=== PATIENT | male | born 1950 | race Caucasian/White ===

== ENCOUNTER 2018-07-13 05:27 | Outpatient (CLI) | payer MEDICARE, SELFPAY | END 2018-07-13 05:47 | LOC: PUL 10:19 → PRC 10:40 → RT 13:24 | PROVIDERS: PCP Family Medicine; Visit Provider Family Medicine | DX: J44.9 Chronic obstructive pulmonary disease, unspecified (principal); Z51.89 Encounter for other specified aftercare | CPT/HCPCS: G0424 ==

== ENCOUNTER 2018-07-13 13:17 | Outpatient (RCR) | payer MEDICARE, SELFPAY | END 2018-08-11 23:59 | disposition home or self-care (01) | LOC: PUL 13:17 | PROVIDERS: PCP Family Medicine; Visit Provider Family Medicine | DX: J44.9 Chronic obstructive pulmonary disease, unspecified (principal); Z51.89 Encounter for other specified aftercare | CPT/HCPCS: G0424 ==

== ENCOUNTER 2018-09-09 10:06 | Outpatient (RCR) | payer MEDICARE, SELFPAY | END 2018-10-09 23:59 | disposition home or self-care (01) | LOC: PUL 10:06 | PROVIDERS: PCP Family Medicine; Visit Provider Family Medicine | DX: J44.9 Chronic obstructive pulmonary disease, unspecified (principal); Z51.89 Encounter for other specified aftercare | CPT/HCPCS: G0424 ==

== ENCOUNTER 2018-09-10 15:19 | Outpatient (RCR) | payer MEDICARE, SELFPAY | END 2018-10-09 23:59 | disposition home or self-care (01) | LOC: COCO 15:19 | PROVIDERS: PCP Family Medicine; Visit Provider Family Medicine | DX: J44.9 Chronic obstructive pulmonary disease, unspecified (principal); Z51.89 Encounter for other specified aftercare | CPT/HCPCS: G0424 ==

== ENCOUNTER 2018-10-10 05:47 | Outpatient (RCR) | payer MEDICARE, SELFPAY | END 2018-11-08 23:59 | disposition home or self-care (01) | LOC: PUL 05:47 | PROVIDERS: PCP Family Medicine; Visit Provider Family Medicine | DX: J44.9 Chronic obstructive pulmonary disease, unspecified (principal) | CPT/HCPCS: G0424 ==

== ENCOUNTER 2018-11-09 04:37 | Outpatient (RCR) | payer MEDICARE, SELFPAY | END 2018-12-09 23:59 | disposition home or self-care (01) | LOC: PUL 04:37 | PROVIDERS: PCP Family Medicine; Visit Provider Family Medicine | DX: J44.9 Chronic obstructive pulmonary disease, unspecified (principal); Z51.89 Encounter for other specified aftercare | CPT/HCPCS: G0424 ==

== ENCOUNTER 2019-04-11 01:40 | Outpatient (CLI) | payer MEDICARE, SELFPAY ==
[2019-04-11 10:52] LABS: Anion Gap 9.7 mmol/L (3-11); BUN 26 mg/dL (7-18); CO2 26.3 mmol/L (21.0-32.0); CREATININE 1.76 mg/dL (0.70-1.30); Calcium 9.1 mg/dL (8.5-10.1); Calculated LDL 100 mg/dL; Chloride 105 mmol/L (98-107); Cholesterol 157 mg/dL (50-200); Estimated GFR 38.36 (mL/min/1.73m2); Glucose 103 mg/dL (70-100); HDL Cholesterol 43 mg/dL (40-60); Sodium 141 mmol/L (136-145); Triglyceride 74 mg/dL (30-150)
== END 2019-04-11 02:00 ==
PROVIDERS: PCP Family Medicine; Visit Provider Family Medicine
DX: E78.5 Hyperlipidemia, unspecified (principal); I10 Essential (primary) hypertension
CPT/HCPCS: 36415; 80048; 80061

== ENCOUNTER 2019-05-08 14:17 | Emergency (ER) | payer MEDICARE, SELFPAY ==
[2019-05-08 14:20] VITALS: BP 152/91; PULSE 90; RESP 20; TEMP 36.8; O2SAT 95
--- NOTE | 2019-05-08 14:40 | ED.GENADUL_ITS ---
Discharge Plan Disposition Patient Disposition: HOME Condition: Stable Discharge Details Chief Complaint: Orthopedic Clinical Impression: Shoulder pain Primary Care Provider: Manjit Guillory ED Provider: Torie Mays Home Meds and New Rx's Prescriptions: Continued aspirin [Ecotrin Low Strength] 81 MG tablet,delayed release (DR/EC) 81 mg PO DAILY RF: 0 ascorbic acid (vitamin C) [Vitamin C] 500 MG tablet 500 mg PO DAILY RF: 0 docusate sodium [Colace] 100 MG capsule 100 mg PO DAILY RF: 0 multivitamin with iron [One Daily Plus Iron] 1 EACH tablet 1 ea PO DAILY RF: 0 cholecalciferol (vitamin D3) 1,000 UNIT tablet 1,000 unit PO DAILY RF: 0 Fish Oil 1 EACH capsule 1 ea PO BID RF: 0 MISTERNEB NEBULIZER 1 EACH kit 1 ea Miscellaneous PRN PRNQty: 1 RF: 1 guaifenesin [Mucinex] 600 MG tablet extended release 12hr 1,200 mg PO q12 hr RF: 0 neti pot 1 NS BID PRN RF: 0 Symbicort 10.2 GM HFA aerosol inhaler 2 puff Inhalation BID Qty: 3 RF: 4 ipratropium-albuterol [DuoNeb] 3 ML solution for nebulization 1 amp Inhalation QID PRN Qty: 200 RF: 6 atorvastatin 20 MG tablet 20 mg PO DAILY Qty: 90 RF: 4 omeprazole 40 MG capsule,delayed release(DR/EC) 40 mg PO DAILY Qty: 90 RF: 4 albuterol sulfate [Proventil HFA] 6.7 GM HFA aerosol inhaler 2 puff Inhalation Q4H PRN Qty: 3 RF: 4 bupropion HCl [Wellbutrin XL] 300 MG tablet extended release 24 hr 300 mg PO DAILY Qty: 90 RF: 4 hydrochlorothiazide 25 MG tablet 25 mg PO DAILY Qty: 90 RF: 3 amlodipine 5 MG tablet 5 mg PO DAILY Qty: 90 RF: 3 Spiriva Respimat 4 GM mist 2 puff Inhalation DAILY RF: 0 montelukast 10 MG tablet 10 mg PO DAILY RF: 0 Discharge Instructions Instructions: Shoulder Pain (ED) Additional Instructions: Please continue to make small circular motions with your shoulder as we discussed to prevent stiffening of the shoulder joint, even while using the sling. Please return immediately to the emergency department if you develop any new or worsening symptoms or if you become otherwise concerned. It is extremely important that you call as soon as possible to make an appointment to be seen in follow-up for this visit by her primary care doctor and also by an orthopedic surgeon. Referrals: Juancarlos Barron MD [ [facility] STAFF PHYSICIAN] - Manjit Guillory [Primary Care Provider] - Discharge Data Discharge Date/Time-TO BE ENTERED AT DEPARTURE: 05/08/19 16:23 Medical Decision Making Jasen Poole is a 69 y/o man with history of renal cancer status post nephrectomy 5 years ago now in remission, hyperlipidemia, hypertension, COPD who presented to the emergency department with left-sided shoulder pain, sudden onset last night while at rest without inciting factors, worse with ranging the joint, otherwise asymptomatic. On exam patient is very well and nontoxic appearing. There is mild tenderness to palpation over the anterior aspect of the shoulder joint, no tenderness of the clavicle or scapula, no tenderness over the midshaft humerus. No edema of the left upper extremity, motor exam of the deltoid/biceps/triceps/consumer lender 5 out of 5 bilaterally. Radial pulses intact and symmetric. No overlying skin changes. Normal range of motion of the shoulder, though abduction greater than 60 degrees or so does elicit pain. Concern for likely soft tissue etiology of pain. Plan for screening x-rays. Exam/history is not consistent with septic joint, nonmusculoskeletal etiology such as ACS, DVT, HOSTESS pathology, or other acute emergent life/limb threatening process. X-ray shows no acute process. Plan for sling. I had a lengthy discussion with the patient regarding continuing to range the shoulder to prevent stiffening of the joint and other home care, return to emergency department precautions, and importance of outpatient follow-up. Patient verbalized understanding plan was amenable. All questions were answered. Patient was discharged home with clear plan for outpatient follow-up, and was placed on list for orthopedic follow-up. Medical Records Medical records reviewed: Yes I reviewed the patient's medical records. Imaging Data Radiologic Study: Attestation: I personally reviewed and interpreted this imaging study as follows: Radiologist's impression: EXAM: XR SHOULDER LT COMPLETE 2+V INDICATION: shoulder pain. COMPARISON: CHEST 2 VIEWS PA,LAT from 03/26/2015 TECHNIQUE: 2D digital imaging was performed. FINDINGS: No acute fracture or dislocation is present. Mild degenerative changes are present at the acromioclavicular joint. There has been no change in the coarse calcification centrally in the proximal metaphysis of the left humerus since 03/26/2015. This likely reflects a benign lesion such as an enchondroma. The soft tissues are unremarkable. IMPRESSION: No acute abnormality. HPI General Mode of arrival: ambulatory . Date/Time Provider Initiated Documentation: 05/08/19 14:22 . Limitations to Documentation: no limitations . Information obtained by: patient, RN notes reviewed and old records reviewed . HPI Narrative: Jasen Poole is a 69 y/o man with history of renal cancer status post nephrectomy 5 years ago now in remission, hyperlipidemia, hypertension, COPD presenting to the emergency department with shoulder pain. Patient reports that last night when he was watching TV he noticed that his left shoulder was hurting. He reports that when he woke up this morning pain seemed to have worsened. Patient reports that pain is mild until he tries to move the shoulder, when it becomes more severe. He is, however, able to range the shoulder. He denies any other new pain or symptoms: Denies fever, shortness of breath, cough, rash, numbness, weakness, vomiting, diarrhea. Feels otherwise well in his usual state of health. No known trauma, no known inciting event. Has not had similar symptoms in the past. Related Data Home Medications Medication Instructions Recorded Confirmed aspirin [Ecotrin Low Strength] 81 mg PO DAILY tab-cap 11/22/12 05/08/19 Fish Oil 1 ea PO BID 03/16/13 05/08/19 ascorbic acid (vitamin C) [Vitamin 500 mg PO DAILY 03/16/13 05/08/19 C] cholecalciferol (vitamin D3) 1,000 unit PO DAILY 03/16/13 05/08/19 docusate sodium [Colace] 100 mg PO DAILY tab-cap 03/16/13 05/08/19 multivitamin with iron [One Daily 1 ea PO DAILY 03/16/13 05/08/19 Plus Iron] Neti Pot 1 NS BID PRN 08/29/13 04/19/19 guaifenesin [Mucinex] 1,200 mg PO q12 hr tab-cap 08/29/13 05/08/19 Symbicort 2 puff INHALATION BID #3 inhaler 10/10/13 05/08/19 ipratropium-albuterol [DuoNeb] 1 amp INHALATION QID PRN #200 amp 04/19/14 05/08/19 albuterol sulfate [Proventil HFA] 2 puff INHALATION Q4H PRN #3 07/25/15 05/08/19 inhaler atorvastatin 20 mg PO DAILY #90 tab-cap 07/25/15 05/08/19 bupropion HCl [Wellbutrin XL] 300 mg PO DAILY #90 tab-cap 07/25/15 05/08/19 omeprazole 40 mg PO DAILY #90 tab-cap 07/25/15 05/08/19 hydrochlorothiazide 25 mg PO DAILY #90 tab 01/31/16 05/08/19 amlodipine 5 mg PO DAILY #90 tab-cap 03/24/16 05/08/19 Spiriva Respimat 2 puff INHALATION DAILY 10/21/16 05/08/19 montelukast 10 mg PO DAILY tab-cap 11/17/17 05/08/19 Allergies Allergy/AdvReac Type Severity Reaction Status Date / Time lisinopril AdvReac Intermediate COUGH Unverified 05/08/19 14:37 General Stated Complaint: Orthopedic PETERSON: 3 Review of Systems Narrative: Constitutional: denies fevers Eyes: denies eye pain ENT: denies facial pain, dental pain, sore throat Cardiovascular: denies chest pain, edema Respiratory: denies SOB, cough GI: denies abdominal pain, vomiting, diarrhea : denies flank pain MSK: denies back pain, neck pain, myalgias, reports left shoulder pain and denies any other joint pain Skin: denies rash Neuro: denies headaches, numbness, weakness PFSH Medical History COPD (chronic obstructive pulmonary disease) GERD (gastroesophageal reflux disease) HTN (hypertension) Tubular adenoma Surgical History (Updated 04/12/19 @ 12:54 by Hayder Mejia) Cholecystectomy Circumcision Colonoscopy - MAC (06/29/17) 04/2014 EGD - MAC (04/23/14) EGD - MAC (06/29/17) Hemorrhoidal Banding Linda Fundoplication (03/07/12) Family History Mother Essential hypertension Cancer of kidney Father No problems noted. Sister Lung cancer Sister Lung cancer Brother Lung cancer Brother Lung cancer Brother Lung cancer Grandfather No problems noted. Grandfather No problems noted. Grandmother No problems noted. Grandmother No problems noted. Sister No problems noted. Brother Heart disease Brother No problems noted. Son No problems noted. Daughter No problems noted. Daughter No problems noted. Social History Smoking/Tobacco Use Status: Former Tobacco Use Alcohol Intake: never Drug use: Never Do you feel safe at home: Yes Do you feel safe in your relationship?: Yes Exam Narrative Exam Narrative: Constitutional: well and [id number], pleasant, conversing normally HENT: head atraumatic/normocephalic/normal inspection, mucous membranes moist Eyes: conjunctiva normal, sclera normal, pupils 3mm b/l Neck: no stridor, normal ROM, trachea midline Chest: normal inspection Resp: normal work of breathing, LCTAB Cardio: normal rate, normal rhythm, no murmur appreciated Back: normal inspection, no rash Skin: warm, dry, normal color, no rash Neuro: alert, not altered, grossly non-focal, normal tone Ext: no edema of the upper or lower extremities, mild tenderness to palpation over the anterior aspect of the left shoulder joint, no tenderness of the clavicle or scapula, no tenderness over the midshaft humerus. motor exam of the deltoid/biceps/triceps/consumer lender 5 out of 5 bilaterally. Radial pulses intact and symmetric. No overlying skin changes. Normal range of motion of the left shoulder, though abduction greater than 60 degrees or so does elicit pain. Normal inspection of the right shoulder, full painless range of motion of the right shoulder. Psych: normal mood, normal affect, normal behavior Course Vital Signs Vital signs: Vital Signs Temperature 36.8 C 05/08/19 14:20 Pulse 90 05/08/19 14:20 Respiratory Rate 20 05/08/19 14:20 Blood Pressure 152/91 H 05/08/19 14:20 Pulse Oximetry 95 05/08/19 14:20 Temperature 36.8 C 05/08/19 14:20 Temperature Source Skin 05/08/19 14:20 Pulse 90 05/08/19 14:20 Respiratory Rate 20 05/08/19 14:20 Respiratory Effort 05/08/19 14:35 Blood Pressure 152/91 H 05/08/19 14:20 Pulse Oximetry 95 05/08/19 14:20 Oxygen Delivery Method Room Air 05/08/19 14:20 Oxygen Flow Rate 0 05/08/19 14:20 Pain Level 6 05/08/19 14:20 Comment denies chest pain or dyspnea 05/08/19 14:20
--- NOTE | 2019-05-08 14:47 | DI.RAD_ITS ---
EXAM: XR SHOULDER LT COMPLETE 2+V INDICATION: shoulder pain. COMPARISON: CHEST 2 VIEWS PA,LAT from 03/26/2015 TECHNIQUE: 2D digital imaging was performed. FINDINGS: No acute fracture or dislocation is present. Mild degenerative changes are present at the acromiocla vicular joint. There has been no change in the coarse calcification centrally in the proximal metaph ysis of the left humerus since 03/26/2015. This likely reflects a benign lesion such as an enchondro ma. The soft tissues are unremarkable. IMPRESSION: No acute abnormality.
[2019-05-08 15:58] VITALS: PULSE 87; RESP 17
[2019-05-08 16:00] VITALS: PULSE 87; RESP 22; O2SAT 96
[2019-05-08 16:10] VITALS: PULSE 82; RESP 15; O2SAT 96
== END 2019-05-08 16:23 | disposition home or self-care (01) ==
PROVIDERS: Emergency Provider Student in an Organized Health Care Education/Training Program; PCP Family Medicine
DX: M25.512 Pain in left shoulder (principal); J44.9 Chronic obstructive pulmonary disease, unspecified; I10 Essential (primary) hypertension; Z87.891 Personal history of nicotine dependence
CPT/HCPCS: 99283; 73030; 99282; L3650

== ENCOUNTER 2020-10-16 06:05 | Inpatient (IN) | payer MEDICARE, SELFPAY ==
[2020-10-16] VITALS (106 sets, daily range): BP systolic 96–208; BP diastolic 51–172; PULSE 72–187; RESP 4–37; TEMP 36.5–36.6; O2SAT 73–100
--- NOTE | 2020-10-16 06:00 | DI.RAD_ITS ---
EXAM: XR PORTABLE CHEST AP CLINICAL HISTORY: shortness of breath TECHNIQUE: 2D digital imaging was performed. COMPARISON: CR CHEST 2 VIEWS PA,LAT from 03/26/2015 CR CHEST 2 VIEWS PA,LAT from 03/26/2015 FINDINGS: LUNGS: Severe underlying emphysematous changes. A pneumothorax is visible in the right upper lobe. Increased densities are seen at the right lung base. There is a stable nodule in the right lower lob e. Heart size is normal. No infiltrate or effusion is seen. No rib fracture is visible. IMPRESSION: Right pneumothorax. Increased densities in the right lung base could represent atelectasis versus ne w mass. DATA REPOSITORY: RADIATION DOSE DELIVERED:
--- NOTE | 2020-10-16 06:00 | RT.EKG_ITS ---
APPROVED REPORT Exam: Resting ECG Patient Location: E HR:121 bpm ECG Measurements Heart Rate 121 AXIS [place] 186 P 84 QRSd 96 QRS 87 QT 334 T 58 QTc 474 Conclusion Sinus tachycardia...rate> 99 Multiform ventricular premature complexes...short R-R, variable morphology Right ventricular hypertrophy...prominent R or R' w/ RAD or MARTHA artifact in v4-v5
[2020-10-16] MEDS: methylPREDNISolone SUCC 125 MG VIAL (06:10)
--- NOTE | 2020-10-16 06:13 | W.ED.GENAD ---
Discharge Plan Disposition Patient Disposition: [facility] INPATIENT Condition: Serious Discharge Details Clinical Impression: Pneumothorax, Acute exacerbation of chronic obstructive pulmonary disease Admit Date/Time: 10/16/20 10:01 Admit Provider: Winter Frias Attending Provider: Winter Frias Primary Care Provider: Manjit Guillory. 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 When ems was arrived he was tacypneic and only able to briefly intermittently say 1 word at a time but was alert and he was noted to have a room air saturation of 51% per ems. They started him on bipap gave albuterol and on arrival he is now speaking in 2-3 word sentences. He is still tachypneic with tripod position. States this started suddenly and has slowly worsened this morning, felt fine all day yesterday and denies fevers, chills, chest pain. He has diminished breath sounds at the bases bilaterally with apical wheezing bilaterally. No pericardial effusion on bedside u/s with what appears to be normal ef on bedside u/s and collapsing rv. No abdominal tenderness or leg swelling. Suspect likely copd exacerbation given his history and exam findings, will try to stablitize with nebulizers, bipap, and magnesium as well as steroids and also start antibiotics given severity of presentation. He has no chest pain but will obtain ecg and troponin. No evidence of dvt but PE could also be a cause for his symptoms, once he is more stable respiratory alvarado will consider cta if renal function allows. He tells me that he is full code as well. pt has ph under 7.2, on reassessment is tolerating bipap well and appears less in distress and is now able to speak in 4-5 word sentences, do not feel he requires intubation at present time, will continue to monitor closely pt's labs show mild leukocytosis, gfr 39 which seems at his baseline. He continues to tolerate bipap with normal mental status, still speaking in4-5 word sentences at this time. Given his symptoms seem to have started acutely this morning and xray showing potential for possible new pulmonary mass in right lower lung feel he requires CTA for PE. Once he is more stable and gets more nebulizers for his copd and can tolerate laying flat will obtain cta pt will be signed out to oncoming provider pending cta, reassessment after medical treatment for copd and dispo Differential Diagnosis Differential Diagnosis: copd, pneumonia, chf, covid, acs, PE Medical Records Medical records reviewed: Yes I reviewed the patient's medical records. Imaging Data Radiologic Study: Attestation: I personally reviewed and interpreted this imaging study as follows: Imaging: X-Ray Radiologist's impression: IMPRESSION: 1. Prominent pulmonary emphysema and fibrosis. 2. There is a new 6 cm triangular opacity in the right base just above the right hemidiaphragm. A CT scan of the chest is advised to evaluate the possibility of a new pulmonary mass. 3. A pulmonary nodule that was seen in the right base on 03/26/2015 is faintly visible over the right 9th rib. ECG Data Attestation: I personally reviewed and interpreted this ECG (s) as follows: Prior ECG tracings: not available for review Interpretation: sinus tachycardia rate of 121, pr 186, st depressions which could be rate related in anterior leads, artifact from motion per nursing in v4-v5 <Sravani Soto DO - Last Filed: 10/16/20 13:18> 0800 --please see Dr. Mack's note for initial presentation, exam and plan. Case endorsed with potential need for intubation for suspected COPD exacerbation. Oxygen saturation 50s per EMS, increased to 95 on BiPAP. Upon my initial assessment, O2 sat 96% on BiPAP. Patient has received 1 DuoNeb and 7.5 mg albuterol, IV Solu-Medrol, IV Zosyn and 500 mL saline bolus. Patient has significant work of breathing with diminished breath sounds and wheezing throughout. ABG notes a pH of 7.1, PCO2 91, PO2 108. Per nurse, patient is more sleepy after the Ativan. He has been awake and alert and speaking in broken sentences which has improved since arrival. He is able to follow commands for me. Review of chest x-ray notes right lower lobe mass so a CT chest ordered. I am seeing a possible pneumothorax on cxr but read as negative per vrad. GFR [address] chest. Rapid Covid negative. We will give another 7.5 mg albuterol with continued low threshold for intubation. Will continue BiPAP for now. 0820 --after return from CT, oxygen saturation 99% on BiPAP. We will continue to titrate down O2. Patient's work of breathing appears to have improved. He is still following commands. CT chest notes a right-sided pneumothorax. No PE and right lower lung mass not significantly changed from prior imaging. Pt taken off bipap and placed on nonrebreather. Discussed with Dr. Funez regarding choice of site of chest tube placement as Dr. Cerna prefers 2nd IC space and I generally use 4th IC space mid axillary line. A pigtail chest tube was placed in the right anterior axillary line second intercostal space. Patient's work of breathing significantly improved. Portable chest x-ray ordered notes reexpansion of lung. 0900 --patient continuing to do well. Discussed with hospitalist who accepts patient for admission for COPD exacerbation/pneumothorax for nebs and steroids. Surgery will follow patient for chest tube management. Patient weaned down to nasal cannula just prior to transfer to the ICU and doing well. Medical Records Medical records reviewed: Yes I reviewed the patient's medical records. Imaging Data Radiologic Study: Radiologist's impression: XR PORTABLE CHEST AP CLINICAL HISTORY: s/p pigtail chest tube, assess placement TECHNIQUE: 2D digital imaging was performed. COMPARISON: CT CT CHEST PE CTA from 10/16/2020 FINDINGS: A right-sided chest tube has been inserted with the pigtail at the right apex. There has been re-expansion of the previously noted pneumothorax. Right lower lobe nodule is again noted. There has been improvement in the previously noted right basilar densities, consistent with lung re-expansion. Underlying emphysematous and fibrotic changes are again noted. IMPRESSION: No residual pneumothorax is visible status post placement of right chest tube. CT CHEST PE CTA CLINICAL HISTORY: shortness of breath. TECHNIQUE: Imaging Protocol: Axial CT angiography was performed with multi-slice acquisition and multi-planar and/or 3D reconstructions. CONTRAST MATERIAL: Intravenous: Omnipaque 350 Contrast volume:100 cc COMPARISON: CT CHEST WITH CONTRAST from 07/24/2011 CT RENAL COLIC WO CONTRAST from 11/25/2012 CT RENAL COLIC WO CONTRAST from 11/25/2012 CR,XR XR PORTABLE CHEST AP from 10/16/2020 CR,XR XR PORTABLE CHEST AP from 10/16/2020 FINDINGS: Exam is limited by patient motion. Pulmonary Arteries: No evidence of filling defect to suggest pulmonary emboli. Tracheobronchial tree: Patent where visualized. Mediastinum and Louise: No dominant adenopathy or fluid collection. Pulmonary parenchyma: Severe underlying emphysematous changes. Stable low-density right lower lobe mass. Pleura: Moderate to large right pneumothorax. Heart: The heart is not dilated. No coronary artery calcifications are seen. Thoracic aorta: Thoracic aorta non-dilated. Mild calcification. Upper abdomen: Status post right nephrectomy. Left renal cyst. 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 Stable heterogeneous liver perfusion. The upper abdomen is not well evaluated due to significant motion. Atherosclerotic changes are seen in the abdominal aorta. Bones: Stable mild mid thoracic compression fractures and upper thoracic scoliosis. No gross rib fractures. IMPRESSION: Moderate to large right pneumothorax. Underlying severe emphysematous changes. No evidence of pulmonary embolism. Lab Data Lab results reviewed: Yes I reviewed the patient's lab results. Labs: 10/16/20 06:18 Blood Blood Culture - Pending 10/16/20 06:10 Blood Blood Culture - Pending Laboratory Tests Range/Units 10/16/20 10/16/20 10/16/20 06:10 06:10 06:10 WBC (4.4-10.8) 10^3/uL RBC (4.36-5.78) 10^6/uL Hgb (13.5-17.5) g/dL Hct (40.0-50.0) % MCV (80-95) fL MCH (27.0-33.0) pg MCHC (32.0-36.0) % RDW (11.8-14.1) % Plt Count (130-400) 10^3/uL MPV (8.0-11.0) fL Immature Gran % Neutrophils % Lymphocytes % Monocytes % Eosinophils % Basophils % Nucleated RBC % % Absolute Neutrophils (1.2-6.7) 10^3/uL Absolute Lymphocytes (1.2-3.4) 10^3/uL Absolute Monocytes (0.1-0.8) 10^3/uL Absolute Eosinophils (0.0-0.7) 10^3/uL Absolute Basophils (0.0-0.2) 10^3/uL PT (9.3-11.0) sec INR (0.9-1.1) APTT (21.0-27.5) sec ABG Sample Site ABG pH (7.35-7.45) ABG pCO2 (35-45) mmHg ABG pO2 (80-105) mmHg ABG HCO3 (22-26) mmol/L ABG Total CO2 (23-27) mmol/L ABG O2 Saturation (95-98) % ABG Base Excess (-2-3) mmol/L VBG pH (7.31-7.41) 7.17 L* VBG pCO2 (41-51) mmHg 79 H* VBG pO2 mmHg 48 VBG HCO3 (23-28) mmol/L 29 H VBG Total CO2 (24-29) mmol/L 27 VBG O2 Saturation % 73 VBG Base Excess (-2-3) mmol/L 1 VBG Lactate (0.6-1.4) mmol/L 1.9 H Oxygen Liter Flow L FiO2 % Sodium (136-145) mmol/L 140 Potassium (3.5-5.1) mmol/L 4.6 Chloride (98-107) mmol/L 104 Carbon Dioxide (21.0-32.0) mmol/L 29.2 Anion Gap (3-11) mmol/L 6.8 BUN (7-18) mg/dL 30 H Creatinine (0.70-1.30) mg/dL 1.7 H Estimated GFR/1.73 m2 (mL/min/1.73m2) 39.82 Glucose (74-106) mg/dL 207 H Calcium (8.5-10.1) mg/dL 8.9 Magnesium (1.8-2.4) mg/dL 2.0 Total Bilirubin (0.2-1.0) mg/dL 0.5 AST (15-37) U/L 27 ALT (16-63) U/L 33 Alkaline Phosphatase (46-116) U/L 120 H Troponin I (<0.06) ng/mL < 0.05 NT-Pro-B Natriuret Pep (<300) pg/mL 33 Total Protein (6.4-8.2) g/dL 7.4 Albumin (3.4-5.0) g/dL 3.4 TSH (0.36-3.74) uIU/mL Free T4 (0.76-1.46) ng/dL COVID-19 Source SARS-CoV-2 (PCR) (Negative) Range/Units 10/16/20 10/16/20 10/16/20 06:10 06:10 06:10 WBC (4.4-10.8) 10^3/uL 14.53 H RBC (4.36-5.78) 10^6/uL 5.36 Hgb (13.5-17.5) g/dL 14.4 Hct (40.0-50.0) % 46.5 MCV (80-95) fL 86.8 MCH (27.0-33.0) pg 26.9 L MCHC (32.0-36.0) % 31.0 L RDW (11.8-14.1) % 13.9 Plt Count (130-400) 10^3/uL 328 MPV (8.0-11.0) fL 9.5 Immature Gran % 0.5 Neutrophils % 62.0 Lymphocytes % 26.4 Monocytes % 7.5 Eosinophils % 3.0 Basophils % 0.6 Nucleated RBC % % 0 Absolute Neutrophils (1.2-6.7) 10^3/uL 9.01 H Absolute Lymphocytes (1.2-3.4) 10^3/uL 3.84 H Absolute Monocytes (0.1-0.8) 10^3/uL 1.09 H Absolute Eosinophils (0.0-0.7) 10^3/uL 0.44 Absolute Basophils (0.0-0.2) 10^3/uL 0.09 PT (9.3-11.0) sec 10.8 INR (0.9-1.1) 1.1 APTT (21.0-27.5) sec 23.5 ABG Sample Site ABG pH (7.35-7.45) ABG pCO2 (35-45) mmHg ABG pO2 (80-105) mmHg ABG HCO3 (22-26) mmol/L ABG Total CO2 (23-27) mmol/L ABG O2 Saturation (95-98) % ABG Base Excess (-2-3) mmol/L VBG pH (7.31-7.41) VBG pCO2 (41-51) mmHg VBG pO2 mmHg VBG HCO3 (23-28) mmol/L VBG Total CO2 (24-29) mmol/L VBG O2 Saturation % VBG Base Excess (-2-3) mmol/L VBG Lactate (0.6-1.4) mmol/L Oxygen Liter Flow L FiO2 % Sodium (136-145) mmol/L Potassium (3.5-5.1) mmol/L Chloride (98-107) mmol/L Carbon Dioxide (21.0-32.0) mmol/L Anion Gap (3-11) mmol/L BUN (7-18) mg/dL Creatinine (0.70-1.30) mg/dL Estimated GFR/1.73 m2 (mL/min/1.73m2) Glucose (74-106) mg/dL Calcium (8.5-10.1) mg/dL Magnesium (1.8-2.4) mg/dL Total Bilirubin (0.2-1.0) mg/dL AST (15-37) U/L ALT (16-63) U/L Alkaline Phosphatase (46-116) U/L Troponin I (<0.06) ng/mL NT-Pro-B Natriuret Pep (<300) pg/mL Total Protein (6.4-8.2) g/dL Albumin (3.4-5.0) g/dL TSH (0.36-3.74) uIU/mL 6.17 H Free T4 (0.76-1.46) ng/dL 1.00 COVID-19 Source SARS-CoV-2 (PCR) (Negative) Range/Units 10/16/20 10/16/20 10/16/20 06:43 07:43 09:27 WBC (4.4-10.8) 10^3/uL RBC (4.36-5.78) 10^6/uL Hgb (13.5-17.5) g/dL Hct (40.0-50.0) % MCV (80-95) fL MCH (27.0-33.0) pg MCHC (32.0-36.0) % RDW (11.8-14.1) % Plt Count (130-400) 10^3/uL MPV (8.0-11.0) fL Immature Gran % Neutrophils % Lymphocytes % Monocytes % Eosinophils % Basophils % Nucleated RBC % % Absolute Neutrophils (1.2-6.7) 10^3/uL Absolute Lymphocytes (1.2-3.4) 10^3/uL Absolute Monocytes (0.1-0.8) 10^3/uL Absolute Eosinophils (0.0-0.7) 10^3/uL Absolute Basophils (0.0-0.2) 10^3/uL PT (9.3-11.0) sec INR (0.9-1.1) APTT (21.0-27.5) sec ABG Sample Site Left radial Left radial ABG pH (7.35-7.45) 7.10 L* 7.24 L ABG pCO2 (35-45) mmHg 91 H* 62 H* ABG pO2 (80-105) mmHg 108 H 104 ABG HCO3 (22-26) mmol/L 28 H 27 H ABG Total CO2 (23-27) mmol/L 27 25 ABG O2 Saturation (95-98) % 96 97 ABG Base Excess (-2-3) mmol/L -1 -1 VBG pH (7.31-7.41) VBG pCO2 (41-51) mmHg VBG pO2 mmHg VBG HCO3 (23-28) mmol/L VBG Total CO2 (24-29) mmol/L VBG O2 Saturation % VBG Base Excess (-2-3) mmol/L VBG Lactate (0.6-1.4) mmol/L Oxygen Liter Flow L Bipap 15/7 2 FiO2 % 50 Sodium (136-145) mmol/L Potassium (3.5-5.1) mmol/L Chloride (98-107) mmol/L Carbon Dioxide (21.0-32.0) mmol/L Anion Gap (3-11) mmol/L BUN (7-18) mg/dL Creatinine (0.70-1.30) mg/dL Estimated GFR/1.73 m2 (mL/min/1.73m2) Glucose (74-106) mg/dL Calcium (8.5-10.1) mg/dL Magnesium (1.8-2.4) mg/dL Total Bilirubin (0.2-1.0) mg/dL AST (15-37) U/L ALT (16-63) U/L Alkaline Phosphatase (46-116) U/L Troponin I (<0.06) ng/mL NT-Pro-B Natriuret Pep (<300) pg/mL Total Protein (6.4-8.2) g/dL Albumin (3.4-5.0) g/dL TSH (0.36-3.74) uIU/mL Free T4 (0.76-1.46) ng/dL COVID-19 Source Nasal/nares SARS-CoV-2 (PCR) (Negative) Negative Range/Units 10/16/20 09:45 WBC (4.4-10.8) 10^3/uL RBC (4.36-5.78) 10^6/uL Hgb (13.5-17.5) g/dL Hct (40.0-50.0) % MCV (80-95) fL MCH (27.0-33.0) pg MCHC (32.0-36.0) % RDW (11.8-14.1) % Plt Count (130-400) 10^3/uL MPV (8.0-11.0) fL Immature Gran % Neutrophils % Lymphocytes % Monocytes % Eosinophils % Basophils % Nucleated RBC % % Absolute Neutrophils (1.2-6.7) 10^3/uL Absolute Lymphocytes (1.2-3.4) 10^3/uL Absolute Monocytes (0.1-0.8) 10^3/uL Absolute Eosinophils (0.0-0.7) 10^3/uL Absolute Basophils (0.0-0.2) 10^3/uL PT (9.3-11.0) sec INR (0.9-1.1) APTT (21.0-27.5) sec ABG Sample Site ABG pH (7.35-7.45) ABG pCO2 (35-45) mmHg ABG pO2 (80-105) mmHg ABG HCO3 (22-26) mmol/L ABG Total CO2 (23-27) mmol/L ABG O2 Saturation (95-98) % ABG Base Excess (-2-3) mmol/L VBG pH (7.31-7.41) VBG pCO2 (41-51) mmHg VBG pO2 mmHg VBG HCO3 (23-28) mmol/L VBG Total CO2 (24-29) mmol/L VBG O2 Saturation % VBG Base Excess (-2-3) mmol/L VBG Lactate (0.6-1.4) mmol/L Oxygen Liter Flow L FiO2 % Sodium (136-145) mmol/L Potassium (3.5-5.1) mmol/L Chloride (98-107) mmol/L Carbon Dioxide (21.0-32.0) mmol/L Anion Gap (3-11) mmol/L BUN (7-18) mg/dL Creatinine (0.70-1.30) mg/dL Estimated GFR/1.73 m2 (mL/min/1.73m2) Glucose (74-106) mg/dL Calcium (8.5-10.1) mg/dL Magnesium (1.8-2.4) mg/dL Total Bilirubin (0.2-1.0) mg/dL AST (15-37) U/L ALT (16-63) U/L Alkaline Phosphatase (46-116) U/L Troponin I (<0.06) ng/mL < 0.05 NT-Pro-B Natriuret Pep (<300) pg/mL Total Protein (6.4-8.2) g/dL Albumin (3.4-5.0) g/dL TSH (0.36-3.74) uIU/mL Free T4 (0.76-1.46) ng/dL COVID-19 Source SARS-CoV-2 (PCR) (Negative) ECG Data Attestation: I personally reviewed and interpreted this ECG (s) as follows: Interpretation: Rate of 121, sinus, PVCs, RVH, no STEMI. MT 186. QRS 96. QTc 474. HPI <Francisco Mack MD - Last Filed: 10/16/20 07:13> General Mode of arrival: EMS. Date/Time Provider Initiated Documentation: 10/16/20 06:10. Limitations to Documentation: physical limitation (dyspnea). Information obtained by: patient and EMS. History of Present Illness 70 year old M presents to the emergency department with the chief complaint of shortness of breath, described as moderate and severe, Patient started experiencing this hour(s) (1) and it has been constant. No relieving factors improve symptom(s), No exacerbating factors reported . Patient did receive the following treatments prior to arrival, other (albuterol with ems) Related Data Home Medications Medication Instructions Recorded Confirmed aspirin [Ecotrin Low Strength] 81 mg PO DAILY tab-cap 11/22/12 10/16/20 Fish Oil 1 ea PO BID 03/16/13 10/16/20 ascorbic acid (vitamin C) [Vitamin 500 mg PO DAILY 03/16/13 10/16/20 C] cholecalciferol (vitamin D3) 1,000 unit PO DAILY 03/16/13 10/16/20 docusate sodium [Colace] 100 mg PO DAILY tab-cap 03/16/13 10/16/20 multivitamin with iron [One Daily 1 ea PO DAILY 03/16/13 10/16/20 Plus Iron] Neti Pot 1 NS BID PRN 08/29/13 02/09/20 guaifenesin [Mucinex] 1,200 mg PO q12 hr tab-cap 08/29/13 10/16/20 budesonide-formoterol [Symbicort] 2 puff INHALATION BID #3 inhaler 10/10/13 10/16/20 ipratropium-albuterol [DuoNeb] 1 amp INHALATION QID PRN #200 amp 04/19/14 10/16/20 albuterol sulfate [Proventil HFA] 2 puff INHALATION Q4H PRN #3 07/25/15 10/16/20 inhaler atorvastatin 20 mg PO DAILY #90 tab-cap 07/25/15 10/16/20 bupropion HCl [Wellbutrin XL] 300 mg PO DAILY #90 tab-cap 07/25/15 10/16/20 omeprazole 40 mg PO DAILY #90 tab-cap 07/25/15 10/16/20 hydrochlorothiazide 25 mg PO DAILY #90 tab 01/31/16 10/16/20 amlodipine 5 mg PO DAILY #90 tab-cap 03/24/16 10/16/20 Spiriva Respimat 2 puff INHALATION DAILY 10/21/16 10/16/20 montelukast 10 mg PO DAILY tab-cap 11/17/17 10/16/20 Allergies Allergy/AdvReac Type Severity Reaction Status Date / Time lisinopril AdvReac Intermediate COUGH Unverified 10/16/20 08:28 General PETERSON: 3 Review of Systems <Francisco Mack MD - Last Filed: 10/16/20 07:13> All systems reviewed & are unremarkable except as noted in HPI and below Constitutional Constitutional: Denies chills and Denies fever(s) Cardiovascular Cardiovascular: Denies chest pain Gastrointestinal Gastrointestinal: Denies abdominal pain, Denies nausea and Denies vomiting Psychiatric Psychiatric: Denies depression PFSH <Francisco Mack MD - Last Filed: 10/16/20 07:13> Medical History (Updated 10/16/20 @ 10:10 by Sravani Soto DO) COPD (chronic obstructive pulmonary disease) GERD (gastroesophageal reflux disease) HTN (hypertension) Tubular adenoma Surgical History (Updated 04/12/19 @ 12:54 by Hayder Mejia) Cholecystectomy Circumcision Colonoscopy - MAC (06/29/17) 04/2014 EGD - MAC (04/23/14) EGD - MAC (06/29/17) Hemorrhoidal Banding Linda Fundoplication (03/07/12) Family History Mother Essential hypertension Cancer of kidney Father No problems noted. Sister Lung cancer Sister Lung cancer Brother Lung cancer Brother Lung cancer Brother Lung cancer Grandfather No problems noted. Grandfather No problems noted. Grandmother No problems noted. Grandmother No problems noted. Sister No problems noted. Brother Heart disease Brother No problems noted. Son No problems noted. Daughter No problems noted. Daughter No problems noted. Social History Smoking/Tobacco Use Status: Former Tobacco Use Smoking risk assessment performed?: Yes Alcohol Intake: never Drug use: Never Do you feel safe at home: Yes Do you feel safe in your relationship?: Yes Exam <Francisco Mack MD - Last Filed: 10/16/20 07:13> Const General: ill appearing Orientation: alert [facility] Head: normal to inspection Ears: external ears normal General nose exam: external nose normal Mouth: moist mucous membranes Eyes General: appearance normal, both eyes and all related structures Neck Neck: normal visual inspection Resp Effort & Inspection: normal respiratory effort and able to speak in complete sentences Cardio Rate: tachycardic Skin General skin exam: no rashes or lesions noted Neuro General: patient alert and patient oriented x3 Extrem General: normal to inspection Psych Mental Status: mental status grossly normal <Sravani Soto DO - Last Filed: 10/16/20 13:18> Chest Tube Chest Tube 1: Chest Tube Location: anterior axillary line Chest Tube Prep: betadine prep and sterile dressing applied Local Anesthetic: Lidocaine 2% Amount of anesthesia used (mL): 8 Incision Made With: #11 blade Post Procedure: sutured to skin and sterile dressing applied Post Procedure CXR?: Yes Critical Care Time <Francisco Mack MD - Last Filed: 10/16/20 07:13> Critical Care Time Critical Care Time: Yes Total Critical Care Time: 60 (minutes) Attestation: time spent monitoring hemoydnamics, initiating bipap and frequent reassessments in patient with copd exacerbation with hypoxia and potential to deteriorate at any time. Sign Out <Francisco Mack MD - Last Filed: 10/16/20 07:13> Sign Out Data: Sign Out Comment: history of copd and sudden onset of shortness of breath this morning, improving with nebs, solumedrol and bipap and is alert and talking. Will need cta given acute onset of symptoms to evaluate for PE and also has evidence of right heart strain on ecg Last updated by Francisco Mack MD at 10/16/20 07:00
[2020-10-16] MEDS: Albuterol 2.5 MG/3 ML INH SOLN VIAL UPD ×3 (06:15→07:00)
[2020-10-16 06:21] LABS: Abs Immature Grans 0.07 10^3/uL (0.0-0.06); Absolute Monocyte Count 1.09 10^3/uL (0.1-0.8); Basophils % 0.6; HCT 46.5 % (40.0-50.0); HGB 14.4 g/dL (13.5-17.5); Immature Grans % 0.5; Lymphocytes % 26.4; MCH 26.9 pg (27.0-33.0); MCV 86.8 fL (80-95); MPV 9.5 fL (8.0-11.0); Monocytes % 7.5; Nucleated RBC 0 %; Platelet Count 328 10^3/uL (130-400); RBC 5.36 10^6/uL (4.36-5.78); RDW 13.9 % (11.8-14.1); RDW-SD 44.4 fL; WBC 14.53 10^3/uL (4.4-10.8)
[2020-10-16 06:22] LABS: Absolute Basophil Count 0.09 10^3/uL (0.0-0.2); Absolute Eosinophil Count 0.44 10^3/uL (0.0-0.7); Absolute Lymphocyte Count 3.84 10^3/uL (1.2-3.4); Absolute Neutrophil Count 9.01 10^3/uL (1.2-6.7)
[2020-10-16] MEDS: Albuterol/Ipratropium 3 ML UPD VIAL UPD ×3 (06:23→06:46)
[2020-10-16 06:24] LABS: BE (Venous) 1 mmol/L (-2-3); HCO3 (Venous) 29 mmol/L (23-28); O2 Sat (Venous) 73 %; TCO2 (Venous) 27 mmol/L (24-29); pO2 (Venous) 48 mmHg
[2020-10-16] MEDS: Albuterol 2.5 MG/3 ML INH SOLN VIAL (06:24)
[2020-10-16] MEDS: MAGNESIUM SULFATE 2 GM/50 ML BAG IVPB (06:25)
[2020-10-16] MEDS: PIPERACILLIN/TAZO 4.5 GM in Normal Saline 100 ML IVPB (06:26)
[2020-10-16 06:27] LABS: pCO2 (Venous) 79 mmHg (41-51); pH (Venous) 7.17 (7.31-7.41)
[2020-10-16 06:28] LABS: Lactate 1.9 mmol/L (0.6-1.4)
[2020-10-16] MEDS: Normal Saline 250 ML 500 ML IV (06:29)
[2020-10-16 06:38] LABS: INR 1.1 (0.9-1.1); PTT Activated 23.5 sec (21.0-27.5)
[2020-10-16 06:39] LABS: Prothrombin Time 10.8 sec (9.3-11.0)
[2020-10-16 06:44] LABS: ALT 33 U/L (16-63); AST 27 U/L (15-37); Albumin 3.4 g/dL (3.4-5.0); Alkaline Phosphatase 120 U/L (46-116); Anion Gap 6.8 mmol/L (3-11); BUN 30 mg/dL (7-18); Bilirubin, Total 0.5 mg/dL (0.2-1.0); CO2 29.2 mmol/L (21.0-32.0); CREATININE 1.7 mg/dL (0.70-1.30); Calcium 8.9 mg/dL (8.5-10.1); Chloride 104 mmol/L (98-107); Estimated GFR 39.82 (mL/min/1.73m2); Glucose 207 mg/dL (74-106); NT-proBNP 33 pg/mL (<300); Potassium 4.6 mmol/L (3.5-5.1); Sodium 140 mmol/L (136-145); Total Protein 7.4 g/dL (6.4-8.2)
[2020-10-16 06:45] LABS: TSH (W/Ref FT4) 6.17 uIU/mL (0.36-3.74); Troponin I < 0.05 ng/mL (<0.06)
--- NOTE | 2020-10-16 06:48 | NUR.NOTE ---
Nursing Note: Pt arrives to ED via EMS via ambulance reporting SOB started within hour of arrival and worse rapidly within 30 min of arrival. Hx COPD. EMS reports 57% room air, 85% on CPAP. Pt arrives attempts tripod holding onto railings sitting upright, barrel chest, intercostal muscles used, RRmid 30's. Pt reports no CP. Only able to speak in few word sentences. Tight lung sounds heard through out. Pt reporting he wants all life saving treatments performed to include CPR. GCS 15.
[2020-10-16 06:50] LABS: Source Nasal/Nares
--- NOTE | 2020-10-16 06:56 | NUR.NOTE ---
Nursing Note: HANDOFF REPORT TO ROD RAMIREZ BEDSIDE.
--- NOTE | 2020-10-16 07:00 | DI.CT_ITS ---
EXAM: CT CHEST PE CTA CLINICAL HISTORY: shortness of breath. TECHNIQUE: Imaging Protocol: Axial CT angiography was performed with multi-slice acquisition and mu lti-planar and/or 3D reconstructions. CONTRAST MATERIAL: Intravenous: Omnipaque 350 Contrast volume:100 cc COMPARISON: CT CHEST WITH CONTRAST from 07/24/2011 CT RENAL COLIC WO CONTRAST from 11/25/2012 CT RENAL COLIC WO CONTRAST from 11/25/2012 CR,XR XR PORTABLE CHEST AP from 10/16/2020 CR,XR XR PORTABLE CHEST AP from 10/16/2020 FINDINGS: Exam is limited by patient motion. Pulmonary Arteries: No evidence of filling defect to suggest pulmonary emboli. Tracheobronchial tree: Patent where visualized. Mediastinum and Louise: No dominant adenopathy or fluid collection. Pulmonary parenchyma: Severe underlying emphysematous changes. Stable low-density right lower lobe m ass. Pleura: Moderate to large right pneumothorax. Heart: The heart is not dilated. No coronary artery calcifications are seen. Thoracic aorta: Thoracic aorta non-dilated. Mild calcification. Upper abdomen: Status post right nephrectomy. Left renal cyst. 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 Stable heterogeneous liver perfusion. The upper abdomen is not well evaluated due t o significant motion. Atherosclerotic changes are seen in the abdominal aorta. Bones: Stable mild mid thoracic compression fractures and upper thoracic scoliosis. No gross rib fra ctures. IMPRESSION: Moderate to large right pneumothorax. Underlying severe emphysematous changes. No evidence of pulmo nary embolism. RADIATION DOSE DELIVERED: 477.84mGy.cm Total DLP DATA REPOSITORY: All CT scans at this facility are submitted to the National Radiology Data Registry (NRDR) Dose Index Registry (DIR) with the [employer] ([employer]). RADIATION OPTIMIZATION: All CT scans at this facility use at least one of these dose optimization te chniques: automated exposure control; mA and/or kV adjustment per patient size (includes targeted exa ms where dose is matched to clinical indication); or iterative reconstruction.
--- NOTE | 2020-10-16 07:07 | DI.VRAD_ITS ---
PROCEDURE INFORMATION: Exam: XR Chest Exam date and time: 10/16/2020 6:13 AM Age: 70 years old Clinical indication: Shortness of breath; Patient HX: SOB TECHNIQUE: Imaging protocol: XR of the chest. Views: 1 view. COMPARISON: 1. CT Thorax^CHEST W ROUTINE (Adult) 04/02/2015 2:26 PM 2. CR CHEST 2 VIEWS PA,LAT 03/26/2015 3:20:02 PM FINDINGS: Lungs: The lungs are overinflated indicating emphysema. There is bilateral interstitial pulmonary fibrosis. Pulmonary nodule overlies the lateral aspect of the right 9th rib. This was present on previous chest x-ray. There is a new 6 cm opacity in the right base just above the right hemidiaphragm. This could be a new pulmonary mass that has developed since previous examination. Further evaluation with a CT scan of the chest is advised. Pleural spaces: Unremarkable. No pleural effusion. No pneumothorax. Heart/Mediastinum: Unremarkable. No cardiomegaly. Bones/joints: Unremarkable. IMPRESSION: 1. Prominent pulmonary emphysema and fibrosis. 2. There is a new 6 cm triangular opacity in the right base just above the right hemidiaphragm. A CT scan of the chest is advised to evaluate the possibility of a new pulmonary mass. 3. A pulmonary nodule that was seen in the right base on 03/26/2015 is faintly visible over the right 9th rib. Dictated and Authenticated by: Mason Davis MD. Ordering:CHARLES Singh MD
[2020-10-16] MEDS: LORazepam 2 MG/ML VIAL 0.5 MG IVP (07:15)
--- NOTE | 2020-10-16 07:28 | RESPIRATORY ---
Rt called to patient coming in by Mattishawna Chairez on CPAP rescue who was sat 57% on RA. Patient placed on Bipap setting 12/6 FiO2 100% and Albuterol treatments given. Patient given three albuterol and one duoneb treatment. Setting increased for patient comfort as stated wasn't getting enough flow and could breathe. FiO2 decreased per SpO2 from 100% to 65% Continous Albuterol order for patient and started once Todd arrived to take over patient care. Settings at hand off were: 15/7 FiO2 65% Large Mask. Todd in room with patient and stated Daniela all set to leave.
[2020-10-16 07:35] LABS: COVID-19 PCR Negative (Negative)
[2020-10-16] MEDS: Normal Saline 1,000 ML 125 ML IV (07:40)
[2020-10-16 07:49] LABS: BE -1 mmol/L (-2-3); HCO3 28 mmol/L (22-26); pO2 108 mmHg (80-105); sO2 96 % (95-98); tCO2 27 mmol/L (23-27)
[2020-10-16] MEDS: Albuterol 2.5 MG/3 ML INH SOLN VIAL 7.5 MG UPD (07:50)
[2020-10-16 07:55] LABS: FIO2 50 %; Site Left Radial; pCO2 91 mmHg (35-45)
[2020-10-16] MEDS: Omnipaque 350 MG/ML 100 ML BTL IJ (08:19)
[2020-10-16] MEDS: Normal Saline - Diluent 50 ML VIAL IV (08:19)
--- NOTE | 2020-10-16 09:06 | DI.VRAD_ITS ---
Addendum created by Mason Davis MD on 10/16/2020 9:09:15 AM EDT: THIS REPORT CONTAINS FINDINGS THAT MAY BE CRITICAL TO PATIENT CARE. The findings were verbally communicated via telephone conference with Shruthi Hart at 9:08 AM EDT on 10/16/2020. The findings were acknowledged and understood. Initial report created on 10/16/2020 9:06:25 AM EDT: PROCEDURE INFORMATION: Exam: CTA Chest With Contrast Exam date and time: 10/16/2020 8:18 AM Age: 70 years old Clinical indication: Shortness of breath; Patient HX: PT unable to hold breath TECHNIQUE: Imaging protocol: Computed tomographic angiography of the chest with contrast. 3D rendering (Not supervised by radiologist): MIP and/or 3D reconstructed images were created by the technologist. COMPARISON: CT Thorax^CHEST W ROUTINE (Adult) 04/02/2015 2:26 PM FINDINGS: Pulmonary arteries: Normal. No pulmonary emboli. Aorta: There is mild calcification of the aorta. There is no evidence of aneurysm or aortic dissection. Lungs: There is extensive pulmonary emphysema. Scattered interstitial fibrosis is present. There is a stable benign 1.8 cm nodule in the right lower lobe. The right lung is collapsed. No pneumonia is seen on the left side. Pleural spaces: There is a large right pneumothorax. No significant pleural effusion is seen. Heart: Unremarkable. No cardiomegaly. No pericardial effusion. Lymph nodes: Unremarkable. No enlarged lymph nodes. Liver: There are multiple enhancing lesions in the liver that were also seen on old scan from 04/02/2015 and consistent with benign cavernous hemangiomas. Kidneys and ureters: There is a 6.5 cm benign appearing cyst in the superior pole of the left kidney. Right nephrectomy. Bones/joints: Unremarkable. No acute fracture. Soft tissues: Unremarkable. IMPRESSION: 1. Large right pneumothorax with right lung atelectasis. 2. No evidence of pulmonary embolus or aortic aneurysm/dissection. 3. Extensive pulmonary emphysema. 4. Stable 1.8 cm benign right lower lobe pulmonary nodule. Dictated and Authenticated by: Mason Davis MD. Ordering:CHARLES Singh MD
--- NOTE | 2020-10-16 09:15 | DI.RAD_ITS ---
EXAM: XR PORTABLE CHEST AP CLINICAL HISTORY: s/p pigtail chest tube, assess placement TECHNIQUE: 2D digital imaging was performed. COMPARISON: CT CT CHEST PE CTA from 10/16/2020 FINDINGS: A right-sided chest tube has been inserted with the pigtail at the right apex. There has been re-exp ansion of the previously noted pneumothorax. Right lower lobe nodule is again noted. There has been improvement in the previously noted right basilar densities, consistent with lung re-expansion. Und erlying emphysematous and fibrotic changes are again noted. IMPRESSION: No residual pneumothorax is visible status post placement of right chest tube.
[2020-10-16 09:35] LABS: BE -1 mmol/L (-2-3); HCO3 27 mmol/L (22-26); pH 7.24 (7.35-7.45); pO2 104 mmHg (80-105); sO2 97 % (95-98); tCO2 25 mmol/L (23-27)
[2020-10-16] MEDS: Normal Saline 500 ML IV (09:35)
[2020-10-16 09:38] LABS: Site Left Radial; pCO2 62 mmHg (35-45)
[2020-10-16 09:39] LABS: FIO2L 2 L
[2020-10-16 10:11] LABS: Troponin I < 0.05 ng/mL (<0.06)
--- NOTE | 2020-10-16 10:18 | SCONE_ITS ---
Date of service: 10/16/20 Time of Service: 10:18 Assessment and Plan Assessment and plan (1) Pneumothorax: Status: Acute Assessment and plan: Right Pneumothorax Right sided chest tube in place, with follow up x-ray showed re-expansion of the lung. Dyspnea has improved per patient. Sats 99% Will repeat x-ray in the morning. History of Present Illness History of Present Illness Chief Complaint: Right Pneumothorax Narrative: 70 y/o male with a history of COPD, HTN, and GERD presented to the ER with sudden onset of SOB. X-ray showed right upper lobe pneumothorax. Chest tube was placed in the ER, follow up X-ray showed re-expanision of the previously noted right pneumothorax. Patient reports that his SOb is feeling much better now. Review of Systems Constitutional Constitutional: Reports as per [facility] Medical History (Updated 10/16/20 @ 10:10 by Sravani Soto DO) COPD (chronic obstructive pulmonary disease) GERD (gastroesophageal reflux disease) HTN (hypertension) Tubular adenoma Surgical History (Updated 04/12/19 @ 12:54 by Hayder Mejia) Cholecystectomy Circumcision Colonoscopy - MAC (06/29/17) 04/2014 EGD - MAC (04/23/14) EGD - MAC (06/29/17) Hemorrhoidal Banding Linda Fundoplication (03/07/12) Family History Mother Essential hypertension Cancer of kidney Father No problems noted. Sister Lung cancer Sister Lung cancer Brother Lung cancer Brother Lung cancer Brother Lung cancer Grandfather No problems noted. Grandfather No problems noted. Grandmother No problems noted. Grandmother No problems noted. Sister No problems noted. Brother Heart disease Brother No problems noted. Son No problems noted. Daughter No problems noted. Daughter No problems noted. Social History Smoking/Tobacco Use Status: Former Tobacco Use Smoking risk assessment performed?: Yes Alcohol Intake: never Drug use: Never Do you feel safe at home: Yes Do you feel safe in your relationship?: Yes Exam Const General: cooperative and healthy appearing Nutritional Appearance: average body habitus Orientation: alert, awake and oriented x3 Resp Effort & Inspection: normal respiratory effort, able to speak in complete sentences and no cough Results Last Vital Signs Temp 36.6 C 10/16/20 06:05 Pulse 120 H 10/16/20 09:41 Resp 17 10/16/20 09:41 BP 104/64 10/16/20 09:41 Pulse Ox 98 10/16/20 09:41 Labs Result diagrams: 10/16/20 06:10 10/16/20 06:10 Labs: Laboratory Results - last 24 hr 10/16/20 10/16/20 10/16/20 06:10 06:10 06:10 WBC RBC Hgb Hct MCV MCH MCHC RDW Plt Count MPV Immature Gran % Neutrophils % Lymphocytes % Monocytes % Eosinophils % Basophils % Nucleated RBC % Absolute Neutrophils Absolute Lymphocytes Absolute Monocytes Absolute Eosinophils Absolute Basophils PT INR APTT ABG Sample Site ABG pH ABG pCO2 ABG pO2 ABG HCO3 ABG Total CO2 ABG O2 Saturation ABG Base Excess VBG pH 7.17 L* VBG pCO2 79 H* VBG pO2 48 VBG HCO3 29 H VBG Total CO2 27 VBG O2 Saturation 73 VBG Base Excess 1 VBG Lactate 1.9 H Oxygen Liter Flow FiO2 Sodium 140 Potassium 4.6 Chloride 104 Carbon Dioxide 29.2 Anion Gap 6.8 BUN 30 H Creatinine 1.7 H Estimated GFR/1.73 m2 39.82 Glucose 207 H Calcium 8.9 Magnesium 2.0 Total Bilirubin 0.5 AST 27 ALT 33 Alkaline Phosphatase 120 H Troponin I < 0.05 NT-Pro-B Natriuret Pep 33 Total Protein 7.4 Albumin 3.4 TSH Free T4 COVID-19 Source SARS-CoV-2 (PCR) 10/16/20 10/16/20 10/16/20 06:10 06:10 06:10 WBC 14.53 H RBC 5.36 Hgb 14.4 Hct 46.5 MCV 86.8 MCH 26.9 L MCHC 31.0 L RDW 13.9 Plt Count 328 MPV 9.5 Immature Gran % 0.5 Neutrophils % 62.0 Lymphocytes % 26.4 Monocytes % 7.5 Eosinophils % 3.0 Basophils % 0.6 Nucleated RBC % 0 Absolute Neutrophils 9.01 H Absolute Lymphocytes 3.84 H Absolute Monocytes 1.09 H Absolute Eosinophils 0.44 Absolute Basophils 0.09 PT 10.8 INR 1.1 APTT 23.5 ABG Sample Site ABG pH ABG pCO2 ABG pO2 ABG HCO3 ABG Total CO2 ABG O2 Saturation ABG Base Excess VBG pH VBG pCO2 VBG pO2 VBG HCO3 VBG Total CO2 VBG O2 Saturation VBG Base Excess VBG Lactate Oxygen Liter Flow FiO2 Sodium Potassium Chloride Carbon Dioxide Anion Gap BUN Creatinine Estimated GFR/1.73 m2 Glucose Calcium Magnesium Total Bilirubin AST ALT Alkaline Phosphatase Troponin I NT-Pro-B Natriuret Pep Total Protein Albumin TSH 6.17 H Free T4 1.00 COVID-19 Source SARS-CoV-2 (PCR) 10/16/20 10/16/20 10/16/20 06:43 07:43 09:27 WBC RBC Hgb Hct MCV MCH MCHC RDW Plt Count MPV Immature Gran % Neutrophils % Lymphocytes % Monocytes % Eosinophils % Basophils % Nucleated RBC % Absolute Neutrophils Absolute Lymphocytes Absolute Monocytes Absolute Eosinophils Absolute Basophils PT INR APTT ABG Sample Site Left radial Left radial ABG pH 7.10 L* 7.24 L ABG pCO2 91 H* 62 H* ABG pO2 108 H 104 ABG HCO3 28 H 27 H ABG Total CO2 27 25 ABG O2 Saturation 96 97 ABG Base Excess -1 -1 VBG pH VBG pCO2 VBG pO2 VBG HCO3 VBG Total CO2 VBG O2 Saturation VBG Base Excess VBG Lactate Oxygen Liter Flow Bipap 15/7 2 FiO2 50 Sodium Potassium Chloride Carbon Dioxide Anion Gap BUN Creatinine Estimated GFR/1.73 m2 Glucose Calcium Magnesium Total Bilirubin AST ALT Alkaline Phosphatase Troponin I NT-Pro-B Natriuret Pep Total Protein Albumin TSH Free T4 COVID-19 Source Nasal/nares SARS-CoV-2 (PCR) Negative 10/16/20 09:45 WBC RBC Hgb Hct MCV MCH MCHC RDW Plt Count MPV Immature Gran % Neutrophils % Lymphocytes % Monocytes % Eosinophils % Basophils % Nucleated RBC % Absolute Neutrophils Absolute Lymphocytes Absolute Monocytes Absolute Eosinophils Absolute Basophils PT INR APTT ABG Sample Site ABG pH ABG pCO2 ABG pO2 ABG HCO3 ABG Total CO2 ABG O2 Saturation ABG Base Excess VBG pH VBG pCO2 VBG pO2 VBG HCO3 VBG Total CO2 VBG O2 Saturation VBG Base Excess VBG Lactate Oxygen Liter Flow FiO2 Sodium Potassium Chloride Carbon Dioxide Anion Gap BUN Creatinine Estimated GFR/1.73 m2 Glucose Calcium Magnesium Total Bilirubin AST ALT Alkaline Phosphatase Troponin I < 0.05 NT-Pro-B Natriuret Pep Total Protein Albumin TSH Free T4 COVID-19 Source SARS-CoV-2 (PCR)
--- NOTE | 2020-10-16 11:03 | NUR.NOTE ---
Nursing Note: -Kb [phone]
--- NOTE | 2020-10-16 11:41 | NUR.NOTE ---
Nursing Note: Spoke with NH Magan Leahy; patient is 60% service connected, has Medicare A&B. Spoke with Sole with 72hr notification [facility] and she stated need to speak with hotbed transfer operator to let us know about admission here. Spoke with Jessica Champion, Telecasting Technician of ED and she stated that if the patient has Medicare A&B and Financial Assistance 100 he is able to be admitted to [facility]. Christine Mock
[2020-10-16] MEDS: Lidocaine 2% Jelly 11 ML SYR (14:00)
--- NOTE | 2020-10-16 14:33 | W.PM.HP.N ---
Date of service: 10/16/20 Time of Service: 10:01 Assessment and Plan Assessment and plan (1) Pneumothorax, right: Status: Acute Assessment and plan: S/p chest tube. I suspect that this happened due to a bleb bursting. Defer chest tube management to general surgery - general surgery is taking over care. (2) Acute respiratory failure with hypoxia and hypercapnia: Status: Acute Assessment and plan: Due to acute right pneumothorax. Resolved with insertion of chest tube. The patient does not have an exacerbation of COPD. Will continue outpatient COPD meds. (3) Chronic obstructive lung disease: Status: Chronic Assessment and plan: Not in acute exacerbation. Emphysema likely did contribute to pneumothorax. As above. (4) CKD (chronic kidney disease), stage III: Status: Chronic Assessment and plan: Monitor Cr post IV contrast. Hold HCTZ. (5) Essential hypertension: Status: Chronic Assessment and plan: Continue albuterol. Hold HCTZ. (6) DVT prophylaxis: Status: Acute Assessment and plan: SC heparin (7) Discharge planning issues: Status: Acute Assessment and plan: Full code per conversation with patient. While the patient was initially admitted to the ICU, given his current O2 requirement of room air, he can be downgraded to medical surgical floor. Patient's care is being transferred to Dr Funez of general surgery. Hospitalists will follow peripherally. Total Critical Care Time 45 minutes. History of Present Illness History of Present Illness Chief Complaint: shortness of breath Narrative: Mr Poole is a 70 year old male with PMHx of non-oxygen dependent COPD, as well as h/o HTN, CKD III, GERD, who is a [facility], who presented to [facility] ED today c/o shortness of breath that he noticed suddenly when he went to the bathroom this morning. The patient noticed that he could not recover from that walk. Shortness of breath did not wake him up. He did not have any chest pain, feel a pop in his chest, and did not have a cough, wheezing, or a fever prior to the episode in the bathroom this morning. He is fully vaccinated against COVID. While he has a pulse oxymeter at home, he did not check it. Per EMS, it was 51%. In the ED, the patient was in acute hypoxic hypercapnic respiratory failure, requiring BiPAP and 40L of O2. The patient was empirically initiated on IV steroids and nebulizer treatments for a COPD exacerbation while imaging was getting done. The patient's workup revealed a large R-sided pneumothorax. There was no evidence of pneumonia. A right sided chest tube was inserted in the ED. With these measures, the oxygen requirements improved to room air by the time the patient arrived to the ICU. Review of Systems All systems reviewed & are unremarkable except as noted in HPI and below PFSH Medical History (Updated 10/16/20 @ 14:57 by Winter Frias MD) CKD (chronic kidney disease), stage III COPD (chronic obstructive pulmonary disease) GERD (gastroesophageal reflux disease) H/O renal cell carcinoma HTN (hypertension) Lesion of lung Tubular adenoma Surgical History (Updated 10/16/20 @ 14:47 by Winter Frias MD) Cholecystectomy Circumcision Colonoscopy - MAC (06/29/17) 04/2014 EGD - MAC (04/23/14) EGD - MAC (06/29/17) H/O right nephrectomy Hemorrhoidal Banding History of lung biopsy Linda Fundoplication (03/07/12) Family History Mother Essential hypertension Cancer of kidney Father No problems noted. Sister Lung cancer Sister Lung cancer Brother Lung cancer Brother Lung cancer Brother Lung cancer Grandfather No problems noted. Grandfather No problems noted. Grandmother No problems noted. Grandmother No problems noted. Sister No problems noted. Brother Heart disease Brother No problems noted. Son No problems noted. Daughter No problems noted. Daughter No problems noted. Social History Smoking/Tobacco Use Status: Former Tobacco Use Smoking risk assessment performed?: Yes Alcohol Intake: never Drug use: Never Do you feel safe at home: Yes Do you feel safe in your relationship?: Yes Meds Home Medications and Allergies Allergies Allergy/AdvReac Type Severity Reaction Status Date / Time lisinopril AdvReac Intermediate COUGH Unverified 10/16/20 08:28 Home Medications Medication Instructions Recorded Confirmed Type aspirin [Ecotrin Low Strength] 81 mg PO DAILY tab-cap 11/22/12 10/16/20 History Fish Oil 1 ea PO BID 03/16/13 10/16/20 History ascorbic acid (vitamin C) [Vitamin 500 mg PO DAILY 03/16/13 10/16/20 History C] cholecalciferol (vitamin D3) 1,000 unit PO DAILY 03/16/13 10/16/20 History docusate sodium [Colace] 100 mg PO DAILY tab-cap 03/16/13 10/16/20 History multivitamin with iron [One Daily 1 ea PO DAILY 03/16/13 10/16/20 History Plus Iron] Misterneb Nebulizer 1 ea MISCELLANEOUS PRN PRN #1 kit 07/28/13 11/02/18 Clinic Neti Pot 1 NS BID PRN 08/29/13 02/09/20 History guaifenesin [Mucinex] 1,200 mg PO q12 hr tab-cap 08/29/13 10/16/20 History budesonide-formoterol [Symbicort] 2 puff INHALATION BID #3 inhaler 10/10/13 10/16/20 History ipratropium-albuterol [DuoNeb] 1 amp INHALATION QID PRN #200 amp 04/19/14 10/16/20 History albuterol sulfate [Proventil HFA] 2 puff INHALATION Q4H PRN #3 07/25/15 10/16/20 History inhaler atorvastatin 20 mg PO DAILY #90 tab-cap 07/25/15 10/16/20 History bupropion HCl [Wellbutrin XL] 300 mg PO DAILY #90 tab-cap 07/25/15 10/16/20 History omeprazole 40 mg PO DAILY #90 tab-cap 07/25/15 10/16/20 History hydrochlorothiazide 25 mg PO DAILY #90 tab 01/31/16 10/16/20 History amlodipine 5 mg PO DAILY #90 tab-cap 03/24/16 10/16/20 History Spiriva Respimat 2 puff INHALATION DAILY 10/21/16 10/16/20 History montelukast 10 mg PO DAILY tab-cap 11/17/17 10/16/20 History Exam Narrative Exam Narrative: General: Pleasant elderly male who is coughing every once in a while, A&Ox3, not in respiratory distress, on room air, able to complete sentences. Neurological: A&Ox3, no focal deficits Psychiatric: Appropriate speech pattern/content Skin: Visible skin intact HEENT: Atraumatic, normocephalic, EOMI, MMM, Clear oropharynx,some missing teeth with good oral hygiene, no submandibular or cervical lymphadenopathy, no goiter or JVD Cardiovascular: RRR, no m/r/g Lungs: Diminished breath sounds throughout R lung; diminished breath sound L lung, no wheezing Gastrointestinal: soft, nontender, nondistended Genitourinary: deferred Extremities: no edema BLE's Results Imaging Additional studies: CXR: Right pneumothorax. Increased densities in the right lung base could represent atelectasis versus new mass. CTA chest: Moderate to large right pneumothorax. Underlying severe emphysematous changes. No evidence of pulmonary embolism. CXR #2: No residual pneumothorax is visible status post placement of right chest tube. Labs Result diagrams: 10/16/20 06:10 10/16/20 06:10 Labs: Laboratory Results - last 24 hr 10/16/20 10/16/20 10/16/20 06:10 06:10 06:10 WBC RBC Hgb Hct MCV MCH MCHC RDW Plt Count MPV Immature Gran % Neutrophils % Lymphocytes % Monocytes % Eosinophils % Basophils % Nucleated RBC % Absolute Neutrophils Absolute Lymphocytes Absolute Monocytes Absolute Eosinophils Absolute Basophils PT INR APTT ABG Sample Site ABG pH ABG pCO2 ABG pO2 ABG HCO3 ABG Total CO2 ABG O2 Saturation ABG Base Excess VBG pH 7.17 L* VBG pCO2 79 H* VBG pO2 48 VBG HCO3 29 H VBG Total CO2 27 VBG O2 Saturation 73 VBG Base Excess 1 VBG Lactate 1.9 H Oxygen Liter Flow FiO2 Sodium 140 Potassium 4.6 Chloride 104 Carbon Dioxide 29.2 Anion Gap 6.8 BUN 30 H Creatinine 1.7 H Estimated GFR/1.73 m2 39.82 Glucose 207 H Calcium 8.9 Magnesium 2.0 Total Bilirubin 0.5 AST 27 ALT 33 Alkaline Phosphatase 120 H Troponin I < 0.05 NT-Pro-B Natriuret Pep 33 Total Protein 7.4 Albumin 3.4 TSH Free T4 COVID-19 Source SARS-CoV-2 (PCR) 10/16/20 10/16/20 10/16/20 06:10 06:10 06:10 WBC 14.53 H RBC 5.36 Hgb 14.4 Hct 46.5 MCV 86.8 MCH 26.9 L MCHC 31.0 L RDW 13.9 Plt Count 328 MPV 9.5 Immature Gran % 0.5 Neutrophils % 62.0 Lymphocytes % 26.4 Monocytes % 7.5 Eosinophils % 3.0 Basophils % 0.6 Nucleated RBC % 0 Absolute Neutrophils 9.01 H Absolute Lymphocytes 3.84 H Absolute Monocytes 1.09 H Absolute Eosinophils 0.44 Absolute Basophils 0.09 PT 10.8 INR 1.1 APTT 23.5 ABG Sample Site ABG pH ABG pCO2 ABG pO2 ABG HCO3 ABG Total CO2 ABG O2 Saturation ABG Base Excess VBG pH VBG pCO2 VBG pO2 VBG HCO3 VBG Total CO2 VBG O2 Saturation VBG Base Excess VBG Lactate Oxygen Liter Flow FiO2 Sodium Potassium Chloride Carbon Dioxide Anion Gap BUN Creatinine Estimated GFR/1.73 m2 Glucose Calcium Magnesium Total Bilirubin AST ALT Alkaline Phosphatase Troponin I NT-Pro-B Natriuret Pep Total Protein Albumin TSH 6.17 H Free T4 1.00 COVID-19 Source SARS-CoV-2 (PCR) 10/16/20 10/16/20 10/16/20 06:43 07:43 09:27 WBC RBC Hgb Hct MCV MCH MCHC RDW Plt Count MPV Immature Gran % Neutrophils % Lymphocytes % Monocytes % Eosinophils % Basophils % Nucleated RBC % Absolute Neutrophils Absolute Lymphocytes Absolute Monocytes Absolute Eosinophils Absolute Basophils PT INR APTT ABG Sample Site Left radial Left radial ABG pH 7.10 L* 7.24 L ABG pCO2 91 H* 62 H* ABG pO2 108 H 104 ABG HCO3 28 H 27 H ABG Total CO2 27 25 ABG O2 Saturation 96 97 ABG Base Excess -1 -1 VBG pH VBG pCO2 VBG pO2 VBG HCO3 VBG Total CO2 VBG O2 Saturation VBG Base Excess VBG Lactate Oxygen Liter Flow Bipap 15/7 2 FiO2 50 Sodium Potassium Chloride Carbon Dioxide Anion Gap BUN Creatinine Estimated GFR/1.73 m2 Glucose Calcium Magnesium Total Bilirubin AST ALT Alkaline Phosphatase Troponin I NT-Pro-B Natriuret Pep Total Protein Albumin TSH Free T4 COVID-19 Source Nasal/nares SARS-CoV-2 (PCR) Negative 10/16/20 09:45 WBC RBC Hgb Hct MCV MCH MCHC RDW Plt Count MPV Immature Gran % Neutrophils % Lymphocytes % Monocytes % Eosinophils % Basophils % Nucleated RBC % Absolute Neutrophils Absolute Lymphocytes Absolute Monocytes Absolute Eosinophils Absolute Basophils PT INR APTT ABG Sample Site ABG pH ABG pCO2 ABG pO2 ABG HCO3 ABG Total CO2 ABG O2 Saturation ABG Base Excess VBG pH VBG pCO2 VBG pO2 VBG HCO3 VBG Total CO2 VBG O2 Saturation VBG Base Excess VBG Lactate Oxygen Liter Flow FiO2 Sodium Potassium Chloride Carbon Dioxide Anion Gap BUN Creatinine Estimated GFR/1.73 m2 Glucose Calcium Magnesium Total Bilirubin AST ALT Alkaline Phosphatase Troponin I < 0.05 NT-Pro-B Natriuret Pep Total Protein Albumin TSH Free T4 COVID-19 Source SARS-CoV-2 (PCR) Last Vital Signs Temp 36.6 C 10/16/20 12:45 Pulse 113 H 10/16/20 12:21 Resp 19 10/16/20 12:21 BP 117/77 10/16/20 12:21 Pulse Ox 95 10/16/20 12:45 COVID-19 Screening Have you, or household traveled for leisure in last 14 days?: No Had IN PERSON contact w/suspected or confirmed C-19 person: No
[2020-10-16] MEDS: Heparin 5,000 UNITS/ML VIAL 5000 UNITS SC ×2 (15:06→20:15)
[2020-10-16] MEDS: guaiFENesin 600 MG TABCR 1200 MG PO (18:37)
[2020-10-16] MEDS: Budesonide/Formoterol 160/4.5 6 GM 60 PUFF INH IH (20:14)
[2020-10-16] MEDS: Omega-3 Fatty Acids 1000 MG CAP PO (20:15)
[2020-10-17] VITALS (24 sets, daily range): BP systolic 122–152; BP diastolic 80–92; PULSE 93–104; RESP 4–20; TEMP 36.4–36.7; O2SAT 90–95
[2020-10-17] MEDS: Acetaminophen 325 MG TAB PO (03:50)
[2020-10-17] MEDS: guaiFENesin 600 MG TABCR 1200 MG PO ×2 (06:10→20:34)
[2020-10-17] MEDS: Heparin 5,000 UNITS/ML VIAL 5000 UNITS SC ×3 (06:11→20:36)
--- NOTE | 2020-10-17 06:12 | DI.RAD_ITS ---
EXAM: XR PORTABLE CHEST AP INDICATION: F/U PTX. COMPARISON: CR CHEST 2 VIEWS PA,LAT from 03/26/2015 CR CHEST 2 VIEWS PA,LAT from 03/26/2015 CR XR PORTABLE CHEST AP POST LINE from 10/16/2020 CR XR PORTABLE CHEST AP POST LINE from 10/16/2020 TECHNIQUE: 2D digital imaging was performed. FINDINGS: The chest tube remains in place, unchanged in position. No pneumothorax is visible. Emphysematous a nd fibrotic changes and right lower lobe nodule are again noted. No infiltrate or effusion is seen. IMPRESSION: No visible pneumothorax. No change in chest tube. DATA REPOSITORY: RADIATION DOSE DELIVERED:
[2020-10-17 06:30] LABS: Abs Immature Grans 0.07 10^3/uL (0.0-0.06); Absolute Basophil Count 0.02 10^3/uL (0.0-0.2); Absolute Lymphocyte Count 0.86 10^3/uL (1.2-3.4); Absolute Monocyte Count 1.02 10^3/uL (0.1-0.8); Absolute Neutrophil Count 13.05 10^3/uL (1.2-6.7); Basophils % 0.1; Eosinophils % 0.1; HCT 39.7 % (40.0-50.0); HGB 12.9 g/dL (13.5-17.5); Immature Grans % 0.5; Lymphocytes % 5.7; MCH 27.2 pg (27.0-33.0); MCHC 32.5 % (32.0-36.0); MCV 83.6 fL (80-95); MPV 9.7 fL (8.0-11.0); Monocytes % 6.8; Neutrophils % 86.8; Nucleated RBC 0 %; Platelet Count 224 10^3/uL (130-400); RBC 4.75 10^6/uL (4.36-5.78); RDW 14.4 % (11.8-14.1); RDW-SD 44.1 fL; WBC 15.03 10^3/uL (4.4-10.8)
[2020-10-17 06:36] LABS: Absolute Eosinophil Count 0.02 10^3/uL (0.0-0.7)
[2020-10-17 06:38] LABS: Anion Gap 8.4 mmol/L (3-11); BUN 30 mg/dL (7-18); CO2 25.6 mmol/L (21.0-32.0); CREATININE 1.5 mg/dL (0.70-1.30); Calcium 9.1 mg/dL (8.5-10.1); Chloride 105 mmol/L (98-107); Glucose 108 mg/dL (74-106); Magnesium 2.3 mg/dL (1.8-2.4); Potassium 3.7 mmol/L (3.5-5.1); Sodium 139 mmol/L (136-145)
--- NOTE | 2020-10-17 06:44 | DI.VRAD_ITS ---
PROCEDURE INFORMATION: Exam: XR Chest Exam date and time: 10/17/2020 6:13 AM Age: 70 years old Clinical indication: Condition or disease; Other: F/u ptx; Prior surgery TECHNIQUE: Imaging protocol: XR of the chest. Views: 1 view. COMPARISON: CR XR PORTABLE CHEST AP POST LINE 10/16/2020 9:44 AM FINDINGS: Tubes, catheters and devices: Right-sided pigtail pleural drainage type catheter in place stable in location compared with the prior study. No residual pneumothorax. Lungs: Patchy multifocal pulmonary opacities most prominent at the right lung base may reflect pneumonia. Pleural spaces: See Tubes, catheters and devices finding. Heart/Mediastinum: Unremarkable. No cardiomegaly. Bones/joints: Unremarkable. IMPRESSION: 1. Patchy multifocal pulmonary opacities most prominent at the right lung base may reflect pneumonia. . 2. Right-sided pigtail pleural drainage type catheter in place stable in location compared with the prior study. No residual pneumothorax. Dictated and Authenticated by: Sudheer Contreras MD. Ordering:JORGE Barclay MD
[2020-10-17 06:56] LABS: Diff Comment Diff Reviewed; RBC Morphology Normal
[2020-10-17] MEDS: Budesonide/Formoterol 160/4.5 6 GM 60 PUFF INH IH ×2 (08:43→20:35)
[2020-10-17] MEDS: Tiotropium Bromide-Respimat 10 PUFF INH 2 PUFF IH (08:43)
--- NOTE | 2020-10-17 08:57 | W.PM.PROGNOT ---
Date of Service Date of service: 10/17/20 Time of Service: 11:33 Assessment and Plan Assessment and plan (1) Pneumothorax, right: Status: Acute Assessment and plan: S/p chest tube. I suspect that this happened due to a bleb bursting. General surgery is managing the PTX. (2) Acute respiratory failure with hypoxia and hypercapnia: Status: Acute Assessment and plan: Due to acute right pneumothorax. Resolved with insertion of chest tube. The patient does not have an exacerbation of COPD. Will continue outpatient COPD meds. (3) Chronic obstructive lung disease: Status: Chronic Assessment and plan: Not in acute exacerbation. Emphysema likely did contribute to pneumothorax. I do not believe that the patient as an acute infectious process at this time. Encourage acapella to help expectorate and monitor sputum for color change. No role for abx unless the patient is febrile or sputum becomes purulent. His leucocytosis is due to steroids he received yesterday. As above. (4) CKD (chronic kidney disease), stage III: Status: Chronic Assessment and plan: Monitor Cr post IV contrast. Hold HCTZ. (5) Essential hypertension: Status: Chronic Assessment and plan: Continue albuterol. Hold HCTZ. (6) DVT prophylaxis: Status: Acute Assessment and plan: SC heparin (7) Discharge planning issues: Status: Acute Assessment and plan: Full code Hospitalists will continue to follow peripherally. Subjective Subjective Interval history since last seen: Mr Poole states he is feeling pretty good today. He feels he might have respiratory secretions but has not been able to bring them up. He has been very good with IS and was just given an acapella device. Denies dizziness, chest pain, shortness of breath, nausea. No pain on inspiration. 94% on RA. No fever. NO resp. distress. Chest tube still to wall suction. 130/88, HR 96-110. West 525 cc out/12 hrs. Exam Narrative Exam Narrative: General: Very pleasant male who is working with acapella, no cough or respiratory distress while I am in the room, speaking in full sentences HEENT: EOMI, MMM Heart: RRR, no m/r/g Lungs: CTAB - I hear breath sounds in all lung alcazar Abdomen: soft, nontender, nondistended : has a west Extremities: no edema BLEs'. Objective Last Vital Signs Temp 36.5 C 10/17/20 07:54 Pulse 94 H 10/17/20 07:54 Resp 16 10/17/20 07:54 BP 148/86 H 10/17/20 07:54 Pulse Ox 93 10/17/20 07:54 Laboratory Results - last 24 hr 10/16/20 10/16/20 10/17/20 09:27 09:45 06:00 WBC RBC Hgb Hct MCV MCH MCHC RDW Plt Count MPV Immature Gran % Neutrophils % Lymphocytes % Monocytes % Eosinophils % Basophils % Nucleated RBC % Absolute Neutrophils Absolute Lymphocytes Absolute Monocytes Absolute Eosinophils Absolute Basophils RBC Morphology ABG Sample Site Left radial ABG pH 7.24 L ABG pCO2 62 H* ABG pO2 104 ABG HCO3 27 H ABG Total CO2 25 ABG O2 Saturation 97 ABG Base Excess -1 Oxygen Liter Flow 2 Sodium 139 Potassium 3.7 Chloride 105 Carbon Dioxide 25.6 Anion Gap 8.4 BUN 30 H Creatinine 1.5 H Estimated GFR/1.73 m2 46.00 Glucose 108 H D Calcium 9.1 Magnesium 2.3 Troponin I < 0.05 10/17/20 06:00 WBC 15.03 H RBC 4.75 Hgb 12.9 L Hct 39.7 L MCV 83.6 D MCH 27.2 MCHC 32.5 RDW 14.4 H Plt Count 224 D MPV 9.7 Immature Gran % 0.5 Neutrophils % 86.8 Lymphocytes % 5.7 Monocytes % 6.8 Eosinophils % 0.1 Basophils % 0.1 Nucleated RBC % 0 Absolute Neutrophils 13.05 H Absolute Lymphocytes 0.86 L Absolute Monocytes 1.02 H Absolute Eosinophils 0.02 Absolute Basophils 0.02 RBC Morphology Normal ABG Sample Site ABG pH ABG pCO2 ABG pO2 ABG HCO3 ABG Total CO2 ABG O2 Saturation ABG Base Excess Oxygen Liter Flow Sodium Potassium Chloride Carbon Dioxide Anion Gap BUN Creatinine Estimated GFR/1.73 m2 Glucose Calcium Magnesium Troponin I Objective Narrative Objective Narrative: CXR: The chest tube remains in place, unchanged in position. No pneumothorax is visible. Emphysematous and fibrotic changes and right lower lobe nodule are again noted. No infiltrate or effusion is seen.
--- NOTE | 2020-10-17 09:16 | INITIAL_ITS ---
- If Service Date Differs Date of service: 10/17/20 Time of Service: 09:16 Care Management Initial Assess REASON FOR HOSPITALIZATION:: Acute Hypoxic Hypercapnic respiratory failure PAST MEDICAL HISTORY/PAST SURGICAL HISTORY:: Medical History. CKD (chronic k idney disease), stage III. COPD (chronic obstructive pulmonary disease). GERD (gastroesophageal reflux disease). H/O renal cell carcinoma. HTN (hypertension). Lesion of lung. Tubular adenoma. Surgical History. Cholecystectomy. Circumcision. Colonoscopy - MAC (06/29/17). 04/2014. EGD - MAC (04/23/14). EGD - MAC (06/29/17). H/O right nephrectomy. Hemorrhoidal Banding. History of lung biopsy. Linda Fundoplication (03/07/12) PREVIOUS FUNCTIONAL STATUS/SOCIAL/FAMILY SUPPORTS:: Jasen lives in [place] with his , Ana and their yahaira tzu puppy, Claudia. They have a son, , who lives in [place], [place]. Jasen retired from [employer], and is independent at baseline. He is a . CURRENT FUNCTIONAL STATUS:: Yousif reported that he is feeling much better today, as he was sitting up in bed when CM met with him. Per RN, his chest tube was clamped today, and continues to be monitored. He was transferred to M/S status, and is on room air. CM will continue to follow. ADVANCE DIRECTIVES:: None on file, CM will offer forms. Has patient been provided with info about the portal/API?: Yes Did the patient sign up for the portal?: Yes (previously) CODE STATUS:: Full Code INSURANCE COVERAGE / FINANCIAL ISSUES:: MCR/ Financial Assist 100% CURRENT HOME/COMMUNITY SERVICES/EQUIPMENT:: No current services or equipment. PRIMARY CARE PHYSICIAN:: Manjit Guillory POTENTIAL DISCHARGE NEEDS:: Evaluations for further needs, follow up appointments. PATIENT/FAMILY EDUCATION NEEDS:: Review discharge instructions regarding activity levels and medications, discussion of self care needs and goals of care. ANTICIPATED BARRIERS TO DISCHARGE:: None identified. TRANSPORTATION:: Via private vehicle by his . PLAN:: Anticipate Jasen will return home when medically cleared. His will drive him home via private vehicle. He will follow up with his PCP and discharge plan of care.
[2020-10-17] MEDS: buPROPion-XL 150 MG TABCR 300 MG PO (09:30)
[2020-10-17] MEDS: Omeprazole 20 MG CAPCR 40 MG PO (09:30)
[2020-10-17] MEDS: Aspirin E.C. 81 MG TABEC PO (09:30)
[2020-10-17] MEDS: amLODIPine 5 MG TAB PO (09:31)
[2020-10-17] MEDS: Omega-3 Fatty Acids 1000 MG CAP PO ×2 (09:31→20:36)
[2020-10-17] MEDS: Docusate Sodium 100 MG CAP PO (09:31)
[2020-10-17] MEDS: Multivitamin w/Minerals TAB 1 TAB PO (09:31)
[2020-10-17] MEDS: Montelukast 10 MG TAB PO (09:31)
[2020-10-17] MEDS: Ascorbic Acid 500 MG TAB PO (09:31)
[2020-10-17] MEDS: Cholecalciferol (Vitamin D3) 1,000 UNIT TAB 1000 UNITS PO (09:31)
[2020-10-17] MEDS: Atorvastatin 20 MG TAB PO (09:33)
--- NOTE | 2020-10-17 12:42 | W.PM.PROGNOT ---
Date of Service Date of service: 10/17/20 Time of Service: 10:00 Assessment and Plan Assessment and plan (1) Pneumothorax, right: Status: Acute Assessment and plan: S/p chest tube. I suspect that this happened due to a bleb bursting. No air leak today. Chest tube clamped Will repeat CXR in a few hours. If no recurrence of his PTX then may be able to remove the Chest tube Possible discharge later today or tomorrow (2) Acute respiratory failure with hypoxia and hypercapnia: Status: Acute Assessment and plan: Due to acute right pneumothorax. Resolved with insertion of chest tube. (3) Chronic obstructive lung disease: Status: Chronic Assessment and plan: HIs cough sounds wet but his lungs are clear Encourage acapella to help expectorate and monitor sputum for color change. (4) CKD (chronic kidney disease), stage III: Status: Chronic Assessment and plan: Monitor Cr post IV contrast. Hold HCTZ. (5) Essential hypertension: Status: Chronic Assessment and plan: Hold HCTZ. (6) DVT prophylaxis: Status: Acute Assessment and plan: SC heparin (7) Discharge planning issues: Status: Acute Assessment and plan: Full code Discharge either later today or tomorrow Subjective Subjective Interval history since last seen: Mr. Poole is doing well. He is not SOB. He has not had any fevers. CXR today showed no pneumothorax. Exam Resp Effort & Inspection: normal respiratory effort Auscultation: clear to auscultation bilaterally Other: Chest tube in good position. NO air leak appreciated with coughing. Chest tube clamped Cardio Rate: regular rate Rhythm: regular rhythm GI Inspection: normal to inspection Palpation: soft Auscultation: normal bowel sounds Objective Last Vital Signs Temp 97.7 F 10/17/20 07:54 Pulse 94 H 10/17/20 10:01 Resp 20 10/17/20 10:01 BP 141/90 H 10/17/20 10:01 Pulse Ox 93 10/17/20 10:01 Laboratory Results - last 24 hr 10/17/20 10/17/20 06:00 06:00 WBC 15.03 H RBC 4.75 Hgb 12.9 L Hct 39.7 L MCV 83.6 D MCH 27.2 MCHC 32.5 RDW 14.4 H Plt Count 224 D MPV 9.7 Immature Gran % 0.5 Neutrophils % 86.8 Lymphocytes % 5.7 Monocytes % 6.8 Eosinophils % 0.1 Basophils % 0.1 Nucleated RBC % 0 Absolute Neutrophils 13.05 H Absolute Lymphocytes 0.86 L Absolute Monocytes 1.02 H Absolute Eosinophils 0.02 Absolute Basophils 0.02 RBC Morphology Normal Sodium 139 Potassium 3.7 Chloride 105 Carbon Dioxide 25.6 Anion Gap 8.4 BUN 30 H Creatinine 1.5 H Estimated GFR/1.73 m2 46.00 Glucose 108 H D Calcium 9.1 Magnesium 2.3
--- NOTE | 2020-10-17 13:01 | DI.RAD_ITS ---
EXAM: XR PORTABLE CHEST AP CLINICAL HISTORY: Chest tube clamped, r/o recurrent PTX TECHNIQUE: 2D digital imaging was performed. COMPARISON: CR,XR XR PORTABLE CHEST AP from 10/17/2020 FINDINGS: LUNGS: Chest tube at right lung apex. No visible pneumothorax. Bilateral emphysematous changes and scarring, right greater than left. HEART: Normal size.. IMPRESSION: Right apical chest tube. No visible pneumothorax. DATA REPOSITORY: RADIATION DOSE DELIVERED:
--- NOTE | 2020-10-17 13:39 | CHAPLAIN ---
Jasen was sitting up in his chair when I visited. He was pleasant, but not interested in a longer conversation. He shared some personal history, and said he's been in touch with his a few times a day.
[2020-10-17] MEDS: Albuterol/Ipratropium 3 ML UPD VIAL UPD (18:46)
--- NOTE | 2020-10-17 18:49 | RESPIRATORY ---
Discussed with Pt what home inhaled medication scheduled was in a typical day. Pt stated to RT that he had Spiriva in the AM, 3 Duoneb Updrafts during the daytime as well as 6 puffs of his Albuterol inhaler. Will relay information to oncoming RT staff.
[2020-10-18] MEDS: Albuterol/Ipratropium 3 ML UPD VIAL UPD ×2 (03:35→12:38)
[2020-10-18 03:57] VITALS: BP 116/83; PULSE 93; O2SAT 96
[2020-10-18] MEDS: Heparin 5,000 UNITS/ML VIAL 5000 UNITS SC ×2 (05:49→15:03)
[2020-10-18] MEDS: guaiFENesin 600 MG TABCR 1200 MG PO (05:49)
[2020-10-18 06:53] LABS: Abs Immature Grans 0.02 10^3/uL (0.0-0.06); Absolute Basophil Count 0.03 10^3/uL (0.0-0.2); Absolute Eosinophil Count 0.15 10^3/uL (0.0-0.7); Absolute Lymphocyte Count 0.92 10^3/uL (1.2-3.4); Absolute Monocyte Count 0.66 10^3/uL (0.1-0.8); Absolute Neutrophil Count 8.09 10^3/uL (1.2-6.7); Basophils % 0.3; Eosinophils % 1.5; HCT 40.6 % (40.0-50.0); HGB 13.2 g/dL (13.5-17.5); Immature Grans % 0.2; Lymphocytes % 9.3; MCH 27.2 pg (27.0-33.0); MCHC 32.5 % (32.0-36.0); MCV 83.5 fL (80-95); MPV 9.6 fL (8.0-11.0); Monocytes % 6.7; Nucleated RBC 0 %; Platelet Count 214 10^3/uL (130-400); RBC 4.86 10^6/uL (4.36-5.78); RDW 14.6 % (11.8-14.1); WBC 9.87 10^3/uL (4.4-10.8)
[2020-10-18 07:06] VITALS: O2SAT 93
[2020-10-18 07:07] LABS: Anion Gap 6.4 mmol/L (3-11); BUN 25 mg/dL (7-18); CO2 27.6 mmol/L (21.0-32.0); CREATININE 1.4 mg/dL (0.70-1.30); Calcium 9.2 mg/dL (8.5-10.1); Chloride 105 mmol/L (98-107); Estimated GFR 49.82 (mL/min/1.73m2); Glucose 101 mg/dL (74-106); Magnesium 2.1 mg/dL (1.8-2.4); Potassium 3.9 mmol/L (3.5-5.1); Sodium 139 mmol/L (136-145)
[2020-10-18] MEDS: Budesonide/Formoterol 160/4.5 6 GM 60 PUFF INH IH (08:08)
[2020-10-18] MEDS: Tiotropium Bromide-Respimat 10 PUFF INH 2 PUFF IH (08:11)
[2020-10-18 08:15] VITALS: O2SAT 93
--- NOTE | 2020-10-18 08:32 | W.PM.PROGNOT ---
Date of Service Date of service: 10/18/20 Time of Service: 12:31 Assessment and Plan Assessment and plan (1) Pneumothorax, right: Status: Acute Assessment and plan: S/p chest tube, currently clamped. I suspect that this happened due to a bleb bursting. General surgery is managing the chest tube. (2) Acute bronchitis: Status: Acute Assessment and plan: Started on doxy/cefpodoxime. Continue scheduled and prn nebs. Await sputum cx. Gram stain with moderate GPC, rare GNR. (3) Acute respiratory failure with hypoxia and hypercapnia: Status: Acute Assessment and plan: Due to acute right pneumothorax. Resolved with insertion of chest tube. Still on room air. The patient does not have an exacerbation of COPD, though he does have acute bronchitis. Will continue outpatient COPD meds. Abx added. (4) Chronic obstructive lung disease: Status: Chronic Assessment and plan: Not in acute exacerbation, but does have acute bronchitis, for which we started antibiotics. Emphysema likely did contribute to pneumothorax. Encourage acapella to help expectorate and monitor sputum for color change. Await sputum culture As above. (5) CKD (chronic kidney disease), stage III: Status: Chronic Assessment and plan: Monitor Cr post IV contrast. Hold HCTZ. (6) Essential hypertension: Status: Chronic Assessment and plan: Continue albuterol. Hold HCTZ. (7) DVT prophylaxis: Status: Acute Assessment and plan: SC heparin (8) Discharge planning issues: Status: Acute Assessment and plan: Full code Hospitalists will continue to follow Subjective Subjective Interval history since last seen: Feels almost back to his baseline. Does endorse cough productive of yellow sputum, different from his baseline. Denies dizziness, chest pain or pain of any kind, nausea. Mendoza out. Chest tube clamped. Afebrile. Cefpodoxime/doxy started today. Exam Narrative Exam Narrative: General: Very pleasant male who has a wet productive cough, not in respiratory distress, but mildly dyspneic, A&Ox3, able to finish sentences HEENT: EOMI, MMM Heart: RRR, no m/r/g Lungs: CTAB throughout; no wheezing. Abdomen: soft, nontender, nondistended Extremities: no edema BLEs'. Objective Last Vital Signs Temp 36.7 C 10/17/20 20:00 Pulse 93 H 10/18/20 03:57 Resp 20 10/17/20 20:00 BP 116/83 10/18/20 03:57 Pulse Ox 93 10/18/20 08:15 Laboratory Results - last 24 hr 10/18/20 10/18/20 06:15 06:15 WBC 9.87 D RBC 4.86 Hgb 13.2 L Hct 40.6 MCV 83.5 MCH 27.2 MCHC 32.5 RDW 14.6 H Plt Count 214 MPV 9.6 Immature Gran % 0.2 Neutrophils % 82.0 Lymphocytes % 9.3 Monocytes % 6.7 Eosinophils % 1.5 Basophils % 0.3 Nucleated RBC % 0 Absolute Neutrophils 8.09 H Absolute Lymphocytes 0.92 L Absolute Monocytes 0.66 Absolute Eosinophils 0.15 Absolute Basophils 0.03 Sodium 139 Potassium 3.9 Chloride 105 Carbon Dioxide 27.6 Anion Gap 6.4 BUN 25 H Creatinine 1.4 H Estimated GFR/1.73 m2 49.82 Glucose 101 Calcium 9.2 Magnesium 2.1 CXR 10/18/20: 1. No demonstrable pneumothorax. 2. Small amount of right lateral chest wall subcutaneous emphysema.
[2020-10-18] MEDS: Ascorbic Acid 500 MG TAB PO (09:19)
[2020-10-18] MEDS: Omega-3 Fatty Acids 1000 MG CAP PO (09:19)
[2020-10-18] MEDS: Cholecalciferol (Vitamin D3) 1,000 UNIT TAB 1000 UNITS PO (09:19)
[2020-10-18] MEDS: Aspirin E.C. 81 MG TABEC PO (09:19)
[2020-10-18] MEDS: Atorvastatin 20 MG TAB PO (09:19)
[2020-10-18] MEDS: Omeprazole 20 MG CAPCR 40 MG PO (09:20)
[2020-10-18] MEDS: buPROPion-XL 150 MG TABCR 300 MG PO (09:20)
[2020-10-18] MEDS: Multivitamin w/Minerals TAB 1 TAB PO (09:20)
[2020-10-18] MEDS: Montelukast 10 MG TAB PO (09:20)
[2020-10-18] MEDS: amLODIPine 5 MG TAB PO (09:20)
[2020-10-18] MEDS: Docusate Sodium 100 MG CAP PO (09:20)
--- NOTE | 2020-10-18 10:57 | DI.RAD_ITS ---
EXAM: XR PORTABLE CHEST AP CLINICAL HISTORY: PTX TECHNIQUE: 2D digital imaging was performed. COMPARISON: CR XR PORTABLE CHEST AP from 10/17/2020 FINDINGS: MEDIASTINUM: Normal. HEART: Normal. PULMONARY VASCULATURE: Normal. LUNGS: Clear. Findings consistent with underlying COPD are present. PLEURAL SPACE: No pleural effusion. No pneumothorax is identified. BONE:Within normal limits for the patient's age. OTHER FINDINGS:The right chest tube is now located more inferiorly. The tip lies between the right 3 rd and 4th rib interspace. There is now a small amount of subcutaneous air along the right chest wal l. IMPRESSION: 1. No demonstrable pneumothorax. 2. Small amount of right lateral chest wall subcutaneous emphysema. DATA REPOSITORY: RADIATION DOSE DELIVERED:
[2020-10-18] MEDS: Doxycycline Hyclate 100 MG CAP PO (11:03)
[2020-10-18] MEDS: Cefpodoxime 200 MG TAB PO (11:03)
[2020-10-18 12:38] VITALS: PULSE 106; RESP 16; RESP 8; O2SAT 96
[2020-10-18 12:51] VITALS: PULSE 112; RESP 20; RESP 5; RESP 8; O2SAT 95
--- NOTE | 2020-10-18 14:02 | W.PM.PROGNOT ---
Date of Service Date of service: 10/18/20 Time of Service: 14:03 Assessment and Plan Assessment and plan (1) Pneumothorax, right: Status: Acute Assessment and plan: S/p chest tube. I suspect that this happened due to a bleb bursting. No PTX on CXR after 24 hours of Chest tube being clamped. Chest tube removed. CXR in 2 hours. If no recurrence of the pneumo then will d/c to home (2) Acute respiratory failure with hypoxia and hypercapnia: Status: Acute Assessment and plan: Due to acute right pneumothorax. Resolved with insertion of chest tube. (3) Chronic obstructive lung disease: Status: Chronic Assessment and plan: HIs cough sounds wet but his lungs are clear Encourage acapella to help expectorate and monitor sputum for color change. (4) CKD (chronic kidney disease), stage III: Status: Chronic Assessment and plan: Monitor Cr post IV contrast. Hold HCTZ. (5) Essential hypertension: Status: Chronic Assessment and plan: Hold HCTZ. (6) DVT prophylaxis: Status: Acute Assessment and plan: SC heparin (7) Discharge planning issues: Status: Acute Assessment and plan: Full code Discharge either later today or tomorrow Subjective Subjective Interval history since last seen: Mr. Poole is doing well. CXR this am without PTX. Chest tube has been clamped. Minimal SOB when he coughs Exam Const General: cooperative, comfortable and no acute distress Orientation: alert and oriented x3 HENMT Head: normocephalic and atraumatic Resp Effort & Inspection: normal respiratory effort Auscultation: clear to auscultation bilaterally Cardio Rate: regular rate Rhythm: regular rhythm Objective Last Vital Signs Temp 98.1 F 10/17/20 20:00 Pulse 112 H 10/18/20 12:51 Resp 20 10/18/20 12:51 BP 116/83 10/18/20 03:57 Pulse Ox 95 10/18/20 12:51 Laboratory Results - last 24 hr 10/18/20 10/18/20 06:15 06:15 WBC 9.87 D RBC 4.86 Hgb 13.2 L Hct 40.6 MCV 83.5 MCH 27.2 MCHC 32.5 RDW 14.6 H Plt Count 214 MPV 9.6 Immature Gran % 0.2 Neutrophils % 82.0 Lymphocytes % 9.3 Monocytes % 6.7 Eosinophils % 1.5 Basophils % 0.3 Nucleated RBC % 0 Absolute Neutrophils 8.09 H Absolute Lymphocytes 0.92 L Absolute Monocytes 0.66 Absolute Eosinophils 0.15 Absolute Basophils 0.03 Sodium 139 Potassium 3.9 Chloride 105 Carbon Dioxide 27.6 Anion Gap 6.4 BUN 25 H Creatinine 1.4 H Estimated GFR/1.73 m2 49.82 Glucose 101 Calcium 9.2 Magnesium 2.1
--- NOTE | 2020-10-18 14:36 | CMPROGNOTE_ITS ---
- If Service Date Differs Date of service: 10/18/20 Time of Service: 14:36 Care Management Progress Note S/O: Yousif was sitting up in bed when CM met with him. He reported that he was feeling very good today. He is hoping to go home. Per report, his chest tube was removed, and he will have a repeat chest x ray in two hours to determine if he will be ready for discharge. He is happy with this plan. He won't need any services at home, and his will pick him up. He has talked to his , and has updated her on the plan. CM will continue to follow. A: Jasen is a 70 year old male admitted to [facility] on 10/16/20 with Acute hypoxic respiratory failure, pneumothorax. P: Jasen's chest tube was removed, and he will have a repeat Xray in two hours to determine if he will be ready for discharge. He will return home once he has been medically cleared. His will drive him home via private vehicle. He will follow up with his PCP and discharge plan of care. CM will continue to follow.
--- NOTE | 2020-10-18 16:00 | DI.RAD_ITS ---
EXAM: XR PORTABLE CHEST AP CLINICAL HISTORY: chest tube removed TECHNIQUE: 2D digital imaging was performed. COMPARISON: CR CHEST 2 VIEWS PA,LAT from 07/28/2013 CR CHEST 2 VIEWS PA,LAT from 03/26/2015 CR XR PORTABLE CHEST AP from 10/18/2020 FINDINGS: MEDIASTINUM: Normal. HEART: Normal. PULMONARY VASCULATURE: Normal. LUNGS: Emphysematous changes are seen in the lungs. Pleural and parenchymal scarring is noted. The rounded density projected over the right lung base is unchanged. This is been present since 2014. PLEURAL SPACE: No pleural effusion or pneumothorax. BONE:Within normal limits for the patient's age. OTHER FINDINGS:The right chest tube has been removed. No pneumothorax is identified. There is again seen a small amount of subcutaneous air along the right lateral chest wall. IMPRESSION: Interval removal of the right chest tube. No demonstrable pneumothorax. DATA REPOSITORY: RADIATION DOSE DELIVERED:
--- NOTE | 2020-10-18 16:04 | W.PM.DS.N ---
Date of service: 10/18/20 Time of Service: 16:05 DS: Diagnosis Discharge Diagnosis (1) Pneumothorax, right: Status: Acute (2) Acute respiratory failure with hypoxia and hypercapnia: Status: Acute (3) Chronic obstructive lung disease: Status: Chronic (4) CKD (chronic kidney disease), stage III: Status: Chronic (5) Essential hypertension: Status: Chronic (6) DVT prophylaxis: Status: Acute (7) Discharge planning issues: Status: Acute Discharge Plan Disposition Patient Disposition: HOME Condition: Serious Discharge Details Reason For Visit: Pneumothorax, bronchitis Admit Date/Time: 10/16/20 10:01 Admit Provider: Ning Funez Attending Provider: Ning Funez Primary Care Provider: Manjit Guillory Hospital Course Hospital Course: Mr. Poole is a pleasant 70-year-old gentleman with a history of COPD who came to the emergency department on October 16 with shortness of breath. Chest x-ray and CT scan showed pneumothorax on the right side. A chest tube was placed in the emergency department with quick resolution of his shortness of breath. On postadmission day #1 his chest x-ray looked good. He did not have a pneumothorax. In the afternoon his chest tube was clamped and a follow-up chest x-ray was done a couple hours later which showed no recurrence of his pneumothorax. The patient was left clamped for 24 hours and his chest tube was then removed. 2 hours later another chest x-ray was done and is again did not show a recurrence of his pneumothorax. The patient did have a pretty wet cough when he first came in. The hospitalist group was consulted and because the patient's sputum was a yellow color it was sent for culture and he was started on antibiotics for bronchitis. He has been afebrile throughout his hospital stay. His white count was slightly elevated on the first admission day but this was most likely from the steroids that he received in the emergency department. On post admission day 2 his white count was normal. Patient is discharged home on antibiotics for his bronchitis. He should follow-up with his primary care physician for his bronchitis. Home Meds and New Rx's Prescriptions: New doxycycline hyclate 100 mg Capsule 100 mg PO Q12H Qty: 10 RF: 0 cefpodoxime 200 mg Tablet 200 mg PO Q12H Qty: 10 RF: 0 Continued aspirin [Ecotrin Low Strength] 81 MG tablet,delayed release (DR/EC) 81 mg PO DAILY RF: 0 ascorbic acid (vitamin C) [Vitamin C] 500 MG tablet 500 mg PO DAILY RF: 0 docusate sodium [Colace] 100 MG capsule 100 mg PO DAILY RF: 0 multivitamin with iron [One Daily Plus Iron] 1 EACH tablet 1 ea PO DAILY RF: 0 cholecalciferol (vitamin D3) 1,000 UNIT tablet 1,000 unit PO DAILY RF: 0 Fish Oil 1 EACH capsule 1 ea PO BID RF: 0 MISTERNEB NEBULIZER 1 EACH kit 1 ea Miscellaneous PRN PRNQty: 1 RF: 1 guaifenesin [Mucinex] 600 MG tablet extended release 12hr 1,200 mg PO q12 hr RF: 0 neti pot 1 NS BID PRN RF: 0 budesonide-formoterol [Symbicort] 10.2 GM HFA aerosol inhaler 2 puff Inhalation BID Qty: 3 RF: 4 ipratropium-albuterol [DuoNeb] 3 ML solution for nebulization 1 amp Inhalation QID PRN Qty: 200 RF: 6 atorvastatin 20 MG tablet 20 mg PO DAILY Qty: 90 RF: 4 omeprazole 40 MG capsule,delayed release(DR/EC) 40 mg PO DAILY Qty: 90 RF: 4 albuterol sulfate [Proventil HFA] 6.7 GM HFA aerosol inhaler 2 puff Inhalation Q4H PRN Qty: 3 RF: 4 bupropion HCl [Wellbutrin XL] 300 MG tablet extended release 24 hr 300 mg PO DAILY Qty: 90 RF: 4 hydrochlorothiazide 25 MG tablet 25 mg PO DAILY Qty: 90 RF: 3 amlodipine 5 MG tablet 5 mg PO DAILY Qty: 90 RF: 3 Spiriva Respimat 4 GM mist 2 puff Inhalation DAILY RF: 0 montelukast 10 MG tablet 10 mg PO DAILY RF: 0 Discharge Instructions Instructions: Acute Bronchitis (ED) Additional Instructions: Activity at Home after surgery: 1. As tolerated Diet, Nutrition, & wound healin. As tolerated Antibiotics: 2 antibiotics have been prescribed. Please take them as prescribed for 5 days For Constipation: 1. Take Milk of Magnesia or MiraLax as needed for constipation Other: 1. You may remove the dressing tomorrow and jump in the shower. Replace with a bandaid until closed Please call our office if you develop: 1. Fevers >101.5 2. Nausea or Vomiting 3. Worsening Shortness of Breath If after hours please call the Hospital at and ask to speak to the on-call surgeon Referrals: Manjit Guillory [Primary Care Provider] - (7-10 days) Activity:: Activity as Tolerated Equipment/Supplies:: No Equipment Needed Diet:: As Tolerated Discharge Orders Discharge Orders: Discharge Order (Routine); Ordered 10/18/20 Ordered By: Ning Funez DS: Summary Time Spent with Patient providing and/or coordinating discharge services: Less than 30 minutes Status at Discharge Functional status at discharge: independent ambulation Overall status at discharge: patient is back to baseline Mental Status: mental status grossly normal Speech and Movement: speech and movement normal Mood: congruent mood Affect: normal affect Exam Resp Effort & Inspection: normal respiratory effort Auscultation: clear to auscultation bilaterally Psych Mental Status: mental status grossly normal Speech and Movement: speech and movement normal Mood: congruent mood Affect: normal affect DS: Data Vitals/I&O Vitals and I&O: Vital Signs Temperature 98.1 F 10/17/20 20:00 Temperature Source Temporal Artery Scan 10/17/20 07:54 Pulse 112 H 10/18/20 12:51 Pulse Rhythm Regular 10/17/20 17:00 Pulse 99 H 10/17/20 10:01 Respiratory Rate 20 10/18/20 12:51 Respiratory Effort 10/18/20 08:30 Respiratory Depth Normal 10/18/20 08:30 Respiratory Pattern Normal 10/18/20 08:30 Blood Pressure 116/83 10/18/20 03:57 Blood Pressure Mean 91 10/18/20 03:57 Blood Pressure Position Sitting 10/16/20 06:05 Pulse Oximetry 95 10/18/20 12:51 Oxygen Delivery Method Room Air 10/18/20 12:38 Oxygen Flow Rate 0 10/18/20 12:38 Fraction of Inspired Oxygen (FIO2) 40 10/16/20 08:57 Pain Level 0 10/17/20 20:00 Intake & Output 10/17/20 10/18/20 10/18/20 23:59 11:59 23:59 Intake Total 920 / 1860 240 / 240 Output Total 1700 / 2225 750 / 750 Balance -780 / -365 -510 / -510 Weight 171 lb 11.841 oz Intake: Oral 920 / 1860 240 / 240 Output: Chest Tube Drainage 0 / 0 Urine 1700 / 2225 750 / 750 Other: Urine Color Yellow Yellow Urine Appearance Clear Clear Urine Odor None Comment mixed with stool. Stool Occult Blood Negative Stool Size Moderate Small Stool Characteristics Brown Soft Data Completed and Pending Labs on day of discharge: Labs from last 24 hours 10/18/20 10/18/20 06:15 06:15 WBC 9.87 D RBC 4.86 Hgb 13.2 L Hct 40.6 MCV 83.5 MCH 27.2 MCHC 32.5 RDW 14.6 H Plt Count 214 MPV 9.6 Immature Gran % 0.2 Neutrophils % 82.0 Lymphocytes % 9.3 Monocytes % 6.7 Eosinophils % 1.5 Basophils % 0.3 Nucleated RBC % 0 Absolute Neutrophils 8.09 H Absolute Lymphocytes 0.92 L Absolute Monocytes 0.66 Absolute Eosinophils 0.15 Absolute Basophils 0.03 Sodium 139 Potassium 3.9 Chloride 105 Carbon Dioxide 27.6 Anion Gap 6.4 BUN 25 H Creatinine 1.4 H Estimated GFR/1.73 m2 49.82 Glucose 101 Calcium 9.2 Magnesium 2.1 10/18/20 03:35 Sputum Sputum Culture - Pending Preliminary micro results at discharge 10/16/20 06:18 Blood Culture - Preliminary Blood NO GROWTH 48 HOURS 10/16/20 06:10 Blood Culture - Preliminary Blood NO GROWTH 48 HOURS 10/18/20 03:35 Sputum Culture - Pending Sputum [facility] Medical History (Updated 10/18/20 @ 12:35 by Winter Frias MD) CKD (chronic kidney disease), stage III COPD (chronic obstructive pulmonary disease) GERD (gastroesophageal reflux disease) H/O renal cell carcinoma HTN (hypertension) Lesion of lung Tubular adenoma Surgical History (Updated 10/16/20 @ 14:47 by Winter Frias MD) Cholecystectomy Circumcision Colonoscopy - MAC (06/29/17) 04/2014 EGD - MAC (04/23/14) EGD - MAC (06/29/17) H/O right nephrectomy Hemorrhoidal Banding History of lung biopsy Linda Fundoplication (03/07/12) Family History Mother Essential hypertension Cancer of kidney Father No problems noted. Sister Lung cancer Sister Lung cancer Brother Lung cancer Brother Lung cancer Brother Lung cancer Grandfather No problems noted. Grandfather No problems noted. Grandmother No problems noted. Grandmother No problems noted. Sister No problems noted. Brother Heart disease Brother No problems noted. Son No problems noted. Daughter No problems noted. Daughter No problems noted. Social History Smoking/Tobacco Use Status: Former Tobacco Use Smoking risk assessment performed?: Yes Alcohol Intake: never Drug use: Never Do you feel safe at home: Yes Do you feel safe in your relationship?: Yes
== END 2020-10-18 17:45 | disposition home or self-care (01) | DRG 199 ==
LOC: ER 11:14 → ICU 12:20
PROVIDERS: Emergency Medicine; Internal Medicine; Admitting Provider Surgery; Emergency Provider Physician Assistant; PCP Family Medicine; Visit Provider Surgery
DX: J93.9 Pneumothorax, unspecified (principal); J96.01 Acute respiratory failure with hypoxia; J96.02 Acute respiratory failure with hypercapnia; J44.0 Chronic obstructive pulmonary disease with (acute) lower respiratory infection; J20.9 Acute bronchitis, unspecified; N18.30 Chronic kidney disease, stage 3 unspecified; K21.9 Gastro-esophageal reflux disease without esophagitis; I12.9 Hypertensive chronic kidney disease with stage 1 through stage 4 chronic kidney disease, or unspecified chronic kidney disease; Z90.5 Acquired absence of kidney; Z85.528 Personal history of other malignant neoplasm of kidney; R91.1 Solitary pulmonary nodule; Z87.891 Personal history of nicotine dependence
CPT/HCPCS: 32551; 36415; 71045; 71275; 80048; 80053; 82805; 87040; 87635; 93005; 94640; 96361; 96365; 96375; 99221; 99232; 99238; 99252; 99291; 36600; 83605; 83735; 83880; 84439; 84443; 84484; 85025; 85610; 85730; 87070; 87205; 93010; 94667; J1644; J2060; J2543; J2930; J3490; J7611; J7613; J7620

== ENCOUNTER 2020-12-23 17:27 | Emergency (ER) | payer MEDICARE, SELFPAY ==
[2020-12-23] VITALS (9 sets, daily range): BP systolic 125–146; BP diastolic 83–94; PULSE 98–107; RESP 8–24; TEMP 36.8; O2SAT 94–100
--- NOTE | 2020-12-23 17:30 | RT.EKG_ITS ---
APPROVED REPORT Exam: Resting ECG Reason for Exam: sob Patient Location: E HR:99 bpm ECG Measurements Heart Rate 99 AXIS MI 182 P 84 QRSd 98 QRS 70 QT 333 T 65 QTc 427 Conclusion Sinus rhythm...normal P axis, V-rate 60- 99 Physician: no stemi, Q wave in lead III, V2, V3, V4, V5. Unchanged
--- NOTE | 2020-12-23 17:30 | DI.RAD_ITS ---
Exam(s) XR PORTABLE CHEST AP EXAM: XR PORTABLE CHEST AP CLINICAL HISTORY: sob TECHNIQUE: 2D digital imaging was performed. COMPARISON: CR XR PORTABLE CHEST AP from 10/18/2020 FINDINGS: MEDIASTINUM: Normal. HEART: Normal. PULMONARY VASCULATURE: Normal. LUNGS: There is hyperinflation of the lungs consistent with underlying COPD. The right lower lobe pu lmonary nodule is stable. There is stable pulmonary scarring. No focal consolidation. PLEURAL SPACE: No pleural effusion or pneumothorax. BONE:Within normal limits for the patient's age. OTHER FINDINGS:Normal. IMPRESSION: No acute pulmonary findings. DATA REPOSITORY: RADIATION DOSE DELIVERED:
[2020-12-23] MEDS: methylPREDNISolone SUCC 125 MG VIAL IVP (17:56)
[2020-12-23] MEDS: Albuterol/Ipratropium 3 ML UPD VIAL 9 ML UPD (17:56)
[2020-12-23 17:58] LABS: Abs Immature Grans 0.04 10^3/uL (0.0-0.06); Absolute Basophil Count 0.03 10^3/uL (0.0-0.2); Absolute Eosinophil Count 0.25 10^3/uL (0.0-0.7); Absolute Lymphocyte Count 0.87 10^3/uL (1.2-3.4); Absolute Neutrophil Count 6.13 10^3/uL (1.2-6.7); Basophils % 0.4; Eosinophils % 3.2; HCT 48.2 % (40.0-50.0); HGB 15.3 g/dL (13.5-17.5); Immature Grans % 0.5; Lymphocytes % 11.1; MCH 27.2 pg (27.0-33.0); MCHC 31.7 % (32.0-36.0); MCV 85.8 fL (80-95); Monocytes % 6.4; Neutrophils % 78.4; Nucleated RBC 0 %; Platelet Count 259 10^3/uL (130-400); RBC 5.62 10^6/uL (4.36-5.78); RDW 13.7 % (11.8-14.1); RDW-SD 43.2 fL; WBC 7.82 10^3/uL (4.4-10.8)
[2020-12-23 18:18] LABS: ALT 25 U/L (16-63); AST 16 U/L (15-37); Albumin 3.6 g/dL (3.4-5.0); Alkaline Phosphatase 112 U/L (46-116); Anion Gap 6.8 mmol/L (3-11); BUN 26 mg/dL (7-18); Bilirubin, Total 0.4 mg/dL (0.2-1.0); CO2 31.2 mmol/L (21.0-32.0); CREATININE 1.4 mg/dL (0.70-1.30); Calcium 9.5 mg/dL (8.5-10.1); Chloride 104 mmol/L (98-107); Estimated GFR 49.82 (mL/min/1.73m2); Glucose 118 mg/dL (74-106); NT-proBNP 24 pg/mL (<300); Sodium 142 mmol/L (136-145); Total Protein 7.6 g/dL (6.4-8.2)
[2020-12-23 18:20] LABS: INR 1.1 (0.9-1.1); PTT Activated 24.8 sec (21.0-27.5); Prothrombin Time 10.7 sec (9.3-11.0)
[2020-12-23 18:23] LABS: Troponin I < 0.05 ng/mL (<0.06)
[2020-12-23 18:31] LABS: D-Dimer 506 ng/mlFEU (<500)
--- NOTE | 2020-12-23 18:33 | DI.VRAD_ITS ---
PROCEDURE INFORMATION: Exam: XR Chest Exam date and time: 12/23/2020 5:42 PM Age: 70 years old Clinical indication: Shortness of breath TECHNIQUE: Imaging protocol: XR of the chest. Views: 1 view. AP portable chest. COMPARISON: CR XR PORTABLE CHEST AP 10/18/2020 2:46 PM FINDINGS: Tubes, catheters and devices: EKG leads overlie the chest. Lungs: Hyperinflation is again noted. Linear densities within the right lung appear unchanged. A well-circumscribed 1.8 cm diameter nodule is again noted within the right lower lobe. No new nodules are noted. Pleural spaces: Unremarkable. No pleural effusion. No pneumothorax. Heart/Mediastinum: Unremarkable. No cardiomegaly. Vasculature: The aorta demonstrates mild atherosclerotic calcification. Bones/joints: Unremarkable. IMPRESSION: 1. Hyperinflation consistent with COPD. 2. No change in pulmonary fibrosis. 3. No change in a 1.8 cm diameter right lower lobe nodule. Dictated and Authenticated by: Kj Cornejo MD. Ordering:MARJORIE Ace MD
--- NOTE | 2020-12-23 18:45 | ED.GENADUL_ITS ---
Discharge Plan Disposition Patient Disposition: HOME Condition: Good Discharge Details Clinical Impression: COPD exacerbation Primary Care Provider: Manjit Guillory ED Provider: Db Patino Home Meds and New Rx's Prescriptions: Continued aspirin [Ecotrin Low Strength] 81 MG tablet,delayed release (DR/EC) 81 mg PO DAILY RF: 0 ascorbic acid (vitamin C) [Vitamin C] 500 MG tablet 500 mg PO DAILY RF: 0 docusate sodium [Colace] 100 MG capsule 100 mg PO DAILY RF: 0 multivitamin with iron [One Daily Plus Iron] 1 EACH tablet 1 ea PO DAILY RF: 0 cholecalciferol (vitamin D3) 1,000 UNIT tablet 1,000 unit PO DAILY RF: 0 Fish Oil 1 EACH capsule 1 ea PO BID RF: 0 MISTERNEB NEBULIZER 1 EACH kit 1 ea Miscellaneous PRN PRNQty: 1 RF: 1 guaifenesin [Mucinex] 600 MG tablet extended release 12hr 1,200 mg PO q12 hr RF: 0 neti pot 1 NS BID PRN RF: 0 budesonide-formoterol [Symbicort] 10.2 GM HFA aerosol inhaler 2 puff Inhalation BID Qty: 3 RF: 4 ipratropium-albuterol [DuoNeb] 3 ML solution for nebulization 1 amp Inhalation QID PRN Qty: 200 RF: 6 atorvastatin 20 MG tablet 20 mg PO DAILY Qty: 90 RF: 4 omeprazole 40 MG capsule,delayed release(DR/EC) 40 mg PO DAILY Qty: 90 RF: 4 albuterol sulfate [Proventil HFA] 6.7 GM HFA aerosol inhaler 2 puff Inhalation Q4H PRN Qty: 3 RF: 4 bupropion HCl [Wellbutrin XL] 300 MG tablet extended release 24 hr 300 mg PO DAILY Qty: 90 RF: 4 hydrochlorothiazide 25 MG tablet 25 mg PO DAILY Qty: 90 RF: 3 amlodipine 5 MG tablet 5 mg PO DAILY Qty: 90 RF: 3 Spiriva Respimat 4 GM mist 2 puff Inhalation DAILY RF: 0 montelukast 10 MG tablet 10 mg PO DAILY RF: 0 Discharge Instructions Instructions: COPD (Chronic Obstructive Pulmonary Disease) (ED) Additional Instructions: Please take your nebulizer treatments at home, 1 treatment every 4-6 hours for the next few days. Please take the Augmentin that was prescribed by your cosmetics demonstrator as well as the prednisone that was prescribed by your cosmetics demonstrator as directed. If you notice any worsening of your symptoms, or any new symptoms such as vomiting, diarrhea, fever, chills, shortness of breath, chest pain, numbness, weakness, or fainting , please return immediately to the emergency department for reevaluation. Please follow up with your primary care provider as soon as possible for reassessment and reevaluation. As always, it was a pleasure participating in your medical care today. Referrals: Manjit Guillory. [Primary Care Provider] - Medical Decision Making 70-year-old male with a past medical history of COPD, previous pneumothorax, chronic kidney disease, presents today for evaluation of shortness of breath. Patient states that for the last week he has had shortness of breath. States his history of similar to his previous COPD exacerbations. No history of intubation in the past. He denies any falls, chest pain, pleuritic chest pain, chest heaviness or chest tightness. He denies any arm neck or shoulder pain. He states that this feels nothing like his previous pneumothorax. He has been taking his breathing treatments at home and initially they were helping but not so much today. He has not smoked in over 18 years. He denies any other complaints at this time. No other modifying factors. Of note he did just see his cosmetics demonstrator yesterday, and was prescribed Augmentin and prednisone. He just filled them today and has not taken any yet. No other complaints at this time. No history of heart attack. No other modifying factors. Exam demonstrates a well-appearing male, mild difficulty breathing, oxygenation is at 95% on room air. He does not use home oxygen at baseline. Diminished breath sounds throughout, mild wheezes in the bases. No crackles or rhonchi. Remainder of his exam is otherwise unremarkable. Differential is highest for COPD exacerbation, however PE or pneumonia was also in the differential. Patient was given 3 duo nebs and had near complete resolution of his symptoms. Laboratory work-up shows no white count bandemia or left shift. D-dimer was age-adjusted negative at 506. EKG and troponin are unremarkable/unchanged. Patient feels well and would like to go home. He was given Solu-Medrol IV here. At this time with resolution of his symptoms, and excellent oxygenation with no signs of respiratory distress, I see no indication for admission. Chest x-ray was read as negative by for lung nodule, this is unchanged. I did discuss this with him and he is well aware of this lung nodule. Will recommend that he continues to take the prescribed Augmentin by his cosmetics demonstrator which is appropriate for pneumonia based on the recent antibiotic gram from [facility] [place]. Additionally will recommend he continue the prednisone 40 mg daily as directed as prescribed by his cosmetics demonstrator. He does have a nebulizer at home with plenty of refills/medications already, however we will get him a new one for which to use. He has been evaluated by RT here in the ED. I have extensively reviewed the treatment plan and discharge instructions with the patient and their family. I have addressed all patient concerns at this time. The patient and family was made aware of what symptoms to monitor for that would warrant a return to the emergency department. Discussed the plan with the patient and family, they demonstrate verbal understanding and agreement with our assessment and plan at this time. The documentation in this chart was dictated using [email or web address] dictation software. Please excuse any dictation errors. Of note the patient also has a stress test scheduled for this coming Wednesday in 1 week. No indication for repeat troponin or EKG at this time as the patient has had symptoms for a week and his symptoms are inconsistent at this time with ACS, PE, dissection. FINDINGS: Tubes, catheters and devices: EKG leads overlie the chest. Lungs: Hyperinflation is again noted. Linear densities within the right lung appear unchanged. A wellcircumscribed 1.8 cm diameter nodule is again noted w ithin the right lower lobe. No new nodules are noted. Pleural spaces: Unremarkable. No pleural effusion. No pneumothorax. Heart/Mediastinum: Unremarkable. No cardiomegaly. Vasculature: The aorta demonstrates mild atherosclerotic calcification. Bones/joints: Unremarkable. IMPRESSION: 1. Hyperinflation consistent with COPD. 2. No change in pulmonary fibrosis. 3. No change in a 1.8 cm diameter right lower lobe nodule. Thank you for allowing us to participate in the care of your patient. Dictated and Authenticated by: Kj Cornejo MD 12/23/2020 6:33 PM Eastern Time ([place] & [place]) HPI General Date/Time Provider Initiated Documentation: 12/23/20 17:40 . HPI Narrative: 70-year-old male with a past medical history of COPD, previous pneumothorax, chronic kidney disease, presents today for evaluation of shortness of breath. Patient states that for the last week he has had shortness of breath. States his history of similar to his previous COPD exacerbations. No history of intubation in the past. He denies any falls, chest pain, pleuritic chest pain, chest heaviness or chest tightness. He denies any arm neck or shoulder pain. He states that this feels nothing like his previous pneumothorax. He has been taking his breathing treatments at home and initially they were helping but not so much today. He has not smoked in over 18 years. He denies any other complaints at this time. No other modifying factors. Of note he did just see his cosmetics demonstrator yesterday, and was prescribed Augmentin and prednisone. He just filled them today and has not taken any yet. No other complaints at this time. No history of heart attack. No other modifying factors. Related Data Home Medications Medication Instructions Recorded Confirmed aspirin [Ecotrin Low Strength] 81 mg PO DAILY tab-cap 11/22/12 12/23/20 Fish Oil 1 ea PO BID 03/16/13 12/23/20 ascorbic acid (vitamin C) [Vitamin 500 mg PO DAILY 03/16/13 12/23/20 C] cholecalciferol (vitamin D3) 1,000 unit PO DAILY 03/16/13 12/23/20 docusate sodium [Colace] 100 mg PO DAILY tab-cap 03/16/13 12/23/20 multivitamin with iron [One Daily 1 ea PO DAILY 03/16/13 12/23/20 Plus Iron] Neti Pot 1 NS BID PRN 08/29/13 02/09/20 guaifenesin [Mucinex] 1,200 mg PO q12 hr tab-cap 08/29/13 12/23/20 budesonide-formoterol [Symbicort] 2 puff INHALATION BID #3 inhaler 10/10/13 12/23/20 ipratropium-albuterol [DuoNeb] 1 amp INHALATION QID PRN #200 amp 04/19/14 12/23/20 albuterol sulfate [Proventil HFA] 2 puff INHALATION Q4H PRN #3 07/25/15 12/23/20 inhaler atorvastatin 20 mg PO DAILY #90 tab-cap 07/25/15 12/23/20 bupropion HCl [Wellbutrin XL] 300 mg PO DAILY #90 tab-cap 07/25/15 12/23/20 omeprazole 40 mg PO DAILY #90 tab-cap 07/25/15 12/23/20 hydrochlorothiazide 25 mg PO DAILY #90 tab 01/31/16 12/23/20 amlodipine 5 mg PO DAILY #90 tab-cap 03/24/16 12/23/20 Spiriva Respimat 2 puff INHALATION DAILY 10/21/16 12/23/20 montelukast 10 mg PO DAILY tab-cap 11/17/17 12/23/20 Allergies Allergy/AdvReac Type Severity Reaction Status Date / Time lisinopril AdvReac Intermediate COUGH Verified 12/23/20 17:41 General Stated Complaint: RespSymp PETERSON: 3 Review of Systems All systems reviewed & are unremarkable except as noted in HPI and below PFSH Medical History CKD (chronic kidney disease), stage III COPD (chronic obstructive pulmonary disease) GERD (gastroesophageal reflux disease) H/O renal cell carcinoma HTN (hypertension) Lesion of lung Tubular adenoma Surgical History Cholecystectomy Circumcision Colonoscopy - MAC (06/29/17) 04/2014 EGD - MAC (04/23/14) EGD - MAC (06/29/17) H/O right nephrectomy Hemorrhoidal Banding History of lung biopsy Lnida Fundoplication (03/07/12) Family History Mother Essential hypertension Cancer of kidney Father No problems noted. Sister Lung cancer Sister Lung cancer Brother Lung cancer Brother Lung cancer Brother Lung cancer Grandfather No problems noted. Grandfather No problems noted. Grandmother No problems noted. Grandmother No problems noted. Sister No problems noted. Brother Heart disease Brother No problems noted. Son No problems noted. Daughter No problems noted. Daughter No problems noted. Social History Smoking/Tobacco Use Status: Former Tobacco Use tobacco type: cigarettes Quit Date: 12/11/03 Tobacco: How many years used: 39 Second Hand Exposure: Yes Smoking risk assessment performed?: Yes Alcohol Intake: never Drug use: Never Substance use type: does not use Caregiver/Support person: No Household members: spouse Housing: house Communication Needs: Corrective Lenses Do you need help understanding health information?: Rarely Pets and animals: Yes Pets and animals: dog(s) Sexually active: No Do you think of yourself as: straight/heterosexual Current gender identity: male What is your relationship status?: How often do you talk on the phone with friends or family?: three or more times per week How often do you attend jewish or roman catholic services?: decline to answer Do you belong to any clubs or organized social groups?: no Panel score (0-1 are the most socially isolated patients): 2 What type of physical activity do you participate in: none Angela/Protestant: Oriental Orthodox Special angela needs: No Seatbelt use: always Drive intox or ride w/intox 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 3.ENT: Atraumatic external nose and ears. Moist MM. Neck: Symmetric, trachea midline, No thyromegaly. 4.CVS: +S1/S2, No murmurs or gallops. Peripheral pulses 2+ and equal in all extremities. Brisk capillary refill in all extremities. 5.RESP: Unlabored respiratory effort. Diminished breath sounds throughout. Minimal wheeze in the bases bilaterally. 6.GI: Soft, Nontender/Nondistended, No hepatosplenomegaly. No guarding or rebound. 7.MSK: Normocephalic/Atraumatic, Extremities w/o deformity or ttp No cyanosis or clubbing, Normal movement of all extremities, no unilateral swelling, no calf tenderness. No significant pitting edema. 8.Skin: Warm, Dry. No rashes or lesions. 9.Neuro: wiring inspector II-XII grossly intact. Sensation grossly intact, no focal neurologic deficits. 10.Psych: (AAO) x3. Appropriate mood and affect Course Vital Signs Vital signs: Vital Signs Temperature 36.8 C 12/23/20 17:35 Pulse 98 H 12/23/20 17:35 Respiratory Rate 24 12/23/20 17:35 Blood Pressure 146/94 H 12/23/20 17:35 Pulse Oximetry 94 12/23/20 17:35 Temperature 36.8 C 12/23/20 17:35 Pulse 105 H 12/23/20 17:56 Respiratory Rate 16 12/23/20 17:56 Respiratory Effort 12/23/20 18:07 Respiratory Depth Deep 12/23/20 18:07 Blood Pressure 146/94 H 12/23/20 17:35 Blood Pressure Position Sitting 12/23/20 17:35 Pulse Oximetry 95 12/23/20 17:56 Oxygen Delivery Method Room Air 12/23/20 17:56 Oxygen Flow Rate 0 12/23/20 17:56 Lab/Test Results Lab/Test Results: Laboratory Tests Range/Units 12/23/20 12/23/20 12/23/20 17:50 17:50 17:50 WBC (4.4-10.8) 10^3/uL 7.82 RBC (4.36-5.78) 10^6/uL 5.62 Hgb (13.5-17.5) g/dL 15.3 Hct (40.0-50.0) % 48.2 MCV (80-95) fL 85.8 MCH (27.0-33.0) pg 27.2 MCHC (32.0-36.0) % 31.7 L RDW (11.8-14.1) % 13.7 Plt Count (130-400) 10^3/uL 259 MPV (8.0-11.0) fL 9.0 Immature Gran % 0.5 Neutrophils % 78.4 Lymphocytes % 11.1 Monocytes % 6.4 Eosinophils % 3.2 Basophils % 0.4 Nucleated RBC % % 0 Absolute Neutrophils (1.2-6.7) 10^3/uL 6.13 Absolute Lymphocytes (1.2-3.4) 10^3/uL 0.87 L Absolute Monocytes (0.1-0.8) 10^3/uL 0.50 Absolute Eosinophils (0.0-0.7) 10^3/uL 0.25 Absolute Basophils (0.0-0.2) 10^3/uL 0.03 PT (9.3-11.0) sec 10.7 INR (0.9-1.1) 1.1 APTT (21.0-27.5) sec 24.8 D-Dimer (<500) ng/mlFEU Sodium (136-145) mmol/L 142 Potassium (3.5-5.1) mmol/L 4.0 Chloride (98-107) mmol/L 104 Carbon Dioxide (21.0-32.0) mmol/L 31.2 Anion Gap (3-11) mmol/L 6.8 BUN (7-18) mg/dL 26 H Creatinine (0.70-1.30) mg/dL 1.4 H Estimated GFR/1.73 m2 (mL/min/1.73m2) 49.82 Glucose (74-106) mg/dL 118 H Calcium (8.5-10.1) mg/dL 9.5 Total Bilirubin (0.2-1.0) mg/dL 0.4 AST (15-37) U/L 16 ALT (16-63) U/L 25 Alkaline Phosphatase (46-116) U/L 112 Troponin I (<0.06) ng/mL < 0.05 NT-Pro-B Natriuret Pep (<300) pg/mL 24 Total Protein (6.4-8.2) g/dL 7.6 Albumin (3.4-5.0) g/dL 3.6 Range/Units 12/23/20 17:50 WBC (4.4-10.8) 10^3/uL RBC (4.36-5.78) 10^6/uL Hgb (13.5-17.5) g/dL Hct (40.0-50.0) % MCV (80-95) fL MCH (27.0-33.0) pg MCHC (32.0-36.0) % RDW (11.8-14.1) % Plt Count (130-400) 10^3/uL MPV (8.0-11.0) fL Immature Gran % Neutrophils % Lymphocytes % Monocytes % Eosinophils % Basophils % Nucleated RBC % % Absolute Neutrophils (1.2-6.7) 10^3/uL Absolute Lymphocytes (1.2-3.4) 10^3/uL Absolute Monocytes (0.1-0.8) 10^3/uL Absolute Eosinophils (0.0-0.7) 10^3/uL Absolute Basophils (0.0-0.2) 10^3/uL PT (9.3-11.0) sec INR (0.9-1.1) APTT (21.0-27.5) sec D-Dimer (<500) ng/mlFEU 506 H Sodium (136-145) mmol/L Potassium (3.5-5.1) mmol/L Chloride (98-107) mmol/L Carbon Dioxide (21.0-32.0) mmol/L Anion Gap (3-11) mmol/L BUN (7-18) mg/dL Creatinine (0.70-1.30) mg/dL Estimated GFR/1.73 m2 (mL/min/1.73m2) Glucose (74-106) mg/dL Calcium (8.5-10.1) mg/dL Total Bilirubin (0.2-1.0) mg/dL AST (15-37) U/L ALT (16-63) U/L Alkaline Phosphatase (46-116) U/L Troponin I (<0.06) ng/mL NT-Pro-B Natriuret Pep (<300) pg/mL Total Protein (6.4-8.2) g/dL Albumin (3.4-5.0) g/dL
== END 2020-12-23 19:22 | disposition home or self-care (01) ==
PROVIDERS: Emergency Provider Student in an Organized Health Care Education/Training Program; PCP Family Medicine
DX: J44.1 Chronic obstructive pulmonary disease with (acute) exacerbation (principal); Z87.891 Personal history of nicotine dependence
CPT/HCPCS: 36415; 80053; 93005; 94640; 96374; 99284; 71045; 83880; 84484; 85025; 85379; 85610; 85730; 93010; 99283; J2930; J7620

== ENCOUNTER 2021-03-20 14:34 | Emergency (ER) | payer MEDICARE, SELFPAY ==
--- NOTE | 2021-03-20 14:30 | RT.EKG_ITS ---
APPROVED REPORT Exam: Resting ECG Reason for Exam: shortness of breath Patient Location: E HR:91 bpm ECG Measurements Heart Rate 91 AXIS NJ 187 P 77 QRSd 96 QRS 71 QT 352 T 79 QTc 433 Conclusion Sinus rhythm...normal P axis, V-rate 60- 99. Sinus. No STEMI. I have reviewed and interpreted ECG and agree with software generated interpretation.
--- NOTE | 2021-03-20 14:30 | DI.RAD_ITS ---
Exam(s) XR PORTABLE CHEST AP EXAM: XR PORTABLE CHEST AP CLINICAL HISTORY: shortness of breath, r/o acute disease. TECHNIQUE: 2D digital imaging was performed. COMPARISON: No exams were available for comparison FINDINGS: Heart size is normal. The mediastinum is not widened. Bilateral hyperinflation-COPD emphysematous changes are again noted. No new infiltrates nor pleural effusions. No pulmonary edema. 1.8 cm nodule towards right lung base is again noted IMPRESSION: Hyperinflation-COPD. 1.8 cm nodule right lower lung field again noted. DATA REPOSITORY: RADIATION DOSE DELIVERED: All CT scans at this facility use at least one of these dose optimization techniques: automated exposure control; mA and/or kV adjustment per patient size (includes targeted e xams where dose is matched to clinical indication); or iterative reconstruction.
--- NOTE | 2021-03-20 14:30 | W.ED.GENAD ---
Discharge Plan Disposition Patient Disposition: HOME Condition: Stable Discharge Details Clinical Impression: Dyspnea on exertion, Leg swelling, COPD with acute exacerbation Primary Care Provider: Manjit Guillory. ED Provider: Sravani Soto Home Meds and New Rx's Prescriptions: New prednisone 20 mg tablet See Rx Instructions .ROUTE .COMPLEX Qty: 18 RF: 0 furosemide [Lasix] 20 mg tablet 20 mg PO DAILY 3 Days Qty: 3 RF: 0 Continued aspirin [Ecotrin Low Strength] 81 MG tablet,delayed release (DR/EC) 81 mg PO DAILY RF: 0 ascorbic acid (vitamin C) [Vitamin C] 500 MG tablet 500 mg PO DAILY RF: 0 docusate sodium [Colace] 100 MG capsule 100 mg PO DAILY RF: 0 multivitamin with iron [One Daily Plus Iron] 1 EACH tablet 1 ea PO DAILY RF: 0 cholecalciferol (vitamin D3) 1,000 UNIT tablet 1,000 unit PO DAILY RF: 0 Fish Oil 1 EACH capsule 1 ea PO BID RF: 0 MISTERNEB NEBULIZER 1 EACH kit 1 ea Miscellaneous PRN PRNQty: 1 RF: 1 guaifenesin [Mucinex] 600 MG tablet extended release 12hr 1,200 mg PO q12 hr RF: 0 neti pot 1 NS BID PRN RF: 0 budesonide-formoterol [Symbicort] 10.2 GM HFA aerosol inhaler 2 puff Inhalation BID Qty: 3 RF: 4 ipratropium-albuterol [DuoNeb] 3 ML solution for nebulization 1 amp Inhalation QID PRN Qty: 200 RF: 6 atorvastatin 20 MG tablet 20 mg PO DAILY Qty: 90 RF: 4 omeprazole 40 MG capsule,delayed release(DR/EC) 40 mg PO DAILY Qty: 90 RF: 4 albuterol sulfate [Proventil HFA] 6.7 GM HFA aerosol inhaler 2 puff Inhalation Q4H PRN Qty: 3 RF: 4 bupropion HCl [Wellbutrin XL] 300 MG tablet extended release 24 hr 300 mg PO DAILY Qty: 90 RF: 4 hydrochlorothiazide 25 MG tablet 25 mg PO DAILY Qty: 90 RF: 3 amlodipine 5 MG tablet 5 mg PO DAILY Qty: 90 RF: 3 Spiriva Respimat 4 GM mist 2 puff Inhalation DAILY RF: 0 montelukast 10 MG tablet 10 mg PO DAILY RF: 0 Discharge Instructions Instructions: COPD (Chronic Obstructive Pulmonary Disease) (ED), Dyspnea (ED) Additional Instructions: Prescriptions for Lasix and prednisone were sent electronically to your pharmacy. Do not start these prescriptions until tomorrow. You can try wearing compression stockings and elevate your legs as much as possible to help with your leg swelling. Use your albuterol inhaler and nebulizer as needed and directed for your shortness of breath. Follow-up with your scheduled pulmonary function testing this month. Call your primary care doctor tomorrow to schedule a follow-up appointment for reevaluation within the next week. Return immediately to the emergency department if you develop any worsening or new concerning symptoms such as fever, worsening shortness of breath or any other concerns. Discharge Data Discharge Physician: Sravani Soto Medical Decision Making 71-year-old male with a history of COPD, GERD, CKD, hypertension, previous pneumothorax in October 2020 secondary to bleb rupture presents for worsening dyspnea on exertion and bilateral leg edema for the past several weeks. EKG on arrival notes a rate of 91, sinus, no STEMI, no change from previous and nondiagnostic. Oxygen 97% on room air on arrival. He is afebrile. He is speaking in 3-4 word sentences. He appears to have audible wheezing and diminished breath sounds throughout. He has significant pitting bilateral lower extremity edema. Portable chest x-ray obtained at bedside negative for obvious pneumothorax. Suspect either COPD exacerbation versus acute CHF. Also consider PE. Will obtain screening labs, CT chest, and give DuoNeb, IV Lasix and IV steroids and reassess. Labs reviewed. Normal white blood cell count and hemoglobin. Creatinine 1.4, GFR 49.6. Mag 1.6, will replete. Troponin negative. BNP normal at 180. Chest x-ray read as hyperinflation/COPD. CT chest negative for PE and no other acute findings Able to obtain stress test from the [facility] from December 30 which noted: 1. Abnormal pharmacologic nuclear stress test. There is a small severe intensity, partially reversible perfusion defect involving the left ventricular apex. This is suggestive of a small area of ischemia but interpretation is limited by significant subdiaphragmatic activity adjacent to this area on rest images. Cannot exclude artifact of the cause of this difference using rest and stress images. 2. No other findings suggestive of myocardial ischemia or infarction. 3. Gated SPECT images showed normal regional wall motion. The left ventricular systolic function was normal with a calculated ejection fraction of 68%. 4. There are no other prior nuclear stress test available for comparison. Patient was able to ambulate and oxygen saturation dropped into the low 90s. He had dyspnea on exertion but states it was improved compared to previous. Patient states he would like to go home. A rapid Covid obtained and negative. Patient has a history of a right nephrectomy. He was given fluid hydration after his CT with IV contrast. Prescriptions for prednisone and Lasix sent electronically to his pharmacy. Advised to take a small dose of Lasix for a few days to help with his leg edema. He is advised to call his PCP tomorrow for follow-up within the next week. He states he has been seen recently for his dyspnea on exertion and was declined home O2 until he has a PFT which is scheduled for next week. He is advised to follow-up for this test as scheduled. Usual and customary return precautions given prior to discharge. Medical Records Medical records reviewed: Yes I reviewed the patient's medical records. Imaging Data Radiologic Study: Radiologist's impression: XR PORTABLE CHEST AP CLINICAL HISTORY: shortness of breath, r/o acute disease. TECHNIQUE: 2D digital imaging was performed. COMPARISON: No exams were available for comparison FINDINGS: Heart size is normal. The mediastinum is not widened. Bilateral hyperinflation-COPD emphysematous changes are again noted. No new infiltrates nor pleural effusions. No pulmonary edema. 1.8 cm nodule towards right lung base is again noted IMPRESSION: Hyperinflation-COPD. 1.8 cm nodule right lower lung field again noted. Lab Data Lab results reviewed: Yes I reviewed the patient's lab results. Labs: 03/20/21 17:07 Blood Blood Culture - Pending 03/20/21 14:55 Blood Blood Culture - Pending Laboratory Tests Range/Units 03/20/21 03/20/21 03/20/21 14:34 14:55 14:55 WBC (4.4-10.8) 10^3/uL RBC (4.36-5.78) 10^6/uL Hgb (13.5-17.5) g/dL Hct (40.0-50.0) % MCV (80-95) fL MCH (27.0-33.0) pg MCHC (32.0-36.0) % RDW (11.8-14.1) % Plt Count (130-400) 10^3/uL MPV (8.0-11.0) fL Immature Gran % Neutrophils % Lymphocytes % Monocytes % Eosinophils % Basophils % Nucleated RBC % % Absolute Neutrophils (1.2-6.7) 10^3/uL Absolute Lymphocytes (1.2-3.4) 10^3/uL Absolute Monocytes (0.1-0.8) 10^3/uL Absolute Eosinophils (0.0-0.7) 10^3/uL Absolute Basophils (0.0-0.2) 10^3/uL Sodium (136-145) mmol/L 141 Potassium (3.5-5.1) mmol/L 3.9 Chloride (98-107) mmol/L 104 Carbon Dioxide (21.0-32.0) mmol/L 32.0 Anion Gap (3-11) mmol/L 5.0 BUN (7-18) mg/dL 24 H Creatinine (0.70-1.30) mg/dL 1.4 H Estimated GFR/1.73 m2 (mL/min/1.73m2) 49.68 Glucose (74-106) mg/dL 120 H Calcium (8.5-10.1) mg/dL 9.4 Magnesium (1.8-2.4) mg/dL 1.6 L Total Bilirubin (0.2-1.0) mg/dL 0.5 AST (15-37) U/L 20 ALT (16-63) U/L 29 Alkaline Phosphatase (46-116) U/L 152 H Troponin I (<0.06) ng/mL < 0.05 NT-Pro-B Natriuret Pep (<300) pg/mL 180 Total Protein (6.4-8.2) g/dL 6.7 Albumin (3.4-5.0) g/dL 3.4 COVID-19 Source Range/Units 03/20/21 03/20/21 14:55 19:05 WBC (4.4-10.8) 10^3/uL 7.72 RBC (4.36-5.78) 10^6/uL 5.03 Hgb (13.5-17.5) g/dL 13.9 Hct (40.0-50.0) % 43.8 MCV (80-95) fL 87.1 MCH (27.0-33.0) pg 27.6 MCHC (32.0-36.0) % 31.7 L RDW (11.8-14.1) % 14.4 H Plt Count (130-400) 10^3/uL 262 MPV (8.0-11.0) fL 9.3 Immature Gran % 0.3 Neutrophils % 78.0 Lymphocytes % 10.2 Monocytes % 6.9 Eosinophils % 4.1 Basophils % 0.5 Nucleated RBC % % 0 Absolute Neutrophils (1.2-6.7) 10^3/uL 6.02 Absolute Lymphocytes (1.2-3.4) 10^3/uL 0.79 L Absolute Monocytes (0.1-0.8) 10^3/uL 0.53 Absolute Eosinophils (0.0-0.7) 10^3/uL 0.32 Absolute Basophils (0.0-0.2) 10^3/uL 0.04 Sodium (136-145) mmol/L Potassium (3.5-5.1) mmol/L Chloride (98-107) mmol/L Carbon Dioxide (21.0-32.0) mmol/L Anion Gap (3-11) mmol/L BUN (7-18) mg/dL Creatinine (0.70-1.30) mg/dL Estimated GFR/1.73 m2 (mL/min/1.73m2) Glucose (74-106) mg/dL Calcium (8.5-10.1) mg/dL Magnesium (1.8-2.4) mg/dL Total Bilirubin (0.2-1.0) mg/dL AST (15-37) U/L ALT (16-63) U/L Alkaline Phosphatase (46-116) U/L Troponin I (<0.06) ng/mL NT-Pro-B Natriuret Pep (<300) pg/mL Total Protein (6.4-8.2) g/dL Albumin (3.4-5.0) g/dL COVID-19 Source Nasal/Nares ECG Data Attestation: I personally reviewed and interpreted this ECG (s) as follows: Interpretation: Rate of 91, sinus, no acute ST elevation or depression. FL 187. QRS 96. QTc 433. No acute change from previous EKG. HPI General Mode of arrival: EMS. Date/Time Provider Initiated Documentation: 03/20/21 15:01. Limitations to Documentation: physical limitation. Information obtained by: patient. HPI Narrative: Patient is a 71-year-old male with a history of COPD, CKD, GERD, hypertension, previous pneumothorax in October 2020 likely secondary to bleb rupture secondary to COPD presents for increasing shortness of breath and leg swelling over the last 2 weeks. He states he is having increasing dyspnea on exertion and is unable to walk due to his shortness of breath and leg swelling. He is not taking diuretics. He states he feels his chest is congested but denies any productive cough. He denies any fever. He does admit to decreased appetite. He denies any chest pain. He is fully vaccinated for Covid and denies any known Covid exposures or recent travel. Related Data Home Medications Medication Instructions Recorded Confirmed aspirin [Ecotrin Low Strength] 81 mg PO DAILY tab-cap 11/22/12 03/20/21 Fish Oil 1 ea PO BID 03/16/13 03/20/21 ascorbic acid (vitamin C) [Vitamin 500 mg PO DAILY 03/16/13 03/20/21 C] cholecalciferol (vitamin D3) 1,000 unit PO DAILY 03/16/13 03/20/21 docusate sodium [Colace] 100 mg PO DAILY tab-cap 03/16/13 03/20/21 multivitamin with iron [One Daily 1 ea PO DAILY 03/16/13 03/20/21 Plus Iron] Neti Pot 1 NS BID PRN 08/29/13 02/09/20 guaifenesin [Mucinex] 1,200 mg PO q12 hr tab-cap 08/29/13 03/20/21 budesonide-formoterol [Symbicort] 2 puff INHALATION BID #3 inhaler 10/10/13 03/20/21 ipratropium-albuterol [DuoNeb] 1 amp INHALATION QID PRN #200 amp 04/19/14 03/20/21 albuterol sulfate [Proventil HFA] 2 puff INHALATION Q4H PRN #3 07/25/15 03/20/21 inhaler atorvastatin 20 mg PO DAILY #90 tab-cap 07/25/15 03/20/21 bupropion HCl [Wellbutrin XL] 300 mg PO DAILY #90 tab-cap 07/25/15 03/20/21 omeprazole 40 mg PO DAILY #90 tab-cap 07/25/15 03/20/21 hydrochlorothiazide 25 mg PO DAILY #90 tab 01/31/16 03/20/21 amlodipine 5 mg PO DAILY #90 tab-cap 03/24/16 03/20/21 Spiriva Respimat 2 puff INHALATION DAILY 10/21/16 03/20/21 montelukast 10 mg PO DAILY tab-cap 11/17/17 03/20/21 furosemide [Lasix] 20 mg PO DAILY 3 Days #3 tab 03/20/21 prednisone See Rx Instructions .ROUTE 03/20/21 .COMPLEX #18 tab Previous Rx's Medication Instructions Recorded furosemide [Lasix] 20 mg PO DAILY 3 Days #3 tab 03/20/21 prednisone See Rx Instructions .ROUTE 03/20/21 .COMPLEX #18 tab Allergies Allergy/AdvReac Type Severity Reaction Status Date / Time lisinopril AdvReac Intermediate COUGH Verified 03/20/21 14:50 General PETERSON: 3 Review of Systems All systems reviewed & are unremarkable except as noted in HPI and below Constitutional Constitutional: Reports as per HPI, Denies chills, Denies fever(s), Reports poor appetite and Reports weakness Eyes Eyes: Denies blurry vision ENT Ears, Nose, Mouth, and Throat: Denies dizziness, Denies sore throat and Denies throat swelling Cardiovascular Cardiovascular: Reports chest pain, Reports leg edema and Reports dyspnea Respiratory Respiratory: Denies cough and Reports dyspnea Gastrointestinal Gastrointestinal: Denies abdominal pain, Denies diarrhea and Denies vomiting Genitourinary Genitourinary: Denies hematuria and Denies dysuria Musculoskeletal Musculoskeletal: Denies back pain and Denies numbness Integumentary/Breasts Skin/Breast: Denies lesions and Denies rash Neurologic Neurologic: Denies dizziness, Denies localized weakness, Denies numbness and Reports weakness Allergic/Immunologic Allergic/Immunologic: Denies throat swelling [facility] Medical History CKD (chronic kidney disease), stage III COPD (chronic obstructive pulmonary disease) GERD (gastroesophageal reflux disease) H/O renal cell carcinoma HTN (hypertension) Lesion of lung Tubular adenoma Surgical History Cholecystectomy Circumcision Colonoscopy - MAC (06/29/17) 04/2014 EGD - MAC (04/23/14) EGD - MAC (06/29/17) H/O right nephrectomy Hemorrhoidal Banding History of lung biopsy Linda Fundoplication (03/07/12) Family History Mother Essential hypertension Cancer of kidney Father No problems noted. Sister Lung cancer Sister Lung cancer Brother Lung cancer Brother Lung cancer Brother Lung cancer Grandfather No problems noted. Grandfather No problems noted. Grandmother No problems noted. Grandmother No problems noted. Sister No problems noted. Brother Heart disease Brother No problems noted. Son No problems noted. Daughter No problems noted. Daughter No problems noted. Social History Smoking/Tobacco Use Status: Former Tobacco Use tobacco type: cigarettes Quit Date: 12/11/03 Tobacco: How many years used: 39 Second Hand Exposure: Yes Smoking risk assessment performed?: Yes Alcohol Intake: never Drug use: Never Substance use type: does not use Caregiver/Support person: No Household members: spouse Housing: house Communication Needs: Corrective Lenses Do you need help understanding health information?: Rarely Pets and animals: Yes Pets and animals: dog(s) Sexually active: No Do you think of yourself as: straight/heterosexual Current gender identity: male What is your relationship status?: How often do you talk on the phone with friends or family?: three or more times per week How often do you attend restoration or anglican services?: decline to answer Do you belong to any clubs or organized social groups?: no Panel score (0-1 are the most socially isolated patients): 2 What type of physical activity do you participate in: none Angela/Jewish: Cheondoism Special angela needs: No Seatbelt use: always Drive 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 Do you feel safe at home: Yes Do you feel safe in your relationship?: Yes Exam Const General: cooperative, no acute distress and acute distress respiratory (mild to moderate) Orientation: alert, awake and oriented x3 HENMT Head: normal to inspection Face and sinus: normal facial exam Eyes General: appearance normal, both eyes and all related structures Pupils: PERRL EOM: EOM intact bilaterally Neck Neck: normal visual inspection and No submandibular swelling Lymphatic: no lymphadenopathy noted Chest Chest: normal inspection of the chest and no tenderness Resp Effort & Inspection: normal respiratory effort and not able to speak in complete sentences (3-4 word sentences) Auscultation: diminished lung sounds bilaterally throughout and wheezes scattered wheezes Cardio Rate: tachycardic Rhythm: regular rhythm GI Inspection: normal to inspection Palpation: soft, not firm, not rigid and nontender Auscultation: normal bowel sounds Skin General skin exam: no rashes or lesions noted Neuro General: patient alert, patient awake and patient oriented x3 Cognition: normal cognition Speech: speech normal Motor: muscle tone normal throughout Sensory Exam: no sensory deficits noted Extrem General: normal to inspection, full ROM, capillary refill normal, no calf tenderness bilaterally and edema Laterality: bilateral (2+ pitting b/l LE, worse on left) Psych Appearance: grossly normal Mental Status: mental status grossly normal Speech and Movement: speech and movement normal Affect: normal affect
[2021-03-20 14:42] VITALS: BP 133/72; PULSE 103; RESP 22; TEMP 36.6; O2SAT 97
[2021-03-20 15:06] LABS: Abs Immature Grans 0.02 10^3/uL (0.0-0.06); Absolute Basophil Count 0.04 10^3/uL (0.0-0.2); Absolute Eosinophil Count 0.32 10^3/uL (0.0-0.7); Absolute Lymphocyte Count 0.79 10^3/uL (1.2-3.4); Absolute Monocyte Count 0.53 10^3/uL (0.1-0.8); Absolute Neutrophil Count 6.02 10^3/uL (1.2-6.7); Basophils % 0.5; Eosinophils % 4.1; HCT 43.8 % (40.0-50.0); HGB 13.9 g/dL (13.5-17.5); Immature Grans % 0.3; Lymphocytes % 10.2; MCH 27.6 pg (27.0-33.0); MCHC 31.7 % (32.0-36.0); MCV 87.1 fL (80-95); MPV 9.3 fL (8.0-11.0); Monocytes % 6.9; Nucleated RBC 0 %; Platelet Count 262 10^3/uL (130-400); RBC 5.03 10^6/uL (4.36-5.78); RDW 14.4 % (11.8-14.1); RDW-SD 45.8 fL; WBC 7.72 10^3/uL (4.4-10.8)
[2021-03-20 15:19] LABS: Magnesium 1.6 mg/dL (1.8-2.4)
[2021-03-20 15:26] LABS: ALT 29 U/L (16-63); AST 20 U/L (15-37); Albumin 3.4 g/dL (3.4-5.0); Alkaline Phosphatase 152 U/L (46-116); BUN 24 mg/dL (7-18); Bilirubin, Total 0.5 mg/dL (0.2-1.0); CREATININE 1.4 mg/dL (0.70-1.30); Calcium 9.4 mg/dL (8.5-10.1); Chloride 104 mmol/L (98-107); Estimated GFR 49.68 (mL/min/1.73m2); Glucose 120 mg/dL (74-106); Potassium 3.9 mmol/L (3.5-5.1); Sodium 141 mmol/L (136-145); Total Protein 6.7 g/dL (6.4-8.2); Troponin I < 0.05 ng/mL (<0.06)
[2021-03-20] MEDS: Furosemide 100 MG/10 ML VIAL 80 MG IVP (15:30)
--- NOTE | 2021-03-20 15:30 | DI.CT_ITS ---
Exam(s) CT CHEST PE CTA EXAM: CT CHEST PE CTA CLINICAL HISTORY: sob, leg swelling, r/o PE. TECHNIQUE: Imaging Protocol: Axial CT angiography was performed with multi-slice acquisition and mu lti-planar and/or 3D reconstructions. CONTRAST MATERIAL: Intravenous: Omnipaque 350 Contrast volume:[address] CHEST PE CTA from 10/16/2020 FINDINGS: Pulmonary Arteries: No evidence of filling defect to suggest pulmonary emboli. Tracheobronchial tree: Patent where visualized. Mediastinum and Louise: No dominant adenopathy or fluid collection. Pulmonary parenchyma: 2 masses are again noted in the right lower lobe which are low density. The mor e peripheral mass appears to have decreased in size when compared the previous exam. Moderate to katya re centrilobular and paraseptal emphysema. Pleura: No effusion or pneumothorax. Heart: The heart is not dilated. Aorta: Thoracic aorta non-dilated. No dissection. Upper abdomen: Low-density lesions superior liver, consistent with the hemangiomas on previous exam. Severely atrophic right kidney. Left renal cysts. Status post cholecystectomy. Bones: No acute abnormality. Stable mild mid thoracic compression fractures. Mild scoliosis. Degenera tive disc changes. IMPRESSION: Moderate severe emphysematous changes. No evidence of pulmonary embolism or other acute abnormality.. RADIATION DOSE DELIVERED: 300.95mGy.cm Total DLP DATA REPOSITORY: All CT scans at this facility are submitted to the National Radiology Data Registry (NRDR) Dose Index Registry (DIR) with the [employer] (ACR). RADIATION OPTIMIZATION: All CT scans at this facility use at least one of these dose optimization te chniques: automated exposure control; mA and/or kV adjustment per patient size (includes targeted exa ms where dose is matched to clinical indication); or iterative reconstruction.
[2021-03-20] MEDS: Albuterol/Ipratropium 3 ML UPD VIAL UPD (15:42)
[2021-03-20] MEDS: methylPREDNISolone SUCC 125 MG VIAL IVP (15:42)
[2021-03-20 15:43] LABS: NT-proBNP 180 pg/mL (<300)
[2021-03-20] MEDS: Omnipaque 350 MG/ML 100 ML BTL IJ (16:25)
[2021-03-20] MEDS: Normal Saline Flush 10 ML SYR IVP (16:26)
[2021-03-20] MEDS: MAGNESIUM SULFATE 1 GM/100 ML BAG IVPB (16:43)
--- NOTE | 2021-03-20 17:06 | DI.VRAD_ITS ---
PROCEDURE INFORMATION: Exam: CTA Chest With Contrast Exam date and time: 03/20/2021 3:38 PM Age: 71 years old Clinical indication: Other: SOB, leg swelling, R/O pe TECHNIQUE: Imaging protocol: Computed tomographic angiography of the chest with contrast. 3D rendering (Not supervised by radiologist): MIP and/or 3D reconstructed images were created by the technologist. Total images: 2115 Contrast material: OMNIPAQUE 350; Contrast volume: 80 ml; Contrast route: INTRAVENOUS (IV); COMPARISON: CT CHEST PE CTA 10/16/2020 8:15 AM FINDINGS: Pulmonary arteries: No main, lobar or segmental pulmonary arterial embolism. Aorta: Unremarkable. No aortic aneurysm. No aortic dissection. Other arteries: The right hepatic artery arises from the aorta. Lungs: There is a 1.7 cm right lower lobe nodule (series 11, image 414). There is a 1.2 cm right lower lobe nodule (series 11, image 407). There is lingular scarring. There is moderate centrilobular and paraseptal emphysema. Pleural spaces: Unremarkable. No pneumothorax. No pleural effusion. Heart: Unremarkable. No cardiomegaly. No pericardial effusion. Lymph nodes: Unremarkable. No enlarged lymph nodes. Liver: There are multiple low-density lesions in the hepatic dome measuring up to 1.4 cm, incompletely characterized. Bones/joints: Unremarkable. No acute fracture. Soft tissues: Unremarkable. IMPRESSION: 1. No pulmonary arterial embolism. 2. Right lower lobe nodules 1.7 and 1.2 cm. 3. Moderate emphysema. For patients at low risk (minimal or absent history of smoking and of other known risk factors), recommend CT Chest at 3-6 months, then consider CT Chest at 18-24 months. For patients at high risk (history of smoking or of other known risk factors), recommend CT Chest at 3-6 months, then CT Chest at 18-24 months. (Reference: Barb) REFERENCES: Barb H, et al. Guidelines for Management of Incidental Pulmonary Nodules Detected on CT Images: From the Fleischner Society 2017. Radiology. 2017;284(1):228-243. Dictated and Authenticated by: Malik Dudley MD. Ordering:YANETH Lassiter MD
[2021-03-20 19:09] LABS: Source Nasal/Nares
[2021-03-20] MEDS: Normal Saline 250 ML IV (19:10)
[2021-03-20 19:17] VITALS: RESP 20
[2021-03-20 19:45] VITALS: BP 128/84; PULSE 102; TEMP 36.6; O2SAT 91
[2021-03-20 21:09] LABS: COVID-19 PCR Negative (Negative)
--- NOTE | 2021-03-22 07:22 | NUR.NOTE ---
Nursing Note: 03/20/21 1800- Pt taken for walk on RA with pulse ox attatched. Pt ambulated with walker for approx 18' with increased WOB, SPo2 90%. Pt asked to sit down and recover, pt provided with wheelchair, able to recover to speak in short sentences in 5 minutes.
== END 2021-03-20 20:16 | disposition home or self-care (01) ==
PROVIDERS: Emergency Provider Physician Assistant; PCP Family Medicine
DX: R06.09 Other forms of dyspnea (principal); R60.0 Localized edema; J44.1 Chronic obstructive pulmonary disease with (acute) exacerbation; Z87.891 Personal history of nicotine dependence; Z20.822 Contact with and (suspected) exposure to COVID-19; Z03.818 Encounter for observation for suspected exposure to other biological agents ruled out
CPT/HCPCS: 36415; 71275; 80053; 87040; 87635; 93005; 94640; 96361; 96365; 96375; 99285; 71045; 83735; 83880; 84484; 85025; 93010; J1940; J2930; J3475; J3490; J7620

== ENCOUNTER 2021-04-29 14:49 | Emergency (ER) | payer MEDICARE, SELFPAY ==
[2021-04-29] VITALS (7 sets, daily range): BP systolic 98–125; BP diastolic 55–92; PULSE 95–102; RESP 8–22; TEMP 36.6–36.9; O2SAT 92–98
--- NOTE | 2021-04-29 14:45 | RT.EKG_ITS ---
APPROVED REPORT Exam: Resting ECG Reason for Exam: shortness of breath Patient Location: E HR:92 bpm ECG Measurements Heart Rate 92 AXIS HI 185 P 72 QRSd 97 QRS 71 QT 347 T 83 QTc 430 Conclusion Sinus rhythm...normal P axis, V-rate 60- 99
[2021-04-29 15:05] LABS: Abs Immature Grans 0.04 10^3/uL (0.0-0.06); Absolute Basophil Count 0.04 10^3/uL (0.0-0.2); Absolute Eosinophil Count 0.22 10^3/uL (0.0-0.7); Absolute Lymphocyte Count 0.83 10^3/uL (1.2-3.4); Absolute Monocyte Count 0.72 10^3/uL (0.1-0.8); Absolute Neutrophil Count 6.35 10^3/uL (1.2-6.7); Basophils % 0.5; Eosinophils % 2.7; HCT 45.2 % (40.0-50.0); HGB 13.9 g/dL (13.5-17.5); Immature Grans % 0.5; Lymphocytes % 10.1; MCH 27.5 pg (27.0-33.0); MCHC 30.8 % (32.0-36.0); MCV 89.5 fL (80-95); MPV 9.7 fL (8.0-11.0); Monocytes % 8.8; Neutrophils % 77.4; Nucleated RBC 0 %; Platelet Count 321 10^3/uL (130-400); RBC 5.05 10^6/uL (4.36-5.78); RDW-SD 45.5 fL
--- NOTE | 2021-04-29 15:16 | W.ED.GENAD ---
Discharge Plan Disposition Patient Disposition: HOME Condition: Improving Discharge Details Clinical Impression: COPD (chronic obstructive pulmonary disease), Pneumonia Primary Care Provider: Manjit Guillory ED Provider: Kurtis Raza Home Meds and New Rx's Prescriptions: New prednisone 50 mg tablet 50 mg PO DAILY 5 Days Qty: 5 RF: 0 amoxicillin-pot clavulanate 875-125 mg tablet 1 tab PO BID 10 Days Qty: 20 RF: 0 Continued metoprolol succinate 25 mg tablet extended release 24 hr 25 mg PO DAILY RF: 0 isosorbide mononitrate 30 mg tablet extended release 24 hr 30 mg PO DAILY RF: 0 clotrimazole 10 mg corby 10 mg mucous membrane ONCE RF: 0 torsemide 20 mg tablet 20 mg PO DAILY Qty: 30 RF: 0 aspirin [Ecotrin Low Strength] 81 MG tablet,delayed release (DR/EC) 81 mg PO DAILY RF: 0 ascorbic acid (vitamin C) [Vitamin C] 500 MG tablet 500 mg PO DAILY RF: 0 docusate sodium [Colace] 100 MG capsule 100 mg PO DAILY RF: 0 multivitamin with iron [One Daily Plus Iron] 1 EACH tablet 1 ea PO DAILY RF: 0 cholecalciferol (vitamin D3) 1,000 UNIT tablet 1,000 unit PO DAILY RF: 0 Fish Oil 1 EACH capsule 1 ea PO BID RF: 0 MISTERNEB NEBULIZER 1 EACH kit 1 ea Miscellaneous PRN PRNQty: 1 RF: 1 guaifenesin [Mucinex] 600 MG tablet extended release 12hr 1,200 mg PO q12 hr RF: 0 budesonide-formoterol [Symbicort] 10.2 GM HFA aerosol inhaler 2 puff Inhalation BID Qty: 3 RF: 4 ipratropium-albuterol [DuoNeb] 3 ML solution for nebulization 1 amp Inhalation QID PRN Qty: 200 RF: 6 omeprazole 40 MG capsule,delayed release(DR/EC) 40 mg PO DAILY Qty: 90 RF: 4 albuterol sulfate [Proventil HFA] 6.7 GM HFA aerosol inhaler 2 puff Inhalation Q4H PRN Qty: 3 RF: 4 bupropion HCl [Wellbutrin XL] 300 MG tablet extended release 24 hr 300 mg PO DAILY Qty: 90 RF: 4 Spiriva Respimat 4 GM mist 2 puff Inhalation DAILY RF: 0 amlodipine 5 mg tablet 2.5 mg PO DAILY Qty: 90 RF: 3 atorvastatin 20 mg tablet 40 mg PO DAILY Qty: 90 RF: 4 Discharge Instructions Instructions: COPD (Chronic Obstructive Pulmonary Disease) (ED), Pneumonia (ED) Additional Instructions: Please take antibiotics and prednisone as prescribed. These prescriptions were faxed to the [facility] in [place]. I have asked our care management team to arrange a follow-up for you in pulmonology clinic. Home to rest this evening Continue your regular medications including Mucinex and breathing treatments. Return to the ER for any acute concerns. Discharge Data Discharge Date/Time-TO BE ENTERED AT DEPARTURE: 04/29/21 18:14 Medical Decision Making 71-year-old male presents from home. He was recently admitted treated for COPD exacerbation and did feel some improvement but has had persistent congestion and cough. No fever, no chest pain. He is maintained on 2 L home oxygen. He arrives to the ER improved following DuoNeb treatment on route in the ambulance. Speaking in full sentences and oxygenating normally on his home levels. His exam is reassuring. Referred for laboratory testing, chest x-ray, given additional DuoNeb updraft and trialed on an Acapella device. Laboratories reveal a white count of 8, hematocrit 45, platelets 321. Sodium 143, calcium 3.8, chloride 102, bicarb 36. BUN 35 and creatinine 1.5. Chemistries otherwise reassuring. Chest x-ray with early consolidation in left upper and right lower lobes. Patient improving after DuoNeb. I will place him on a course of Augmentin, a brief moderate burst of prednisone, and I will ask for follow-up with Dr. Cutler in pulmonary clinic. Some mild ongoing work of breathing. Patient states he feels improved and request discharge to home. Discussed with him indications to return for reevaluation. He is stable and appropriate outpatient management at this time. HPI General Mode of arrival: EMS. Date/Time Provider Initiated Documentation: 04/29/21 15:40. Limitations to Documentation: no limitations. Information obtained by: patient and EMS. History of Present Illness 71 year old M presents to the emergency department with the chief complaint of Persistent cough and mucus, no fever no chest pain, described as moderate, Quality is described as constant, and is localized to the chest. Patient reports no radiation. Patient started experiencing this day(s) and it has been constant. No relieving factors improve symptom(s), No exacerbating factors reported . Patient notes cough; denies chest pain and fever/chills. Patient did receive the following treatments prior to arrival, none Related Data Home Medications Medication Instructions Recorded Confirmed aspirin [Ecotrin Low Strength] 81 mg PO DAILY tab-cap 11/22/12 04/29/21 Fish Oil 1 ea PO BID 03/16/13 04/29/21 ascorbic acid (vitamin C) [Vitamin 500 mg PO DAILY 03/16/13 04/29/21 C] cholecalciferol (vitamin D3) 1,000 unit PO DAILY 03/16/13 04/29/21 docusate sodium [Colace] 100 mg PO DAILY tab-cap 03/16/13 04/29/21 multivitamin with iron [One Daily 1 ea PO DAILY 03/16/13 04/29/21 Plus Iron] guaifenesin [Mucinex] 1,200 mg PO q12 hr tab-cap 08/29/13 04/29/21 budesonide-formoterol [Symbicort] 2 puff INHALATION BID #3 inhaler 10/10/13 04/29/21 ipratropium-albuterol [DuoNeb] 1 amp INHALATION QID PRN #200 amp 04/19/14 04/29/21 albuterol sulfate [Proventil HFA] 2 puff INHALATION Q4H PRN #3 07/25/15 04/29/21 inhaler bupropion HCl [Wellbutrin XL] 300 mg PO DAILY #90 tab-cap 07/25/15 04/29/21 omeprazole 40 mg PO DAILY #90 tab-cap 07/25/15 04/29/21 Spiriva Respimat 2 puff INHALATION DAILY 10/21/16 04/29/21 amlodipine 5 mg tablet 2.5 mg PO DAILY #90 tab-cap 03/28/21 04/29/21 atorvastatin 20 mg tablet 40 mg PO DAILY #90 tab-cap 03/28/21 04/29/21 clotrimazole 10 mg corby 10 mg MUCOUS MEMBRANE ONCE 03/28/21 04/29/21 isosorbide mononitrate 30 mg 30 mg PO DAILY 03/28/21 04/29/21 tablet,extended release 24 hr metoprolol succinate 25 mg 25 mg PO DAILY 03/28/21 04/29/21 tablet,extended release 24 hr torsemide 20 mg tablet 20 mg PO DAILY #30 tab 04/10/21 04/29/21 amoxicillin-pot clavulanate 1 tab PO BID 10 Days #20 tab 04/29/21 prednisone 50 mg PO DAILY 5 Days #5 tab 04/29/21 Previous Rx's Medication Instructions Recorded torsemide 20 mg tablet 20 mg PO DAILY #30 tab 04/10/21 amoxicillin-pot clavulanate 1 tab PO BID 10 Days #20 tab 04/29/21 prednisone 50 mg PO DAILY 5 Days #5 tab 04/29/21 Allergies Allergy/AdvReac Type Severity Reaction Status Date / Time lisinopril AdvReac Intermediate COUGH Verified 04/29/21 14:51 General Stated Complaint: SOB PETERSON: 2 Review of Systems Narrative: On 2 L home oxygen. No persistent fever. No chest pain. No nausea or vomiting. Decreased appetite. Some weight loss over weeks time. 8 systems reviewed and otherwise negative [facility] Medical History CKD (chronic kidney disease), stage III COPD (chronic obstructive pulmonary disease) GERD (gastroesophageal reflux disease) H/O renal cell carcinoma HTN (hypertension) Lesion of lung Tubular adenoma Surgical History Cholecystectomy Circumcision Colonoscopy - MAC (06/29/17) 04/2014 EGD - MAC (04/23/14) EGD - MAC (06/29/17) H/O right nephrectomy Hemorrhoidal Banding History of lung biopsy Linda Fundoplication (03/07/12) Family History Mother Essential hypertension Cancer of kidney Father No problems noted. Sister Lung cancer Sister Lung cancer Brother Lung cancer Brother Lung cancer Brother Lung cancer Grandfather No problems noted. Grandfather No problems noted. Grandmother No problems noted. Grandmother No problems noted. Sister No problems noted. Brother Heart disease Brother No problems noted. Son No problems noted. Daughter No problems noted. Daughter No problems noted. Social History Smoking/Tobacco Use Status: Former Tobacco Use tobacco type: cigarettes Quit Date: 12/11/03 Tobacco: How many years used: 39 Second Hand Exposure: Yes Smoking risk assessment performed?: Yes Alcohol Intake: never Drug use: Never Substance use type: does not use Caregiver/Support person: No Household members: spouse Housing: house Communication Needs: Corrective Lenses Do you need help understanding health information?: Rarely Pets and animals: Yes Pets and animals: dog(s) Sexually active: No Do you think of yourself as: straight/heterosexual Current gender identity: male What is your relationship status?: How often do you talk on the phone with friends or family?: three or more times per week How often do you attend anglican or latter-day services?: decline to answer Do you belong to any clubs or organized social groups?: no Panel score (0-1 are the most socially isolated patients): 2 What type of physical activity do you participate in: none Angela/Cheondoism: Roman Catholic Special angela needs: No Seatbelt use: always Drive intox or ride w/intox lease purchase driver: No Do you feel safe at home: Yes Do you feel safe in your relationship?: Yes Exam Narrative Exam Narrative: GEN: awake, alert, oriented 3. Pleasant, well groomed, interactive. HEAD: Normocephalic, atraumatic ENT: Mucous membranes moist, oropharynx unremarkable, External ear exam unremarkable EYES: PERRL, EOMI NECK: Full ROM, no MARQUISE, no menigismus CHEST/RESP: Nontender, diminished throughout CARDIOVASCULAR: Distant, RRR, no murmur, rub korin. 2+ Rad pulse bilateral ABDOMEN: Soft, nontender, no mass. +Bowel sounds EXT: Full ROM, trace symmetric pretibial bilateral edema, no rash Neuro: Grossly normal neurologic exam, conversant, interactive. Psych: Speech fluent, thoughts congruent, affect normal Course Vital Signs Vital signs: Vital Signs Temperature 36.9 C 04/29/21 14:39 Pulse 102 H 04/29/21 14:39 Respiratory Rate 22 04/29/21 14:39 Blood Pressure 125/92 H 04/29/21 14:39 Pulse Oximetry 92 04/29/21 14:39 Temperature 36.9 C 04/29/21 14:39 Temperature Source Skin 04/29/21 14:39 Pulse 102 H 04/29/21 14:39 Respiratory Rate 22 04/29/21 14:51 Respiratory Effort 04/29/21 14:51 Respiratory Depth Shallow 04/29/21 14:51 Respiratory Pattern Irregular 04/29/21 14:51 Blood Pressure 125/92 H 04/29/21 14:39 Blood Pressure Position Sitting 04/29/21 14:39 Pulse Oximetry 92 04/29/21 14:39 Oxygen Delivery Method Nasal Cannula 04/29/21 14:39 Oxygen Flow Rate 2 04/29/21 14:39 Pain Level 0 04/29/21 14:39 Lab/Test Results Lab/Test Results: Laboratory Tests Range/Units 04/29/21 14:56 WBC (4.4-10.8) 10^3/uL 8.20 RBC (4.36-5.78) 10^6/uL 5.05 Hgb (13.5-17.5) g/dL 13.9 Hct (40.0-50.0) % 45.2 MCV (80-95) fL 89.5 MCH (27.0-33.0) pg 27.5 MCHC (32.0-36.0) % 30.8 L RDW (11.8-14.1) % 14.0 Plt Count (130-400) 10^3/uL 321 MPV (8.0-11.0) fL 9.7 Immature Gran % 0.5 Neutrophils % 77.4 Lymphocytes % 10.1 Monocytes % 8.8 Eosinophils % 2.7 Basophils % 0.5 Nucleated RBC % % 0 Absolute Neutrophils (1.2-6.7) 10^3/uL 6.35 Absolute Lymphocytes (1.2-3.4) 10^3/uL 0.83 L Absolute Monocytes (0.1-0.8) 10^3/uL 0.72 Absolute Eosinophils (0.0-0.7) 10^3/uL 0.22 Absolute Basophils (0.0-0.2) 10^3/uL 0.04
[2021-04-29 15:20] LABS: ALT 35 U/L (16-63); AST 29 U/L (15-37); Albumin 3.4 g/dL (3.4-5.0); Alkaline Phosphatase 135 U/L (46-116); Anion Gap 4.2 mmol/L (3-11); BUN 35 mg/dL (7-18); Bilirubin, Total 0.6 mg/dL (0.2-1.0); CO2 36.8 mmol/L (21.0-32.0); CREATININE 1.5 mg/dL (0.70-1.30); Calcium 9.7 mg/dL (8.5-10.1); Chloride 102 mmol/L (98-107); Estimated GFR 45.87 (mL/min/1.73m2); Glucose 102 mg/dL (74-106); Potassium 3.8 mmol/L (3.5-5.1); Sodium 143 mmol/L (136-145); Total Protein 7.2 g/dL (6.4-8.2)
--- NOTE | 2021-04-29 15:30 | DI.RAD_ITS ---
Exam(s) XR PORTABLE CHEST AP EXAM: XR PORTABLE CHEST AP CLINICAL HISTORY: persistent cough TECHNIQUE: 2D digital imaging was performed of the chest. Two views were obtained. AP views were ob tained. COMPARISON: CR XR PORTABLE CHEST AP from 03/20/2021 FINDINGS: MEDIASTINUM: Normal. HEART: Normal. PULMONARY VASCULATURE: Normal. LUNGS: There is a new opacity in the left upper lobe. There is a stable right lower lobe pulmonary n odule. Persistent hyperaeration of the lungs is noted. PLEURAL SPACE: No pleural effusion or pneumothorax. BONE:Within normal limits for the patient's age. OTHER FINDINGS:Normal. IMPRESSION: 1. New left upper lobe infiltrate which may represent early pneumonia. 2. Stable COPD and right lower lobe pulmonary nodule. DATA REPOSITORY: RADIATION DOSE DELIVERED:
[2021-04-29] MEDS: Albuterol/Ipratropium 3 ML UPD VIAL UPD (16:09)
[2021-04-29 17:22] LABS: Magnesium 2.1 mg/dL (1.8-2.4)
--- NOTE | 2021-04-29 17:38 | DI.VRAD_ITS ---
PROCEDURE INFORMATION: Exam: XR Chest Exam date and time: 04/29/2021 3:44 PM Age: 71 years old Clinical indication: Other: Persistent cough TECHNIQUE: Imaging protocol: XR of the chest. Views: 1 view. COMPARISON: CR XR PORTABLE CHEST AP 03/20/2021 3:08 PM FINDINGS: Lungs: The lungs remain hyperaerated and hyperlucent. There is a new left upper lobe opacity not seen on previous exam. There is some mild coarse increased markings at the right lung base slightly more conspicuous than previous study. Pleural spaces: Unremarkable. No pleural effusion. No pneumothorax. Heart/Mediastinum: Unremarkable. No cardiomegaly. Bones/joints: See Lungs finding. IMPRESSION: No change COPD. Mild airspace disease in the left upper and right lower lobes, presumed early consolidation. Follow-up to assess clearing recommended. Dictated and Authenticated by: Christiane Montano MD. Ordering:ERICA Hull MD
--- NOTE | 2021-04-29 17:57 | NUR.NOTE ---
referral sent to pulmonalogy
[2021-04-29] MEDS: Amox. 875/Clav. 125, 2 TABS/BTL 1 TAB PO (18:00)
[2021-04-29] MEDS: predniSONE 20 MG TAB 60 MG PO (18:01)
== END 2021-04-29 18:14 | disposition home or self-care (01) ==
PROVIDERS: Emergency Provider Emergency Medicine; PCP Family Medicine
DX: J44.0 Chronic obstructive pulmonary disease with (acute) lower respiratory infection (principal); J18.9 Pneumonia, unspecified organism; R05.3 Chronic cough; Z99.81 Dependence on supplemental oxygen
CPT/HCPCS: 36415; 80053; 93005; 94640; 99285; 71045; 83735; 85025; 93010; J7512; J7620

== ENCOUNTER 2021-12-03 13:00 | Outpatient (REF) | payer MEDICARE, SELFPAY ==
[2021-12-04 17:57] LABS: COVID-19 RT-PCR UVMMC Result Negative (Negative)
== END 2021-12-03 13:01 | disposition home or self-care (01) ==
LOC: LBN 13:00
PROVIDERS: PCP Family Medicine; Visit Provider Family Medicine
DX: Z20.822 Contact with and (suspected) exposure to COVID-19 (principal); J44.9 Chronic obstructive pulmonary disease, unspecified
CPT/HCPCS: U0003; U0005

== ENCOUNTER 2022-01-14 02:58 | Outpatient (CLI) | payer MEDICARE, SELFPAY ==
[2022-01-14 13:23] LABS: ALT 20 U/L (16-63); AST 19 U/L (15-37); Albumin 2.8 g/dL (3.4-5.0); Alkaline Phosphatase 129 U/L (46-116); Anion Gap 7.9 mmol/L (3-11); BUN 22 mg/dL (7-18); Bilirubin, Total 0.4 mg/dL (0.2-1.0); CO2 31.1 mmol/L (21.0-32.0); CREATININE 1.2 mg/dL (0.70-1.30); Chloride 99 mmol/L (98-107); Estimated GFR 59.35 (mL/min/1.73m2); Glucose 107 mg/dL (74-106); Potassium 4.1 mmol/L (3.5-5.1); Sodium 138 mmol/L (136-145); Total Protein 6.5 g/dL (6.4-8.2)
== END 2022-01-14 02:59 | disposition home or self-care (01) ==
LOC: LOS 03:01
PROVIDERS: PCP Family Medicine; Visit Provider Family Medicine
DX: R10.9 Unspecified abdominal pain (principal)
CPT/HCPCS: 36415; 80053

== ENCOUNTER 2022-08-13 15:35 | Emergency (ER) | payer MEDICARE, SELFPAY ==
--- NOTE | 2022-08-13 15:30 | RT.EKG_ITS ---
APPROVED REPORT Exam: Resting ECG Reason for Exam: sob Patient Location: E HR:90 bpm ECG Measurements Heart Rate 90 AXIS CA 168 P 91 QRSd 105 QRS 69 QT 364 T 78 QTc 445 Conclusion Sinus rhythm...normal P axis, V-rate 60- 99
[2022-08-13 15:41] VITALS: BP 116/70; PULSE 89; PULSE 90; PULSE 94; RESP 17; RESP 18; TEMP 36.6; O2SAT 96; O2SAT 97
--- NOTE | 2022-08-13 15:45 | DI.RAD_ITS ---
Exam(s) XR PORTABLE CHEST AP EXAM: XR PORTABLE CHEST AP CLINICAL HISTORY: cough, copd TECHNIQUE: 2D digital imaging was performed. COMPARISON: CR CHEST 2 VIEWS PA,LAT from 03/26/[address] CHEST PE CTA from 03/20/2021 CR,XR XR PORTABLE CHEST AP from 04/29/2021 FINDINGS: LUNGS: Severe emphysematous changes. Bilateral areas of scarring. Chronic nodule circumscribed righ t lower lung field. HEART: Normal size. AORTA: Normal diameter. BONES: Unremarkable for age. Soft tissues: Unremarkable. IMPRESSION: No acute findings. DATA REPOSITORY: RADIATION DOSE DELIVERED:
[2022-08-13 16:02] VITALS: BP 108/75; PULSE 89; PULSE 91; RESP 23; O2SAT 97
[2022-08-13] MEDS: predniSONE 20 MG TAB 60 MG PO (16:04)
[2022-08-13 16:06] LABS: Source Nasal/Nares
[2022-08-13] MEDS: Albuterol/Ipratropium 3 ML UPD VIAL UPD (16:29)
[2022-08-13 16:31] VITALS: BP 122/72; PULSE 87; PULSE 92; RESP 20; O2SAT 97
--- NOTE | 2022-08-13 16:51 | W.ED.GENAD ---
Discharge Plan Disposition Patient Disposition: Home Condition: Stable Discharge Details Clinical Impression: Asthma exacerbation in COPD Primary Care Provider: Manjit Guillory ED Provider: Isma Mays Home Meds and New Rx's Prescriptions: New prednisone 20 mg tablet 40 mg PO DAILY Qty: 8 0RF amoxicillin-pot clavulanate 875-125 mg tablet 1 tab PO BID Qty: 14 0RF Continued clotrimazole 10 mg corby 10 mg mucous membrane ONCE prednisone 20 mg tablet 40 mg PO DAILY Qty: 14 0RF aspirin [Ecotrin Low Strength] 81 MG tablet,delayed release (DR/EC) 81 mg PO DAILY ascorbic acid (vitamin C) [Vitamin C] 500 MG tablet 500 mg PO DAILY docusate sodium [Colace] 100 MG capsule 100 mg PO DAILY multivitamin with iron [One Daily Plus Iron] 1 EACH tablet 1 ea PO DAILY cholecalciferol (vitamin D3) 1,000 UNIT tablet 1,000 unit PO DAILY Fish Oil 1 EACH capsule 1 ea PO BID MISTERNEB NEBULIZER 1 EACH kit 1 ea Miscellaneous PRN PRNQty: 1 1RF Rx Instructions: NEBULIZER MACHINE FOR DUONEB ipratropium-albuterol [DuoNeb] 3 ML solution for nebulization 1 amp Inhalation QID PRN Qty: 200 Rx Instructions: DX: 496.00 instead of Albuterol neb, spiriva has been d/c'd omeprazole 40 MG capsule,delayed release(DR/EC) 40 mg PO DAILY Qty: 90 albuterol sulfate [Proventil HFA] 6.7 GM HFA aerosol inhaler 2 puff Inhalation Q4H PRN Qty: 3 Rx Instructions: USE IF NEEDED FOR SHORTNESS OF BREATH Spiriva Respimat 4 GM mist 2 puff Inhalation DAILY Patient Comments: GREEN bupropion HCl [Wellbutrin XL] 300 mg tablet extended release 24 hr 300 mg PO DAILY Qty: 90 3RF Rx Instructions: 1 TAB DAILY acetylcysteine 100 mg/mL (10 %) solution 2 ml inhalation TID Qty: 540 3RF aripiprazole [Abilify] 5 mg tablet 5 mg PO DAILY Qty: 90 3RF amlodipine 5 mg tablet 2.5 mg PO DAILY Qty: 90 3RF fluticasone propion-salmeterol [Wixela Inhub] 250-50 mcg/dose Blister With Device 1 inh INHALATION BID carboxymethylcellulose sodium [Refresh Plus] 0.5 % Dropperette 1 drp ophthalmic (eye) QID latanoprost 0.005 % Drops 1 drp ophthalmic (eye) QHS brimonidine 0.2 % Drops 1 drp ophthalmic (eye) BID No Action acetylcysteine 600 mg tablet 600 mg PO BID Qty: 180 3RF atorvastatin 40 mg tablet 40 mg PO QHS Qty: 90 3RF isosorbide mononitrate 30 mg tablet extended release 24 hr 30 mg PO DAILY Qty: 90 3RF metoprolol succinate 25 mg tablet extended release 24 hr 25 mg PO DAILY Qty: 90 3RF torsemide 20 mg tablet 20 mg PO DAILY PRN (Reason: edema) Qty: 90 3RF Discharge Instructions Instructions: COPD (Chronic Obstructive Pulmonary Disease) (ED) Additional Instructions: Please take prednisone as prescribed. You were given your initial dose in the emergency department today. Your next dose should be taken tomorrow. Please take antibiotic as prescribed. You were given initial dose here in the emergency department. Your next dose should be taken tomorrow morning. Please continue to take neb nebulizer treatment as prescribed. Please contact your primary care physician to arrange follow-up. Return to the ER immediately for any worsening or new concerning symptoms. Referrals: Manjit Guillory MD [Primary Care Provider] - Discharge Data Discharge Date/Time-TO BE ENTERED AT DEPARTURE: 08/13/22 18:22 Medical Decision Making 72-year-old male with history of COPD, here with increased shortness of breath over the past couple days, wheeze on exam, saturating well and in no respiratory distress. Concern for asthma with acute COPD exacerbation. Consider pneumonia. Consider COVID. Patient was given a DuoNeb treatment and prednisone 60 mg orally. On reassessment he noted improvement in shortness of breath. Chest x-ray was reviewed and interpreted by radiology: No acute? findings Screening EKG was reviewed and interpreted by me: Please report, nondiagnostic. COVID-negative. Plan to treat for acute COPD exacerbation. I will initiate coverage with Augmentin given increased cough. Plan for discharge with outpatient follow-up. Disposition decision was made weighing the risks and benefits of hospitalization versus outpatient treatment, the risk for further decompensation, and the patient's wishes. The patient was stable and requested discharge. Prior to discharge, my usual and customary return precautions were reviewed with the patient - this included follow-up instructions and reason to return to the emergency department if condition worsens, does not improve as expected, or other new concerns arise. Lab Data Lab results reviewed: Yes I reviewed the patient's lab results. HPI General Mode of arrival: ambulatory. Date/Time Provider Initiated Documentation: 08/13/22 15:36. Limitations to Documentation: no limitations. Information obtained by: patient. HPI Narrative: 72-year-old male with history of multiple medical problems including COPD, here with concern for COPD exacerbation. He notes increased shortness of breath since yesterday. Patient used home neb and inhaler without much relief. He denies associated chest pain. Increased cough recently. Related Data Home Medications Medication Instructions Recorded Confirmed aspirin 81 mg tablet,delayed 81 mg PO DAILY 11/22/12 08/13/22 release (Ecotrin Low Strength) ascorbic acid (vitamin C) 500 mg 500 mg PO DAILY 03/16/13 08/13/22 tablet (Vitamin C) cholecalciferol (vitamin D3) 25 1,000 unit PO DAILY 03/16/13 08/13/22 mcg (1,000 unit) tablet docusate sodium 100 mg capsule 100 mg PO DAILY 03/16/13 08/13/22 (Colace) multivitamin with iron (One Daily 1 ea PO DAILY 03/16/13 08/13/22 Plus Iron tablet) omega-3 fatty acids-fish oil 340 1 ea PO BID 03/16/13 08/13/22 mg-1,000 mg capsule (Fish Oil) ipratropium 0.5 mg-albuterol 3 mg 1 amp inhalation QID PRN #200 amps 04/19/14 08/13/22 (2.5 mg base)/3 mL nebulization soln (DuoNeb) albuterol sulfate 90 mcg/actuation 2 puff inhalation Q4H PRN ##3 07/25/15 08/13/22 aerosol inhaler (Proventil HFA) omeprazole 40 mg capsule,delayed 40 mg PO DAILY #90 tab-caps 07/25/15 08/13/22 release tiotropium bromide 2.5 2 puff inhalation DAILY 10/21/16 08/13/22 mcg/actuation mist for inhalation (Spiriva Respimat) clotrimazole 10 mg corby 10 mg mucous membrane ONCE 03/28/21 04/07/22 prednisone 20 mg tablet 40 mg PO DAILY #14 tabs 12/03/21 08/13/22 bupropion HCl 300 mg 24 hr tablet, 300 mg PO DAILY #90 tab-caps 03/03/22 08/13/22 extended release (Wellbutrin XL) acetylcysteine 100 mg/mL (10 %) 2 ml inhalation TID #540 mL 05/07/22 solution aripiprazole 5 mg tablet (Abilify) 5 mg PO DAILY #90 tabs 05/25/22 08/13/22 amlodipine 5 mg tablet 2.5 mg PO DAILY #90 tab-caps 07/08/22 08/13/22 amoxicillin 875 mg-potassium 1 tab PO BID #14 tabs 08/13/22 clavulanate 125 mg tablet brimonidine 0.2 % eye drops 1 drp ophthalmic (eye) BID 08/13/22 08/13/22 carboxymethylcellulose sodium 0.5 1 drp ophthalmic (eye) QID 08/13/22 08/13/22 % eye drops in a dropperette (Refresh Plus) fluticasone 250 mcg-salmeterol 50 1 inh inhalation BID 08/13/22 08/13/22 mcg/dose blistr powdr for inhalation (Wixela Inhub) latanoprost 0.005 % eye drops 1 drp ophthalmic (eye) QHS 08/13/22 08/13/22 prednisone 20 mg tablet 40 mg PO DAILY #8 tabs 08/13/22 acetylcysteine 600 mg tablet 600 mg PO BID #180 tabs 08/29/22 atorvastatin 40 mg tablet 40 mg PO QHS #90 tabs 08/29/22 isosorbide mononitrate 30 mg 30 mg PO DAILY #90 tabs 08/29/22 tablet,extended release 24 hr metoprolol succinate 25 mg 25 mg PO DAILY #90 tabs 08/29/22 tablet,extended release 24 hr torsemide 20 mg tablet 20 mg PO DAILY PRN edema #90 tabs 08/29/22 Previous Rx's Medication Instructions Recorded prednisone 20 mg tablet 40 mg PO DAILY #14 tabs 12/03/21 bupropion HCl 300 mg 24 hr tablet, 300 mg PO DAILY #90 tab-caps 03/03/22 extended release (Wellbutrin XL) acetylcysteine 100 mg/mL (10 %) 2 ml inhalation TID #540 mL 05/07/22 solution aripiprazole 5 mg tablet (Abilify) 5 mg PO DAILY #90 tabs 05/25/22 amlodipine 5 mg tablet 2.5 mg PO DAILY #90 tab-caps 07/08/22 amoxicillin 875 mg-potassium 1 tab PO BID #14 tabs 08/13/22 clavulanate 125 mg tablet prednisone 20 mg tablet 40 mg PO DAILY #8 tabs 08/13/22 acetylcysteine 600 mg tablet 600 mg PO BID #180 tabs 08/29/22 atorvastatin 40 mg tablet 40 mg PO QHS #90 tabs 08/29/22 isosorbide mononitrate 30 mg 30 mg PO DAILY #90 tabs 08/29/22 tablet,extended release 24 hr metoprolol succinate 25 mg 25 mg PO DAILY #90 tabs 08/29/22 tablet,extended release 24 hr torsemide 20 mg tablet 20 mg PO DAILY PRN edema #90 tabs 08/29/22 Allergies Allergy/AdvReac Type Severity Reaction Status Date / Time lisinopril AdvReac Intermediate COUGH Verified 04/23/22 14:36 General Stated Complaint: RespSymp PETERSON: 3 Review of Systems All systems reviewed & are unremarkable except as noted in HPI and below Constitutional Constitutional: Denies fever(s) Respiratory Respiratory: Reports as per HPI PFSH All Active Problems Asthma exacerbation in COPD (Acute) COPD exacerbation (Acute) Pneumonia (Acute) Weight loss (Acute) Bilateral lower extremity edema (Acute) COPD exacerbation (Acute) Dyspnea on exertion (Acute) Leg swelling (Acute) COPD with acute exacerbation (Acute) Acute bronchitis (Acute) Discharge planning issues (Acute) DVT prophylaxis (Acute) CKD (chronic kidney disease), stage III (Chronic) Pneumothorax, right (Acute) Acute respiratory failure with hypoxia and hypercapnia (Acute) Pneumothorax (Acute) Acute exacerbation of chronic obstructive pulmonary disease (Acute) Renal insufficiency (Chronic) Anemia (Acute 03/16/13) History of abscess of lung (Acute) History of laparoscopy (Acute 02/06/16) History of tobacco use (Acute) History of unilateral nephrectomy (Acute 02/06/16) Male circumcision (Acute) Status post Linda fundoplication (Acute) Status post cholecystectomy (Acute) Status post hemorrhoidectomy (Acute) Tubular adenoma (Acute) tubular adenoma (3 tubular adenoma 04/23, 4 tubular adenoma 04/24, [place] [facility]) 06/29/17; DR. SNIDER (1) Thyroid nodule (Acute 11/17/17) [facility]: nil 09/2017 Right renal mass (Acute 05/01/15) Dr Dailey [facility] for [facility] scan and further eval; s/p nephrectomy (was malignant) s/p rt nephrectomy February 06, 2016 Polyp of colon (Acute) tubular adenoma (3 tubular adenoma 04/23, 4 tubular adenoma 04/24, [place] [facility]) Knee pain (Acute) DJD Kidney stone (Acute 11/22/12) Dr Dailey ([place]) calcium oxalate Hyperlipidemia (Acute 03/16/13) Essential hypertension (Chronic 06/28/13) Esophagitis (Acute 06/29/17) Erosive gastritis (Acute 06/29/17) Depressive disorder (Acute) Chronic obstructive lung disease (Chronic 11/15/08) 2014 FEV1 0.77 (25% pred) 2013 FEV1 0.97 (31% predicted) h/o tobacco use (QUIT 2003) Basal cell carcinoma of face (Acute 02/14/13) Medical History GERD (gastroesophageal reflux disease) H/O renal cell carcinoma HTN (hypertension) Lesion of lung Tubular adenoma Surgical History Cholecystectomy Circumcision Colonoscopy - MAC (06/29/17) 04/2014 EGD - MAC (04/23/14) EGD - MAC (06/29/17) H/O right nephrectomy Hemorrhoidal Banding History of lung biopsy Linda Fundoplication (03/07/12) Family History Mother Essential hypertension Cancer of kidney Father No problems noted. Sister Lung cancer Sister Lung cancer Brother Lung cancer Brother Lung cancer Brother Lung cancer Grandfather No problems noted. Grandfather No problems noted. Grandmother No problems noted. Grandmother No problems noted. Sister No problems noted. Brother Heart disease Brother No problems noted. Son No problems noted. Daughter No problems noted. Daughter No problems noted. Social History Smoking/Tobacco Use Status: Former Tobacco Use tobacco type: cigarettes Quit Date: 12/11/03 Tobacco: How many years used: 39 Second Hand Exposure: Yes Smoking risk assessment performed?: Yes Alcohol Intake: never Drug use: Never Substance use type: does not use Caregiver/Support person: No Household members: spouse Housing: house Communication Needs: Corrective Lenses Do you need help understanding health information?: Rarely Pets and animals: Yes Pets and animals: dog(s) Sexually active: No Do you think of yourself as: straight/heterosexual Current gender identity: male What is your relationship status?: How often do you talk on the phone with friends or family?: three or more times per week How often do you attend sikhism or baptism services?: decline to answer Do you belong to any clubs or organized social groups?: no Panel score (0-1 are the most socially isolated patients): 2 What type of physical activity do you participate in: none Angela/Anabaptism: [employer] Special angela needs: No Seatbelt use: always Drive intox or ride w/intox cryogenic transport driver: No Do you feel safe at home: Yes Do you feel safe in your relationship?: Yes Exam Const General: cooperative and no acute distress HENMT Mouth: moist mucous membranes Eyes Conjunctivae: normal conjunctivae Sclera: normal sclerae Neck Neck: trachea midline and supple Resp Auscultation: no rales and no rhonchi Cardio Rate: regular rate and not tachycardic Rhythm: regular rhythm GI Palpation: soft, not firm, no guarding, no masses, not rigid and nontender Skin General skin exam: no rashes or lesions noted Neuro General: patient alert, patient awake, patient oriented x3 and tone normal Extrem General: no edema Psych Appearance: grossly normal Mental Status: mental status grossly normal Course Vital Signs Vital signs: Vital Signs Temperature 36.6 C 08/13/22 15:41 Pulse 94 H 08/13/22 15:41 Respiratory Rate 17 08/13/22 15:41 Blood Pressure 116/70 08/13/22 15:41 Pulse Oximetry 96 08/13/22 15:41 Temperature 36.6 C 08/13/22 15:41 Temperature Source Temporal Artery Scan 08/13/22 15:41 Pulse 94 H 08/13/22 15:41 Respiratory Rate 17 08/13/22 15:41 Respiratory Effort 08/13/22 16:14 Blood Pressure 116/70 08/13/22 15:41 Blood Pressure Position Sitting 08/13/22 15:41 Pulse Oximetry 96 08/13/22 15:41 Oxygen Delivery Method Nasal Cannula 08/13/22 15:41 Oxygen Flow Rate 2 08/13/22 15:41 Pain Level 0 08/13/22 15:41 Lab/Test Results Lab/Test Results: Laboratory Tests Range/Units 08/13/22 15:56 COVID-19 Source Nasal/Nares
[2022-08-13 17:00] VITALS: BP 109/70; PULSE 88; PULSE 89; RESP 19; O2SAT 97
[2022-08-13 17:11] LABS: COVID-19 PCR Negative (Negative)
[2022-08-13 17:16] VITALS: BP 105/70; PULSE 89; PULSE 90; RESP 24; O2SAT 95
[2022-08-13] MEDS: Amoxicillin 875/Clav. 125 TAB PO (17:52)
== END 2022-08-13 18:22 | disposition home or self-care (01) ==
PROVIDERS: Emergency Provider Student in an Organized Health Care Education/Training Program; PCP Family Medicine
DX: J44.1 Chronic obstructive pulmonary disease with (acute) exacerbation (principal); Z20.822 Contact with and (suspected) exposure to COVID-19; I10 Essential (primary) hypertension; Z87.891 Personal history of nicotine dependence
CPT/HCPCS: 87635; 93005; 94640; 99283; 99284; 71045; 93010; J7512; J7620

== ENCOUNTER 2023-04-12 14:58 | Emergency (ER) | payer OTHER, SELFPAY ==
[2023-04-12] VITALS (24 sets, daily range): BP systolic 120–139; BP diastolic 73–97; PULSE 88–95; RESP 12–26; TEMP 37.3; O2SAT 95
--- NOTE | 2023-04-12 15:00 | RT.EKG_ITS ---
APPROVED REPORT Exam: Resting ECG Reason for Exam: sob Patient Location: E HR:96 bpm ECG Measurements Heart Rate 96 AXIS [place] 170 P 88 QRSd 99 QRS 81 QT 357 T 93 QTc 450 Conclusion Sinus rhythm...normal P axis, V-rate 60- 99 Inferior infarct, old...Q >35mS, II III aVF Nonspecific T abnormalities, lateral leads...T <-0.10mV, I aVL V5 V6 PHYSICIAN: NO STEMI, UNCHANGED FROM PRIOR EKG ON 08/13/22
--- NOTE | 2023-04-12 15:00 | DI.RAD_ITS ---
Exam(s) XR PORTABLE CHEST AP EXAM: XR PORTABLE CHEST AP CLINICAL HISTORY: sob, cough. TECHNIQUE: 2D digital imaging was performed. COMPARISON: CR XR PORTABLE CHEST AP from 08/13/2022 FINDINGS: Single AP portable view. Heart size is upper normal. The mediastinum is not widened. Noncalcified nodule versus breast nipple on the right side unchanged. COPD findings but no new infil trates nor pleural effusions. No pulmonary edema. IMPRESSION: As above but without new pulmonary findings when compared to 08/13/2022. DATA REPOSITORY: RADIATION DOSE DELIVERED:
--- NOTE | 2023-04-12 15:11 | W.ED.GENAD ---
Discharge Plan Disposition Patient Disposition: Home Discharge Details Clinical Impression: COPD with exacerbation, Abnormal weight loss Primary Care Provider: Manjit Guillory ED Provider: Db Patino Home Meds and New Rx's Prescriptions: No Action clotrimazole 10 mg ocrby 10 mg mucous membrane ONCE prednisone 20 mg tablet 40 mg PO DAILY Qty: 14 0RF aspirin [Ecotrin Low Strength] 81 MG tablet,delayed release (DR/EC) 81 mg PO DAILY ascorbic acid (vitamin C) [Vitamin C] 500 MG tablet 500 mg PO DAILY docusate sodium [Colace] 100 MG capsule 100 mg PO DAILY multivitamin with iron [One Daily Plus Iron] 1 EACH tablet 1 ea PO DAILY cholecalciferol (vitamin D3) 1,000 UNIT tablet 1,000 unit PO DAILY Fish Oil 1 EACH capsule 1 ea PO BID MISTERNEB NEBULIZER 1 EACH kit 1 ea Miscellaneous PRN PRNQty: 1 1RF Rx Instructions: NEBULIZER MACHINE FOR DUONEB ipratropium-albuterol [DuoNeb] 3 ML solution for nebulization 1 amp Inhalation QID PRN Qty: 200 Rx Instructions: DX: 496.00 instead of Albuterol neb, spiriva has been d/c'd omeprazole 40 MG capsule,delayed release(DR/EC) 40 mg PO DAILY Qty: 90 albuterol sulfate [Proventil HFA] 6.7 GM HFA aerosol inhaler 2 puff Inhalation Q4H PRN Qty: 3 Rx Instructions: USE IF NEEDED FOR SHORTNESS OF BREATH Spiriva Respimat 4 GM mist 2 puff Inhalation DAILY Patient Comments: GREEN bupropion HCl [Wellbutrin XL] 300 mg tablet extended release 24 hr 300 mg PO DAILY Qty: 90 3RF Rx Instructions: 1 TAB DAILY acetylcysteine 100 mg/mL (10 %) solution 2 ml inhalation TID Qty: 540 3RF aripiprazole [Abilify] 5 mg tablet 5 mg PO DAILY Qty: 90 3RF amlodipine 5 mg tablet 2.5 mg PO DAILY Qty: 90 3RF acetylcysteine 600 mg tablet 600 mg PO BID Qty: 180 3RF atorvastatin 40 mg tablet 40 mg PO QHS Qty: 90 3RF isosorbide mononitrate 30 mg tablet extended release 24 hr 30 mg PO DAILY Qty: 90 3RF metoprolol succinate 25 mg tablet extended release 24 hr 25 mg PO DAILY Qty: 90 3RF torsemide 20 mg tablet 20 mg PO DAILY PRN (Reason: edema) Qty: 90 3RF fluticasone propion-salmeterol [Wixela Inhub] 250-50 mcg/dose Blister With Device 1 inh INHALATION BID carboxymethylcellulose sodium [Refresh Plus] 0.5 % Dropperette 1 drp ophthalmic (eye) QID latanoprost 0.005 % Drops 1 drp ophthalmic (eye) QHS brimonidine 0.2 % Drops 1 drp ophthalmic (eye) BID prednisone 20 mg tablet 40 mg PO DAILY Qty: 8 0RF amoxicillin-pot clavulanate 875-125 mg tablet 1 tab PO BID Qty: 14 0RF Discharge Instructions Instructions: COPD (Chronic Obstructive Pulmonary Disease) (ED) Additional Instructions: At this time your COPD exacerbation appears stable. You have been given additional prednisone tablets. Please take an additional 1 tablet (20 mg) with the prednisone that you are already taking. For example, you will be taking your 2 pretty prescribed tablets by your accounts payable bookkeeper, and then 1 additional 20 mg tablet from us. Please continue taking the antibiotic that you have been prescribed. We did perform a CAT scan of your chest abdomen and pelvis today. They did not see any evidence of large mass. Please follow-up closely with your primary care provider for reassessment. If you notice any worsening of your symptoms, or any new symptoms such as vomiting, diarrhea, fever, chills, shortness of breath, chest pain, numbness, weakness, or fainting , please return immediately to the emergency department for reevaluation. Please follow up with your primary care provider as soon as possible for reassessment and reevaluation. As always, it was a pleasure participating in your medical care today. Referrals: Manjit Guillory MD [Primary Care Provider] - Medical Decision Making This is a 73-year-old male with a past medical history of COPD on 3 L of oxygen at baseline, previous pneumothorax, chronic kidney disease, previous tobacco use, who presents today for evaluation of shortness of breath. Patient states that for the last 3 weeks he has been more fatigued and short of breath than normal. He has had a mild cough which is mildly productive. It is slightly worse than normal. 3 days ago he was started on Augmentin and prednisone by his accounts payable bookkeeper. He has been taking his breathing treatments as directed. He states that these do not hurt but they also do not necessarily help. Symptoms are worse with activity. He does admit to occasional brown diarrhea. He denies any vomiting or abdominal pain. He denies any bloody stool. He denies any other complaints at this time. No other modifying factors. Exam demonstrates relatively well-appearing male, oxygen saturations around 95%. His lungs are notably diminished. No wheezes rales or rhonchi's however notably diminished breath sounds at baseline. No pitting edema. Concern for COPD exacerbation. The patient is on outpatient treatment already, however unfortunately this may be inadequate. We will get a chest x-ray to rule out pneumothorax, will give 2 breathing treatments here, we will monitor closely and reassess. ACS appears unlikely given symptomatology. 6 PM Patient was feeling much better after breathing treatments. Shortness of breath had resolved. He feels well. Chest x-ray negative for acute process. Laboratory work-up notably benign. No bandemia, white count, left shift or other significant abnormality. Hemoglobin stable. VBG demonstrates an elevated PCO2 but that is in the setting of a normal pH, with an elevated bicarb showing appropriate compensation. Renal function is good compared to normal. Much improved. Troponin normal, proBNP normal suggesting no signs of fluid overload. Albumin is slightly low at 2.8, suggestive of diminished oral intake. Flu COVID and RSV are negative. Patient was feeling much better after all of this, and felt good to go home, however I did contact his primary care provider at the [facility], Valerie Payne and after discussion with her it sounds like there was a deeper component. Additionally it sounds like for the last week or so the patient has not been eating much at all, he states that food smells and tastes good, however when he eats he just feels yucky/achy. I did discuss this with the patient and he states that this has been going on. He has been having bowel movements, and they have been slightly loose. He denies any blood in his stool, and his hemoglobin level is normal. Plan was by Valerie to do an outpatient CT scan. After discussion with Valerie and rediscussion with the patient I elected to perform CT scan of the chest abdomen and pelvis. CT scan results demonstrate no evidence of acute process. He does have severe emphysema, but no infiltrates. There is a stable low-density benign-appearing mass in the right lower lobe. Nonspecific mildly dilated loops of bowel but no evidence of obstruction per radiology. No evidence of mass per radiology. There is a slightly enlarged prostate. Otherwise with no evidence of obstruction in the large abdominal mass, or other significant abnormality I do feel the patient can be discharged home for close follow-up. I did review his home medication that he was prescribed by his accounts payable bookkeeper. Recommend continuation of his Augmentin that he is taking, however he is only taking 20 mg of prednisone daily at this time. Have recommended that he increases this, and we will give an additional 20 mg for 40 daily for the next 5 days. He then has a titrating component built into his prednisone prescription already. Discussed red flags for which to return. I have extensively reviewed the treatment plan and discharge instructions with the patient and their family. I have addressed all patient concerns at this time. The patient and family was made aware of what symptoms to monitor for that would warrant a return to the emergency department. Discussed the plan with the patient and family, they demonstrate verbal understanding and agreement with our assessment and plan at this time. The documentation in this chart was dictated using Cuedd dictation software. Please excuse any dictation errors. FINDINGS: CHEST: Tracheobronchial tree: Patent where visualized. Pulmonary parenchyma: Stable circumscribed low-density masses are noted in the right lower lobe. Stable severe emphysematous changes and multifocal areas of scarring. Pleura: No effusion or pneumothorax. Lymph nodes: Within normal limits. Aorta: Thoracic portion non-dilated. Heart: Normal size. Tiny pericardial effusion. Coronary artery calcifications. Bones: Unremarkable for age. No lytic or blastic lesions stable upper thoracic compression fractures. ABDOMEN and PELVIS: Stomach: Fundoplication. Liver: Normal density. Stable low-density lesions. Gallbladder and biliary tract: Status post cholecystectomy. Stable biliary dilatation. Pancreas: Normal density, no abnormal calcifications or inflammatory process. Spleen: Normal. Kidneys: Status post right nephrectomy. Simple left renal cysts. Stone noted at the lower pole of the left kidney, nonobstructing. Adrenal glands: No masses seen. Aorta: Abdominal portion non-dilated. Mild atherosclerotic changes. Lymph nodes: Within normal limits. Soft tissues: Unremarkable. Bladder: Stone in dependent portion of gallbladder. No wall thickening Bowel: Mild nonspecific dilatation of the loops of bowel in the upper abdomen. Prominent sigmoid diverticulosis. No evidence of diverticulitis. No obstruction or bowel wall thickening. Several ingested tablets noted. Peritoneal cavity: No ascites. No focal collection or mesenteric inflammatory response. Bones: Unremarkable for age. Bone islands in sacrum Reproductive organs: Enlarged prostate with calcifications. IMPRESSION: Chest: Severe emphysematous and fibrotic changes. No acute infiltrate. Stable low-density, benign-appearing masses in the right lower lobe. Abdomen pelvis: Mild nonspecific mildly dilated loops of bowel in the upper abdomen without evidence of obstruction. Findings could be secondary to enteritis. Nonobstructing stone lower pole left kidney. Enlarged prostate. Bladder calculus. HPI General Date/Time Provider Initiated Documentation: 04/12/23 15:09. HPI Narrative: This is a 73-year-old male with a past medical history of COPD on 3 L of oxygen at baseline, previous pneumothorax, chronic kidney disease, previous tobacco use, who presents today for evaluation of shortness of breath. Patient states that for the last 3 weeks he has been more fatigued and short of breath than normal. He has had a mild cough which is mildly productive. It is slightly worse than normal. 3 days ago he was started on Augmentin and prednisone by his accounts payable bookkeeper. He has been taking his breathing treatments as directed. He states that these do not hurt but they also do not necessarily help. Symptoms are worse with activity. He does admit to occasional brown diarrhea. He denies any vomiting or abdominal pain. He denies any bloody stool. He denies any other complaints at this time. No other modifying factors. Related Data Home Medications Medication Instructions Recorded Confirmed aspirin 81 mg tablet,delayed 81 mg PO DAILY 11/22/12 04/12/23 release (Ecotrin Low Strength) ascorbic acid (vitamin C) 500 mg 500 mg PO DAILY 03/16/13 08/13/22 tablet (Vitamin C) cholecalciferol (vitamin D3) 25 1,000 unit PO DAILY 03/16/13 04/12/23 mcg (1,000 unit) tablet docusate sodium 100 mg capsule 100 mg PO DAILY 03/16/13 04/12/23 (Colace) multivitamin with iron (One Daily 1 ea PO DAILY 03/16/13 08/13/22 Plus Iron tablet) omega-3 fatty acids-fish oil 340 1 ea PO BID 03/16/13 04/12/23 mg-1,000 mg capsule (Fish Oil) ipratropium 0.5 mg-albuterol 3 mg 1 amp inhalation QID PRN #200 amps 04/19/14 04/12/23 (2.5 mg base)/3 mL nebulization soln (DuoNeb) albuterol sulfate 90 mcg/actuation 2 puff inhalation Q4H PRN ##3 07/25/15 04/12/23 aerosol inhaler (Proventil HFA) omeprazole 40 mg capsule,delayed 40 mg PO DAILY #90 tab-caps 07/25/15 04/12/23 release tiotropium bromide 2.5 2 puff inhalation DAILY 10/21/16 08/13/22 mcg/actuation mist for inhalation (Spiriva Respimat) clotrimazole 10 mg corby 10 mg mucous membrane ONCE 03/28/21 04/07/22 prednisone 20 mg tablet 40 mg PO DAILY #14 tabs 12/03/21 08/13/22 bupropion HCl 300 mg 24 hr tablet, 300 mg PO DAILY #90 tab-caps 03/03/22 04/12/23 extended release (Wellbutrin XL) acetylcysteine 100 mg/mL (10 %) 2 ml inhalation TID #540 mL 05/07/22 solution aripiprazole 5 mg tablet (Abilify) 5 mg PO DAILY #90 tabs 05/25/22 08/13/22 amlodipine 5 mg tablet 2.5 mg PO DAILY #90 tab-caps 07/08/22 04/12/23 amoxicillin 875 mg-potassium 1 tab PO BID #14 tabs 08/13/22 04/12/23 clavulanate 125 mg tablet brimonidine 0.2 % eye drops 1 drp ophthalmic (eye) BID 08/13/22 04/12/23 carboxymethylcellulose sodium 0.5 1 drp ophthalmic (eye) QID 08/13/22 08/13/22 % eye drops in a dropperette (Refresh Plus) fluticasone 250 mcg-salmeterol 50 1 inh inhalation BID 08/13/22 08/13/22 mcg/dose blistr powdr for inhalation (Wixela Inhub) latanoprost 0.005 % eye drops 1 drp ophthalmic (eye) QHS 08/13/22 08/13/22 prednisone 20 mg tablet 40 mg PO DAILY #8 tabs 08/13/22 04/12/23 acetylcysteine 600 mg tablet 600 mg PO BID #180 tabs 08/29/22 04/12/23 atorvastatin 40 mg tablet 40 mg PO QHS #90 tabs 08/29/22 04/12/23 isosorbide mononitrate 30 mg 30 mg PO DAILY #90 tabs 08/29/22 tablet,extended release 24 hr metoprolol succinate 25 mg 25 mg PO DAILY #90 tabs 08/29/22 tablet,extended release 24 hr torsemide 20 mg tablet 20 mg PO DAILY PRN edema #90 tabs 08/29/22 04/12/23 Previous Rx's Medication Instructions Recorded prednisone 20 mg tablet 40 mg PO DAILY #14 tabs 12/03/21 bupropion HCl 300 mg 24 hr tablet, 300 mg PO DAILY #90 tab-caps 03/03/22 extended release (Wellbutrin XL) acetylcysteine 100 mg/mL (10 %) 2 ml inhalation TID #540 mL 05/07/22 solution aripiprazole 5 mg tablet (Abilify) 5 mg PO DAILY #90 tabs 05/25/22 amlodipine 5 mg tablet 2.5 mg PO DAILY #90 tab-caps 07/08/22 amoxicillin 875 mg-potassium 1 tab PO BID #14 tabs 08/13/22 clavulanate 125 mg tablet prednisone 20 mg tablet 40 mg PO DAILY #8 tabs 08/13/22 acetylcysteine 600 mg tablet 600 mg PO BID #180 tabs 08/29/22 atorvastatin 40 mg tablet 40 mg PO QHS #90 tabs 08/29/22 isosorbide mononitrate 30 mg 30 mg PO DAILY #90 tabs 08/29/22 tablet,extended release 24 hr metoprolol succinate 25 mg 25 mg PO DAILY #90 tabs 08/29/22 tablet,extended release 24 hr torsemide 20 mg tablet 20 mg PO DAILY PRN edema #90 tabs 08/29/22 Allergies Allergy/AdvReac Type Severity Reaction Status Date / Time lisinopril AdvReac Intermediate COUGH Verified 04/12/23 15:09 General Stated Complaint: SOB PETERSON: 3 Review of Systems All systems reviewed & are unremarkable except as noted in HPI and below PFSH All Active Problems (Updated 04/12/23 @ 18:16 by Db Patino DO) COPD with exacerbation (Acute) Abnormal weight loss (Acute) COPD exacerbation (Acute) Pneumonia (Acute) Weight loss (Acute) Bilateral lower extremity edema (Acute) COPD exacerbation (Acute) Dyspnea on exertion (Acute) Leg swelling (Acute) COPD with acute exacerbation (Acute) Acute bronchitis (Acute) Discharge planning issues (Acute) DVT prophylaxis (Acute) CKD (chronic kidney disease), stage III (Chronic) Pneumothorax, right (Acute) Acute respiratory failure with hypoxia and hypercapnia (Acute) Pneumothorax (Acute) Acute exacerbation of chronic obstructive pulmonary disease (Acute) Renal insufficiency (Chronic) Anemia (Acute 03/16/13) History of abscess of lung (Acute) History of laparoscopy (Acute 02/06/16) History of tobacco use (Acute) History of unilateral nephrectomy (Acute 02/06/16) Male circumcision (Acute) Status post Linda fundoplication (Acute) Status post cholecystectomy (Acute) Status post hemorrhoidectomy (Acute) Tubular adenoma (Acute) tubular adenoma (3 tubular adenoma 04/23, 4 tubular adenoma 04/24, [place] [facility]) 06/29/17; DR. SNIDER (1) Thyroid nodule (Acute 11/17/17) [facility]: nil 09/2017 Right renal mass (Acute 05/01/15) Dr Dailey then [facility] hosp for CT scan and further eval; s/p nephrectomy (was malignant) s/p rt nephrectomy February 06, 2016 Polyp of colon (Acute) tubular adenoma (3 tubular adenoma 04/23, 4 tubular adenoma 04/24, [place] [facility]) Knee pain (Acute) DJD Kidney stone (Acute 11/22/12) Dr Dailey ([place]) calcium oxalate Hyperlipidemia (Acute 03/16/13) Essential hypertension (Chronic 06/28/13) Esophagitis (Acute 06/29/17) Erosive gastritis (Acute 06/29/17) Depressive disorder (Acute) Chronic obstructive lung disease (Chronic 11/15/08) 2014 FEV1 0.77 (25% pred) 2013 FEV1 0.97 (31% predicted) h/o tobacco use (QUIT 2003) Basal cell carcinoma of face (Acute 02/14/13) Medical History GERD (gastroesophageal reflux disease) H/O renal cell carcinoma HTN (hypertension) Lesion of lung Tubular adenoma Surgical History Cholecystectomy Circumcision Colonoscopy - MAC (06/29/17) 04/2014 EGD - MAC (04/23/14) EGD - MAC (06/29/17) H/O right nephrectomy Hemorrhoidal Banding History of lung biopsy Linda Fundoplication (03/07/12) Family History Mother Essential hypertension Cancer of kidney Father No problems noted. Sister Lung cancer Sister Lung cancer Brother Lung cancer Brother Lung cancer Brother Lung cancer Grandfather No problems noted. Grandfather No problems noted. Grandmother No problems noted. Grandmother No problems noted. Sister No problems noted. Brother Heart disease Brother No problems noted. Son No problems noted. Daughter No problems noted. Daughter No problems noted. Social History Smoking/Tobacco Use Status: Former Tobacco Use tobacco type: cigarettes Quit Date: 12/11/03 Tobacco: How many years used: 39 Second Hand Exposure: Yes Smoking risk assessment performed?: Yes Alcohol Intake: never Drug use: Never Substance use type: does not use Caregiver/Support person: No Household members: spouse Housing: house Communication Needs: Corrective Lenses Do you need help understanding health information?: Rarely Pets and animals: Yes Pets and animals: dog(s) Sexually active: No Do you think of yourself as: straight/heterosexual Current gender identity: male What is your relationship status?: How often do you talk on the phone with friends or family?: three or more times per week How often do you attend gnosticism or latter day services?: decline to answer Do you belong to any clubs or organized social groups?: no Panel score (0-1 are the most socially isolated patients): 2 What type of physical activity do you participate in: none Angela/Yazidi: Religious Special angela needs: No Seatbelt use: always Drive intox or ride w/intox driver examiner: No Do you feel safe at home: Yes Do you feel safe in your relationship?: Yes Exam Narrative Exam Narrative: 1.Const: Well-nourished, Well-developed, appearing stated age 2.Eyes: PERRL, no conjunctival injection, and symmetrical lids. 3.ENT: Atraumatic external nose and ears. Moist MM. Neck: Symmetric, trachea midline, No thyromegaly. 4.CVS: +S1/S2, No murmurs or gallops. Peripheral pulses 2+ and equal in all extremities. Brisk capillary refill in all extremities. 5.RESP: Unlabored respiratory effort. Notably diminished breath sounds throughout. No wheezes rales or rhonchi though however not much can be auscultated secondary to limited movement of lungs. 6.GI: Soft, Nontender/Nondistended, No hepatosplenomegaly. No guarding or rebound. 7.MSK: Normocephalic/Atraumatic, Extremities w/o deformity or ttp No cyanosis or clubbing, Normal movement of all extremities. No pitting edema 8.Skin: Warm, Dry. No rashes or lesions. 9.Neuro: teletype technician II-XII grossly intact. Sensation grossly intact, no focal neurologic deficits. 10.Psych: (AAO) x3. Appropriate mood and affect Course Vital Signs Vital signs: Vital Signs Temperature 37.3 C 04/12/23 15:02 Pulse 89 04/12/23 15:02 Respiratory Rate 20 04/12/23 15:02 Blood Pressure 139/88 04/12/23 15:02 Pulse Oximetry 95 04/12/23 15:02 Temperature 37.3 C 04/12/23 15:02 Temperature Source Oral 04/12/23 15:02 Pulse 89 04/12/23 15:02 Respiratory Rate 20 04/12/23 15:02 Blood Pressure 139/88 04/12/23 15:02 Blood Pressure Position Sitting 04/12/23 15:02 Pulse Oximetry 95 04/12/23 15:02 Oxygen Delivery Method Room Air 04/12/23 15:02 Oxygen Flow Rate 0 04/12/23 15:02 Pain Level 0 04/12/23 15:02
[2023-04-12] MEDS: Albuterol/Ipratropium 3 ML UPD VIAL 6 ML UPD (15:20)
[2023-04-12 15:32] LABS: BE (Venous) 11 mmol/L (-2-3); HCO3 (Venous) 37 mmol/L (23-28); O2 Sat (Venous) 46 %; TCO2 (Venous) 35 mmol/L (24-29); pH (Venous) 7.35 (7.31-7.41); pO2 (Venous) 26 mmHg
[2023-04-12 15:33] LABS: Abs Immature Grans 0.02 10^3/uL (0.0-0.06); Absolute Basophil Count 0.02 10^3/uL (0.0-0.2); Absolute Eosinophil Count 0.03 10^3/uL (0.0-0.7); Absolute Monocyte Count 0.63 10^3/uL (0.1-0.8); Absolute Neutrophil Count 6.77 10^3/uL (1.2-6.7); Basophils % 0.2; Eosinophils % 0.4; HCT 39.5 % (40.0-50.0); HGB 12.2 g/dL (13.5-17.5); Immature Grans % 0.2; Lymphocytes % 10.8; MCH 27.5 pg (27.0-33.0); MCHC 30.9 % (32.0-36.0); MCV 89 fL (80-95); MPV 9.3 fL (8.0-11.0); Monocytes % 7.5; Neutrophils % 80.9; Platelet Count 263 10^3/uL (130-400); RBC 4.43 10^6/uL (4.36-5.78); RDW 13.2 % (11.8-14.1); RDW-SD 43.1 fL; WBC 8.37 10^3/uL (4.4-10.8)
[2023-04-12 15:34] LABS: pCO2 (Venous) 67 mmHg (41-51)
[2023-04-12 15:54] LABS: ALT 24 U/L (16-63); AST 20 U/L (15-37); Albumin 2.8 g/dL (3.4-5.0); Alkaline Phosphatase 97 U/L (46-116); Anion Gap 3.4 mmol/L (3-11); BUN 21 mg/dL (7-18); Bilirubin, Total 0.3 mg/dL (0.2-1.0); CO2 34.6 mmol/L (21.0-32.0); Calcium 8.9 mg/dL (8.5-10.1); Chloride 104 mmol/L (98-107); Estimated GFR 78.49 (mL/min/1.73m2); Glucose 89 mg/dL (74-106); Magnesium 1.9 mg/dL (1.8-2.4); Potassium 3.7 mmol/L (3.5-5.1); Sodium 142 mmol/L (136-145); Total Protein 6.3 g/dL (6.4-8.2); Troponin I < 50 ng/L (<or=60)
[2023-04-12 15:58] LABS: NT-proBNP 169 pg/mL (<300)
[2023-04-12 16:09] LABS: COVID-19 PCR Negative (Negative); Influenza A PCR Negative (Negative); Influenza B PCR Negative (Negative); RSV PCR Negative (Negative)
[2023-04-12 16:10] LABS: Source Nasopharynx
--- NOTE | 2023-04-12 16:45 | DI.CT_ITS ---
Exam(s) CT CHEST/ABD/PEL W EXAM: CT CHEST/ABD/PEL W CLINICAL HISTORY: stomach fullness, no appetite, r/o mass. TECHNIQUE: Imaging Protocol: Axial computed tomography images with coronal and sagittal reformatted images were created and reviewed CONTRAST MATERIAL: Intravenous: Omnipaque 350 Contrast volume:100 ml Oral: / no COMPARISON: CT CHEST WITH CONTRAST from 07/24/2011 CT RENAL COLIC WO CONTRAST from 11/25/[address] CHEST PE CTA from 10/16/[address] CHEST PE CTA from 03/20/2021 CR XR PORTABLE CHEST AP from 08/13/2022 CR XR PORTABLE CHEST AP from 04/12/2023 FINDINGS: CHEST: Tracheobronchial tree: Patent where visualized. Pulmonary parenchyma: Stable circumscribed low-density masses are noted in the right lower lobe. Sta ble severe emphysematous changes and multifocal areas of scarring. Pleura: No effusion or pneumothorax. Lymph nodes: Within normal limits. Aorta: Thoracic portion non-dilated. Heart: Normal size. Tiny pericardial effusion. Coronary artery calcifications. Bones: Unremarkable for age. No lytic or blastic lesions stable upper thoracic compression fractures . ABDOMEN and PELVIS: Stomach: Fundoplication. Liver: Normal density. Stable low-density lesions. Gallbladder and biliary tract: Status post cholecystectomy. Stable biliary dilatation. Pancreas: Normal density, no abnormal calcifications or inflammatory process. Spleen: Normal. Kidneys: Status post right nephrectomy. Simple left renal cysts. Stone noted at the lower pole of t he left kidney, nonobstructing. Adrenal glands: No masses seen. Aorta: Abdominal portion non-dilated. Mild atherosclerotic changes. Lymph nodes: Within normal limits. Soft tissues: Unremarkable. Bladder: Stone in dependent portion of gallbladder. No wall thickening Bowel: Mild nonspecific dilatation of the loops of bowel in the upper abdomen. Prominent sigmoid div erticulosis. No evidence of diverticulitis. No obstruction or bowel wall thickening. Several ingest ed tablets noted. Peritoneal cavity: No ascites. No focal collection or mesenteric inflammatory response. Bones: Unremarkable for age. Bone islands in sacrum Reproductive organs: Enlarged prostate with calcifications. IMPRESSION: Chest: Severe emphysematous and fibrotic changes. No acute infiltrate. Stable low-density, benign-a ppearing masses in the right lower lobe. Abdomen pelvis: Mild nonspecific mildly dilated loops of bowel in the upper abdomen without evidence of obstruction. Findings could be secondary to enteritis. Nonobstructing stone lower pole left kidney. Enlarged prostate. Bladder calculus. RADIATION DOSE DELIVERED: 729.95mGy.cm Total DLP DATA REPOSITORY: All CT scans at this facility are submitted to the National Radiology Data Registry (NRDR) Dose Index Registry (DIR) with the [employer] (ACR). RADIATION OPTIMIZATION: All CT scans at this facility use at least one of these dose optimization te chniques: automated exposure control; mA and/or kV adjustment per patient size (includes targeted exa ms where dose is matched to clinical indication); or iterative reconstruction.
[2023-04-12] MEDS: Omnipaque 350 MG/ML 100 ML BTL IJ (17:06)
[2023-04-12] MEDS: Normal Saline - Diluent 50 ML VIAL IV (17:20)
[2023-04-12] MEDS: predniSONE 20 MG TAB 160 MG PO (18:23)
[2023-04-12 18:25] LABS: Troponin I < 50 ng/L (<or=60)
== END 2023-04-12 18:35 | disposition home or self-care (01) ==
PROVIDERS: Emergency Provider Student in an Organized Health Care Education/Training Program; PCP Family Medicine
DX: J44.1 Chronic obstructive pulmonary disease with (acute) exacerbation (principal); R63.4 Abnormal weight loss
CPT/HCPCS: 74177; 80053; 82805; 87637; 93005; 94640; 99285; 71045; 71260; 83735; 83880; 84484; 85025; 93010; 99284; J3490; J7512; J7620

== ENCOUNTER 2023-05-03 15:04 | Emergency (ER) | payer OTHER, SELFPAY ==
[2023-05-03] VITALS (12 sets, daily range): BP systolic 113–132; BP diastolic 78–86; PULSE 83–95; RESP 11–22; TEMP 36.6; O2SAT 96–100
--- NOTE | 2023-05-03 14:45 | RT.EKG_ITS ---
APPROVED REPORT Exam: Resting ECG Reason for Exam: SOB Patient Location: E HR:83 bpm ECG Measurements Heart Rate 83 AXIS NH 171 P 86 QRSd 98 QRS 71 QT 356 T 80 QTc 418 Conclusion Sinus rhythm...normal P axis, V-rate 60- 99
--- NOTE | 2023-05-03 14:59 | ED.GENADUL_ITS ---
Discharge Plan Disposition Patient Disposition: Home Discharge Details Clinical Impression: COPD (chronic obstructive pulmonary disease), Abnormal weight loss, Physical deconditioning Primary Care Provider: Valerie Payne ED Provider: Earl Mack Home Meds and New Rx's Prescriptions: Continued aspirin [Ecotrin Low Strength] 81 MG tablet,delayed release (DR/EC) 81 mg PO DAILY ascorbic acid (vitamin C) [Vitamin C] 500 MG tablet 500 mg PO DAILY docusate sodium [Colace] 100 MG capsule 100 mg PO DAILY multivitamin with iron [One Daily Plus Iron] 1 EACH tablet 1 ea PO DAILY cholecalciferol (vitamin D3) 1,000 UNIT tablet 1,000 unit PO DAILY Fish Oil 1 EACH capsule 1 ea PO BID MISTERNEB NEBULIZER 1 EACH kit 1 ea Miscellaneous PRN PRNQty: 1 1RF Rx Instructions: NEBULIZER MACHINE FOR DUONEB ipratropium-albuterol [DuoNeb] 3 ML solution for nebulization 1 amp Inhalation QID PRN Qty: 200 Rx Instructions: DX: 496.00 instead of Albuterol neb, spiriva has been d/c'd omeprazole 40 MG capsule,delayed release(DR/EC) 40 mg PO DAILY Qty: 90 albuterol sulfate [Proventil HFA] 6.7 GM HFA aerosol inhaler 2 puff Inhalation Q4H PRN Qty: 3 Rx Instructions: USE IF NEEDED FOR SHORTNESS OF BREATH Spiriva Respimat 4 GM mist 2 puff Inhalation DAILY Patient Comments: GREEN bupropion HCl [Wellbutrin XL] 300 mg tablet extended release 24 hr 300 mg PO DAILY Qty: 90 3RF Rx Instructions: 1 TAB DAILY acetylcysteine 100 mg/mL (10 %) solution 2 ml inhalation TID Qty: 540 3RF aripiprazole [Abilify] 5 mg tablet 5 mg PO DAILY Qty: 90 3RF amlodipine 5 mg tablet 2.5 mg PO DAILY Qty: 90 3RF acetylcysteine 600 mg tablet 600 mg PO BID Qty: 180 3RF atorvastatin 40 mg tablet 40 mg PO QHS Qty: 90 3RF isosorbide mononitrate 30 mg tablet extended release 24 hr 30 mg PO DAILY Qty: 90 3RF metoprolol succinate 25 mg tablet extended release 24 hr 25 mg PO DAILY Qty: 90 3RF torsemide 20 mg tablet 20 mg PO DAILY PRN (Reason: edema) Qty: 90 3RF fluticasone propion-salmeterol [Wixela Inhub] 250-50 mcg/dose Blister With Device 1 inh INHALATION BID carboxymethylcellulose sodium [Refresh Plus] 0.5 % Dropperette 1 drp ophthalmic (eye) QID latanoprost 0.005 % Drops 1 drp ophthalmic (eye) QHS brimonidine 0.2 % Drops 1 drp ophthalmic (eye) BID Discharge Instructions Instructions: COPD (Chronic Obstructive Pulmonary Disease) (ED) Additional Instructions: You were seen in the emergency department for shortness of breath. We performed labs, EKG, and chest x-ray and these were unremarkable. We gave you a nebulizer here. Some of your symptoms improved. You likely have physical deconditioning and worsening COPD. We agreed to hold off on giving more steroids as you just finished a taper. Continue to eat and drink as much as you can. Follow-up with your primary care doctor and your previously scheduled CAT scan of your abdomen to look for the cause of your decreased appetite and weight loss. Make sure you take rest while trying to ambulate if you are getting short of breath. You can also increase your oxygen to 4 to 5 L nasal cannula while ambulating if you are getting very short of breath. If you get dyspnea on exertion and your breathing does not improve return straight back to the emergency department. Follow-up with your primary care doctor as soon as possible. 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 Referrals: Valerie Payne [Primary Care Provider] - 1 week Medical Decision Making Labs, EKG, and chest x-ray all unremarkable. Symptoms have resolved here. I had care management see him and the patient already has home supports and home PT through the [facility]. The career advisor said the patient can call them to increase the frequency of their visits and the patient says he is going to do this. I told him that he can increase his oxygen from his baseline 2 L while he is ambulating if he is developing dyspnea on exertion. I suspect his symptoms are from deconditioning and his chronic COPD/emphysema. He has follow-up for his decreased appetite and a CT scan scheduled for Wednesday. I told him to keep these appointments. Patient and family agreeable to going home. Will discharge with return precautions. Medical Records Medical records reviewed: Yes I reviewed the patient's medical records. Imaging Data Radiologic Study: Attestation: I personally reviewed and interpreted this imaging study as follows: Imaging: X-Ray (Chest) My impression: COPD with emphysema. Otherwise no acute abnormality on chest x-ray. Lab Data Lab results reviewed: Yes I reviewed the patient's lab results. ECG Data Attestation: I personally reviewed and interpreted this ECG (s) as follows: Prior ECG tracings: available for review Interpretation: Normal sinus rhythm with normal rate. Normal ID intervals. No ST or T wave changes. HPI General Date/Time Provider Initiated Documentation: 05/03/23 15:37 . Limitations to Documentation: no limitations . Information obtained by: patient . HPI Narrative: 73-year-old male with a past medical history of COPD on 3 L of oxygen at baseline, previous pneumothorax, chronic kidney disease, previous tobacco use, is now presenting with weakness and shortness of breath. Patient describes these things as being very chronic and worsening over months. Says he eats and drinks very little these days. Does not have any vomiting or nausea. He is still pooping normally with no diarrhea or constipation. No black or bloody stools. Still farting. He says he gets very short of breath walking even short distances through his house with a walker. He has a 1 level home and has a ramp going into his house. He was actually supposed to have a scheduled gastroenterology appointment today but did not feel like he could get outside to get into a car to get to the hospital so actually had to cancel that appointment. They were going to consider doing an upper endoscopy for him given his poor p.o. intake and other evaluation. He is scheduled for a CAT scan on Wednesday. He does not know when he sees his electric motor tester assembler again. Just finish ed a steroid taper 3 days ago. He says he has dyspnea on exertion but at rest feels okay and just feels little congested. Denies any other complaints. No chest pain. Related Data Home Medications Medication Instructions Recorded Confirmed aspirin 81 mg tablet,delayed 81 mg PO DAILY 11/22/12 05/03/23 release (Ecotrin Low Strength) ascorbic acid (vitamin C) 500 mg 500 mg PO DAILY 03/16/13 05/03/23 tablet (Vitamin C) cholecalciferol (vitamin D3) 25 1,000 unit PO DAILY 03/16/13 05/03/23 mcg (1,000 unit) tablet docusate sodium 100 mg capsule 100 mg PO DAILY 03/16/13 05/03/23 (Colace) multivitamin with iron (One Daily 1 ea PO DAILY 03/16/13 05/03/23 Plus Iron tablet) omega-3 fatty acids-fish oil 340 1 ea PO BID 03/16/13 05/03/23 mg-1,000 mg capsule (Fish Oil) ipratropium 0.5 mg-albuterol 3 mg 1 amp inhalation QID PRN #200 amps 04/19/14 05/03/23 (2.5 mg base)/3 mL nebulization soln (DuoNeb) albuterol sulfate 90 mcg/actuation 2 puff inhalation Q4H PRN ##3 07/25/15 05/03/23 aerosol inhaler (Proventil HFA) omeprazole 40 mg capsule,delayed 40 mg PO DAILY #90 tab-caps 07/25/15 05/03/23 release tiotropium bromide 2.5 2 puff inhalation DAILY 10/21/16 05/03/23 mcg/actuation mist for inhalation (Spiriva Respimat) bupropion HCl 300 mg 24 hr tablet, 300 mg PO DAILY #90 tab-caps 03/03/22 05/03/23 extended release (Wellbutrin XL) acetylcysteine 100 mg/mL (10 %) 2 ml inhalation TID #540 mL 05/07/22 05/03/23 solution aripiprazole 5 mg tablet (Abilify) 5 mg PO DAILY #90 tabs 05/25/22 05/03/23 amlodipine 5 mg tablet 2.5 mg (1/2 x 5 mg) PO DAILY #90 07/08/22 05/03/23 tab-caps brimonidine 0.2 % eye drops 1 drp ophthalmic (eye) BID 08/13/22 05/03/23 carboxymethylcellulose sodium 0.5 1 drp ophthalmic (eye) QID 08/13/22 05/03/23 % eye drops in a dropperette (Refresh Plus) fluticasone 250 mcg-salmeterol 50 1 inh inhalation BID 08/13/22 05/03/23 mcg/dose blistr powdr for inhalation (Wixela Inhub) latanoprost 0.005 % eye drops 1 drp ophthalmic (eye) QHS 08/13/22 05/03/23 acetylcysteine 600 mg tablet 600 mg PO BID #180 tabs 08/29/22 05/03/23 atorvastatin 40 mg tablet 40 mg PO QHS #90 tabs 08/29/22 05/03/23 isosorbide mononitrate 30 mg 30 mg PO DAILY #90 tabs 08/29/22 05/03/23 tablet,extended release 24 hr metoprolol succinate 25 mg 25 mg PO DAILY #90 tabs 08/29/22 05/03/23 tablet,extended release 24 hr torsemide 20 mg tablet 20 mg PO DAILY PRN edema #90 tabs 08/29/22 05/03/23 Previous Rx's Medication Instructions Recorded bupropion HCl 300 mg 24 hr tablet, 300 mg PO DAILY #90 tab-caps 03/03/22 extended release (Wellbutrin XL) acetylcysteine 100 mg/mL (10 %) 2 ml inhalation TID #540 mL 05/07/22 solution aripiprazole 5 mg tablet (Abilify) 5 mg PO DAILY #90 tabs 05/25/22 amlodipine 5 mg tablet 2.5 mg (1/2 x 5 mg) PO DAILY #90 07/08/22 tab-caps acetylcysteine 600 mg tablet 600 mg PO BID #180 tabs 08/29/22 atorvastatin 40 mg tablet 40 mg PO QHS #90 tabs 08/29/22 isosorbide mononitrate 30 mg 30 mg PO DAILY #90 tabs 08/29/22 tablet,extended release 24 hr metoprolol succinate 25 mg 25 mg PO DAILY #90 tabs 08/29/22 tablet,extended release 24 hr torsemide 20 mg tablet 20 mg PO DAILY PRN edema #90 tabs 08/29/22 Allergies Allergy/AdvReac Type Severity Reaction Status Date / Time lisinopril AdvReac Intermediate COUGH Verified 05/03/23 16:14 General Stated Complaint: GenMedical PETERSON: 3 Review of Systems Constitutional Constitutional: Denies chills, Denies fever(s), Denies headache(s) and Reports poor appetite Eyes Eyes: Denies change in vision ENT Ears, Nose, Mouth, and Throat: Denies headache(s) and Denies odynophagia Cardiovascular Cardiovascular: Denies chest pain and Reports dyspnea Respiratory Respiratory: Reports chest congestion and Reports dyspnea Gastrointestinal Gastrointestinal: Denies abdominal pain, Denies diarrhea, Denies nausea, Denies odynophagia and Denies vomiting Genitourinary Genitourinary: Denies dysuria Musculoskeletal Musculoskeletal: Denies myalgias Integumentary/Breasts Skin/Breast: Denies changing lesions Neurologic Neurologic: Denies behavioral changes and Denies headache(s) Psychiatric Psychiatric: Denies behavioral changes Endocrine Endocrine: Denies heat intolerance Hematologic/Lymphatic Hematologic/Lymphatic: Denies lymphadenopathy PFSH All Active Problems (Updated 05/03/23 @ 17:08 by Earl Mack MD) Physical deconditioning (Acute) Abnormal weight loss (Acute) COPD (chronic obstructive pulmonary disease) (Chronic) Abnormal weight loss (Acute) COPD with exacerbation (Acute) COPD exacerbation (Acute) Pneumonia (Acute) Weight loss (Acute) Bilateral lower extremity edema (Acute) COPD exacerbation (Acute) Dyspnea on exertion (Acute) Leg swelling (Acute) COPD with acute exacerbation (Acute) Acute bronchitis (Acute) Discharge planning issues (Acute) DVT prophylaxis (Acute) CKD (chronic kidney disease), stage III (Chronic) Pneumothorax, right (Acute) Acute respiratory failure with hypoxia and hypercapnia (Acute) Pneumothorax (Acute) Acute exacerbation of chronic obstructive pulmonary disease (Acute) Renal insufficiency (Chronic) Anemia (Acute 03/16/13) History of abscess of lung (Acute) History of laparoscopy (Acute 02/06/16) History of tobacco use (Acute) History of unilateral nephrectomy (Acute 02/06/16) Male circumcision (Acute) Status post Linda fundoplication (Acute) Status post cholecystectomy (Acute) Status post hemorrhoidectomy (Acute) Tubular adenoma (Acute) tubular adenoma (3 tubular adenoma 04/23, 4 tubular adenoma 04/24, [facility]) 06/29/17; DR. SNIDER (1) Thyroid nodule (Acute 11/17/17) [facility]: nil 09/2017 Right renal mass (Acute 05/01/15) Dr Dailey then [facility] hosp for CT scan and further eval; s/p nephrectomy (was malignant) s/p rt nephrectomy February 06, 2016 Polyp of colon (Acute) tubular adenoma (3 tubular adenoma 04/23, 4 tubular adenoma 04/24, [facility]) Knee pain (Acute) DJD Kidney stone (Acute 11/22/12) Dr Dailey ([place]) calcium oxalate Hyperlipidemia (Acute 03/16/13) Essential hypertension (Chronic 06/28/13) Esophagitis (Acute 06/29/17) Erosive gastritis (Acute 06/29/17) Depressive disorder (Acute) Chronic obstructive lung disease (Chronic 11/15/08) 2014 FEV1 0.77 (25% pred) 2013 FEV1 0.97 (31% predicted) h/o tobacco use (QUIT 2003) Basal cell carcinoma of face (Acute 02/14/13) Medical History Lesion of lung H/O renal cell carcinoma HTN (hypertension) GERD (gastroesophageal reflux disease) Tubular adenoma Surgical History History of lung biopsy H/O right nephrectomy Linda Fundoplication (03/07/12) Hemorrhoidal Banding EGD - MAC (06/29/17) EGD - MAC (04/23/14) Colonoscopy - MAC (06/29/17) 04/2014 Circumcision Cholecystectomy Family History Mother Essential hypertension Cancer of kidney Father No problems noted. Sister Lung cancer Sister Lung cancer Brother Lung cancer Brother Lung cancer Brother Lung cancer Grandfather No problems noted. Grandfather No problems noted. Grandmother No problems noted. Grandmother No problems noted. Sister No problems noted. Brother Heart disease Brother No problems noted. Son No problems noted. Daughter No problems noted. Daughter No problems noted. Social History Smoking/Tobacco Use Status: Former Tobacco Use tobacco type: cigarettes Quit Date: 12/11/03 Tobacco: How many years used: 39 Second Hand Exposure: Yes Smoking risk assessment performed?: Yes Alcohol Intake: never Drug use: Never Substance use type: does not use Caregiver/Support person: No Household members: spouse Housing: house Communication Needs: Corrective Lenses Do you need help understanding health information?: Rarely Pets and animals: Yes Pets and animals: dog(s) Sexually active: No Do you think of yourself as: straight/heterosexual Current gender identity: male What is your relationship status?: How often do you talk on the phone with friends or family?: three or more times per week How often do you attend tenriism or sikh services?: decline to answer Do you belong to any clubs or organized social groups?: no Panel score (0-1 are the most socially isolated patients): 2 What type of physical activity do you participate in: none Angela/Gnosticist: Tenriism Special angela needs: No Seatbelt use: always Drive intox or ride w/intox bus van driver: No Do you feel safe at home: Yes Do you feel safe in your relationship?: Yes Exam Const General: cooperative Nutritional Appearance: malnourished and thin Orientation: alert, awake and oriented x3 HENMT Head: normal to inspection Ears: external ears normal Mouth: moist mucous membranes Eyes Pupils: PERRL EOM: EOM intact bilaterally and No nystagmus Neck Neck: full ROM and no tracheal deviation Chest Chest: normal inspection of the chest Resp Auscultation: clear to auscultation bilaterally Cardio Rate: regular rate Rhythm: regular rhythm GI Inspection: normal to inspection Palpation: soft, no guarding, not rigid and nontender Back/Spine/Pelvis Back: No no CVA tenderness Thoracic/Lumbar Spine: thoracic and lumbar spine normal to inspection Skin General skin exam: no rashes or lesions noted Neuro General: patient alert, patient awake and patient oriented x3 Cranial Nerves: CN's II-XI intact bilaterally, PERRL and no nystagmus Cognition: normal cognition Motor: muscle tone normal throughout and strength 5/5 throughout Sensory Exam: no sensory deficits noted Extrem General: normal to inspection Course Reevaluation(s) Initial Evaluation: 73-year-old gentleman with above history now presents with shortness of breath with exertion and fatigue. Just finished steroids 3 days ago. Not particularly wheezing on examination and already got a nebulizer treatment. He would like to hold off on doing repeated steroids now which I think is reasonable. We will give a singular nebulizer treatment here despite no significant wheezing. He is on his home oxygen and does not have any hypoxemia or increased work of breathing at rest. I suspect his breathing is likely chronic COPD that is worsening. Will get chest x-ray to look for pneumonia or pneumothorax. Doubt pulmonary edema but will check a proBNP with a chest x-ray. Doubt ACS but will check EKG and cardiac enzymes. I suspect some of his dyspnea on exertion could also be from deconditioning as he is very skinny and not eating well. He does not have any findings on physical exam to suggest bowel obstruction at this time. I think he can continue with outpatient work-up of his poor p.o. intake as he has scheduled CT scan and gastroenterology follow-up. Will await initial testing and check some broad labs look for electrolyte or metabolic derangements that could be contributing as well as any significant anemia. We will continue to monitor while awaiting initial testing. Vital Signs Vital signs: Vital Signs Temperature 36.6 C 05/03/23 14:48 Pulse 89 05/03/23 14:48 Respiratory Rate 22 05/03/23 14:48 Blood Pressure 132/86 05/03/23 14:48 Pulse Oximetry 97 05/03/23 14:48 Temperature 36.6 C 05/03/23 14:54 Temperature Source Tympanic 05/03/23 14:54 Pulse 89 05/03/23 14:54 Respiratory Rate 16 05/03/23 14:55 Respiratory Effort Short of Breath 05/03/23 14:58 Respiratory Depth Normal 05/03/23 14:55 Respiratory Pattern Normal 05/03/23 14:55 Blood Pressure 132/86 05/03/23 14:54 Blood Pressure Position Supine 05/03/23 14:54 Pulse Oximetry 97 05/03/23 14:54 Oxygen Delivery Method Nasal Cannula 05/03/23 14:54 Oxygen Flow Rate 3 05/03/23 14:54 Pain Level 0 05/03/23 14:54
[2023-05-03 15:09] LABS: Abs Immature Grans 0.01 10^3/uL (0.0-0.06); Absolute Basophil Count 0.02 10^3/uL (0.0-0.2); Absolute Eosinophil Count 0.24 10^3/uL (0.0-0.7); Absolute Lymphocyte Count 0.69 10^3/uL (1.2-3.4); Absolute Monocyte Count 0.39 10^3/uL (0.1-0.8); Absolute Neutrophil Count 4.26 10^3/uL (1.2-6.7); BE (Venous) 9 mmol/L (-2-3); Basophils % 0.4; Eosinophils % 4.3; HCO3 (Venous) 35 mmol/L (23-28); HCT 36.7 % (40.0-50.0); HGB 11.4 g/dL (13.5-17.5); Immature Grans % 0.2; Lymphocytes % 12.3; MCH 27.8 pg (27.0-33.0); MCHC 31.1 % (32.0-36.0); MCV 90 fL (80-95); MPV 9.1 fL (8.0-11.0); Neutrophils % 75.8; O2 Sat (Venous) 51 %; Platelet Count 206 10^3/uL (130-400); RDW 13.9 % (11.8-14.1); RDW-SD 45.4 fL; TCO2 (Venous) 33 mmol/L (24-29); WBC 5.61 10^3/uL (4.4-10.8); pH (Venous) 7.33 (7.31-7.41); pO2 (Venous) 28 mmHg
[2023-05-03 15:13] LABS: pCO2 (Venous) 67 mmHg (41-51)
[2023-05-03 15:33] LABS: ALT 24 U/L (16-63); AST 17 U/L (15-37); Albumin 2.6 g/dL (3.4-5.0); Alkaline Phosphatase 110 U/L (46-116); Anion Gap 1.8 mmol/L (3-11); BUN 19 mg/dL (7-18); Bilirubin, Total 0.4 mg/dL (0.2-1.0); CO2 34.2 mmol/L (21.0-32.0); CREATININE 1.1 mg/dL (0.70-1.30); Calcium 9.4 mg/dL (8.5-10.1); Chloride 103 mmol/L (98-107); Estimated GFR 70.01 (mL/min/1.73m2); Glucose 96 mg/dL (74-106); Magnesium 1.8 mg/dL (1.8-2.4); NT-proBNP 160 pg/mL (<300); Potassium 3.9 mmol/L (3.5-5.1); Sodium 139 mmol/L (136-145); Total Protein 6.3 g/dL (6.4-8.2); Troponin I < 50 ng/L (<or=60)
[2023-05-03] MEDS: Albuterol/Ipratropium 3 ML UPD VIAL UPD (15:33)
[2023-05-03 15:51] LABS: COVID-19 PCR Negative (Negative); Influenza A PCR Negative (Negative); Influenza B PCR Negative (Negative); RSV PCR Negative (Negative)
[2023-05-03 15:53] LABS: Source Nasopharynx
--- NOTE | 2023-05-03 16:00 | DI.RAD_ITS ---
Exam(s) XR CHEST 2V PA LATERAL EXAM: XR CHEST 2V PA LATERAL CLINICAL HISTORY: sob TECHNIQUE: 2D digital imaging was performed. COMPARISON: CR XR PORTABLE CHEST AP from 08/13/[address] CHEST/ABD/PEL W from 04/12/2023 CR XR PORTABLE CHEST AP from 04/12/2023 FINDINGS: HEART: Normal size. Aorta: Not dilated. PULMONARY VASCULATURE: Normal. LUNGS: Severe emphysematous changes and scarring noted. No infiltrate. Circumscribed right lower lo be pulmonary nodule again noted. PLEURAL SPACE: No pleural effusion or pneumothorax. BONE:Stable midthoracic compression fracture. IMPRESSION: No acute abnormality. DATA REPOSITORY: RADIATION DOSE DELIVERED:
--- NOTE | 2023-05-03 16:06 | PDOC.CMPRO ---
Date of service: 05/03/23 Time of Service: 16:06 Care Management Progress Note Progress Note Text Progress Note Text: CM was asked by ED provider to see patient to evaluate home resources. CM met with Yousif who was very pleasant and agreeable to conversation. When asked about home services, Yousif stated that [facility] Through [facility] he has a visiting nurse, PT, nutrition and a high school social studies tutor. He informed CM that they don't all come at the same time, but are available to him. When asked if he could have an increase in services, he stated all he needs to do is make a phone call. His is a good source of support and transportation is not a concern. He uses home oxygen at 3L/min. Yousif had a nasal cannula in place during the visit but it was not connected to an oxygen source and his O2 saturation was at 97%.
== END 2023-05-03 17:30 | disposition home or self-care (01) ==
PROVIDERS: Emergency Provider Student in an Organized Health Care Education/Training Program; PCP Nurse Practitioner Adult Health
DX: J44.9 Chronic obstructive pulmonary disease, unspecified (principal); R63.4 Abnormal weight loss; I13.0 Hypertensive heart and chronic kidney disease with heart failure and stage 1 through stage 4 chronic kidney disease, or unspecified chronic kidney disease; N18.30 Chronic kidney disease, stage 3 unspecified; R91.1 Solitary pulmonary nodule; Z85.520 Personal history of malignant carcinoid tumor of kidney; Z90.49 Acquired absence of other specified parts of digestive tract; Z20.822 Contact with and (suspected) exposure to COVID-19; Z99.81 Dependence on supplemental oxygen
CPT/HCPCS: 80053; 82805; 87637; 93005; 94640; 99283; 71046; 83735; 83880; 84484; 85025; 93010; J7620

== ENCOUNTER → 2023-07-19 01:56 | Outpatient (CLI) | payer OTHER, SELFPAY ==
--- NOTE | 2023-07-19 07:15 | DI.RAD_ITS ---
Exam(s) RF BARIUM SWALLOW SINGLE EXAM: RF BARIUM SWALLOW SINGLE CLINICAL HISTORY: early satiety/wt loss/smoker/kidney cancer-hx,PHYSICAL DECONDITIONING,R63.4 TECHNIQUE: 2D and realtime digital imaging was performed. CONTRAST MATERIAL: Oral barium contrast was administered. COMPARISON: CR,XR XR PORTABLE CHEST AP from 12/23/2020 CR XR CHEST 2V PA LATERAL from 05/03/2023 FINDINGS: CHEST X-RAY: The heart and pulmonary vasculature are within normal limits. The lungs are hyperinflate d consistent with underlying COPD. No focal consolidating infiltrates are seen. Nipple shadow is se en in the right lung base. No pleural effusion or pneumothorax is present. The bones are within norm al limits for the patient's age. ESOPHAGRAM: The examination was discontinued following aspiration. The esophagus is patent with no e vidence for erosions, fold thickening, strictures, or masses. With regards to the motility, there is a normal primary stripping wave. Aspiration occurred during the examination. IMPRESSION: 1. COPD. 2. Aspiration with thick liquid occurred during the examination which was discontinued. 3. No gross abnormality is seen in the limited examined of the esophagus. RADIATION DOSE DELIVERED: monika Gonzalez=1.86 mGy
--- NOTE | 2023-07-19 07:21 | DI.RAD_ITS ---
Exam(s) RF MODIFIED SPEECH BA SWALLOW TECHNIQUE: Modified barium swallow was performed in conjunction with speech pathology. CONTRAST MATERIAL: Oral barium contrast was administered. COMPARISON: No exams were available for comparison FINDINGS: Note that this is not a dedicated esophagram, distal esophagus not evaluated. There is aspiration of thin liquids during the examination. There was no aspiration seen with thick liquids, barium paste or barium coated cookies. Speech pathology report to follow. . . . IMPRESSION: Aspiration of thin liquids during the examination. RADIATION DOSE DELIVERED: monika Gonzalez=8.99 mGy
[2023-07-19] MEDS: Barium Sulfate Oral Paste 40% W/V 230 ML TUBE 13 ML PO (10:31)
[2023-07-19] MEDS: Barium Sulfate 40% W/V 240 ML BTL 70 ML PO (10:32)
[2023-07-19] MEDS: Barium Sulfate 81% w/w for Oral Suspension 148 GM BTL 90 GM PO (10:34)
[2023-07-19] MEDS: Barium Sulfate 98% W/W 140 ML BTL 30 ML PO (10:35)
--- NOTE | 2023-07-19 15:03 | ST.MBS_ITS ---
Date of Service Date of service: 07/19/23 Time of Service: 09:15 Modified Barium Swallow Study Findings: Video fluoroscopic Swallowing Evaluation (VFSE) / Modified Barium Swallow Study (MBSS) Speech Language Pathology Report Patient referred for VFSE/MBSS from Elisa Cerna. Jasen was referred for both an MBSS as well as regular barium swallow. The regular barium swallow was completed immediately following the MBSS. HPI & Patient report of function: Jasen Poole is a 73 year old male with PMH significant for COPD on chronic O2 (3LPM), CKD stage 3, GERD s/p yaneth fundoplication ~10 years ago (on Omeprazole currently), hx esophagitis. He was referred for both an MBSS as well as regular barium swallow by Elisa Cerna secondary to symptoms of abnormal weight loss, poor appetite, and sensation of food/naturally thicker drinks (ensure) sticking in sternal region. He presents today with his , Kb, who reports noticing increased confusion for the past several months as well. Yousif and his report he consistently feels lousy after eating/drinking, feels immediately full without appetite, and has had significant weight loss and thus increased weakness/fatigue over recent months. Yousif presented today in a wheel chair, tolerating 3LPM O2 nasal canula- alert and able to answer questions, though visibly weak and cachexic appearing. Previous Imaging: No prior MBSS IMPRESSIONS: Yousif presents with moderate-severe pharyngeal sensorimotor dysphagia, with primary impairments of delayed swallow initiation, impaired laryngeal vestibule closure, and impaired/absent sensory cough reflex. With thin and mildly thick liquids, there is deep penetration reaching the level of the vocal cords prior to/during the swallow, with intermittent trace silent aspiration occurring after the swallow. With moderately thick liquids, silent aspiration also occurs- though difficult to assess if from prior residue of mildly thick liquids. There is only one reflexive cough noted throughout multiple episodes of deep penetration/aspiration. Yousif did express sensation of something caught in throat during these episodes. Several strategies trialed, including chin tuck and bolus hold, without success. With solids, there is no aspiration however swallow efficiency is impaired, with intermittent pharyngeal retention in pyriforms and lesser so in vallecular. Patient is able to clear pharyngeal residue with sips of liquid or repeat swallow. Overall, swallow safety and efficiency are impaired, with silent aspiration occurring with thin and thick liquids, despite strategy trials. Patient appears to be at high risk for potential aspiration PNA and/or pulmonary compromise and high risk for malnutrition, high risk for dehydration. Of notice, pharyngeal swallow dysfunction is likely largely contributing to but perhaps not fully explaining patient's symptoms of poor appetite/sensation of food sticking/nausea after meals- anticipate digestive component as well. Swallow prognosis is guarded given age, comorbidities, degree of impairment/ineffectiveness of compensatory strategies as well as extent of deconditioned status/cachexia. Etiology of dysphagia is unclear; hx longstanding reflux and dyspnea/chronic O2 use as well as severity of deconditioned state are identified as contributing factors but likely do not fully explain extent of pharyngeal sensory impairment. Question if reduced PO intake due to loss of appetite/GI complaints may have resulted in disuse atrophy, exacerbating symptoms. Pending patient's goals of care, and considering patient's 's report of confusion, consider referral to neurology for further workup. Recommend brief episode of outpatient DIP LUBE OPERATOR services for education/training on how to reduce risk for developing aspiration related illness. Specialist referrals:?Consider neurology consult in light of confusion and dysphagia of unclear origin. Consider palliative consult. RECOMMENDATIONS: Diet Texture Recommendation:? IDDSI LEVEL SOLIDS 6-Soft & Bite-Sized Solids. Favor L4 Puree foods, have 1-2 pureed items per meal to maximize endurance. LIQUIDS 0-Thin Liquids, small single sips MEDICATIONS whole or crushed in spoonful of applesauce Diet texture modification is per patient's preference; please adjust diet textures at patient's discretion & collaboration with care team. Do not alter medications (e.g., cut)? without advice from your MD or pharmacist. Risk Management Strategies:? Behavioral reflux precautions, including upright position during + 90 mins after meals. Small bites, approx [id number] Very small sips, approx 5mL / teaspoon Encourage avoidance of straws Multiple swallows per bolus to encourage clearance of pharyngeal stasis/residue Control risk factors for aspiration pneumonia via (a) thorough oral hygiene & (b) maintaining physical mobility as tolerated PLAN: Therapy: Recommend subsequent outpatient session with DIP LUBE OPERATOR to review results of today's exam and develop treatment plan as appropriate. May consider the following: Oropharyngeal Exercises to target deficits noted in objective section above Further Compensatory Strategy Training Further Training/Education in Risk Management Further Counseling re: Options for maintaining quality of life in context of dysphagia presentation Goals: Master Tax Advisor Goals: Patient will remain free from aspiration-related illness, malnutrition, and dehydration. Patient/family will verbalize comprehension of education provided re: dx dysphagia, strategies to maximize functioning, and role of ST. Short Term Goals: Patient will tolerate Soft Bite Size Diet and Thin liquids without overt s/s aspiration across 2/2 visits. Patient will tolerate PO trials for consideration of diet upgrade without overt s/s aspiration across 2/2 visits. OBJECTIVE Videofluoroscopic Swallow Evaluation (VFSE/MBSS) was conducted in the lateral projection by Speech-Language Pathologist, in collaboration with Radiologist, to evaluate oropharyngeal swallow function. Anatomic view under fluoroscopy: WFL PO Barium Contrast Trials Oral barium water-soluble contrast was administered as follows: IDDSI Level 0 Varibar thin liquid (40% w/v) IDDSI Level 2 Varibar nectar thick/mildly thick liquid (40% w/v) IDDSI Level 3 Varibar thin honey/liquidised/moderately-thick (40% w/v) IDDSI Level 4 Varibar pudding/pureed/extremely thick (40% w/v) IDDSI Level 7 Regular Solid: 1/2 eleazar cracker coated in 3 mL Varibar pudding MBSImP Component Scores: COMPONENT Scale SCORE 1 Lip closure (0-4) 0 Resulted in no labial escape 2 Hold Position (0-3) 0 Maintained a cohesive bolus between tongue to palatal seal 3 Bolus Preparation (0-4) 1 Resulted in slow prolonged chewing/mashing with complete re-collection 4 Bolus Transport (0-4) 2 Was with slowed tongue motion 5 Oral Residue (0-4) 1 Was a trace, lining oral structures 6 Swallow Initiation (0-4) 3 Occurred when the bolus head was in the pyriform sinuses 7 Soft Palate Elevation (0-4) 0 Resulted in no bolus between soft palate and the pharyngeal wall 8 Laryngeal Elevation (0-3) 0 Demonstrated complete superior movement of thyroid cartilage with complete approximation of arytenoids to epiglottic petiole 9 Anterior Hyoid Motion (0-2) 1 Demonstrated partial anterior movement 10 Epiglottic Movement (0-2) 0 Resulted in complete inversion 11 Laryngeal Closure (0-2) 1 Was incomplete with narrow a column of air/contrast in laryngeal vestibule 12 Pharyngeal Stripping Wave (0-2) 1 Was present, but diminished 13 Pharyngeal Contraction (0-3) NA 14 PES Opening (0-3) 1 Demonstrated partial distension/partial duration, with partial obstruction of flow 15 Tongue Base Retraction (0-4) 1 Allowed a trace column of contrast or air between tongue base and pharyngeal wall 16 Pharyngeal Residue (0-4) 2 Was a collection of residue within or on pharyngeal structures 17 Esophageal Clearance (0-4) NA Results: COMPONENT Scale SCORE 1 Oral Score (0-18) 6 2 Pharyngeal Score (0-29) 6 3 Esophageal Score (0-4) 0 Penetration-Aspiration Scale: COMPONENT Scale SCORE 1 Thin liquid (1-8) 8 Contrast entered the airway, passed below the vocal folds, and no effort was made to eject. 2 [place] thick (1-8) 8 Contrast entered the airway, passed below the vocal folds, and no effort was made to eject. 3 Honey thick (1-8) 8* Contrast entered the airway, passed below the vocal folds, and no effort was made to eject. *Difficult to assess, aspiration may have been residue from prior trial of nectar thick 4 Pudding thick (1-8) 1 Contrast did not enter the airway 5 Cookie (1-8) 1 Contrast did not enter the airway Trialed Compensatory Strategies & Outcome: Maneuvers Successful (+) Unsuccessful (-) Postures Successful (+) Unsuccessful (-) 3 second Preparatory Set? - ? Chin Tuck Posture? - ? Cough? ? Posterior Head tilt? Reflexive? Cued? - ? ? ? Throat Clear? ? Head Tilt to? Reflexive? Left? Cued? Right? ? Saliva swallow? ? Head Turn/Rotate to? ? Supraglottic Swallow? Left? ? Super-supraglottic Swallow? Right? ? Bolus Modifications Successful (+) Unsuccessful (-) Delivery/Alternating Consistencies ? Follow with Liquid Wash ? Follow with Solid Bolus? Delivery/Via Straw? ? Reduced Volume? - ? Reduced Rate of Intake? - ? Increased Viscosity? ? Other:?? ? Thank you for allowing us to take part in this patient's care. Please feel free to contact the [facility] Speech Language Pathology Department with any questions/concerns. Coding CPT Codes MOTION FLUOROSCOPY/SWALLOW - [id number] ([id number])
== END ==
PROVIDERS: PCP Nurse Practitioner Adult Health; Visit Provider Surgery
DX: D64.9 Anemia, unspecified (principal); E78.5 Hyperlipidemia, unspecified; I10 Essential (primary) hypertension; J44.9 Chronic obstructive pulmonary disease, unspecified; N18.30 Chronic kidney disease, stage 3 unspecified; R06.00 Dyspnea, unspecified; R53.81 Other malaise; R60.0 Localized edema; R63.4 Abnormal weight loss; Z85.528 Personal history of other malignant neoplasm of kidney; Z87.891 Personal history of nicotine dependence; Z90.5 Acquired absence of kidney; Z98.890 Other specified postprocedural states; R13.13 Dysphagia, pharyngeal phase
CPT/HCPCS: 74220; 92526; 92611; 74221; J3490

== ENCOUNTER 2023-07-21 13:30 | Inpatient (IN) | payer OTHER, SELFPAY ==
[2023-07-21] VITALS (82 sets, daily range): BP systolic 94–142; BP diastolic 56–119; PULSE 81–124; RESP 2–30; TEMP 37.1–37.2; O2SAT 90–100
--- NOTE | 2023-07-21 13:49 | ED.GENADUL_ITS ---
HPI General Stated Complaint: GenMedical PETERSON: 3 Date/Time Provider Initiated Documentation: 07/21/23 13:38. HPI Narrative: 73 year-old male presents to ED today by EMS with a chief complaint of constellation of symptoms- difficulty swallowing, poor appetite, early satiety, vocal hoarseness in the setting of advanced COPD which has prevented EGD. His also reports some confusion, and he reports some urinary urgency, and unintentional weight-loss with onset over weeks to months. Patient had a swallow study done last week. Quality described as myriad of symptoms, just overall weak, no radiation to active chest pain, shortness of breath beyond his baseline NC O2 2L 24/7, fever, endorses cough, denies nausea/vomiting, denies severe abdominal pain. Severity is described as 8/10. Palliating factors include nothing specific attempted. Provoking factors include nothing specific. Events leading up to the incident/Associated Symptoms: Patient reports history of a thyroid nodule without recent surveillance. Patient not anticoagulated. Related Data Home Medications Medication Instructions Recorded Confirmed aspirin 81 mg tablet,delayed 81 mg PO DAILY 11/22/12 07/21/23 release (Ecotrin Low Strength) ascorbic acid (vitamin C) 500 mg 500 mg PO DAILY 03/16/13 07/21/23 tablet (Vitamin C) cholecalciferol (vitamin D3) 25 1,000 unit PO DAILY 03/16/13 07/21/23 mcg (1,000 unit) tablet docusate sodium 100 mg capsule 100 mg PO DAILY 03/16/13 07/21/23 (Colace) multivitamin with iron (One Daily 1 ea PO DAILY 03/16/13 07/21/23 Plus Iron tablet) omega-3 fatty acids-fish oil 340 1 ea PO BID 03/16/13 07/21/23 mg-1,000 mg capsule (Fish Oil) ipratropium 0.5 mg-albuterol 3 mg 1 amp inhalation QID PRN #200 amps 04/19/14 07/21/23 (2.5 mg base)/3 mL nebulization soln (DuoNeb) albuterol sulfate 90 mcg/actuation 2 puff inhalation Q4H PRN ##3 07/25/15 07/21/23 aerosol inhaler (Proventil HFA) omeprazole 40 mg capsule,delayed 40 mg PO DAILY #90 tab-caps 07/25/15 07/21/23 release tiotropium bromide 2.5 2 puff inhalation DAILY 10/21/16 07/21/23 mcg/actuation mist for inhalation (Spiriva Respimat) bupropion HCl 300 mg 24 hr tablet, 300 mg PO DAILY #90 tab-caps 03/03/22 07/21/23 extended release (Wellbutrin XL) acetylcysteine 100 mg/mL (10 %) 2 ml inhalation TID #540 mL 05/07/22 07/21/23 solution aripiprazole 5 mg tablet (Abilify) 5 mg PO DAILY #90 tabs 05/25/22 07/21/23 amlodipine 5 mg tablet 2.5 mg (1/2 x 5 mg) PO DAILY #90 07/08/22 07/21/23 tab-caps brimonidine 0.2 % eye drops 1 drp ophthalmic (eye) BID 08/13/22 07/21/23 carboxymethylcellulose sodium 0.5 1 drp ophthalmic (eye) QID 08/13/22 07/21/23 % eye drops in a dropperette (Refresh Plus) fluticasone 250 mcg-salmeterol 50 1 inh inhalation BID 08/13/22 07/21/23 mcg/dose blistr powdr for inhalation (Wixela Inhub) latanoprost 0.005 % eye drops 1 drp ophthalmic (eye) QHS 08/13/22 07/21/23 acetylcysteine 600 mg tablet 600 mg PO BID #180 tabs 08/29/22 07/21/23 atorvastatin 40 mg tablet 40 mg PO QHS #90 tabs 08/29/22 07/21/23 isosorbide mononitrate 30 mg 30 mg PO DAILY #90 tabs 08/29/22 07/21/23 tablet,extended release 24 hr metoprolol succinate 25 mg 25 mg PO DAILY #90 tabs 08/29/22 07/21/23 tablet,extended release 24 hr torsemide 20 mg tablet 20 mg PO DAILY PRN edema #90 tabs 08/29/22 07/21/23 amoxicillin 500 mg-potassium 1 tab PO TID 06/14/23 07/21/23 clavulanate 125 mg tablet mirtazapine 15 mg tablet 15 mg PO QHS 06/14/23 07/21/23 prednisone 10 mg tablet 10 mg PO DIRECTED 12/04/23 01/10/24 Previous Rx's Medication Instructions Recorded bupropion HCl 300 mg 24 hr tablet, 300 mg PO DAILY #90 tab-caps 03/03/22 extended release (Wellbutrin XL) acetylcysteine 100 mg/mL (10 %) 2 ml inhalation TID #540 mL 05/07/22 solution aripiprazole 5 mg tablet (Abilify) 5 mg PO DAILY #90 tabs 05/25/22 amlodipine 5 mg tablet 2.5 mg (1/2 x 5 mg) PO DAILY #90 07/08/22 tab-caps acetylcysteine 600 mg tablet 600 mg PO BID #180 tabs 08/29/22 atorvastatin 40 mg tablet 40 mg PO QHS #90 tabs 08/29/22 isosorbide mononitrate 30 mg 30 mg PO DAILY #90 tabs 08/29/22 tablet,extended release 24 hr metoprolol succinate 25 mg 25 mg PO DAILY #90 tabs 08/29/22 tablet,extended release 24 hr torsemide 20 mg tablet 20 mg PO DAILY PRN edema #90 tabs 08/29/22 Allergies Allergy/AdvReac Type Severity Reaction Status Date / Time lisinopril AdvReac Intermediate COUGH Verified 07/21/23 14:33 Review of Systems All systems reviewed & are unremarkable except as noted in HPI and below PFSH All Active Problems (Updated 07/20/23 @ 20:49 by Elisa Cerna DO) Aspiration of liquid (Acute) Benign hypertension (Acute) Edema (Acute) Mixed anxiety and depressive disorder (Acute) Early satiety (Acute) Dysphagia (Acute) COPD exacerbation (Acute) Pneumonia (Acute) Weight loss (Acute) Bilateral lower extremity edema (Acute) COPD exacerbation (Acute) Dyspnea on exertion (Acute) Leg swelling (Acute) COPD with acute exacerbation (Acute) Acute bronchitis (Acute) Discharge planning issues (Acute) DVT prophylaxis (Acute) CKD (chronic kidney disease), stage III (Chronic) Pneumothorax, right (Acute) Acute respiratory failure with hypoxia and hypercapnia (Acute) Pneumothorax (Acute) Acute exacerbation of chronic obstructive pulmonary disease (Acute) Renal insufficiency (Chronic) Anemia (Acute 03/16/13) History of abscess of lung (Acute) History of laparoscopy (Acute 02/06/16) History of tobacco use (Acute) History of unilateral nephrectomy (Acute 02/06/16) Male circumcision (Acute) Status post Linda fundoplication (Acute) Status post cholecystectomy (Acute) Status post hemorrhoidectomy (Acute) Tubular adenoma (Acute) tubular adenoma (3 tubular adenoma 04/23, 4 tubular adenoma 04/24, [facility]) 06/29/17; DR. SNIDER (1) Thyroid nodule (Acute 11/17/17) [facility]: nil 09/2017 Right renal mass (Acute 05/01/15) Dr Dailey then [facility] for CT scan and further eval; s/p nephrectomy (was malignant) s/p rt nephrectomy February 06, 2016 Polyp of colon (Acute) tubular adenoma (3 tubular adenoma 04/23, 4 tubular adenoma 04/24, [facility]) Knee pain (Acute) DJD Kidney stone (Acute 11/22/12) Dr Dailey ([place]) calcium oxalate Hyperlipidemia (Acute 03/16/13) Essential hypertension (Chronic 06/28/13) Esophagitis (Acute 06/29/17) Erosive gastritis (Acute 06/29/17) Depressive disorder (Acute) Chronic obstructive lung disease (Chronic 11/15/08) 2014 FEV1 0.77 (25% pred) 2013 FEV1 0.97 (31% predicted) h/o tobacco use (QUIT 2003) Basal cell carcinoma of face (Acute 02/14/13) Medical History Lesion of lung H/O renal cell carcinoma HTN (hypertension) GERD (gastroesophageal reflux disease) Tubular adenoma Surgical History History of lung biopsy H/O right nephrectomy Linda Fundoplication (03/07/12) Hemorrhoidal Banding EGD - MAC (06/29/17) EGD - MAC (04/23/14) Colonoscopy - MAC (06/29/17) 04/2014 Circumcision Cholecystectomy Family History Mother Essential hypertension Cancer of kidney Father No problems noted. Sister Lung cancer Sister Lung cancer Brother Lung cancer Brother Lung cancer Brother Lung cancer Grandfather No problems noted. Grandfather No problems noted. Grandmother No problems noted. Grandmother No problems noted. Sister No problems noted. Brother Heart disease Brother No problems noted. Son No problems noted. Daughter No problems noted. Daughter No problems noted. Social History Smoking/Tobacco Use Status: Former Tobacco Use tobacco type: cigarettes Quit Date: 12/11/03 Tobacco: How many years used: 39 Second Hand Exposure: Yes Smoking risk assessment performed?: Yes Alcohol Intake: never Drug use: Never Substance use type: does not use Caregiver/Support person: No Household members: spouse Housing: house Communication Needs: Corrective Lenses Do you need help understanding health information?: Rarely Pets and animals: Yes Pets and animals: dog(s) Sexually active: No Do you think of yourself as: straight/heterosexual Current gender identity: male What is your relationship status?: How often do you talk on the phone with friends or family?: three or more times per week How often do you attend caodaism or faith services?: decline to answer Do you belong to any clubs or organized social groups?: no Panel score (0-1 are the most socially isolated patients): 2 What type of physical activity do you participate in: none Angela/Scientology: [employer] Special angela needs: No Seatbelt use: always Drive intox or ride w/intox stunt driver: No Do you feel safe at home: Yes Do you feel safe in your relationship?: Yes Exam Narrative Exam Narrative: GENERAL APPEARANCE: Frail, non-toxic, awake and alert, atraumatic, no acute distress. SKIN: Warm, pink, dry, intact, without rashes/lesions/ulcerations. HEAD: Normocephalic, atraumatic, normal hair distribution for gender/age. EYES: Pupils PERRLA, EOMs intact without nystagmus, normal conjunctiva, no exudates on lids/lashes. ENT: Nares patent, no circumoral cyanosis, no facial swelling NECK: Supple, trachea midline, painless cervical ROM. LUNGS/CHEST: Lungs - coarse lung sounds with expiratory wheezes throughout, non- labored respirations, normal A/P diameter, symmetrical expansion, no chest wall deformity HEART (CV/PV): Regular rate and rhythm without murmur, no peripheral edema, no JVD. ABDOMEN: Soft, non-distended, no guarding, no tenderness. MSK: Normal ROM, no swelling/deformity to bilateral UEs or LEs, moving all extremities without weakness, no cyanosis, spine midline without tenderness, normal curvature. NEURO: Mental Status AAOx4 - alert to person, place, time, events No facial droop, no forehead involvement. Motor: No focal weakness - strength 5/5 in bilateral UEs and LEs, proximal and distal, symmetric. Sensory: sensation intact to light touch globally. Gait NT. PSYCH: euthymic, cooperative, pleasant, appropriate speech Course Vital Signs Vital signs: Vital Signs Temperature 37.2 C 07/21/23 13:26 Pulse 95 H 07/21/23 13:26 Respiratory Rate 18 07/21/23 13:26 Blood Pressure 103/56 L 07/21/23 13:26 Pulse Oximetry 93 07/21/23 13:26 Temperature 37.1 C 07/21/23 13:38 Temperature Source Oral 07/21/23 13:38 Pulse 85 07/21/23 13:38 Respiratory Rate 16 07/21/23 13:38 Respiratory Effort Normal, Non-Labored 07/21/23 13:38 Respiratory Depth Normal 07/21/23 13:38 Respiratory Pattern Normal 07/21/23 13:38 Blood Pressure 103/56 L 07/21/23 13:38 Blood Pressure Position Supine 07/21/23 13:38 Pulse Oximetry 98 07/21/23 13:38 Oxygen Delivery Method Room Air 07/21/23 13:38 Pain Level 0 07/21/23 13:38 Medical Decision Making This dictation utilizes [id number] dictation software and may contain unedited grammatical errors. 73 y/o M presents to ED today with a chief complaint of difficulty swallowing, constitutional symptoms- early satiety, weight-loss, vocal changes, and is overall frail. Patient has never had EGD as he has severe COPD and anesthesia does not approve him for procedure. Patients' medical history: Lesion of lung, history of renal cell carcinoma, hypertension, GERD, tubular adenoma, history of right nephrectomy, history of Rik fundoplication history cholecystectomy stage III CKD. Family and social history: history of heavy smoking, lives at home with his . Pertinent exam findings / vital signs include vocal changes of hoarse voice, nonlabored respirations, on baseline O2, distended but soft/non-peritoneal abdomen. Differential / pathologies of concern include Cancer, Gastritis, PUD, ACS, Pancreatitis, UTI, Debility. Diagnostic studies of: -CBC, CMP, Lipase, Lactate, UA, CRP/ESR, Mg++, Ammonia, TSH, Procalcitonin, Trop I, BNP, CT Neck/Chest/ABD/Pelvis w Contrast. -Initial trop 242, repeat pending at 1715 -BNP mild elev 300s -CRP elev 8.6 -CBC benign -CMP baseline, chronic LFT abn's -Lactate neg -Ammonia neg -TSH wnl -Procal neg -CTs pending at time of sign-out Interventions of: -324mg ASA. ED Course/Assessment/Plan: 73-year-old frail-appearing male presents with progressing dysphagia, vocal changes, history of some malignancy including renal cell carcinoma, this is progressing over time with early satiety and weight loss, he has not had EGD for at least 5 years due to his severe COPD, anesthesia will not perform sedation. Patient's initial troponin is 242, concern for acute coronary syndrome versus renal pathology with the patient's history but he does not have history of troponins elevated this high. CTs are pending at time of signout, neck chest abdomen and pelvis, and his dysphagia may be severe gastritis which she has history of as well as erosive esophagitis which may be progressing over time, unlikely to be discharged, will likely be admitted versus transfer depending on repeat troponin and CT findings. Disposition of Dysphagia. Patient verbalized understanding of the plan and return to ED criteria and engaged in shared decision making. Medical Records Medical records reviewed: Yes I reviewed the patient's medical records. Imaging Data Radiologic Study: Imaging: CT Scan Radiologic Study #2: Imaging: CT Scan Radiologic Study #3: Imaging: CT Scan Lab Data Lab results reviewed: Yes I reviewed the patient's lab results. Quality:[facility] Health Related Social Needs: No Data to Display Sign Out Sign Out Data: Sign Out Comment: Progressive dysphagia with history erosive esoph/gastritis, vocal changes, weight-loss. CTs pending for CA search, and incidental initial trop 242, repeat pending. Likely admit vs transfer Last updated by Db Riley PA at 07/21/23 15:49 Discharge Plan Discharge Details Chief Complaint: Cellulitis Primary Care Provider: Valerie Payne ED Provider: Db Riley Home Meds and New Rx's Prescriptions: No Action aspirin [Ecotrin Low Strength] 81 MG tablet,delayed release (DR/EC) 81 mg PO DAILY ascorbic acid (vitamin C) [Vitamin C] 500 MG tablet 500 mg PO DAILY docusate sodium [Colace] 100 MG capsule 100 mg PO DAILY multivitamin with iron [One Daily Plus Iron] 1 EACH tablet 1 ea PO DAILY cholecalciferol (vitamin D3) 1,000 UNIT tablet 1,000 unit PO DAILY Fish Oil 1 EACH capsule 1 ea PO BID MISTERNEB NEBULIZER 1 EACH kit 1 ea Miscellaneous PRN PRNQty: 1 1RF Rx Instructions: NEBULIZER MACHINE FOR DUONEB ipratropium-albuterol [DuoNeb] 3 ML solution for nebulization 1 amp Inhalation QID PRN Qty: 200 Rx Instructions: DX: 496.00 instead of Albuterol neb, spiriva has been d/c'd omeprazole 40 MG capsule,delayed release(DR/EC) 40 mg PO DAILY Qty: 90 albuterol sulfate [Proventil HFA] 6.7 GM HFA aerosol inhaler 2 puff Inhalation Q4H PRN Qty: 3 Rx Instructions: USE IF NEEDED FOR SHORTNESS OF BREATH Spiriva Respimat 4 GM mist 2 puff Inhalation DAILY Patient Comments: GREEN bupropion HCl [Wellbutrin XL] 300 mg tablet extended release 24 hr 300 mg PO DAILY Qty: 90 3RF Rx Instructions: 1 TAB DAILY acetylcysteine 100 mg/mL (10 %) solution 2 ml inhalation TID Qty: 540 3RF aripiprazole [Abilify] 5 mg tablet 5 mg PO DAILY Qty: 90 3RF amlodipine 5 mg tablet 2.5 mg PO DAILY Qty: 90 3RF acetylcysteine 600 mg tablet 600 mg PO BID Qty: 180 3RF atorvastatin 40 mg tablet 40 mg PO QHS Qty: 90 3RF isosorbide mononitrate 30 mg tablet extended release 24 hr 30 mg PO DAILY Qty: 90 3RF metoprolol succinate 25 mg tablet extended release 24 hr 25 mg PO DAILY Qty: 90 3RF torsemide 20 mg tablet 20 mg PO DAILY PRN (Reason: edema) Qty: 90 3RF amoxicillin-pot clavulanate 500-125 mg tablet 1 tab PO TID mirtazapine 15 mg tablet 15 mg PO QHS prednisone 10 mg tablet 10 mg PO DIRECTED Rx Instructions: see taper instructions fluticasone propion-salmeterol [Wixela Inhub] 250-50 mcg/dose Blister With Device 1 inh INHALATION BID carboxymethylcellulose sodium [Refresh Plus] 0.5 % Dropperette 1 drp ophthalmic (eye) QID latanoprost 0.005 % Drops 1 drp ophthalmic (eye) QHS brimonidine 0.2 % Drops 1 drp ophthalmic (eye) BID
[2023-07-21 14:28] LABS: Lactate 0.9 mmol/L (0.6-1.4)
[2023-07-21 14:29] LABS: Abs Immature Grans 0.04 10^3/uL (0.0-0.06); Absolute Basophil Count 0.02 10^3/uL (0.0-0.2); Absolute Eosinophil Count 0.05 10^3/uL (0.0-0.7); Absolute Lymphocyte Count 0.45 10^3/uL (1.2-3.4); Absolute Monocyte Count 0.77 10^3/uL (0.1-0.8); Basophils % 0.2; Eosinophils % 0.4; HCT 38.7 % (40.0-50.0); HGB 12.3 g/dL (13.5-17.5); Immature Grans % 0.3; Lymphocytes % 3.9; MCH 28.4 pg (27.0-33.0); MCHC 31.8 % (32.0-36.0); MCV 89 fL (80-95); MPV 9.1 fL (8.0-11.0); Monocytes % 6.7; Neutrophils % 88.5; Platelet Count 210 10^3/uL (130-400); RBC 4.33 10^6/uL (4.36-5.78); RDW 14.2 % (11.8-14.1); RDW-SD 46.2 fL; WBC 11.53 10^3/uL (4.4-10.8)
[2023-07-21 14:30] LABS: Bilirubin Small (Negative); Blood Moderate (Negative); Clarity Clear (Clear); Glucose Negative (Negative); Ketones 40 mg/dL (Negative); Leukocyte Esterase Negative (Negative); Nitrite Negative (Negative); Specific Gravity 1.025 (1.005-1.025)
[2023-07-21 14:32] LABS: ESR 12 mm/hr (0-20)
[2023-07-21 14:53] LABS: ALT 33 U/L (16-63); AST 38 U/L (15-37); Albumin 2.5 g/dL (3.4-5.0); Alkaline Phosphatase 98 U/L (46-116); Anion Gap 1.9 mmol/L (3-11); BUN 25 mg/dL (7-18); Bilirubin, Total 0.5 mg/dL (0.2-1.0); CO2 38.1 mmol/L (21.0-32.0); Calcium 9.1 mg/dL (8.5-10.1); Chloride 101 mmol/L (98-107); Estimated GFR 78.49 (mL/min/1.73m2); Glucose 94 mg/dL (74-106); Lipase 22 U/L (16-77); Potassium 3.4 mmol/L (3.5-5.1); Sodium 141 mmol/L (136-145)
[2023-07-21 14:56] LABS: Bacteria Rare HPF (Negative); C & S Indicated? No; Casts Negative LPF (Negative); Crystals Negative HPF (Negative); Epithelial Cells Few HPF (Negative); Mucus Trace (Negative); Other Cells Few Transitional (Negative); RBC 20-50 HPF (0-2); WBC 0-2 HPF (0-5)
[2023-07-21 15:08] LABS: Ammonia < 10 umol/L (11-32)
[2023-07-21 15:12] LABS: ALT 32 U/L (16-63); AST 33 U/L (15-37); Albumin 2.5 g/dL (3.4-5.0); Alkaline Phosphatase 97 U/L (46-116); Bilirubin, Direct 0.2 mg/dL (0.0-0.2); Bilirubin, Total 0.5 mg/dL (0.2-1.0); C-Reactive Protein 8.63 mg/dL (0.0-0.3); Creatine Kinase 90 U/L (39-308); Magnesium 1.7 mg/dL (1.8-2.4); NT-proBNP 308 pg/mL (<300); TSH (W/Ref FT4) 2.91 uIU/mL (0.36-3.74)
[2023-07-21 15:14] LABS: Troponin I 242 ng/L (< or =60)
--- NOTE | 2023-07-21 15:15 | RT.EKG_ITS ---
APPROVED REPORT Exam: Resting ECG Reason for Exam: chest pain Patient Location: E HR:100 bpm ECG Measurements Heart Rate 100 AXIS NE 165 P 85 QRSd 109 QRS 73 QT 300 T 69 QTc 386 Conclusion Sinus rhythm. normal axis no acute ST changes
[2023-07-21 15:18] LABS: Procalcitonin < 0.1 ng/mL
[2023-07-21] MEDS: Aspirin 81 MG CHEW 324 MG CH (15:37)
[2023-07-21 15:40] LABS: COVID-19 PCR Negative (Negative); Influenza A PCR Negative (Negative); Influenza B PCR Negative (Negative); RSV PCR Negative (Negative)
[2023-07-21 15:41] LABS: Source Nasopharynx
[2023-07-21] MEDS: Omnipaque 350 MG/ML 100 ML BTL IJ (16:17)
[2023-07-21] MEDS: Omnipaque 350 MG/ML 50 ML BTL IJ (16:19)
[2023-07-21] MEDS: Normal Saline - Diluent 50 ML VIAL IJ (16:22)
--- NOTE | 2023-07-21 16:23 | W.EDPROG ---
Date of service: 07/21/23 Time of Service: 16:23 Medical Decision Making Care assumed from provider (DENIA Carrizales) Please see their initial HPI, PE, and documentation. Discussed patient details and case and pending workup and disposition. In short patient is a 73-year-old male who came in by EMS with trouble swallowing and increased confusion with dark urine he did have a swallow study done here last week. He also reports decreased appetite and weakness. Patient does appear cachectic on exam, he does have 2+ pitting edema noted to his lower extremities. 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 1616: Spoke with Shanika RN from the [facility] who saw him in his home yesterday. She reports that his PCP at the [facility] is Dr. Galaviz. I did update his nurse who also reported that his noted that yesterday he had new onset confusion and some spasming of his legs. At the time of signout awaiting CT chest abdomen pelvis and disposition. Expected disposition is either admission or transfer. I will also speak with the [facility] to see if they have capacity for admission. 1718: Spoke with Dr. Faulkner regarding CT chest abdomen pelvis. He reports nothing acute there are some chronic changes as noted in the report as such as some nodules in his right lower lobe a kidney stone in the left kidney and there is some asymmetry in the right epiglottal fold no new infiltrates pleural effusions or lung masses. He does have some barium leftover from the swallow study. At this time pending repeat troponin. 1728: Repeat troponin 244 which is slightly elevated from 242, torsemide 20 mg p.o. ordered, normal saline 75 mL an hour. PT PTT added on. Will consult with the [facility] cardiology, for transfer request. 1741: [facility] called, for NSTEMI, Failure to thrive, CHF Exacerbation. 182: Spoke with Isma Processing Engineer with [facility], they have no capacity. Patient c/o SOB after getting up to Bedside commode. [place] ordered. 182: [facility] [place] called to consult with cardiology, for consult. 1854: Spoke with Dr. Khalil sales representative advertising, who recommends a daily fluid deficit of 1-2 liters, he recommends diuresis to euvolemia, he does not recommend trending troponin, He thinks this is Type 2 Nstemi from demand and fluid overload. He does not recommend anticoagulation at this time. IV NS stopped. 1858: Hospitalist paged for admission request for CHF exacerbation, weakness, aspiration, and failure to thrive. 1924: Urine output approx 900ml per ED staff. 1952: Spoke with Dr. Frias regarding patient case and details she is requesting a head CT and a VBG to evaluate worsening confusion. Advance directives reviewed from 2015 which states that patient is a full code and would like to have a feeding tube we will help him survive. Orders placed will discuss plan of care with patient and family and discuss goals of care. 2128: O2 turned down to 2 L due to VBG pCO2 of 68. Patient going to CT at this time. I do suspect that his confusion and worsening weakness is due to malnourishment from not being able to eat along with hypercapnia due to COPD and being on too much oxygen at home. does not feel safe taking patient home tonight. With further discussion with the family and the they do still wish to have an EGD done if possible and or a feeding tube if needed. They do express their desire to have CPR or breathing tube if needed. 2199: Spoke again with Dr. Frias she agrees to accept patient for admission. Medical Records Medical records narrative: Radiology report from 07/19/2023 Exam(s) RF MODIFIED SPEECH BA SWALLOW TECHNIQUE: Modified barium swallow was performed in conjunction with speech pathology. CONTRAST MATERIAL: Oral barium contrast was administered. COMPARISON: No exams were available for comparison FINDINGS: Note that this is not a dedicated esophagram, distal esophagus not evaluated. There is aspiration of thin liquids during the examination. There was no aspiration seen with thick liquids, barium paste or barium coated cookies. Speech pathology report to follow. . . . IMPRESSION: Aspiration of thin liquids during the examination. Imaging Data Radiologic Study: Imaging: CT Scan Radiologist's impression: IMPRESSION: 1. In the neck there is some asymmetry in the right aryepiglottic fold noted. Suggest direct visualization-endoscopy to rule out neoplasm at this level. No other findings in the neck. 2. 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 Stable unchanged right lower lobe nodules. No pleural effusions. No CHF. No intrathoracic lymphadenopathy. 3. Right kidney is either severely atrophic or surgically absent. 4. Previously described prominent calculus on the left side is now within the lower pole calyx of the left kidney. Was previously in the renal pelvis. No hydronephrosis nor hydroureter. No obvious abnormality in the urinary bladder Radiologic Study #2: Imaging: CT Scan (Head) Radiologist's impression: CT Head W/O Vrad Report: IMPRESSION: Mild atrophy with no evidence of acute and cortical infarction, recent intracranial hemorrhage or hydrocephalus. No acute intracranial process is detected. Lab Data Lab results reviewed: Yes I reviewed the patient's lab results. Labs: 07/21/23 16:05 Tonsil - Not Specified Group A Streptococcus Culture - Pending Laboratory Tests Range/Units 07/21/23 07/21/23 07/21/23 14:09 14:18 14:18 WBC (4.4-10.8) 10^3/uL 11.53 H RBC (4.36-5.78) 10^6/uL 4.33 L Hgb (13.5-17.5) g/dL 12.3 L Hct (40.0-50.0) % 38.7 L MCV (80-95) fL 89 MCH (27.0-33.0) pg 28.4 MCHC (32.0-36.0) % 31.8 L RDW (11.8-14.1) % 14.2 H Plt Count (130-400) 10^3/uL 210 MPV (8.0-11.0) fL 9.1 Immature Gran % 0.3 Neutrophils % 88.5 Lymphocytes % 3.9 Monocytes % 6.7 Eosinophils % 0.4 Basophils % 0.2 Nucleated RBC % (0.0-0.3) % 0.0 Absolute Neutrophils (1.2-6.7) 10^3/uL 10.20 H Absolute Lymphocytes (1.2-3.4) 10^3/uL 0.45 L Absolute Monocytes (0.1-0.8) 10^3/uL 0.77 Absolute Eosinophils (0.0-0.7) 10^3/uL 0.05 Absolute Basophils (0.0-0.2) 10^3/uL 0.02 ESR (0-20) mm/hr 12 VBG Lactate (0.6-1.4) mmol/L 0.9 Sodium (136-145) mmol/L 141 Potassium (3.5-5.1) mmol/L 3.4 L Chloride (98-107) mmol/L 101 Carbon Dioxide (21.0-32.0) mmol/L 38.1 H Anion Gap (3-11) mmol/L 1.9 L BUN (7-18) mg/dL 25 H Creatinine (0.70-1.30) mg/dL 1.0 Est GFR (CKD-EPI 2020) (mL/min/1.73m2) 78.49 Glucose (74-106) mg/dL 94 Calcium (8.5-10.1) mg/dL 9.1 Magnesium (1.8-2.4) mg/dL 1.7 L Total Bilirubin (0.2-1.0) mg/dL 0.5 0.5 Conjugated Bilirubin (0.0-0.2) mg/dL 0.2 AST (15-37) U/L 38 H ALT (16-63) U/L Alkaline Phosphatase (46-116) U/L Ammonia (11-32) umol/L Creatine Kinase (39-308) U/L Troponin I (< or =60) ng/L C-Reactive Protein (0.0-0.3) mg/dL NT-Pro-B Natriuret Pep (<300) pg/mL Total Protein (6.4-8.2) g/dL Albumin (3.4-5.0) g/dL Lipase (16-77) U/L Procalcitonin ng/mL TSH (0.36-3.74) uIU/mL Urine Color (Yellow) Yellow Urine Clarity (Clear) Clear Urine pH (5-8) 6.0 Ur Specific Waterproof (1.005-1.025) 1.025 Urine Protein (Negative) mg/dL Trace H Urine Ketones (Negative) mg/dL 40 H Urine Blood (Negative) Moderate H Urine Nitrite (Negative) Negative Urine Bilirubin (Negative) Small H Urine Urobilinogen (Up to 0.2) mg/dL 1.0 H Ur Leukocyte Esterase (Negative) Negative Urine RBC (0-2) HPF 20-50 H Urine WBC (0-5) HPF 0-2 Ur Epithelial Cells (Negative) HPF Few Urine Crystals (Negative) HPF Negative Urine Bacteria (Negative) HPF Rare Urine Casts (Negative) LPF Negative Urine Mucus (Negative) Trace Urine Other (Negative) Few Transitional Ur Culture Indicated? No Urine Glucose (Negative) mg/dL Negative COVID-19 Source SARS-CoV-2 (PCR) (Negative) Influenza Type A (PCR) (Negative) Influenza Type B (PCR) (Negative) RSV (PCR) (Negative) Range/Units 07/21/23 07/21/23 07/21/23 14:18 14:18 14:18 WBC (4.4-10.8) 10^3/uL RBC (4.36-5.78) 10^6/uL Hgb (13.5-17.5) g/dL Hct (40.0-50.0) % MCV (80-95) fL MCH (27.0-33.0) pg MCHC (32.0-36.0) % RDW (11.8-14.1) % Plt Count (130-400) 10^3/uL MPV (8.0-11.0) fL Immature Gran % Neutrophils % Lymphocytes % Monocytes % Eosinophils % Basophils % Nucleated RBC % (0.0-0.3) % Absolute Neutrophils (1.2-6.7) 10^3/uL Absolute Lymphocytes (1.2-3.4) 10^3/uL Absolute Monocytes (0.1-0.8) 10^3/uL Absolute Eosinophils (0.0-0.7) 10^3/uL Absolute Basophils (0.0-0.2) 10^3/uL ESR (0-20) mm/hr VBG Lactate (0.6-1.4) mmol/L Sodium (136-145) mmol/L Potassium (3.5-5.1) mmol/L Chloride (98-107) mmol/L Carbon Dioxide (21.0-32.0) mmol/L Anion Gap (3-11) mmol/L BUN (7-18) mg/dL Creatinine (0.70-1.30) mg/dL Est GFR (CKD-EPI 2020) (mL/min/1.73m2) Glucose (74-106) mg/dL Calcium (8.5-10.1) mg/dL Magnesium (1.8-2.4) mg/dL Total Bilirubin (0.2-1.0) mg/dL Conjugated Bilirubin (0.0-0.2) mg/dL AST (15-37) U/L 33 ALT (16-63) U/L 33 32 Alkaline Phosphatase (46-116) U/L 98 97 Ammonia (11-32) umol/L Creatine Kinase (39-308) U/L 90 Troponin I (< or =60) ng/L 242 H* C-Reactive Protein (0.0-0.3) mg/dL 8.63 H NT-Pro-B Natriuret Pep (<300) pg/mL 308 H Total Protein (6.4-8.2) g/dL 6.0 L Albumin (3.4-5.0) g/dL Lipase (16-77) U/L Procalcitonin ng/mL TSH (0.36-3.74) uIU/mL Urine Color (Yellow) Urine Clarity (Clear) Urine pH (5-8) Ur Specific Waterproof (1.005-1.025) Urine Protein (Negative) mg/dL Urine Ketones (Negative) mg/dL Urine Blood (Negative) Urine Nitrite (Negative) Urine Bilirubin (Negative) Urine Urobilinogen (Up to 0.2) mg/dL Ur Leukocyte Esterase (Negative) Urine RBC (0-2) HPF Urine WBC (0-5) HPF Ur Epithelial Cells (Negative) HPF Urine Crystals (Negative) HPF Urine Bacteria (Negative) HPF Urine Casts (Negative) LPF Urine Mucus (Negative) Urine Other (Negative) Ur Culture Indicated? Urine Glucose (Negative) mg/dL COVID-19 Source SARS-CoV-2 (PCR) (Negative) Influenza Type A (PCR) (Negative) Influenza Type B (PCR) (Negative) RSV (PCR) (Negative) Range/Units 07/21/23 07/21/23 07/21/23 14:18 14:18 14:40 WBC (4.4-10.8) 10^3/uL RBC (4.36-5.78) 10^6/uL Hgb (13.5-17.5) g/dL Hct (40.0-50.0) % MCV (80-95) fL MCH (27.0-33.0) pg MCHC (32.0-36.0) % RDW (11.8-14.1) % Plt Count (130-400) 10^3/uL MPV (8.0-11.0) fL Immature Gran % Neutrophils % Lymphocytes % Monocytes % Eosinophils % Basophils % Nucleated RBC % (0.0-0.3) % Absolute Neutrophils (1.2-6.7) 10^3/uL Absolute Lymphocytes (1.2-3.4) 10^3/uL Absolute Monocytes (0.1-0.8) 10^3/uL Absolute Eosinophils (0.0-0.7) 10^3/uL Absolute Basophils (0.0-0.2) 10^3/uL ESR (0-20) mm/hr VBG Lactate (0.6-1.4) mmol/L Sodium (136-145) mmol/L Potassium (3.5-5.1) mmol/L Chloride (98-107) mmol/L Carbon Dioxide (21.0-32.0) mmol/L Anion Gap (3-11) mmol/L BUN (7-18) mg/dL Creatinine (0.70-1.30) mg/dL Est GFR (CKD-EPI 2020) (mL/min/1.73m2) Glucose (74-106) mg/dL Calcium (8.5-10.1) mg/dL Magnesium (1.8-2.4) mg/dL Total Bilirubin (0.2-1.0) mg/dL Conjugated Bilirubin (0.0-0.2) mg/dL AST (15-37) U/L ALT (16-63) U/L Alkaline Phosphatase (46-116) U/L Ammonia (11-32) umol/L < 10 L Creatine Kinase (39-308) U/L Troponin I (< or =60) ng/L C-Reactive Protein (0.0-0.3) mg/dL NT-Pro-B Natriuret Pep (<300) pg/mL Total Protein (6.4-8.2) g/dL 6.0 L Albumin (3.4-5.0) g/dL 2.5 L 2.5 L Lipase (16-77) U/L 22 Procalcitonin ng/mL < 0.1 TSH (0.36-3.74) uIU/mL 2.91 Urine Color (Yellow) Urine Clarity (Clear) Urine pH (5-8) Ur Specific Waterproof (1.005-1.025) Urine Protein (Negative) mg/dL Urine Ketones (Negative) mg/dL Urine Blood (Negative) Urine Nitrite (Negative) Urine Bilirubin (Negative) Urine Urobilinogen (Up to 0.2) mg/dL Ur Leukocyte Esterase (Negative) Urine RBC (0-2) HPF Urine WBC (0-5) HPF Ur Epithelial Cells (Negative) HPF Urine Crystals (Negative) HPF Urine Bacteria (Negative) HPF Urine Casts (Negative) LPF Urine Mucus (Negative) Urine Other (Negative) Ur Culture Indicated? Urine Glucose (Negative) mg/dL COVID-19 Source SARS-CoV-2 (PCR) (Negative) Influenza Type A (PCR) (Negative) Influenza Type B (PCR) (Negative) RSV (PCR) (Negative) Range/Units 07/21/23 14:52 WBC (4.4-10.8) 10^3/uL RBC (4.36-5.78) 10^6/uL Hgb (13.5-17.5) g/dL Hct (40.0-50.0) % MCV (80-95) fL MCH (27.0-33.0) pg MCHC (32.0-36.0) % RDW (11.8-14.1) % Plt Count (130-400) 10^3/uL MPV (8.0-11.0) fL Immature Gran % Neutrophils % Lymphocytes % Monocytes % Eosinophils % Basophils % Nucleated RBC % (0.0-0.3) % Absolute Neutrophils (1.2-6.7) 10^3/uL Absolute Lymphocytes (1.2-3.4) 10^3/uL Absolute Monocytes (0.1-0.8) 10^3/uL Absolute Eosinophils (0.0-0.7) 10^3/uL Absolute Basophils (0.0-0.2) 10^3/uL ESR (0-20) mm/hr VBG Lactate (0.6-1.4) mmol/L Sodium (136-145) mmol/L Potassium (3.5-5.1) mmol/L Chloride (98-107) mmol/L Carbon Dioxide (21.0-32.0) mmol/L Anion Gap (3-11) mmol/L BUN (7-18) mg/dL Creatinine (0.70-1.30) mg/dL Est GFR (CKD-EPI 2020) (mL/min/1.73m2) Glucose (74-106) mg/dL Calcium (8.5-10.1) mg/dL Magnesium (1.8-2.4) mg/dL Total Bilirubin (0.2-1.0) mg/dL Conjugated Bilirubin (0.0-0.2) mg/dL AST (15-37) U/L ALT (16-63) U/L Alkaline Phosphatase (46-116) U/L Ammonia (11-32) umol/L Creatine Kinase (39-308) U/L Troponin I (< or =60) ng/L C-Reactive Protein (0.0-0.3) mg/dL NT-Pro-B Natriuret Pep (<300) pg/mL Total Protein (6.4-8.2) g/dL Albumin (3.4-5.0) g/dL Lipase (16-77) U/L Procalcitonin ng/mL TSH (0.36-3.74) uIU/mL Urine Color (Yellow) Urine Clarity (Clear) Urine pH (5-8) Ur Specific Waterproof (1.005-1.025) Urine Protein (Negative) mg/dL Urine Ketones (Negative) mg/dL Urine Blood (Negative) Urine Nitrite (Negative) Urine Bilirubin (Negative) Urine Urobilinogen (Up to 0.2) mg/dL Ur Leukocyte Esterase (Negative) Urine RBC (0-2) HPF Urine WBC (0-5) HPF Ur Epithelial Cells (Negative) HPF Urine Crystals (Negative) HPF Urine Bacteria (Negative) HPF Urine Casts (Negative) LPF Urine Mucus (Negative) Urine Other (Negative) Ur Culture Indicated? Urine Glucose (Negative) mg/dL COVID-19 Source Nasopharynx SARS-CoV-2 (PCR) (Negative) Negative Influenza Type A (PCR) (Negative) Negative Influenza Type B (PCR) (Negative) Negative RSV (PCR) (Negative) Negative Quality:SDOH Health Related Social Needs: No Data to Display Sign Out Sign Out Data: Sign Out Comment: Progressive dysphagia with history erosive esoph/gastritis, vocal changes, weight-loss. CTs pending for CA search, and incidental initial trop 242, repeat pending. Likely admit vs transfer Last updated by Db Riley PA at 07/21/23 15:49 Discharge Plan Disposition Patient Disposition: Admit to [facility] Condition: Fair Discharge Details Clinical Impression: CHF exacerbation, Aspiration of liquid, Failure to thrive in adult Admit Date/Time: 07/21/23 22:07 Admit Provider: Winter Frias Attending Provider: Winter Frias Primary Care Provider: Valerie Payne ED Provider: Ayleen Merrill
--- NOTE | 2023-07-21 16:30 | DI.CT_ITS ---
Exam(s) CT NECK CHEST ABD PEL W EXAM: CT NECK CHEST ABD PEL W CLINICAL HISTORY: dysphagia, weight loss. TECHNIQUE: Imaging Protocol: Axial computed tomography images with coronal and sagittal reformatted images were created and reviewed CONTRAST MATERIAL: Intravenous: Omnipaque 350 Contrast volume:100 ml Oral: None COMPARISON: CT CT CHEST/ABD/PEL W from 05/05/2023 FINDINGS: CT neck: Visualized para nasal sinuses appear unremarkable. Salivary glands: No focal abnormality seen in the parotid and submandibular glands. Lymph nodes: No significant lymphadenopathy in the neck and supraclavicular regions. Oropharynx: Uvula midline. No tonsillar enlargement. No abscess is. No prevertebral soft tissue sw elling. Parker dental: No significant focal findings Hypopharynx: Epiglottis unremarkable. Valleculae unremarkable. Asymmetry in the appearance of the a ryepiglottic fold on the right side noted. Asymmetric density noted in the right aryepiglottic fold (series 10, image 47). Vocal cords/subglottic airway: Unremarkable. Thyroid gland: Unremarkable. CHEST: LUNGS: Severe emphysematous COPD changes again noted. Nodular densities in the right lower lobe appe ar unchanged from 05/05/2023. No new nodules evident in either lung field. No new significant infil trates and no pleural effusions. No findings in the trachea and mainstem bronchi.. MEDIASTINUM: There is no hilar nor mediastinal adenopathy. Visualized thyroid unremarkable. CARDIAC: Heart size is normal. There is no pericardial effusion.Caliber of the thoracic aorta is wit hin normal limits. OSSEOUS: No significant osseous lesions.. ABDOMEN: There is no ascites. LIVER: Multiple small hypodensities in the liver again noted, unchanged and most probably represent b enign cysts or branches of moderately enlarged intrahepatic ducts. GALLBLADDER/BILIARY: Surgically absent. CBD is not dilated. PANCREAS: No evidence of pancreatic mass nor dilatation of the pancreatic duct. SPLEEN: Spleen is not enlarged. There are no intrasplenic lesions. Splenic and portal veins are blanchard nt. ADRENALS: There are no significant adrenal masses. KIDNEYS: Right kidney again not seen and probably surgically absent versus is severely atrophic. Sebastien ign cyst again noted in the lateral cortex of the left kidney as well as smaller cyst in the inferior pole left kidney. Do not require follow-up. The previously described calculus in the left renal pe lvis is now in a lower pole calyx the left kidney left ureter is not dilated. Urinary bladder is not distended. No obvious mass in the bladder. Heavy calcifications are again noted in the prostate. ABDOMINAL AORTA: Peripherally calcified but not enlarged. Common iliac arteries also calcified but n ot enlarged. LYMPH NODES: There is no retroperitoneal nor paraaortic adenopathy. ABDOMINAL WALL: No evidence of significant anterior abdominal wall nor inguinal hernia. GI: There is no evidence of bowel obstruction.There is heart barium in the colon which is related to the oral contrast administered for CT scan on 05/05/2023. PELVIS: LYMPH NODES: There is no intrapelvic nor inguinal adenopathy. GI: No evidence of appendicitis.No evidence of sigmoid diverticulitis. URINARY BLADDER: No calculi nor masses evident REPRODUCTIVE: Mildly enlarged prostate. Heavily calcified. OSSEOUS: No significant osseous lesions. No fractures. No decubitus ulcers. No osteomyelitis. Sclerotic bone island noted in the left iliac wing. Unchanged from previous. IMPRESSION: 1. In the neck there is some asymmetry in the right aryepiglottic fold noted. Suggest direct visuali zation-endoscopy to rule out neoplasm at this level. No other findings in the neck. 2. 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 Stable unchanged right lower lobe nodules. No pleural effusions. No CHF. No intrathoracic lymphadenopathy. 3. Right kidney is either severely atrophic or surgically absent. 4. Previously described prominent calculus on the left side is now within the lower pole calyx of the left kidney. Was previously in the renal pelvis. No hydronephrosis nor hydroureter. No obvious ab normality in the urinary bladder Discussed with ER provider. RADIATION DOSE DELIVERED: 1,221.05mGy.cm Total DLP DATA REPOSITORY: All CT scans at this facility are submitted to the National Radiology Data Registry (NRDR) Dose Index Registry (DIR) with the [employer] (A[employer]). RADIATION OPTIMIZATION: All CT scans at this facility use at least one of these dose optimization te chniques: automated exposure control; mA and/or kV adjustment per patient size (includes targeted exa ms where dose is matched to clinical indication); or iterative reconstruction.
[2023-07-21] MEDS: Torsemide 20 MG TAB PO (17:21)
[2023-07-21] MEDS: Normal Saline 1,000 ML 75 ML IV (17:24)
[2023-07-21 17:28] LABS: Troponin I 244 ng/L (< or =60)
--- NOTE | 2023-07-21 17:45 | RT.EKG_ITS ---
APPROVED REPORT Exam: Resting ECG Reason for Exam: Repeat Patient Location: E HR:101 bpm ECG Measurements Heart Rate 101 AXIS IA 158 P 89 QRSd 102 QRS 67 QT 212 T 61 QTc 276 Conclusion Sinus tachycardia...rate> 99 Probable inferior infarct, old...Q>35mS, II III aVF Physician: no stemi, minimal depression in lateral leads, no recip elevations
[2023-07-21 18:12] LABS: PTT Activated 27.2 sec (23.6-32.8); Prothrombin Time 10.4 sec (9.1-11.1)
[2023-07-21] MEDS: Albuterol/Ipratropium 3 ML UPD VIAL UPD ×2 (18:43→23:39)
--- NOTE | 2023-07-21 19:45 | DI.CT_ITS ---
Exam(s) CT HEAD WO EXAM: CT HEAD WO CLINICAL HISTORY: Confusion. TECHNIQUE: Imaging Protocol: Axial computed tomography images with coronal and sagittal reformatted images were created and reviewed COMPARISON: No exams were available for comparison FINDINGS: There are no skull fractures. There is no fluid in the visualized paranasal sinuses. There is no evidence of intracranial hemorrhage, mass effect, or shift of midline structures. There are no extra-axial fluid collections. The ventricles are not enlarged or shifted and there is no blo od within the ventricular system nor within the basal cisterns. IMPRESSION: No acute intracranial findings on this noninfused CT scan of the brain. If clinically indicated follow-up MRI can be performed RADIATION DOSE DELIVERED: 744.05mGy.cm Total DLP DATA REPOSITORY: All CT scans at this facility are submitted to the National Radiology Data Registry (NRDR) Dose Index Registry (DIR) with the [employer] (ACR). RADIATION OPTIMIZATION: All CT scans at this facility use at least one of these dose optimization te chniques: automated exposure control; mA and/or kV adjustment per patient size (includes targeted exa ms where dose is matched to clinical indication); or iterative reconstruction.
[2023-07-21 20:44] LABS: BE (Venous) 14 mmol/L (-2-3); HCO3 (Venous) 40 mmol/L (23-28); O2 Sat (Venous) 47 %; TCO2 (Venous) 37 mmol/L (24-29); pH (Venous) 7.37 (7.31-7.41); pO2 (Venous) 25 mmHg
[2023-07-21 20:50] LABS: pCO2 (Venous) 68 mmHg (41-51)
--- NOTE | 2023-07-21 21:59 | DI.VRAD_ITS ---
PROCEDURE INFORMATION: Exam: CT Head Without Contrast Exam date and time: 07/21/2023 9:35 PM Age: 73 years old Clinical indication: Other: Confusion TECHNIQUE: Imaging protocol: Computed tomography of the head without contrast. COMPARISON: CT NECK CHEST ABD PEL W 07/21/2023 4:10 PM FINDINGS: Brain: Slight prominence of cerebral sulci reflects mild volume loss. Posterior fossa contents including brainstem and cerebellum are unremarkable and no significant foci of abnormal increased or decreased attenuation are seen within the brain parenchyma. No acute transcortical infarction or recent intracranial hemorrhage is detected. Cerebral ventricles: Ventricular and cisternal spaces are normal in size and configuration and there is no midline shift or hydrocephalus. Paranasal sinuses: Grossly clear throughout. Mastoid air cells: Grossly clear bilaterally. Orbital cavities: Both globes appear intact and no orbital lesions are detected. Bones/joints: The bony calvarium and skull base are intact and no fractures or other acute osseous lesions are detected. Soft tissues: Unremarkable. IMPRESSION: Mild atrophy with no evidence of acute and cortical infarction, recent intracranial hemorrhage or hydrocephalus. No acute intracranial process is detected. Dictated and Authenticated by: Josesito Hernandez MD. Ordering:GREG Abbasi MD
--- NOTE | 2023-07-21 22:47 | HPE_ITS ---
Date of service: 07/21/23 Time of Service: 22:47 Assessment and Plan Assessment and plan (1) CHF exacerbation: Status: Acute Assessment and plan: The patient received both diuretics and fluids in the ED. Right now he is hypotensive and, I think, orthostatic. I would like to give him a slow 250 cc bolus. We are obtaining an echocardiogram. His amlodipine should be stopped due to the edema in his BLEs as well as his relative hypotension. Obtain venous dopplers of BLEs. Monitor I/Os and daily weights (2) Dysphagia: Status: Acute Assessment and plan: The patient appears to have failed the speech therapist's recommendations for pureed food/thin liquids. Reconsult speech therapy. Consider tube feeding. If this is the decision made, would likely need to be transferred to a tertiary care facility, but I would let general surgery make that decision. (3) Chest discomfort: Status: Resolved Assessment and plan: Did have elevated troponins, which were flat, and nonischemic EKGs. Obtain an echocardiogram. At this point, the patient is not tolerating diuresis with BPs dropping. (4) Elevated troponin: Status: Acute Assessment and plan: As above (5) COPD (chronic obstructive pulmonary disease): Status: Chronic Assessment and plan: Not in acute exacerbation. O2 dependent, normally on 3L of O2 by NC at rest, and 4L with activity. Continue home medications. (6) Encephalopathy acute: Status: Acute Assessment and plan: I think we need to consider Wernicke's given malnutrition. No h/o EtOH abuse, as far as I know. Will trial high dose thiamine. MOnitor mental status. (7) Malnutrition: Status: Acute Assessment and plan: BMI of 17.4 C/s nutrition (8) Diarrhea: Status: Acute Assessment and plan: Obtain stool studies (9) Hypokalemia: Status: Acute Assessment and plan: Replete (10) Hypomagnesemia: Status: Acute Assessment and plan: Replete (11) Hematuria: Status: Acute Assessment and plan: This is microscopic and should be followed up as outpatient (12) Left nephrolithiasis: Status: Acute Assessment and plan: F/u as outpatient (13) Weakness: Status: Acute Assessment and plan: C/s PT (14) Failure to thrive in adult: Status: Acute Assessment and plan: BMI 17.4. C/s nutrition and palliative care (15) Weight loss: Status: Acute Assessment and plan: As above Malignancy is on the differential. Ultimately, though, it appears it has to do with dysphagia. Speech therapy is also consulted. (16) DVT prophylaxis: Status: Acute Assessment and plan: SC heparin (17) Discharge planning issues: Status: Acute Assessment and plan: Full code C/s speech therapy, nutrition, PT, palliative care History of Present Illness History of Present Illness Chief Complaint: Altered mental status, chest discomfort Narrative: Mr Poole is a 73 year old male, who [facility], who has a PMHx of oxygen dependent COPD, chronic hypoxic respiratory failure on 3-4 L of O2 by NC at home, CKD3 with microscopic hematuria, H/o Linda fundoplication, h/o dysphagia having recently undergone an MBS at our facility with recommendations for soft & bite-sized/pureed solids and thin liquids with reflux precautions, h/o abnormal weight loss for which he was told he was not a candidate for an EGD at our facility by general surgery due to his poor COPD, chronic severe protein-calorie malnutrition with BMI of 17.6 kg/M2, whose home based primary care nurse found him to be confused, which is different than his baseline, as well as weak, and referred him for an evaluation in the ED. His PO intake had been extremely poor. Per the ED provider, there had not been any recent falls. His bloodwork is c/w dehydration. The patient reported chest discomfort which was attributed to difficulty swallowing. His EKG did not reveal ischemic changes. His troponin I were 242 and 244. The patient appeared to be in clinical CHF and apparently had not been taking him home torsemide (because it would make him urinate). [facility] [place] reviewed the case and felt that his elevated troponin represented Type 2 ischemia due to the fluid overload. It is not immediately known what his ejection fraction is. The only echocardiogram that I see in [facility] is from 2013 and, at that time, showed LVEF of 65-70%, an enlarged aortic root of 4.1 cm, and no other significant issues. The patient did have hematuria in the ED. CTA of the chest/abdomen/pelvis was obtained and revealed some asymmetry in the R aryepiglottic fold, emphysematous changes, RLL nodules (stable and unchanged), L nephrolithiasis in the lower pole calyx of the left kidney without evidence of obstruction, a surgically absent R kidney, and no esophageal abnormality. There was no mediastinal adenopathy. While the ER provider reported that there was esophageal thickening present, the reads I am seeing in the computer of both the modified barium swallow and the CT show no obvious abnormality of the esophagus. CT head was negative. VBG showed pH of 7.37 with pCO2 of 68 (his baseline). His ammonia was <10. There was no evidence of a UTI. The patient was afebrile and had a negative procalcitonin. Per the ER provider discussion of goals of care with the patient's family, they would like to have everything done. Hospitalist admission for further evaluation and treatment of the patient's mental status, chest discomfort, hematuria, dysphagia was requested. On my interview with the patient, he is very mildly forgetful, but is able to tell his story. He describes a dysphagia for solids, including yogurt/puree consistency, but not liquids. It does not hurt when the food gets stuck. When it gets stuck, it feels like it is in the middle of the chest. The patient does not cough it up or vomit it - he waits until it passes, but it takes a while. He is hungry. He would consider a feeding tube. As far as his hematuria, he said he does not see it when he urinates and that it was found on a blood test. It sounds like it is being worked up as outpatient. The patient does feel short of breath. He acknoweldeges that his heart has been racing, but he can't feel it. He states his legs are more swollen than their normal, though it is normal for them to be swollen. Nursing report that the patient has been having non-bloody diarrhea. Review of Systems All systems reviewed & are unremarkable except as noted in HPI and below PFSH All Active Problems (Updated 07/22/23 @ 04:12 by Winter Frias MD) Diarrhea (Acute) Weakness (Acute) Left nephrolithiasis (Acute) Hematuria (Acute) Hypomagnesemia (Acute) Hypokalemia (Acute) Encephalopathy acute (Acute) Malnutrition (Acute) Elevated troponin (Acute) Failure to thrive in adult (Acute) CHF exacerbation (Acute) Aspiration of liquid (Acute) Benign hypertension (Acute) Edema (Acute) Mixed anxiety and depressive disorder (Acute) Early satiety (Acute) Dysphagia (Acute) COPD exacerbation (Acute) Pneumonia (Acute) Weight loss (Acute) COPD (chronic obstructive pulmonary disease) (Chronic) Bilateral lower extremity edema (Acute) COPD exacerbation (Acute) Dyspnea on exertion (Acute) Leg swelling (Acute) COPD with acute exacerbation (Acute) Acute bronchitis (Acute) Discharge planning issues (Acute) DVT prophylaxis (Acute) CKD (chronic kidney disease), stage III (Chronic) Pneumothorax, right (Acute) Acute respiratory failure with hypoxia and hypercapnia (Acute) Pneumothorax (Acute) Acute exacerbation of chronic obstructive pulmonary disease (Acute) Renal insufficiency (Chronic) Anemia (Acute 03/16/13) History of abscess of lung (Acute) History of laparoscopy (Acute 02/06/16) History of tobacco use (Acute) History of unilateral nephrectomy (Acute 02/06/16) Male circumcision (Acute) Status post Linda fundoplication (Acute) Status post cholecystectomy (Acute) Status post hemorrhoidectomy (Acute) Tubular adenoma (Acute) tubular adenoma (3 tubular adenoma 04/23, 4 tubular adenoma 04/24, [facility]) 06/29/17; DR. SNIDER (1) Thyroid nodule (Acute 11/17/17) [facility]: nil 09/2017 Right renal mass (Acute 05/01/15) Dr Dailey [facility] and further eval; s/p nephrectomy (was malignant) s/p rt nephrectomy February 06, 2016 Polyp of colon (Acute) tubular adenoma (3 tubular adenoma 04/23, 4 tubular adenoma 04/24, [facility]) Knee pain (Acute) DJD Kidney stone (Acute 11/22/12) Dr Dailey ([place]) calcium oxalate Hyperlipidemia (Acute 03/16/13) Essential hypertension (Chronic 06/28/13) Esophagitis (Acute 06/29/17) Erosive gastritis (Acute 06/29/17) Depressive disorder (Acute) Chronic obstructive lung disease (Chronic 11/15/08) 2014 FEV1 0.77 (25% pred) 2013 FEV1 0.97 (31% predicted) h/o tobacco use (QUIT 2003) Basal cell carcinoma of face (Acute 02/14/13) Medical History Lesion of lung H/O renal cell carcinoma HTN (hypertension) GERD (gastroesophageal reflux disease) Tubular adenoma Surgical History History of lung biopsy H/O right nephrectomy Linda Fundoplication (03/07/12) Hemorrhoidal Banding EGD - MAC (06/29/17) EGD - MAC (04/23/14) Colonoscopy - MAC (06/29/17) 04/2014 Circumcision Cholecystectomy Family History Mother Essential hypertension Cancer of kidney Father No problems noted. Sister Lung cancer Sister Lung cancer Brother Lung cancer Brother Lung cancer Brother Lung cancer Grandfather No problems noted. Grandfather No problems noted. Grandmother No problems noted. Grandmother No problems noted. Sister No problems noted. Brother Heart disease Brother No problems noted. Son No problems noted. Daughter No problems noted. Daughter No problems noted. Social History Smoking/Tobacco Use Status: Former Tobacco Use tobacco type: cigarettes Quit Date: 12/11/03 Tobacco: How many years used: 39 Second Hand Exposure: Yes Smoking risk assessment performed?: Yes Alcohol Intake: never Drug use: Never Substance use type: does not use Caregiver/Support person: No Household members: spouse Housing: house Communication Needs: Corrective Lenses Do you need help understanding health information?: Rarely Pets and animals: Yes Pets and animals: dog(s) Sexually active: No Do you think of yourself as: straight/heterosexual Current gender identity: male What is your relationship status?: How often do you talk on the phone with friends or family?: three or more times per week How often do you attend denominational or shinto services?: decline to answer Do you belong to any clubs or organized social groups?: no Panel score (0-1 are the most socially isolated patients): 2 What type of physical activity do you participate in: none Angela/Lutheran: Adventist Special angela needs: No Seatbelt use: always Drive 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: No Do you feel safe at home: Yes Do you feel safe in your relationship?: Yes Meds Allergies and Home Medications Allergies Allergy/AdvReac Type Severity Reaction Status Date / Time lisinopril AdvReac Intermediate COUGH Verified 07/21/23 14:33 Home Medications Medication Instructions Recorded Confirmed Type aspirin 81 mg tablet,delayed 81 mg PO DAILY 11/22/12 07/22/23 History release (Ecotrin Low Strength) ascorbic acid (vitamin C) 500 mg 500 mg PO DAILY 03/16/13 07/22/23 History tablet (Vitamin C) cholecalciferol (vitamin D3) 25 1,000 unit PO DAILY 03/16/13 07/22/23 History mcg (1,000 unit) tablet docusate sodium 100 mg capsule 200 mg PO DAILY PRN 03/16/13 07/22/23 History (Colace) multivitamin with iron (One Daily 1 ea PO DAILY 03/16/13 07/22/23 History Plus Iron tablet) omega-3 fatty acids-fish oil 340 1 ea PO BID 03/16/13 07/22/23 History mg-1,000 mg capsule (Fish Oil) Misterneb Nebulizer 1 ea miscellaneous PRN PRN ##1 07/28/13 07/21/23 Clinic ipratropium 0.5 mg-albuterol 3 mg 1 amp inhalation QID PRN #200 amps 04/19/14 07/22/23 History (2.5 mg base)/3 mL nebulization soln (DuoNeb) albuterol sulfate 90 mcg/actuation 2 puff inhalation Q4H PRN ##3 07/25/15 07/22/23 History aerosol inhaler (Proventil HFA) omeprazole 40 mg capsule,delayed 40 mg PO DAILY #90 tab-caps 07/25/15 07/22/23 History release tiotropium bromide 2.5 2 puff inhalation DAILY 10/21/16 07/22/23 History mcg/actuation mist for inhalation (Spiriva Respimat) bupropion HCl 300 mg 24 hr tablet, 300 mg PO DAILY #90 tab-caps 03/03/22 07/22/23 Rx extended release (Wellbutrin XL) acetylcysteine 100 mg/mL (10 %) 2 ml inhalation TID #540 mL 05/07/22 07/22/23 Rx solution aripiprazole 5 mg tablet (Abilify) 5 mg PO DAILY #90 tabs 05/25/22 07/22/23 Rx amlodipine 5 mg tablet 2.5 mg (1/2 x 5 mg) PO DAILY #90 07/08/22 07/22/23 Rx tab-caps brimonidine 0.2 % eye drops 1 drp ophthalmic (eye) BID 08/13/22 07/22/23 History carboxymethylcellulose sodium 0.5 1 drp ophthalmic (eye) QID 08/13/22 07/22/23 History % eye drops in a dropperette (Refresh Plus) fluticasone 250 mcg-salmeterol 50 1 inh inhalation BID 08/13/22 07/22/23 History mcg/dose blistr powdr for inhalation (Wixela Inhub) latanoprost 0.005 % eye drops 1 drp ophthalmic (eye) QHS 08/13/22 07/22/23 History acetylcysteine 600 mg tablet 600 mg PO BID #180 tabs 08/29/22 07/22/23 Rx atorvastatin 40 mg tablet 40 mg PO QHS #90 tabs 08/29/22 07/22/23 Rx isosorbide mononitrate 30 mg 30 mg PO DAILY #90 tabs 08/29/22 07/22/23 Rx tablet,extended release 24 hr metoprolol succinate 25 mg 25 mg PO DAILY #90 tabs 08/29/22 07/22/23 Rx tablet,extended release 24 hr torsemide 20 mg tablet 20 mg PO DAILY PRN edema #90 tabs 08/29/22 07/22/23 Rx amoxicillin 500 mg-potassium 1 tab PO TID 06/14/23 07/22/23 History clavulanate 125 mg tablet mirtazapine 15 mg tablet 15 mg PO QHS 06/14/23 07/22/23 History prednisone 10 mg tablet 10 mg PO DIRECTED 06/14/23 07/22/23 History calcium carbonate 500 mg calcium 1,000 mg PO DAILY PRN 07/22/23 07/22/23 History (1,250 mg) chewable tablet (Calcium 500) Exam Narrative Exam Narrative: General: A very pleasant elderly male who is A&Ox2.5 (does not know the exact date, but knows it's July of 2023), cachectic, on 2L of O2 by NC, slightly dyspneic Neurological: A&Ox2.5, no focal deficits Psychiatric: Appropriate speech pattern/content Skin: chronic venous stasis dermatitis BLEs HEENT: Atraumatic, normocephalic, EOMI, MMM, clear oropharynx, no submandibular or cervical lymphadenopathy, no goiter or JVD Cardiovascular: RRR, tachycardic (to 130s when I first listen to him, then it calms down to 110s. He had just sat up). Lungs: Diminished breath sounds B Gastrointestinal: soft, nontender, nondistended Genitourinary: deferred Extremities: 2+ edema 1[address] BLEs, I am unable to feel pedal pulses due to edema Results Imaging Additional studies: CT chest/abdomen/pelvis: 1. In the neck there is some asymmetry in the right aryepiglottic fold noted. Suggest direct visualization-endoscopy to rule out neoplasm at this level. No other findings in the neck. 2. 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 Stable unchanged right lower lobe nodules. No pleural effusions. No CHF. No intrathoracic lymphadenopathy. 3. Right kidney is either severely atrophic or surgically absent. 4. Previously described prominent calculus on the left side is now within the lower pole calyx of the left kidney. Was previously in the renal pelvis. No hydronephrosis nor hydroureter. No obvious abnormality in the urinary bladder CT head: Mild atrophy with no evidence of acute and cortical infarction, recent intracranial hemorrhage or hydrocephalus. No acute intracranial process is detected. Labs 07/21/23 14:18 07/21/23 14:18 Labs: Laboratory Results - last 24 hr 07/21/23 07/21/23 07/21/23 14:09 14:18 14:18 WBC 11.53 H RBC 4.33 L Hgb 12.3 L Hct 38.7 L MCV 89 MCH 28.4 MCHC 31.8 L RDW 14.2 H Plt Count 210 MPV 9.1 Immature Gran % 0.3 Neutrophils % 88.5 Lymphocytes % 3.9 Monocytes % 6.7 Eosinophils % 0.4 Basophils % 0.2 Nucleated RBC % 0.0 Absolute Neutrophils 10.20 H Absolute Lymphocytes 0.45 L Absolute Monocytes 0.77 Absolute Eosinophils 0.05 Absolute Basophils 0.02 ESR 12 PT INR APTT VBG pH VBG pCO2 VBG pO2 VBG HCO3 VBG Total CO2 VBG O2 Saturation VBG Base Excess VBG Lactate 0.9 Sodium 141 Potassium 3.4 L Chloride 101 Carbon Dioxide 38.1 H Anion Gap 1.9 L BUN 25 H Creatinine 1.0 Est GFR (CKD-EPI 2020) 78.49 Glucose 94 Calcium 9.1 Magnesium 1.7 L Total Bilirubin 0.5 0.5 Conjugated Bilirubin 0.2 AST 38 H ALT Alkaline Phosphatase Ammonia Creatine Kinase Troponin I C-Reactive Protein NT-Pro-B Natriuret Pep Total Protein Albumin Lipase Procalcitonin TSH Urine Color Yellow Urine Clarity Clear Urine pH 6.0 Ur Specific [place] 1.025 Urine Protein Trace H Urine Ketones 40 H Urine Blood Moderate H Urine Nitrite Negative Urine Bilirubin Small H Urine Urobilinogen 1.0 H Ur Leukocyte Esterase Negative Urine RBC 20-50 H Urine WBC 0-2 Ur Epithelial Cells Few Urine Crystals Negative Urine Bacteria Rare Urine Casts Negative Urine Mucus Trace Urine Other Few Transitional Ur Culture Indicated? No Urine Glucose Negative COVID-19 Source SARS-CoV-2 (PCR) Influenza Type A (PCR) Influenza Type B (PCR) RSV (PCR) 07/21/23 07/21/23 07/21/23 14:18 14:18 14:18 WBC RBC Hgb Hct MCV MCH MCHC RDW Plt Count MPV Immature Gran % Neutrophils % Lymphocytes % Monocytes % Eosinophils % Basophils % Nucleated RBC % Absolute Neutrophils Absolute Lymphocytes Absolute Monocytes Absolute Eosinophils Absolute Basophils ESR PT INR APTT VBG pH VBG pCO2 VBG pO2 VBG HCO3 VBG Total CO2 VBG O2 Saturation VBG Base Excess VBG Lactate Sodium Potassium Chloride Carbon Dioxide Anion Gap BUN Creatinine Est GFR (CKD-EPI 2020) Glucose Calcium Magnesium Total Bilirubin Conjugated Bilirubin AST 33 ALT 33 32 Alkaline Phosphatase 98 97 Ammonia Creatine Kinase 90 Troponin I 242 H* C-Reactive Protein 8.63 H NT-Pro-B Natriuret Pep 308 H Total Protein 6.0 L Albumin Lipase Procalcitonin TSH Urine Color Urine Clarity Urine pH Ur Specific [place] Urine Protein Urine Ketones Urine Blood Urine Nitrite Urine Bilirubin Urine Urobilinogen Ur Leukocyte Esterase Urine RBC Urine WBC Ur Epithelial Cells Urine Crystals Urine Bacteria Urine Casts Urine Mucus Urine Other Ur Culture Indicated? Urine Glucose COVID-19 Source SARS-CoV-2 (PCR) Influenza Type A (PCR) Influenza Type B (PCR) RSV (PCR) 07/21/23 07/21/23 07/21/23 14:18 14:18 14:40 WBC RBC Hgb Hct MCV MCH MCHC RDW Plt Count MPV Immature Gran % Neutrophils % Lymphocytes % Monocytes % Eosinophils % Basophils % Nucleated RBC % Absolute Neutrophils Absolute Lymphocytes Absolute Monocytes Absolute Eosinophils Absolute Basophils ESR PT INR APTT VBG pH VBG pCO2 VBG pO2 VBG HCO3 VBG Total CO2 VBG O2 Saturation VBG Base Excess VBG Lactate Sodium Potassium Chloride Carbon Dioxide Anion Gap BUN Creatinine Est GFR (CKD-EPI 2020) Glucose Calcium Magnesium Total Bilirubin Conjugated Bilirubin AST ALT Alkaline Phosphatase Ammonia < 10 L Creatine Kinase Troponin I C-Reactive Protein NT-Pro-B Natriuret Pep Total Protein 6.0 L Albumin 2.5 L 2.5 L Lipase 22 Procalcitonin < 0.1 TSH 2.91 Urine Color Urine Clarity Urine pH Ur Specific [place] Urine Protein Urine Ketones Urine Blood Urine Nitrite Urine Bilirubin Urine Urobilinogen Ur Leukocyte Esterase Urine RBC Urine WBC Ur Epithelial Cells Urine Crystals Urine Bacteria Urine Casts Urine Mucus Urine Other Ur Culture Indicated? Urine Glucose COVID-19 Source SARS-CoV-2 (PCR) Influenza Type A (PCR) Influenza Type B (PCR) RSV (PCR) 07/21/23 07/21/23 07/21/23 14:52 17:01 17:50 WBC RBC Hgb Hct MCV MCH MCHC RDW Plt Count MPV Immature Gran % Neutrophils % Lymphocytes % Monocytes % Eosinophils % Basophils % Nucleated RBC % Absolute Neutrophils Absolute Lymphocytes Absolute Monocytes Absolute Eosinophils Absolute Basophils ESR PT 10.4 INR 1.0 APTT 27.2 VBG pH VBG pCO2 VBG pO2 VBG HCO3 VBG Total CO2 VBG O2 Saturation VBG Base Excess VBG Lactate Sodium Potassium Chloride Carbon Dioxide Anion Gap BUN Creatinine Est GFR (CKD-EPI 2020) Glucose Calcium Magnesium Total Bilirubin Conjugated Bilirubin AST ALT Alkaline Phosphatase Ammonia Creatine Kinase Troponin I 244 H* C-Reactive Protein NT-Pro-B Natriuret Pep Total Protein Albumin Lipase Procalcitonin TSH Urine Color Urine Clarity Urine pH Ur Specific [place] Urine Protein Urine Ketones Urine Blood Urine Nitrite Urine Bilirubin Urine Urobilinogen Ur Leukocyte Esterase Urine RBC Urine WBC Ur Epithelial Cells Urine Crystals Urine Bacteria Urine Casts Urine Mucus Urine Other Ur Culture Indicated? Urine Glucose COVID-19 Source Nasopharynx SARS-CoV-2 (PCR) Negative Influenza Type A (PCR) Negative Influenza Type B (PCR) Negative RSV (PCR) Negative 07/21/23 20:39 WBC RBC Hgb Hct MCV MCH MCHC RDW Plt Count MPV Immature Gran % Neutrophils % Lymphocytes % Monocytes % Eosinophils % Basophils % Nucleated RBC % Absolute Neutrophils Absolute Lymphocytes Absolute Monocytes Absolute Eosinophils Absolute Basophils ESR PT INR APTT VBG pH 7.37 VBG pCO2 68 H* VBG pO2 25 VBG HCO3 40 H VBG Total CO2 37 H VBG O2 Saturation 47 VBG Base Excess 14 H VBG Lactate Sodium Potassium Chloride Carbon Dioxide Anion Gap BUN Creatinine Est GFR (CKD-EPI 2020) Glucose Calcium Magnesium Total Bilirubin Conjugated Bilirubin AST ALT Alkaline Phosphatase Ammonia Creatine Kinase Troponin I C-Reactive Protein NT-Pro-B Natriuret Pep Total Protein Albumin Lipase Procalcitonin TSH Urine Color Urine Clarity Urine pH Ur Specific [place] Urine Protein Urine Ketones Urine Blood Urine Nitrite Urine Bilirubin Urine Urobilinogen Ur Leukocyte Esterase Urine RBC Urine WBC Ur Epithelial Cells Urine Crystals Urine Bacteria Urine Casts Urine Mucus Urine Other Ur Culture Indicated? Urine Glucose COVID-19 Source SARS-CoV-2 (PCR) Influenza Type A (PCR) Influenza Type B (PCR) RSV (PCR) Last Vital Signs Temp 37.1 C 07/21/23 13:38 Pulse 105 H 07/21/23 22:36 Resp 18 07/21/23 22:36 BP 104/83 07/21/23 22:36 Pulse Ox 93 07/21/23 22:36 Time Spent Time spent with Patient: 55-74 minutes Time was spent: preparing to see the patient(eg.review tests), obtaining and/or reviewing separately otained hiistory, ordering medications,tests, procedures, referring, communicating with other health career services representative, indepentently interpreting results, counseling the patient and care coordination
[2023-07-21] MEDS: MAGNESIUM SULFATE 2 GM/50 ML BAG IVPB (23:55)
[2023-07-21] MEDS: Heparin 5,000 UNITS/ML VIAL 5000 UNITS SC (23:58)
[2023-07-21] MEDS: Normal Saline Flush 10 ML SYR IVP (23:58)
[2023-07-22] VITALS (9 sets, daily range): BP systolic 109–123; BP diastolic 72–77; PULSE 81–112; RESP 2–18; TEMP 36.1–36.5; O2SAT 90–98
--- NOTE | 2023-07-22 | DI.US_ITS ---
Exam(s) US EXTREMITY VENOUS BI EXAM: US EXTREMITY VENOUS BI CLINICAL HISTORY: BLE edema TECHNIQUE: Grayscale, color, and doppler imaging of the deep venous system of both lower extremities was performed. COMPARISON: US US ECHOCARDIOGRAM from 07/22/2023 FINDINGS: There is no evidence of intraluminal thrombus and there is normal compression and augmentation demons trated within the common femoral veins, femoral veins, and popliteal veins of both lower extremities. In the calves the interrogated veins also exhibit normal compression/ augmentation properties. The greater saphenous veins also appear patent as do the saphenofemoral junctions bilaterally.. IMPRESSION: 1. No ultrasound evidence of DVT in either lower extremity. DATA REPOSITORY:
--- NOTE | 2023-07-22 00:18 | RESPIRATORY ---
Pt. advised Rt that O2 basline 2L/mins. [facility]
--- NOTE | 2023-07-22 00:43 | TELEP.MEDR_ITS ---
Date of service: 07/22/23 Time of Service: 00:43 Telepharmacy Home Med Rec Allergies Allergies: lisinopril Adverse Reaction (Intermediate, Verified 07/21/23 14:33) COUGH Interview Person Interviewed: * Quality Quality of Interview/Accuracy of Medication List: Excellent Sources Sources used to compile medication list: [employer] Medication List, Patient List and [employer] Changes made to Home Medication List: ADDITIONS: * Tums 1000mg PO daily PRN DELETIONS: * Abilify * Acetylcysteine CHANGES: * Docusate 200mg PO daily PRn (changed from 100mg daily) Additional Notes Additional Notes: * none Recommended Changes Recommended Changes(reason for recommendation): * none Attestation: The home medication list is now updated to the best of my knowledge and is ready to be reconciled by the provider. Please contact the TelePhaacy Medication Reconciliation Pharmacist at for any questions.
--- NOTE | 2023-07-22 00:43 | TELEP.MEDREC ---
Date of service: 07/22/23 Time of Service: 00:43 Telepharmacy Home Med Rec Allergies Allergies: lisinopril Adverse Reaction (Intermediate, Verified 07/21/23 14:33) COUGH Interview Person Interviewed: Quality Quality of Interview/Accuracy of Medication List: Excellent Sources Sources used to compile medication list: [facility] Medication List, Patient List and SureScripts Changes made to Home Medication List: ADDITIONS: Tums 1000mg PO daily PRN DELETIONS: Abilify Acetylcysteine CHANGES: Docusate 200mg PO daily PRn (changed from 100mg daily) Additional Notes Additional Notes: none Recommended Changes Recommended Changes(reason for recommendation): none Attestation: The home medication list is now updated to the best of my knowledge and is ready to be reconciled by the provider. Please contact the [facility] Medication Reconciliation Pharmacist at for any questions.
[2023-07-22] MEDS: POTASSIUM CHLORIDE 20 MEQ/100 ML BAG 50 MEQ IVPB ×2 (01:48→04:05)
[2023-07-22] MEDS: THIAMINE 500 MG in Normal Saline 100 ML 200 MG IVPB ×3 (03:17→18:22)
[2023-07-22] MEDS: Normal Saline 1,000 ML 125 ML IV (04:05)
[2023-07-22] MEDS: Normal Saline Flush 10 ML SYR IVP ×3 (04:10→21:55)
[2023-07-22] MEDS: Albuterol/Ipratropium 3 ML UPD VIAL UPD ×3 (04:44→20:35)
[2023-07-22 08:51] LABS: Anion Gap 1.5 mmol/L (3-11); BUN 23 mg/dL (7-18); CO2 37.5 mmol/L (21.0-32.0); CREATININE 1.1 mg/dL (0.70-1.30); Calcium 8.6 mg/dL (8.5-10.1); Chloride 102 mmol/L (98-107); Estimated GFR 70.01 (mL/min/1.73m2); Ferritin 450 ng/mL (26-388); Glucose 89 mg/dL (74-106); Iron 21 ug/dL (65-175); Magnesium 2.1 mg/dL (1.8-2.4); Potassium 3.9 mmol/L (3.5-5.1); Sodium 141 mmol/L (136-145); Total Iron Binding Capacity 130 ug/dL (250-450); Transferrin Sat 16 % (20-55); Vitamin B12 896 pg/mL (193-986); Vitamin D 25 Total 39.1 ng/mL (30-100)
[2023-07-22 08:57] LABS: C Diff PCR Positive (Negative)
[2023-07-22] MEDS: Cholecalciferol (Vitamin D3) 1,000 UNIT TAB 1000 UNITS PO (09:27)
[2023-07-22] MEDS: Multivitamin w/Minerals TAB 1 TAB PO (09:27)
[2023-07-22] MEDS: buPROPion-XL 150 MG TABCR 300 MG PO (09:27)
[2023-07-22] MEDS: Isosorbide Mononitrate 30 MG TABCR PO (09:28)
[2023-07-22] MEDS: Acetylcysteine 600 MG CAP PO ×2 (09:28→21:46)
[2023-07-22] MEDS: Docusate Sodium 100 MG CAP PO (09:28)
[2023-07-22] MEDS: Omega-3 Fatty Acids 1000 MG CAP PO ×2 (09:28→21:46)
[2023-07-22] MEDS: Omeprazole 20 MG CAPCR 40 MG PO (09:28)
[2023-07-22] MEDS: ARIPiprazole 5 MG TAB PO (09:28)
[2023-07-22] MEDS: Ascorbic Acid 500 MG TAB PO (09:29)
[2023-07-22] MEDS: Metoprolol CR 25 MG TABCR PO (09:30)
[2023-07-22] MEDS: Aspirin E.C. 81 MG TABEC PO (09:30)
[2023-07-22] MEDS: Refresh PLUS Eye Drops 0.4ml OP ×4 (09:33→21:50)
[2023-07-22] MEDS: Heparin 5,000 UNITS/ML VIAL 5000 UNITS SC ×2 (09:34→17:06)
[2023-07-22] MEDS: Tiotropium Bromide-Respimat 10 PUFF INH 2 PUFF IH (09:49)
[2023-07-22 09:54] LABS: Folate > 20.0 ng/mL (8.6-20.0)
[2023-07-22 09:56] LABS: Absolute Eosinophil Count 0.09 10^3/uL (0.0-0.7); Absolute Lymphocyte Count 0.53 10^3/uL (1.2-3.4); Absolute Monocyte Count 0.77 10^3/uL (0.1-0.8); Eosinophils % 0.8; HCT 35.3 % (40.0-50.0); HGB 11.2 g/dL (13.5-17.5); Lymphocytes % 4.9; MCH 28.6 pg (27.0-33.0); MCHC 31.7 % (32.0-36.0); MCV 90 fL (80-95); MPV 9.8 fL (8.0-11.0); Monocytes % 7.1; Neutrophils % 86.4; Platelet Count 238 10^3/uL (130-400); RBC 3.91 10^6/uL (4.36-5.78); RDW 14.4 % (11.8-14.1); RDW-SD 47.1 fL; WBC 10.86 10^3/uL (4.4-10.8)
[2023-07-22 09:57] LABS: Abs Immature Grans 0.04 10^3/uL (0.0-0.06); Absolute Basophil Count 0.04 10^3/uL (0.0-0.2); Absolute Neutrophil Count 9.39 10^3/uL (1.2-6.7); Basophils % 0.4; Immature Grans % 0.4
[2023-07-22] MEDS: Psyllium PKT 1 EACH PO (10:32)
[2023-07-22] MEDS: Vancomycin 125 MG CAP PO ×4 (10:33→21:47)
[2023-07-22 10:50] LABS: Lab Add On Test DONE
[2023-07-22 11:13] LABS: Troponin I 246 ng/L (< or =60)
--- NOTE | 2023-07-22 11:16 | W.SPSTE ---
Date of service: 07/22/23 Time of Service: 10:05 Subjective Clinical (Bedside) Swallow Evaluation Speech Language Pathology Referred by: Dr. Frias Referral Type: Clinical Swallow Evaluation Reason for Referral/HPI: Yousif Poole is a 73 yo male who presents with PMHx significant for chronic hypoxic respiratory failure on 3 LPM O2 by NC at home, CKD3, hx Linda fundoplication ~10 years ago (currently on Omeprazole, denies reflux symptoms), hx dysphagia with severely limited intake and weightloss, largely related to loss of appetite. Recent outpatient MBSS completed by this clinician on 07/19/23 (see results summary below). Yousif was admitted 07/22/23, presenting to the ED following recommendation from his home nurse who found him to be more weak and confused than baseline. [employer] [facility] IMPRESSIONS & RECOMMENDATIONS: Yousif presents with moderate-severe pharyngeal sensorimotor dysphagia of unclear origin, as evidenced below from recent modified barium swallow study. Anticipate contributing factors to dysphagia to include longstanding reflux and dyspnea/chronic O2 use as well as extent deconditioned status/cachexia. However, suspect oral pharyngeal findings from MBSS likely don't appear to fully explain severity of weight loss based on pharyngeal swallow function alone, anticipate additional factors. Based on findings, he is considered high aspiration risk with all consistencies, though risk can be mitigated with diet modifications and strict aspiration precautions as outlined below. Extensive education provided to patient today who verbalized comprehension. Summary of MBSS 07/19/23 (see report for full details): Yousif presents with moderate-severe pharyngeal sensorimotor dysphagia, with primary impairments of delayed swallow initiation, impaired laryngeal vestibule closure, and impaired/absent sensory cough reflex. With thin and mildly thick liquids, there is deep penetration reaching the level of the vocal cords prior to/during the swallow, with intermittent trace silent aspiration occurring after the swallow. With moderately thick liquids, silent aspiration also occurs- though difficult to assess if from prior residue of mildly thick liquids. There is only one reflexive cough noted throughout multiple episodes of deep penetration/aspiration. Yousif did express sensation of something caught in throat during these episodes. Several strategies trialed, including chin tuck and bolus hold, without success. With solids, there is no aspiration however swallow efficiency is impaired, with intermittent pharyngeal retention in pyriforms and lesser so in vallecular. Patient is able to clear pharyngeal residue with sips of liquid or repeat swallow. Overall, swallow safety and efficiency are impaired, with silent aspiration occurring with thin and thick liquids, despite strategy trials. Patient appears to be at high risk for potential aspiration PNA and/or pulmonary compromise and high risk for malnutrition, high risk for dehydration. Of notice, pharyngeal swallow dysfunction is likely largely contributing to but perhaps not fully explaining patient's symptoms of poor appetite/sensation of food sticking/nausea after meals- anticipate digestive component as well. Swallow prognosis is guarded given age, comorbidities, degree of impairment/ineffectiveness of compensatory strategies as well as extent of deconditioned status/cachexia. Etiology of dysphagia is unclear; hx longstanding reflux and dyspnea/chronic O2 use as well as severity of deconditioned state are identified as contributing factors but likely do not fully explain extent of pharyngeal sensory impairment. Question if reduced PO intake due to loss of appetite/GI complaints may have resulted in disuse atrophy, exacerbating symptoms. Pending patient's goals of care, and considering patient's 's report of confusion, consider referral to neurology for further workup. Ongoing [facility] HEL[employer] services indicated. FURTHER [employer] SERVICES: Patient to be followed while on unit. Upon Discharge outpatient consult requested (Patient has outpatient [employer] appt scheduled on 08/02/23) Diet Recommendations: SOLIDS: L6 Soft & Bite Size. For endurance purposes, please order 1-2 puree sides for energy conservation LIQUIDS: Thin Liquids MEDICATIONS: Pills whole if small or crushed if large, in applesauce RISK MANAGEMENT: HOB bolt upright: 90 degrees or up in chair for meals. Maintain upright position at least 30 minutes after meals, Avoid meals/snacks 2-3 hours prior to reclining/sleeping, Sleep with head of bed elevated to reduce likelihood of nocturnal reflux Encourage physical mobility as tolerated. Oral hygiene before/after PO intake using friction with toothbrush on all oral structures as tolerated, suction PRN Level of Assistance/Supervision: Distant Supervision following assistance with positioning and tray set up Maintain upright position at least 30 minutes after meals, Avoid meals/snacks 2-3 hours prior to reclining/sleeping, Sleep with head of bed elevated to reduce likelihood of nocturnal reflux SUBJECTIVE: Patient received awake, alert, oriented to place, situation, date/month/year Pain Reported? None Baseline Swallow Function: Difficulty swallowing at baseline due to poor appetite, food sticking in sternal region, and 'feeling lousy' after eating. This has been ongoing/worsening over the past couple years PO Trials Assessed: IDDSI 0 Thin Liquids IDDSI 6 Soft & Bite Size Solid (Diced fruit) Oral Mechanism Examination: Dentition/oral hygiene quality noted to be poor with food particles in teeth from breakfast. Oral mucosa is slightly dry. Cranial Nerve Assessment: CN V ? Trigeminal Facial Sensation WNL Jaw ROM WNL; strength mildly weak as consistent with deconditioned status ?WFL CN VII- Facial WNL labial ROM, coordination. WNL lingual sensation Labial strength mildly weak consistent with deconditioned status WFL CN IX ? Glossopharyngeal WNL palatal elevation with phonation. No evidence of nasal emissions WFL CN X ? Vagus Vocal quality is mildly wet prior to PO trials. Cough is strong. Impaired CX XII ? Hypoglossal WNL lingual ROM/Coordination. Lingual strength is mildly decreased consistent with deconditioned status WFL Oral Phase Findings: WFL for trials assessed Pharyngeal Phase Findings: Delayed swallow initiation Reduced hyolaryngeal elevation/excursion Wet voice intermittently noted ASSESSMENT: Further [employer] Services indicated. Patient to be followed while on unit. Recommendation at Discharge: Outpatient [facility] [facility] services vs home health [facility] [facility] services Recommended Procedures: N/A Education Provided to: Nursing, Patient Topics Addressed: anatomy/physiology of swallowing mechanism, overt s/sx to monitor for re: potential aspiration of food / liquids, recommendations for improved oral care/aspiration precautions PLAN: Frequency: 2-3x/week for 1-2 weeks Goals: [employer] Goals: Patient will remain free from aspiration-related illness, malnutrition, and dehydration. Short Term Goals: Patient will tolerate L6 Soft Bite Size Diet and Thin liquids without overt s/s aspiration across 2/2 visits. Patient will tolerate PO trials for consideration of diet upgrade without overt s/s aspiration across 2/2 visits. [employer] CPT Code: 69109 Clinical Swallowing [id number]?Evaluation of speech sound production with evaluation of language comprehension and expression TOTAL TIME: 25 Minutes (10:05-10:30AM) Coding CPT Codes EVALUATE SWALLOWING FUNCTION - 08352 ([id number]) Additional Codes Date of Service (90040) Date of service: 07/22/23
[2023-07-22] MEDS: Lactated Ringers 1,000 ML 85 ML IV (11:49)
--- NOTE | 2023-07-22 13:24 | W.PALLCONSUL ---
Date of service: 07/22/23 Time of Service: 13:24 History of Present Illness Narrative: Jasen Poole is a 73 yo man from [facility] who was admitted to [facility] yesterday with trouble eating, dehydration, worsening CHF and dyspnea, worsening dysphagia (i.e. failure to thrive), as well as being dxed today with C. Diff. He has multiple medical issues including COPD (on home oxygen 3-4 L, o2 for over a year.), significant weight loss, CHF, CKD3, H/o Linda fundoplication, h/o dysphagia (recent speech eval and swallowing study), mild cognitive impairment, hx renal cell ca (S/P nephrectomy). His PCP is the [facility] home-based primary care team. [facility]izations [facility] or [facility] in at least 3 years. C. Diff: -loose bowels for 3-4 weeks. Last abx 2 weeks ago for acute exacerbation COPD (received course of Augmentin and burst of prednisone) -C. Diff test came back positive today Weight Loss: 13 kg over last 11 months, 6 Kg over last 4 months Depression: -On bupropian for about 5 months, helped a little -Mirtazipine more recent. -Feels worse in the evening. Overall worse for months. Not in counseling Dysphagia: Saw Dr. Cerna to discuss EGD. She said anesthesia for EGD is too risky. Patient had barium swallow in the past which showed possible thickening of vocal cords. He had head neck chest CT yesterday and abdominal pelvic CT in April. No malignancy or other significant abnormality (besides COPD and lack of kidney) was found. Evaluation today by HOME HEALTH CARE WORKER. Note says no follow-up needed. tells me that they have an appointment to follow-up with HOME HEALTH CARE WORKER in about 2 weeks. Care Team: Primary Care physician: [facility] home-based primary care team 9 months. Valerie Galaviz Last came to house 8 weeks ago.. HOme based Idania Rowley: [phone] Cardiology: [facility] [place] Social HX: Lives in [facility] with Reese Poole. 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 Several grand children. Two biological daughters in [place] (in touch) and [place] (estranged). Hobbies: outdoor house, gardening (roses!).Watching TV, not much else since feeling ill. Addl Services: [facility] visiting [facility] Shanika ARGUETA has come twice to home. reports He will not do the prescribed home exercises. NO other services at present. Impression of currents health status: COPD is biggest problem. Voice has changed (gradual at first and now worse over 3 days). and recent swallow study show These medical problems are causing depression and stress. Dysphagia also quite bothersome and SORE THROAT. What bothers you the most:Inability to do what he used to do What worries you the most: That he can no longer take care of things around the house. Goals: -Hoping that he gets back some of the sharpness to his mind and memory. -Would like to be able to resume working outdoors. Current information preferences: Function: Ambulation: Uses a walker for the last year (started after a fall), needs to use wheelchair outside of the house. ADLs: Needs spotting in shower and uses a special shower chair, otherwise ADLs independent iADLs:Unable to do any chores since around summer due to increasing SOB and weakness. Hearing: reduced as per and no hearing problem. Vision: Glasses, good, glaucoma on right Cognition:Memory is full of holes, says slowly worsening. describes what sounds like parasomnias, does not know where he is when he wakes up. Falls: No falls since big fall a year ago. Palliative Performance Scale % Ambulation Activity and Evidence of Disease Self Care Intake Level of Consciousness 100 Full Normal activity, no evidence of disease Full Normal Full 90 Full Normal activity, some evidence of disease Full Normal Full 80 Full Normal activity with effort, some evidence of disease Full Normal or reduced Full 70 Reduced Unable to do normal work, some evidence of disease Full Normal or reduced Full 60 Reduced Unable to do hobby or some housework, significant disease Occasional assist necessary Normal or reduced Full or confusion 50 Mainly sit/lie Unable to do any work, extensive disease Considerable assistance required Normal or reduced Full or confusion 40 Mainly in bed Unable to do any work, extensive disease Mainly assistance Normal or reduced Full, drowsy, or confusion 30 Totally bed bound Unable to do any work, extensive disease Total care Reduced Full, drowsy, or confusion 20 Totally bed bound Unable to do any work, extensive disease Total care Minimal sips Full, drowsy, or confusion 10 Totally bed bound Unable to do any work, extensive disease Total care Mouth care only Drowsy or coma 0 - - - - Patient Score: Spiritual history: Palliative review of systems: Pain: Dyspnea: ONgoing GI symptoms: See HPI, loose stools for last 4 weeks. Appetite: Can eat yogurt, scrambled eggs, Depression: On and off for yewars., worse recently as he is sick. See HPI Anxiety: Some Emotional Distress: Spiritual/Existential Distress: Labs: Cr: 1.1 (only one kidney) Liver panel: NL Albumin: 2.5 (roughly same over 2 years) CBC: hgb 11.2 Advanced Care Planning: Advanced Directive: 2016 AD on file Health Care Agent: Reese Poole, Alternate is son Brian CASTANEDA: NOne, currently ful code. Limitations: Assessment and Plan Assessment and plan (1) Palliative care encounter: Status: Acute Assessment and plan: Mr. Sanchez is a 73-year-old gentleman with significant ongoing weight loss, severe and worsening dysphagia, weakness, oxygen dependent COPD, now admitted with acute worsening weakness, likely brought on by recent course of antibiotics and prednisone for exacerbation of COPD. Additional history obtained from his catalytic case operator at the [facility], Idania Rowley: [facility] home-based primary care team have been very concerned about him over the last few months because of his progressive weakness loss. They have urged him to go to the hospital several times over the last few weeks and he only agreed to go yesterday.. Additional history is that because of his decline, they have been urging him to write a new advance directive. He and his have been resistant to this. Apparently at [facility] only primary care provider can have CODE STATUS discussion and Neena is unaware that his PCP has had a discussion with him (PCP Made home visit about 6 weeks ago). Difficult situation where patient has had slow but steady decline in function, loss of iADLs and now beginning to lose ADLs with significant weight loss. No obvious underlying malignancy seen on April and July imaging. This leaves combination of advanced COPD and significant dysphagia (likely related to significant esophageal dysmotility,). But once and since that there may be more. Patient appears to have some mild cognitive impairment, which she finds quite bothersome but does not interfere severely with her interaction today. No formal mental status testing done today. He also appears to have significant component of depression. My impression is that this is more reactive to his medical decline rather than the cause of his medical decline. Goals of care: Patient is unable to identify significant goals in addition to return to previous level of function. is not able to help generate goals when asked. He is also unable to think of any situations he would absolutely not want to be in (i.e. in and living in a residential, living unable to communicate). However, I think he is quite exhausted by the time we get to this part of my visit. when I asked him if gaining weight might be one of his goals, he is somewhat equivocal. CPR discussion: We discussed the procedure of CPaR, actual mechanical process, rate of success in restoring heartbeat, short and long-term side effects in survivors (including likely decreased physical and cognitive functioning). Questions were answered. Patient said that I have not made up my mind yet . said that patient's only desire was to live . My recommendation was that given his significant decline, that he consider accepting function improving treatment such as antibiotics, IV hydration, inpatient/outpatient testing, HOME HEALTH CARE WORKER, PT services. However life-prolonging treatment would probably not improve his quality of life (i.e. CPR, intubation). Patient again said I cannot make up my mind right now . felt he was too tired and agreed that we would discuss this at a future visit. Dysphagia/weight loss: Current situation is actually 1 where use of feeding tube might result in weight gain, resting or reversing weight loss and progressive debility. Patient does not have advanced dementia or known malignancy. His dysphagia is contributing significantly to his weight loss. However, patient says today he is not sure he would want a feeding tube. He cannot explain why not. His says she will agree to what ever he wants. Another possible barriers whether or not feeding tube can be done with out using EGD for guidance, as our surgeon has felt that risk for anesthesia involved with EGD is too high given his COPD and other medical issues. I recommend further discussions with patient and his family regarding consideration of trial of feeding tube. Palliative care follow-up: After discussion with [facility] catalytic case operator, she we will put in for official referral to [facility] Palliative Care Team for follow-up. I plan to follow-up with patient in the hospital next Wednesday if he is still here. At this time we will revisit CODE STATUS. We can also discuss pros and cons, risks and benefits of feeding tube, if hospitalist feels this could be a positive therapeutic intervention. If his clinical status declines, recommend contacting the palliative care office to have one of the other palliative care provider see him sooner. (2) Advanced care planning/counseling discussion: Status: Acute Assessment and plan: 16 to 30 minutes spent today on Advance Care Planning. Patient and family participated voluntarily. Advance care planning may include (not limited to) explanation and discussion of advance directives, choosing and appointing healthcare agents, alternatives to various ACP tools, discussion of (and if indicated, completion of) COLST form, discussion of patient's values and overall goals for treatment, palliative and disease directive care options, ways to avoid hospital readmission including hospice discussions, care preferences should the patient's several other adverse health events.See today's palliative care note for additional information. This note was dictated using speech recognition software. Attempt was made at proofreading, but errors may be present. Please call with questions. (3) Abnormal weight loss: Status: Inactive (4) C. difficile diarrhea: Status: Acute (5) Chronic obstructive lung disease: Status: Chronic Qualifiers: COPD type: emphysema Emphysema type: panlobular Qualified Code(s): J43.1 - Panlobular emphysema (6) Depressive disorder: Status: Acute (7) H/O renal cell carcinoma: (8) Malnutrition: Status: Acute (9) Failure to thrive in adult: Status: Acute (10) Dysphagia: Status: Acute [facility] All Active Problems (Updated 07/22/23 @ 14:51 by Millicent Aragon MD) C. difficile diarrhea (Acute) Advanced care planning/counseling discussion (Acute) Palliative care encounter (Acute) Diarrhea (Acute) Weakness (Acute) Left nephrolithiasis (Acute) Hematuria (Acute) Hypomagnesemia (Acute) Hypokalemia (Acute) Encephalopathy acute (Acute) Malnutrition (Acute) Elevated troponin (Acute) Failure to thrive in adult (Acute) CHF exacerbation (Acute) Aspiration of liquid (Acute) Benign hypertension (Acute) Edema (Acute) Mixed anxiety and depressive disorder (Acute) Early satiety (Acute) Dysphagia (Acute) COPD exacerbation (Acute) Pneumonia (Acute) Weight loss (Acute) COPD (chronic obstructive pulmonary disease) (Chronic) Bilateral lower extremity edema (Acute) COPD exacerbation (Acute) Dyspnea on exertion (Acute) Leg swelling (Acute) COPD with acute exacerbation (Acute) Acute bronchitis (Acute) Discharge planning issues (Acute) DVT prophylaxis (Acute) CKD (chronic kidney disease), stage III (Chronic) Pneumothorax, right (Acute) Acute respiratory failure with hypoxia and hypercapnia (Acute) Pneumothorax (Acute) Acute exacerbation of chronic obstructive pulmonary disease (Acute) Renal insufficiency (Chronic) Anemia (Acute 03/16/13) History of abscess of lung (Acute) History of laparoscopy (Acute 02/06/16) History of tobacco use (Acute) History of unilateral nephrectomy (Acute 02/06/16) Male circumcision (Acute) Status post Linda fundoplication (Acute) Status post cholecystectomy (Acute) Status post hemorrhoidectomy (Acute) Tubular adenoma (Acute) tubular adenoma (3 tubular adenoma 04/23, 4 tubular adenoma 04/24, [facility]) 06/29/17; DR. SNIDER (1) Thyroid nodule (Acute 11/17/17) [facility] Bx [facility]: nil 09/2017 Right renal mass (Acute 05/01/15) Dr Dailey [facility] for [facility] scan and further eval; s/p nephrectomy (was malignant) s/p rt nephrectomy February 06, 2016 Polyp of colon (Acute) tubular adenoma (3 tubular adenoma 04/23, 4 tubular adenoma 04/24, [place] [facility]) Knee pain (Acute) DJD Kidney stone (Acute 11/22/12) Dr Dailey ([place]) calcium oxalate Hyperlipidemia (Acute 03/16/13) Essential hypertension (Chronic 06/28/13) Esophagitis (Acute 06/29/17) Erosive gastritis (Acute 06/29/17) Depressive disorder (Acute) Chronic obstructive lung disease (Chronic 11/15/08) 2014 FEV1 0.77 (25% pred) 2013 FEV1 0.97 (31% predicted) h/o tobacco use (QUIT 2003) Basal cell carcinoma of face (Acute 02/14/13) Medical History Lesion of lung H/O renal cell carcinoma HTN (hypertension) GERD (gastroesophageal reflux disease) Tubular adenoma Surgical History History of lung biopsy H/O right nephrectomy Linda Fundoplication (03/07/12) Hemorrhoidal Banding EGD - MAC (06/29/17) EGD - MAC (04/23/14) Colonoscopy - MAC (06/29/17) 04/2014 Circumcision Cholecystectomy Family History Mother Essential hypertension Cancer of kidney Father No problems noted. Sister Lung cancer Sister Lung cancer Brother Lung cancer Brother Lung cancer Brother Lung cancer Grandfather No problems noted. Grandfather No problems noted. Grandmother No problems noted. Grandmother No problems noted. Sister No problems noted. Brother Heart disease Brother No problems noted. Son No problems noted. Daughter No problems noted. Daughter No problems noted. Social History Smoking/Tobacco Use Status: Former Tobacco Use tobacco type: cigarettes Quit Date: 12/11/03 Tobacco: How many years used: 39 Second Hand Exposure: Yes Smoking risk assessment performed?: Yes Alcohol Intake: never Drug use: Never Substance use type: does not use Caregiver/Support person: No Household members: spouse Housing: house Communication Needs: Corrective Lenses Do you need help understanding health information?: Rarely Pets and animals: Yes Pets and animals: dog(s) Sexually active: No Do you think of yourself as: straight/heterosexual Current gender identity: male What is your relationship status?: How often do you talk on the phone with friends or family?: three or more times per week How often do you attend protestant or jehovah's witness services?: decline to answer Do you belong to any clubs or organized social groups?: no Panel score (0-1 are the most socially isolated patients): 2 What type of physical activity do you participate in: none Angela/Confucianist: Islam Special angela needs: No Seatbelt use: always Drive intox or ride w/intox local driver: No Do you feel safe at home: Yes Do you feel safe in your relationship?: Yes Exam Narrative Exam Narrative: Thin elderly gentleman appearing much older than stated age. Speech is somewhat difficult to understand because of very hoarse, low pitched voice. Also very quiet. Does not appear to be in any respiratory distress. Dozes off towards the end of our visit. His speech is fluid. He answers questions appropriately. Tries to be cooperative. also present. Results Last Vital Signs Temp 36.5 C 07/22/23 09:03 Pulse 86 07/22/23 12:36 Resp 16 07/22/23 12:30 BP 109/73 07/22/23 09:03 Pulse Ox 90 L 07/22/23 12:30 Labs 07/22/23 06:16 07/22/23 06:16 Labs: Laboratory Results - last 24 hr 07/21/23 07/21/23 07/21/23 14:09 14:18 14:18 WBC 11.53 H RBC 4.33 L Hgb 12.3 L Hct 38.7 L MCV 89 MCH 28.4 MCHC 31.8 L RDW 14.2 H Plt Count 210 MPV 9.1 Immature Gran % 0.3 Neutrophils % 88.5 Lymphocytes % 3.9 Monocytes % 6.7 Eosinophils % 0.4 Basophils % 0.2 Nucleated RBC % 0.0 Absolute Neutrophils 10.20 H Absolute Lymphocytes 0.45 L Absolute Monocytes 0.77 Absolute Eosinophils 0.05 Absolute Basophils 0.02 ESR 12 PT INR APTT VBG pH VBG pCO2 VBG pO2 VBG HCO3 VBG Total CO2 VBG O2 Saturation VBG Base Excess VBG Lactate 0.9 Sodium 141 Potassium 3.4 L Chloride 101 Carbon Dioxide 38.1 H Anion Gap 1.9 L BUN 25 H Creatinine 1.0 Est GFR (CKD-EPI 2020) 78.49 Glucose 94 Calcium 9.1 Magnesium 1.7 L Iron TIBC Transferrin % Sat Ferritin Total Bilirubin 0.5 0.5 Conjugated Bilirubin 0.2 AST 38 H ALT Alkaline Phosphatase Ammonia Creatine Kinase Troponin I C-Reactive Protein NT-Pro-B Natriuret Pep Total Protein Albumin Lipase Vitamin B12 25-OH Vitamin D Total Folate Procalcitonin TSH Urine Color Yellow Urine Clarity Clear Urine pH 6.0 Ur Specific Lebeau 1.025 Urine Protein Trace H Urine Ketones 40 H Urine Blood Moderate H Urine Nitrite Negative Urine Bilirubin Small H Urine Urobilinogen 1.0 H Ur Leukocyte Esterase Negative Urine RBC 20-50 H Urine WBC 0-2 Ur Epithelial Cells Few Urine Crystals Negative Urine Bacteria Rare Urine Casts Negative Urine Mucus Trace Urine Other Few Transitional Ur Culture Indicated? No Urine Glucose Negative Stl C.difficile Tox PCR COVID-19 Source SARS-CoV-2 (PCR) Influenza Type A (PCR) Influenza Type B (PCR) RSV (PCR) Add-On Test Request 07/21/23 07/21/23 07/21/23 14:18 14:18 14:18 WBC RBC Hgb Hct MCV MCH MCHC RDW Plt Count MPV Immature Gran % Neutrophils % Lymphocytes % Monocytes % Eosinophils % Basophils % Nucleated RBC % Absolute Neutrophils Absolute Lymphocytes Absolute Monocytes Absolute Eosinophils Absolute Basophils ESR PT INR APTT VBG pH VBG pCO2 VBG pO2 VBG HCO3 VBG Total CO2 VBG O2 Saturation VBG Base Excess VBG Lactate Sodium Potassium Chloride Carbon Dioxide Anion Gap BUN Creatinine Est GFR (CKD-EPI 2020) Glucose Calcium Magnesium Iron TIBC Transferrin % Sat Ferritin Total Bilirubin Conjugated Bilirubin AST 33 ALT 33 32 Alkaline Phosphatase 98 97 Ammonia Creatine Kinase 90 Troponin I 242 H* C-Reactive Protein 8.63 H NT-Pro-B Natriuret Pep 308 H Total Protein 6.0 L Albumin Lipase Vitamin B12 25-OH Vitamin D Total Folate Procalcitonin TSH Urine Color Urine Clarity Urine pH Ur Specific Lebeau Urine Protein Urine Ketones Urine Blood Urine Nitrite Urine Bilirubin Urine Urobilinogen Ur Leukocyte Esterase Urine RBC Urine WBC Ur Epithelial Cells Urine Crystals Urine Bacteria Urine Casts Urine Mucus Urine Other Ur Culture Indicated? Urine Glucose Stl C.difficile Tox PCR COVID-19 Source SARS-CoV-2 (PCR) Influenza Type A (PCR) Influenza Type B (PCR) RSV (PCR) Add-On Test Request 07/21/23 07/21/23 07/21/23 14:18 14:18 14:40 WBC RBC Hgb Hct MCV MCH MCHC RDW Plt Count MPV Immature Gran % Neutrophils % Lymphocytes % Monocytes % Eosinophils % Basophils % Nucleated RBC % Absolute Neutrophils Absolute Lymphocytes Absolute Monocytes Absolute Eosinophils Absolute Basophils ESR PT INR APTT VBG pH VBG pCO2 VBG pO2 VBG HCO3 VBG Total CO2 VBG O2 Saturation VBG Base Excess VBG Lactate Sodium Potassium Chloride Carbon Dioxide Anion Gap BUN Creatinine Est GFR (CKD-EPI 2020) Glucose Calcium Magnesium Iron TIBC Transferrin % Sat Ferritin Total Bilirubin Conjugated Bilirubin AST ALT Alkaline Phosphatase Ammonia < 10 L Creatine Kinase Troponin I C-Reactive Protein NT-Pro-B Natriuret Pep Total Protein 6.0 L Albumin 2.5 L 2.5 L Lipase 22 Vitamin B12 25-OH Vitamin D Total Folate Procalcitonin < 0.1 TSH 2.91 Urine Color Urine Clarity Urine pH Ur Specific Lebeau Urine Protein Urine Ketones Urine Blood Urine Nitrite Urine Bilirubin Urine Urobilinogen Ur Leukocyte Esterase Urine RBC Urine WBC Ur Epithelial Cells Urine Crystals Urine Bacteria Urine Casts Urine Mucus Urine Other Ur Culture Indicated? Urine Glucose Stl C.difficile Tox PCR COVID-19 Source SARS-CoV-2 (PCR) Influenza Type A (PCR) Influenza Type B (PCR) RSV (PCR) Add-On Test Request 07/21/23 07/21/23 07/21/23 14:52 17:01 17:50 WBC RBC Hgb Hct MCV MCH MCHC RDW Plt Count MPV Immature Gran % Neutrophils % Lymphocytes % Monocytes % Eosinophils % Basophils % Nucleated RBC % Absolute Neutrophils Absolute Lymphocytes Absolute Monocytes Absolute Eosinophils Absolute Basophils ESR PT 10.4 INR 1.0 APTT 27.2 VBG pH VBG pCO2 VBG pO2 VBG HCO3 VBG Total CO2 VBG O2 Saturation VBG Base Excess VBG Lactate Sodium Potassium Chloride Carbon Dioxide Anion Gap BUN Creatinine Est GFR (CKD-EPI 2020) Glucose Calcium Magnesium Iron TIBC Transferrin % Sat Ferritin Total Bilirubin Conjugated Bilirubin AST ALT Alkaline Phosphatase Ammonia Creatine Kinase Troponin I 244 H* C-Reactive Protein NT-Pro-B Natriuret Pep Total Protein Albumin Lipase Vitamin B12 25-OH Vitamin D Total Folate Procalcitonin TSH Urine Color Urine Clarity Urine pH Ur Specific Lebeau Urine Protein Urine Ketones Urine Blood Urine Nitrite Urine Bilirubin Urine Urobilinogen Ur Leukocyte Esterase Urine RBC Urine WBC Ur Epithelial Cells Urine Crystals Urine Bacteria Urine Casts Urine Mucus Urine Other Ur Culture Indicated? Urine Glucose Stl C.difficile Tox PCR COVID-19 Source Nasopharynx SARS-CoV-2 (PCR) Negative Influenza Type A (PCR) Negative Influenza Type B (PCR) Negative RSV (PCR) Negative Add-On Test Request 07/21/23 07/22/23 07/22/23 20:39 04:36 06:16 WBC 10.86 H RBC 3.91 L Hgb 11.2 L Hct 35.3 L MCV 90 MCH 28.6 MCHC 31.7 L RDW 14.4 H Plt Count 238 MPV 9.8 Immature Gran % 0.4 Neutrophils % 86.4 Lymphocytes % 4.9 Monocytes % 7.1 Eosinophils % 0.8 Basophils % 0.4 Nucleated RBC % 0.0 Absolute Neutrophils 9.39 H Absolute Lymphocytes 0.53 L Absolute Monocytes 0.77 Absolute Eosinophils 0.09 Absolute Basophils 0.04 ESR PT INR APTT VBG pH 7.37 VBG pCO2 68 H* VBG pO2 25 VBG HCO3 40 H VBG Total CO2 37 H VBG O2 Saturation 47 VBG Base Excess 14 H VBG Lactate Sodium 141 Potassium 3.9 Chloride 102 Carbon Dioxide 37.5 H Anion Gap 1.5 L BUN 23 H Creatinine 1.1 Est GFR (CKD-EPI 2020) 70.01 Glucose 89 Calcium 8.6 Magnesium 2.1 Iron 21 L TIBC 130 L Transferrin % Sat 16 L Ferritin 450 H Total Bilirubin Conjugated Bilirubin AST ALT Alkaline Phosphatase Ammonia Creatine Kinase Troponin I 246 H* C-Reactive Protein NT-Pro-B Natriuret Pep Total Protein Albumin Lipase Vitamin B12 896 25-OH Vitamin D Total 39.1 Folate > 20.0 H Procalcitonin TSH Urine Color Urine Clarity Urine pH Ur Specific Lebeau Urine Protein Urine Ketones Urine Blood Urine Nitrite Urine Bilirubin Urine Urobilinogen Ur Leukocyte Esterase Urine RBC Urine WBC Ur Epithelial Cells Urine Crystals Urine Bacteria Urine Casts Urine Mucus Urine Other Ur Culture Indicated? Urine Glucose Stl C.difficile Tox PCR Positive A COVID-19 Source SARS-CoV-2 (PCR) Influenza Type A (PCR) Influenza Type B (PCR) RSV (PCR) Add-On Test Request DONE
--- NOTE | 2023-07-22 13:44 | PDOC.CMIN ---
Date of service: 07/22/23 Time of Service: 13:56 Care Management Initial Assmt Initial Assessment REASON FOR HOSPITALIZATION:: CHF, encephalopathy, dysphagia, weakness PREVIOUS FUNCTIONAL STATUS/SOCIAL/FAMILY SUPPORTS:: Jasen lives in [place] with his , Ana and their yahaira tzu puppy, Claudia. They have a son, , who is living with them currently. Jasen retired from [employer], and is independent at baseline. He is a ; his [facility] home health care case manager is Hemalatha Halley ([phone]). CURRENT FUNCTIONAL STATUS:: Yousif was meeting with palliative care when CM attempted to visit with him. He is being treated for a CHF exacerbation. He had an echo and ultrasound of lower extremities today. He has nutrition, speech and PT consults pending as well. CM will continue to follow. ADVANCE DIRECTIVES:: AD on file; Ana listed as HCA; listed as alternate HCA. Has patient been provided with info about the portal/API?: Yes Did the patient sign up for the portal?: Yes CODE STATUS:: Full Code INSURANCE COVERAGE / FINANCIAL ISSUES:: [facility] CURRENT HOME/COMMUNITY SERVICES/EQUIPMENT:: [facility] supports including VNA RN, PT, nutrition, and VICE PRESIDENT OF INSTRUCTION. PRIMARY CARE PHYSICIAN:: Valerie Payne POTENTIAL DISCHARGE NEEDS:: Evaluations for further needs, follow up appointments. PATIENT/FAMILY EDUCATION NEEDS:: Review discharge instructions and limitations, discussion of self care needs including ask me three. ANTICIPATED BARRIERS TO DISCHARGE:: None identified. TRANSPORTATION:: Via private vehicle by his . PLAN:: Anticipate Jasen will return home once medically cleared. His will drive him home via private vehicle when ready. He will follow up with his PCP and discharge plan of care. CM will continue to follow. [facility] All Active Problems (Updated 07/22/23 @ 14:51 by Millicent Aragon MD) C. difficile diarrhea (Acute) Advanced care planning/counseling discussion (Acute) Palliative care encounter (Acute) Diarrhea (Acute) Weakness (Acute) Left nephrolithiasis (Acute) Hematuria (Acute) Hypomagnesemia (Acute) Hypokalemia (Acute) Encephalopathy acute (Acute) Malnutrition (Acute) Elevated troponin (Acute) Failure to thrive in adult (Acute) CHF exacerbation (Acute) Aspiration of liquid (Acute) Benign hypertension (Acute) Edema (Acute) Mixed anxiety and depressive disorder (Acute) Early satiety (Acute) Dysphagia (Acute) COPD exacerbation (Acute) Pneumonia (Acute) Weight loss (Acute) COPD (chronic obstructive pulmonary disease) (Chronic) Bilateral lower extremity edema (Acute) COPD exacerbation (Acute) Dyspnea on exertion (Acute) Leg swelling (Acute) COPD with acute exacerbation (Acute) Acute bronchitis (Acute) Discharge planning issues (Acute) DVT prophylaxis (Acute) CKD (chronic kidney disease), stage III (Chronic) Pneumothorax, right (Acute) Acute respiratory failure with hypoxia and hypercapnia (Acute) Pneumothorax (Acute) Acute exacerbation of chronic obstructive pulmonary disease (Acute) Renal insufficiency (Chronic) Anemia (Acute 03/16/13) History of abscess of lung (Acute) History of laparoscopy (Acute 02/06/16) History of tobacco use (Acute) History of unilateral nephrectomy (Acute 02/06/16) Male circumcision (Acute) Status post Linda fundoplication (Acute) Status post cholecystectomy (Acute) Status post hemorrhoidectomy (Acute) Tubular adenoma (Acute) tubular adenoma (3 tubular adenoma 04/23, 4 tubular adenoma 04/24, [place] [facility]) 06/29/17; DR. SNIDER (1) Thyroid nodule (Acute 11/17/17) followed by [facility] Bx attempt: nil 09/2017 Right renal mass (Acute 05/01/15) Dr Dailey then [facility] hosp for CT scan and further eval; s/p nephrectomy (was malignant) s/p rt nephrectomy February 06, 2016 Polyp of colon (Acute) tubular adenoma (3 tubular adenoma 04/23, 4 tubular adenoma 04/24, [place] [facility]) Knee pain (Acute) DJD Kidney stone (Acute 11/22/12) Dr Dailey ([place]) calcium oxalate Hyperlipidemia (Acute 03/16/13) Essential hypertension (Chronic 06/28/13) Esophagitis (Acute 06/29/17) Erosive gastritis (Acute 06/29/17) Depressive disorder (Acute) Chronic obstructive lung disease (Chronic 11/15/08) 2014 FEV1 0.77 (25% pred) 2013 FEV1 0.97 (31% predicted) h/o tobacco use (QUIT 2003) Basal cell carcinoma of face (Acute 02/14/13) Medical History Lesion of lung H/O renal cell carcinoma HTN (hypertension) GERD (gastroesophageal reflux disease) Tubular adenoma Surgical History History of lung biopsy H/O right nephrectomy Linda Fundoplication (03/07/12) Hemorrhoidal Banding EGD - MAC (06/29/17) EGD - MAC (04/23/14) Colonoscopy - MAC (06/29/17) 04/2014 Circumcision Cholecystectomy Family History Mother Essential hypertension Cancer of kidney Father No problems noted. Sister Lung cancer Sister Lung cancer Brother Lung cancer Brother Lung cancer Brother Lung cancer Grandfather No problems noted. Grandfather No problems noted. Grandmother No problems noted. Grandmother No problems noted. Sister No problems noted. Brother Heart disease Brother No problems noted. Son No problems noted. Daughter No problems noted. Daughter No problems noted. Social History Smoking/Tobacco Use Status: Former Tobacco Use tobacco type: cigarettes Quit Date: 12/11/03 Tobacco: How many years used: 39 Second Hand Exposure: Yes Smoking risk assessment performed?: Yes Alcohol Intake: never Drug use: Never Substance use type: does not use Caregiver/Support person: No Household members: spouse Housing: house Communication Needs: Corrective Lenses Do you need help understanding health information?: Rarely Pets and animals: Yes Pets and animals: dog(s) Sexually active: No Do you think of yourself as: straight/heterosexual Current gender identity: male What is your relationship status?: How often do you talk on the phone with friends or family?: three or more times per week How often do you attend moravian or episcopalian services?: decline to answer Do you belong to any clubs or organized social groups?: no Panel score (0-1 are the most socially isolated patients): 2 What type of physical activity do you participate in: none Angeal/Alevism: Restorationist Special angela needs: No Seatbelt use: always Drive intox or ride w/intox belly dump driver: No Do you feel safe at home: Yes Do you feel safe in your relationship?: Yes SDOH(Care Management) Screening Will the Patient Participate in the Screening?: Yes Do you worry about having a steady place to live?: no Problems where you live: no known problems In the past 12 months, have you had to go without electric, gas, oil or water in your home?: no Have you or anyone in your house had to go without enough food to eat?: no Has lack of transportation kept you from medical appointments or from doing things needed for daily living?: no Has anyone in your support network made you feel unsafe for any reason?: no
--- NOTE | 2023-07-22 15:08 | TELEFU_ITS ---
Date of service: 07/22/23 Time of Service: 15:08 Nutrition Note NOTE: received consult regarding Pt's malnourished state Pt is 73to male with multiple health issues, including recent positive test for c. diff, CHF excacerbations, dysphagia, elevaated troponin, encephalopathy, COPD, significant wt loss/weakness, decrease in ADL's, CKD, hx of Linda fundoplication and cholecystectomy. Wt history shows wt loss of 19.7kg x 22 months (27.4% of his body weight at that time), as well as an 8.3kg wt loss over the last 3 months (13.8%of body weight). Albumin remains low, total protein low. Pt currently ordered for heart healthy diet with soft & bite size consistency with thin liquids - awaiting FIELD CROP FARM WORKER consult for swallow eval as dysphagia issues appears to be a barrier to adequate intake. Tube feeding being considered per palliative medicine note and will be considered. [place] body weight: 70kg Estimated energy needs for wt gain: 1750kcals (23kcal/kg IBW), 62-78g protein (1.2-1.5g/kg IBW) and 1750mL fluid (1mL per required kcal). Nutrition diagnosis: Moderate malnutrition based on >7.5% loss of body weight x3 months with meeting <75% of energy needs krunal the last week due to dysphagia. Nutrition interventions: -Will add boost breeze clear liquid ONS TID to trays for additional 27g protein and 750kcals per day if consumed (will check acceptance/toleration tomorrow) - with latest development of +c. diff infection, will add Banatrol prebiotic supplement to trays BID Recommendations: - suggest liquid protein concentrate TID available through pharmacy with provider order With his significant wt loss and malnourished state, initiating enteral feedings would be highly appropriate. Per palliative medicine note, appears this is in discussion and Yousif and to talk more about this after the weekend. Tube feed recommendation: Nutren 2.0 formula at 62.5mL/hour for 12 hours as goal rate for first 3-5 days of enteral feeding: start at 30mL/hour and increase 10mL [id number] until goal rate is met. Flush q 4 hours with 60mL water. This volume over 12 hours results in 1,500kcals (86% of needs), 63g protein (80- 101%o of protein needs), and 699mL of fluid (40% of needs) - encouraging PO fluid intake to meet the rest of fluid needs. If pt is tolerating well can increase to goal rate of 73mL/hour over 12 hours on day 3-5. Will monitor to see if this is needed, depending on the length of admission and his toleration if enteral feedings are intitiated. Time Spent in Nutritional Counseling and Treatment: 30 minutes
--- NOTE | 2023-07-22 17:05 | PHA.REVIEW2 ---
Pharmacy Admission Review Admission Clinical Review Admission Pharmacy Review: (Updated 07/22/23 @ 14:51 by Millicent Aragon MD) C. difficile diarrhea (Acute) Advanced care planning/counseling discussion (Acute) Palliative care encounter (Acute) Diarrhea (Acute) Weakness (Acute) Left nephrolithiasis (Acute) Hematuria (Acute) Hypomagnesemia (Acute) Hypokalemia (Acute) Encephalopathy acute (Acute) Malnutrition (Acute) Elevated troponin (Acute) Failure to thrive in adult (Acute) CHF exacerbation (Acute) Aspiration of liquid (Acute) Dysphagia (Acute) Weight loss (Acute) Discharge planning issues (Acute) DVT prophylaxis (Acute) Depressive disorder (Acute) lisinopril Adverse Reaction (Intermediate, Verified 07/21/23 14:33) COUGH Resuscitation Status Full Code Height 5 ft 8 in Weight 52 kg Pharmacy Admission Review Renal Dosing Renal Dosing: BUN 23 mg/dL (7-18) H 07/22/23 06:16 Creatinine 1.1 mg/dL (0.70-1.30) 07/22/23 06:16 Medications needing adjustments: Reviewed (CrCl 42 mL/min) Anticoagulation Anticoagulation: Hgb 11.2 g/dL (13.5-17.5) L 07/22/23 06:16 Hct 35.3 % (40.0-50.0) L 07/22/23 06:16 Plt Count 238 10^3/uL (130-400) 07/22/23 06:16 INR 1.0 (0.9-1.1) 07/21/23 17:50 Creatinine 1.1 mg/dL (0.70-1.30) 07/22/23 06:16 DVT Prophylaxis: Reviewed Medications: Heparin (5000 units q8h) Relevant Labs Relevant Labs: ESR 12 mm/hr (0-20) 07/21/23 14:18 Sodium 141 mmol/L (136-145) 07/22/23 06:16 Potassium 3.9 mmol/L (3.5-5.1) 07/22/23 06:16 Chloride 102 mmol/L (98-107) 07/22/23 06:16 Magnesium 2.1 mg/dL (1.8-2.4) 07/22/23 06:16 C-Reactive Protein 8.63 mg/dL (0.0-0.3) H 07/21/23 14:18 Electrolytes, C-Reactive P, ESR: Reviewed Cardiac Review Cardiac Review: Troponin I 246 ng/L (< or =60) H* 07/22/23 06:16 NT-Pro-B Natriuret Pep 308 pg/mL (<300) H 07/21/23 14:18 BP, HR, EF%: Reviewed (BP/HR WNL) QTc Review QTc: Reviewed (276 07/21/23) IV to PO Switch IV Medications: Reviewed Home Meds Home Med List reviewed: Reviewed Relevent Home Meds Not ordered & why?: Telepharmacy med rec completed Current Meds Current Medication Order Review: Reviewed Pharmacy Antibiotic Review Pharmacy Antibiotic Activity: Reviewed, no change Comments: Stool sample was C. diff positive, patient put on Vancomycin 125mg QID
--- NOTE | 2023-07-22 17:22 | CHAPLAIN ---
I had a brief visit with Jasen this evening. His was with him. I introduced myself, explained my role and offered support. I will visit again.
--- NOTE | 2023-07-22 17:39 | PGE_ITS ---
Date of Service Date of service: 07/22/23 Time of Service: 17:39 Assessment and Plan Assessment and plan (1) Dysphagia: Status: Acute Assessment and plan: likely related to the aryepiglottic folds; will have him follow w/ E[facility] upon [facility]. SHELL REPRINT OPERATOR consulted. See her note from today regarding details: Summary of her dietary recommendations as below: Diet Recommendations: SOLIDS: L6 Soft & Bite Size. For endurance purposes, please order 1-2 puree sides for energy conservation LIQUIDS: Thin Liquids MEDICATIONS: Pills whole if small or crushed if large, in applesauce RISK MANAGEMENT: HOB bolt upright: 90 degrees or up in chair for meals. Maintain upright position at least 30 minutes after meals, Avoid meals/snacks 2-3 hours prior to reclining/sleeping, Sleep with head of bed elevated to reduce likelihood of nocturnal reflux Encourage physical mobility as tolerated. Oral hygiene before/after PO intake using friction with toothbrush on all oral structures as tolerated, suction PRN Level of Assistance/Supervision: Distant Supervision following assistance with positioning and tray set up Maintain upright position at least 30 minutes after meals, Avoid meals/snacks 2- 3 hours prior to reclining/sleeping, Sleep with head of bed elevated to reduce likelihood of nocturnal reflux Qualifiers: Dysphagia type: pharyngeal phase Qualified Code(s): R13.13 - Dysphagia, pharyngeal phase (2) Chest discomfort: Status: Resolved Assessment and plan: He denies any CP today. Troponin I have plateaued at 242, 244, 246. no ischemic changes on EKG. Echocardiogram w/ normal LV and RV systolic function. Troponin may reflect GABRIELA. Will defer ischemic workup as outpatient. (3) Elevated troponin: Status: Acute Assessment and plan: as above (4) COPD (chronic obstructive pulmonary disease): Status: Chronic Assessment and plan: not in acute exacerbation. continue DuoNeb but change from scheduled to prn, continue Spiriva and per RT he no longer uses fluticasone/salmeterol inhalber so we are stopping this. Qualifiers: COPD type: chronic bronchitis Chronic bronchitis type: simple Qualified Code(s): J41.0 - Simple chronic bronchitis (5) Malnutrition: Status: Acute Assessment and plan: BMI of 17.4 C/s nutrition Qualifiers: Malnutrition type: protein-calorie malnutrition Protein-calorie malnutrition severity: moderate Qualified Code(s): E44.0 - Moderate protein- calorie malnutrition (6) Diarrhea: Status: Acute Assessment and plan: stool + for C difficile, I have begun him on oral vancomycin, and probiotics and metamucil Qualifiers: Diarrhea type: infectious Qualified Code(s): A09 - Infectious gastroenteritis and colitis, unspecified (7) Hematuria: Status: Acute Assessment and plan: This is microscopic and should be followed up as outpatient but likely d/t renal stone Qualifiers: Hematuria type: asymptomatic microscopic Qualified Code(s): R31.21 - Asymptomatic microscopic hematuria (8) Left nephrolithiasis: Status: Acute Assessment and plan: F/u as outpatient (9) Weakness: Status: Acute Assessment and plan: C/s PT (10) Failure to thrive in adult: Status: Acute Assessment and plan: BMI 17.4. C/s nutrition and palliative care (11) Weight loss: Status: Acute Assessment and plan: As above Malignancy is on the differential. Ultimately, though, it appears it has to do with dysphagia. Speech therapy is also consulted. (12) DVT prophylaxis: Status: Acute Assessment and plan: SC heparin (13) Discharge planning issues: Status: Acute Assessment and plan: Full code C/s speech therapy, nutrition, PT, palliative care [facility] [place], although it sounds like he gets his primary care services at home w/ visits from the [facility]. Subjective Subjective Interval history since last seen: Patient presented to the ED last night w/ symptoms of increased confusion, difficulty swallowing, hoarseness, decreased oral intake and darkened urine however the E.D. reported he had CP and dyspnea. He was evaluated w/ labs and CT of the neck, chest, abdomen and pelvis. he was found to have mildly elevated troponins in the mid 200's w/out ischemic EKG changes. CT scans were remarkable for asymmetry of the soft tissues of the right aryepiglottic fold, chest w/ COPD changes but no masses, infiltrates or CHF. Right kidney was absent (consistent w/ his hx of nephrectomy). Left kidney w/ non obstruction stone in the pelvis. No hydronephrosis. Labs were remarkable for WBC 11,500 mild anemia Hb 12 GM, elevated CO2 38 (his baseline), and azotemia BUN 38 and creatinine 1.9 which has come down to 37 and 1.5 after hydration overnight. Interestingly he was signed out to me as an exacerbation of CHF although his CT did not show this. His BNP was mildly elevated at 308. He is now having diarrhea and his stool was checked for C difficile which came back positive. When I asked him and his about recent antibiotic use, he indicated that his safety equipment testing specialist at the [facility] has given him an Rx to begin prednisone and antibiotics whenever he feels he has a COPD exacerbation coming on. He has used antibiotics in the past month. I explained to them that frequent and repeated use of antibiotics leads to suprainfections w/ resistant bacteria such as C difficile. Exam Narrative Exam Narrative: Elderly cachectic appearing male w/ barrle chest but w/ muscle wasting about the chest wall and neck and arms Lungs: prolonged expiratory phase w/ end expiratory wheezes; no rhonchi or rales Heart: RRR, no appreciable murmur or rub or gallop Abdomen: scaphoind, soft, nontender Extremities: 1+ pitting ankle edema w/ R >L Objective Last Vital Signs Temp 36.4 C L 07/22/23 15:53 Pulse 81 07/22/23 15:53 Resp 18 07/22/23 15:53 BP 112/72 07/22/23 15:53 Pulse Ox 96 07/22/23 15:53 Laboratory Results - last 24 hr 07/21/23 07/21/23 07/22/23 17:50 20:39 04:36 WBC RBC Hgb Hct MCV MCH MCHC RDW Plt Count MPV Immature Gran % Neutrophils % Lymphocytes % Monocytes % Eosinophils % Basophils % Nucleated RBC % Absolute Neutrophils Absolute Lymphocytes Absolute Monocytes Absolute Eosinophils Absolute Basophils PT 10.4 INR 1.0 APTT 27.2 VBG pH 7.37 VBG pCO2 68 H* VBG pO2 25 VBG HCO3 40 H VBG Total CO2 37 H VBG O2 Saturation 47 VBG Base Excess 14 H Sodium Potassium Chloride Carbon Dioxide Anion Gap BUN Creatinine Est GFR (CKD-EPI 2020) Glucose Calcium Magnesium Iron TIBC Transferrin % Sat Ferritin Troponin I Vitamin B12 25-OH Vitamin D Total Folate Stl C.difficile Tox PCR Positive A Add-On Test Request 07/22/23 06:16 WBC 10.86 H RBC 3.91 L Hgb 11.2 L Hct 35.3 L MCV 90 MCH 28.6 MCHC 31.7 L RDW 14.4 H Plt Count 238 MPV 9.8 Immature Gran % 0.4 Neutrophils % 86.4 Lymphocytes % 4.9 Monocytes % 7.1 Eosinophils % 0.8 Basophils % 0.4 Nucleated RBC % 0.0 Absolute Neutrophils 9.39 H Absolute Lymphocytes 0.53 L Absolute Monocytes 0.77 Absolute Eosinophils 0.09 Absolute Basophils 0.04 PT INR APTT VBG pH VBG pCO2 VBG pO2 VBG HCO3 VBG Total CO2 VBG O2 Saturation VBG Base Excess Sodium 141 Potassium 3.9 Chloride 102 Carbon Dioxide 37.5 H Anion Gap 1.5 L BUN 23 H Creatinine 1.1 Est GFR (CKD-EPI 2020) 70.01 Glucose 89 Calcium 8.6 Magnesium 2.1 Iron 21 L TIBC 130 L Transferrin % Sat 16 L Ferritin 450 H Troponin I 246 H* Vitamin B12 896 25-OH Vitamin D Total 39.1 Folate > 20.0 H Stl C.difficile Tox PCR Add-On Test Request DONE Reviewed Pertinent PMH: Yes Objective Narrative Objective Narrative: Echocardiogram: Conclusion A technically difficult study. 1. Chamber sizes appear normal. The verticle heart suggests underlying emphesem a. 2. LV systolic function is normal without wall motion abnormality, EF estimated at 55-60%. Normal RV systolic function. 3. Anatomnically normal valves with mild aortic sclerosis without stenosis. P ossibly mild TR, but inadequate to estimate right heart pressures. 4. No pericardial effusion. Venous duplex of legs: IMPRESSION: 1. No ultrasound evidence of DVT in either lower extremity. Time Spent with Patient Time Spent with Patient: 35-49 minutes Time was spent: preparing to see the patient(eg.review tests), ordering medications,tests, procedures, referring, communicating with other health aged or disabled care worker, indepentently interpreting results and counseling the patient
[2023-07-22] MEDS: Albuterol 2.5 MG/3 ML INH SOLN VIAL UPD ×2 (17:44→22:06)
--- NOTE | 2023-07-22 17:45 | RT.EKG_ITS ---
APPROVED REPORT Exam: Resting ECG Reason for Exam: elevated troponin Patient Location: I HR:79 bpm ECG Measurements Heart Rate 79 AXIS MT [id number] P [id number] QRSd 84 QRS 41 QT 408 T 2 QTc 468 Conclusion Atrial flutter with predominant 4:1 AV block...A-rate 313, multiple Ps Abnormal R-wave progression, early transition...QRS area>0 in V2 Probable inferior infarct, old...Q>35mS, II III aVF Artifact in lead(s) II,III,aVR,aVL,aVF,V1,V2,V3,V4,V5,V6 ARTIFACT Sinus Rhythm No inferior infarct I have reviewed and interpreted ECG and agree with software generated interpretation.
[2023-07-22] MEDS: Atorvastatin 40 MG TAB PO (21:46)
[2023-07-22] MEDS: Mirtazapine 15 MG TAB PO (21:49)
[2023-07-22] MEDS: Latanoprost 0.005% 2.5 ML BTL OP (21:53)
--- NOTE | 2023-07-22 23:01 | DI.US_ITS ---
APPROVED REPORT EXAM: Comprehensive 2D, Doppler, and color-flow Echocardiogram Patient Location: In-Patient Room/Bed: 227 Community Product Specialist: Bonilla Hammond RDCS (AE) Indications: NSTEMI Other Information Study Quality: Technically Limited. Technically limited study due to body habitus. Conclusion A technically difficult study. 1. Chamber sizes appear normal. The verticle heart suggests underlying emphesema. 2. LV systolic function is normal without wall motion abnormality, EF estimated at 55-60%. Normal RV systolic function. 3. Anatomnically normal valves with mild aortic sclerosis without stenosis. Possibly mild TR, but milton dequate to estimate right heart pressures. 4. No pericardial effusion. Wall motion Left Ventricle Very technically limited study due to body habitus. The left ventricle is grossly normal size. Unable to measure due to vertical orientation of left ventricle. Right Ventricle Right ventricle is not well visualized. Right ventricular systolic function could not be assessed. Atria Left atrium is not well visualized. Right atrium is not well visualized. Aortic Valve Aortic valve is calcified. Number of aortic valve leaflets could not be assessed. No aortic regurgita tion is present. Mitral Valve Mild mitral annular calcification. There is no mitral valve regurgitation noted. Tricuspid Valve The tricuspid valve is normal in structure. There is no tricuspid valve stenosis. Moderate tricuspid regurgitation. Pulmonic Valve The pulmonary valve is normal in structure. There is no pulmonic valvular stenosis. There is no pulmo estefanía valvular regurgitation. Great Vessels The aortic root is not well visualized but is probably normal size. Ascending aorta is not well visua lized. Aortic arch is not well visualized. Due to poor image quality, the IVC could not be assessed. 2D Dimensions Ao Root d 2.15 cm M: 3.1 - 3.7 Pulmonary Valve PV Vmax 1.25 (0.5-1.5 m/s) RVOT Vmax 0.95 m/s PV Peak Grad 6.3 mmHg RVOT Peak Gr. 3.6 mmHg PV Mean Lopez 0.75 m/s RVOT VTI 0.160 m PV Mean Grad 2.7 mmHg RVOT Mean Gr. 1.5 mmHg Tricuspid Valve TR Vmax 2.57 m/s TR Peak Grad 26.4 mmHg
[2023-07-22 23:34] LABS: Campylobacter PCR Negative (Negative); Salmonella PCR Negative (Negative); Shiga Toxin PCR Negative (Negative); Shigella/Enteroinvasive Ecoli Negative (Negative)
[2023-07-23] VITALS (10 sets, daily range): BP systolic 103–133; BP diastolic 60–87; PULSE 61–92; RESP 6–20; TEMP 36.1–36.7; O2SAT 91–98
[2023-07-23] MEDS: Albuterol/Ipratropium 3 ML UPD VIAL UPD ×3 (00:01→16:14)
[2023-07-23] MEDS: Lactated Ringers 1,000 ML 85 ML IV (00:01)
[2023-07-23] MEDS: Heparin 5,000 UNITS/ML VIAL 5000 UNITS SC ×4 (01:27→23:34)
[2023-07-23] MEDS: THIAMINE 500 MG in Normal Saline 100 ML 200 MG IVPB ×3 (01:28→17:56)
[2023-07-23] MEDS: Albuterol 2.5 MG/3 ML INH SOLN VIAL UPD ×3 (06:34→21:14)
[2023-07-23 07:25] LABS: Abs Immature Grans 0.04 10^3/uL (0.0-0.06); Absolute Basophil Count 0.03 10^3/uL (0.0-0.2); Absolute Eosinophil Count 0.09 10^3/uL (0.0-0.7); Absolute Lymphocyte Count 0.53 10^3/uL (1.2-3.4); Absolute Monocyte Count 0.45 10^3/uL (0.1-0.8); Absolute Neutrophil Count 7.35 10^3/uL (1.2-6.7); Basophils % 0.4; Eosinophils % 1.1; HCT 35.2 % (40.0-50.0); HGB 10.8 g/dL (13.5-17.5); Immature Grans % 0.5; Lymphocytes % 6.2; MCH 27.7 pg (27.0-33.0); MCHC 30.7 % (32.0-36.0); MCV 90 fL (80-95); MPV 9.9 fL (8.0-11.0); Monocytes % 5.3; Neutrophils % 86.5; Platelet Count 215 10^3/uL (130-400); RDW 14.3 % (11.8-14.1); RDW-SD 47.3 fL; WBC 8.49 10^3/uL (4.4-10.8)
[2023-07-23 07:46] LABS: BUN 22 mg/dL (7-18); Calcium 8.7 mg/dL (8.5-10.1); Chloride 104 mmol/L (98-107); Estimated GFR 78.49 (mL/min/1.73m2); Glucose 79 mg/dL (74-106); Magnesium 1.9 mg/dL (1.8-2.4); Potassium 3.4 mmol/L (3.5-5.1); Sodium 142 mmol/L (136-145)
[2023-07-23 07:48] LABS: Troponin I 170 ng/L (< or =60)
[2023-07-23] MEDS: Tiotropium Bromide-Respimat 10 PUFF INH 2 PUFF IH (08:41)
[2023-07-23] MEDS: Psyllium PKT 1 EACH PO (08:45)
[2023-07-23] MEDS: Normal Saline Flush 10 ML SYR IVP ×2 (08:45→21:06)
[2023-07-23] MEDS: Multivitamin w/Minerals TAB 1 TAB PO (08:46)
[2023-07-23] MEDS: Refresh PLUS Eye Drops 0.4ml OP ×4 (08:46→21:04)
[2023-07-23] MEDS: Ascorbic Acid 500 MG TAB PO (08:47)
[2023-07-23] MEDS: Vancomycin 125 MG CAP PO ×4 (08:47→21:04)
[2023-07-23] MEDS: Omega-3 Fatty Acids 1000 MG CAP PO ×2 (08:47→21:04)
[2023-07-23] MEDS: ARIPiprazole 5 MG TAB PO (08:47)
[2023-07-23] MEDS: Acetylcysteine 600 MG CAP PO ×2 (08:47→21:04)
[2023-07-23] MEDS: Aspirin E.C. 81 MG TABEC PO (08:47)
[2023-07-23] MEDS: Omeprazole 20 MG CAPCR 40 MG PO (08:47)
[2023-07-23] MEDS: buPROPion-XL 150 MG TABCR 300 MG PO (08:47)
[2023-07-23] MEDS: Isosorbide Mononitrate 30 MG TABCR PO (08:47)
[2023-07-23] MEDS: Cholecalciferol (Vitamin D3) 1,000 UNIT TAB 1000 UNITS PO (08:48)
[2023-07-23] MEDS: Docusate Sodium 100 MG CAP PO (08:48)
[2023-07-23] MEDS: Metoprolol CR 25 MG TABCR PO (08:48)
--- NOTE | 2023-07-23 09:10 | PDOC.CMPRO ---
Date of service: 07/23/23 Time of Service: 09:10 Care Management Progress Note Progress Note Text Progress Note Text: S/O: Yousif was sitting up in his chair when CM met with him. He stated that he feels much better today, but he continues to have pain with swallowing and in his mouth, which makes it hard for him to eat. He stated that he has had less diarrhea today. MD was present in the room during the visit, and requested that ENT consult to evaluate the sores in his mouth; ENT is not available for consult until Wednesday. stated that once his stools are better controlled he may be ready for discharge. CM discussed discharge with Yousif, who stated that he wants to return home, and does not want to go to a nursing facility. He expressed understanding that he has been declining at home, and that it has been harder to manage, but he feels that he and his , with help from their son, who has been living with them, can manage ok. ÁNGEL talked to Kb on the phone, who expressed concern about his confusion, but agreed that the plan will be for him to return home. [facility]; [facility], and ÁNGEL explained that he will likely continue to be managed at [facility] until he is ready for discharge, as he is close to discharge readiness. CM will continue to follow. A: Jasen is a 73 year old male admitted to [facility] on 07/21/23 with CHF, encephalopathy, dysphagia, weakness. P: Anticipate Jasen will return home once medically cleared with a resumption of HH RN, add PT, OT, Speech. His son will drive him home via private vehicle when ready. He will follow up with his PCP and discharge plan of care. CM will continue to follow.
[2023-07-23] MEDS: Potassium Chloride 10 MEQ CAPCR 40 MEQ PO (09:15)
[2023-07-23] MEDS: Torsemide 20 MG TAB PO (09:16)
[2023-07-23] MEDS: Spironolactone 25 MG TAB PO (09:16)
--- NOTE | 2023-07-23 11:27 | PT.INIE ---
PT Notes Visit Reasons: CHF, encephalopathy,dysphagia,weakness,malnutritio Date: 07/23/23 Referring Doctor: Winter Frias MD PT Orders: PT CONSULT: Limited ability Precautions: Contact, standard Patient Profile/Admitting Diagnosis: Patient presented to the ED 07/21 w/symptoms of increased confusion, difficulty swallowing, hoarseness, decreased oral intake evaluated, found to have mildly elevated troponins in the mid 200's w/out ischemic EKG changes. Hisotry of COPD on Chronic O2 use of 2L and progressive weightloss and weakness. Discovered c.dif diagnosis upon admission, and being treated for malnutrition due to failure to thrive and dysphagia with asymmetry of the soft tissues of the right aryepiglottic fold, speech consulted. Social History/Home Situation: Lives in a private home w his in [place], [place]. Resides on one level with a ramp with rail to enter. Uses rollator at baseline, and chronic O2 use. Uses rollate to carry oxygen tank Equipment Owned/DME: Rollator, O2 tank, ramp Subjective: Feeling very tired and winded, but not much from his baseline. Generally is not able to tolerate more then 5 min or standing at a time. Admitting to depression, contributing to lack of activity and appetite. Objective: General Observation: Sitting EOB, admits to have just stood alone to urinate in commode. IV, telemetry. Dressing in normal clothing. Bed alarm not on. He is left sitting in chair with bed alarm on. Mental Status: A & O x 3 Vitals: On 2L 02 nasal [place], maintain O2 in mid 90's throughout activity. ROM: Right Upper Extremity: Shoulder scapular elevation to 100 deg, abd 80, elbow, wrist and digits grossly WNL Left Upper Extremity: Shoulder scapular elevation to 100 deg, abd 80, elbow, wrist and digits grossly WNL Right Lower Extremity: Grossly WFL Left Lower Extremity:Grossly WFL Strength: Right Upper Extremity: Grossly 4/5 throughout, with shoulder hiking compensations Left Upper Extremity: Grossly 4/5 throughout, with shoulder hiking compensations Right Lower Extremity: Grossly 4+/5 throughout Left Lower Extremity: Grossly 4+/5 throughout Bed Mobility/Transfers: SBA EOB to chair, sit to stand and stand to sit, Independent with bed mobility and supine <> EOB. SOB and fatigued throughout. Gait: RW, forward bent posturing, short stride length Balance: Static Sitting: Good Dynamic Sitting: Good Static Standing: Fair with RW Dynamic Standing: Fair with RW Special Tests: Mobility Limitations Standardized Measure [facility] AM-PAC 6 clicks Basic Mobility Inpatient Short Form: 35 % disability Informed Consent/Education: Patient instructed in purpose of PT consult and plan of care. Treatment: Initial evaluation 15639 Therapeutic Procedures: Skilled exercise prescription for ROM, strengthening, and flexibility specific to patients problem Sitting september, sitting HR, sitting knee ext and seated arm flex x 5 each. Instruction for Independent performance, written on board Standing at RW x 20 sec Standing september x 10 Assessment: Patient is a 73 year old referred to physical therapy services with reason for PT evaluation of physical ability given admitted diagnosis of COPD, progressive weakness, failure to thrive and COPD exacerbation in setting of C-Diff and elevated troponin, dysphagia. SLT consulted. Patient presents with with strength, balance, and gait impairments related to acute medical issues. He requires skilled PT intervention to maximize safety mobility to allow for safe transition home once medically stable, and attend to below deficits. Impairment level findings: Global weakness Poor standing and basic transfer endurance limiting safety and functional productivity O2 dependence Global atrophy Impairments are contributing to the following functional limitations: Dependence of RW for stability with dynamic tasks Unsafe functional ambulation and standing tolerance due to weakness Patient is assessed as moderate complexity based on the following: History: Per above profile and PMH in medical record Examination: impairment and functional limitations as noted above Presentation: Evolving Decision Making: Easy Goals: Goals X1 week 1. Supine-Sit : Independent maintained 2. Sit-Supine : Independent maintained 3. Sit-Stand : Distant supervision 4. Stand-Sit : Distant supervision 5. Bed-Chair : Distant supervision with RW, no SOB 6. Chair-Bed : Distant supervision with RW, no SOB 7. Gait : 20 ft, RW, distant superivioin no SOB and good endurance Plan of Care/Treatment Plan: 1-2x/day, 7 days/week x 1 week. Plan of care has been reviewed with the RANGE FEEDER providing the service under Physical Therapy direction. Initiate Physical Therapy intervention for strengthening, bed mobility, transfers, gait, stairs, balance training, use of assistive device. DISCHARGE RECOMMENDATIONS: Home with supervision, HHPT for functional endurance progression. TREATMENT CODE/TIME: 87264, 10:45-11:15 Mago Walker, [facility]
--- NOTE | 2023-07-23 14:36 | W.PM.PROGNOT ---
Date of Service Date of service: 07/23/23 Time of Service: 14:37 Assessment and Plan Assessment and plan (1) Dysphagia: Status: Acute Assessment and plan: likely related to the aryepiglottic folds; will have him [facility] w[facility]. JUNIOR PROGRAMMER ANALYST consulted. See her note from today regarding details: Summary of her dietary recommendations as below: Diet Recommendations: SOLIDS: L6 Soft & Bite Size. For endurance purposes, please order 1-2 puree sides for energy conservation LIQUIDS: Thin Liquids MEDICATIONS: Pills whole if small or crushed if large, in applesauce RISK MANAGEMENT: HOB bolt upright: 90 degrees or up in chair for meals. Maintain upright position at least 30 minutes after meals, Avoid meals/snacks 2-3 hours prior to reclining/sleeping, Sleep with head of bed elevated to reduce likelihood of nocturnal reflux Encourage physical mobility as tolerated. Oral hygiene before/after PO intake using friction with toothbrush on all oral structures as tolerated, suction PRN Level of Assistance/Supervision: Distant Supervision following assistance with positioning and tray set up Maintain upright position at least 30 minutes after meals, Avoid meals/snacks 2-3 hours prior to reclining/sleeping, Sleep with head of bed elevated to reduce likelihood of nocturnal reflux I had the med/surg certified legal secretary specialist try to reach out to Dr. Caruso's office and we were told that he is out of the office on Fridays however they did give the patient and appointment for Wednesday as outpatient office visit. Qualifiers: Dysphagia type: pharyngeal phase Qualified Code(s): R13.13 - Dysphagia, pharyngeal phase (2) Chest discomfort: Status: Resolved Assessment and plan: He denies any CP today. Troponin I have plateaued at 242, 244, 246. no ischemic changes on EKG. Echocardiogram w/ normal LV and RV systolic function. Troponin may reflect GABRIELA. Will defer ischemic workup as outpatient. I relayed this information to his PCP this morning. (3) Elevated troponin: Status: Acute Assessment and plan: as above (4) COPD (chronic obstructive pulmonary disease): Status: Chronic Assessment and plan: not in acute exacerbation. continue DuoNeb but change from scheduled to prn, continue Spiriva and per RT he no longer uses fluticasone/salmeterol inhalber so we are stopping this. He is on his baseline oxygen requirement of 2 lpm. Qualifiers: COPD type: chronic bronchitis Chronic bronchitis type: simple Qualified Code(s): J41.0 - Simple chronic bronchitis (5) Malnutrition: Status: Acute Assessment and plan: BMI of 17.4 Nutritional consult reviewed and he has reviewed JUNIOR PROGRAMMER ANALYST recommendations. diet has been modified, see kraft mill operator note Qualifiers: Malnutrition type: protein-calorie malnutrition Protein-calorie malnutrition severity: moderate Qualified Code(s): E44.0 - Moderate protein-calorie malnutrition (6) Diarrhea: Status: Acute Assessment and plan: stool + for C difficile, I have begun him on oral vancomycin, and probiotics and metamucil Qualifiers: Diarrhea type: infectious Qualified Code(s): A09 - Infectious gastroenteritis and colitis, unspecified (7) Hematuria: Status: Acute Assessment and plan: This is microscopic and should be followed up as outpatient but likely d/t renal stone Qualifiers: Hematuria type: asymptomatic microscopic Qualified Code(s): R31.21 - Asymptomatic microscopic hematuria (8) Left nephrolithiasis: Status: Acute Assessment and plan: F/u as outpatient (9) Weakness: Status: Acute Assessment and plan: C/s PT (10) Failure to thrive in adult: Status: Acute Assessment and plan: BMI 17.4. C/s nutrition and palliative care (11) Weight loss: Status: Acute Assessment and plan: As above Malignancy is a probability given his abnormal neck CT See nutrition and JUNIOR PROGRAMMER ANALYST recommendations regarding diet and consistency (12) DVT prophylaxis: Status: Acute Assessment and plan: SC heparin (13) Discharge planning issues: Status: Acute Assessment and plan: Full code C/s speech therapy, nutrition, PT, palliative [facility] [place], although it sounds like he gets his primary care services at home w/ visits from the [facility]. Subjective Subjective Interval history since last seen: Patient states that his BM are forming up. He does complain of odynophagia and sore in his mouth. I explained to him that the CT of his soft tissues of his neck shows an abnormality in the throat and he will need to see ENT for this. Unfortunately Dr. Caruso is out on Fridays so he will not be able to see him while he is hospitalized. We will get him follow up in the near future for outpatient. I spoke w/ his PCP from the [facility] Valerie Payne NP, she expressed her concerns that his indicated that he may be coming home today. I explained to his PCP that the reason for admission was allegedly acute CHF exacerbation when in fact he was actually dehydrated and has been having diarrhea and was found to have C difficile but that I put him on oral Vancomycin yesterday and he is doing better already from the stooling, more solidified and he has no abdominal pains. She is concerned about his weight loss and his poor eating and dysphagia. I told her that we already got a consult from JUNIOR PROGRAMMER ANALYST and he had been seen prior to admission and had a MBSS. They have him on minced and moist solids and thin liquids. however he had CT of soft tissue of his neck that suggested a mass on the aryepiglottic area. She feels that he should not return home but be admitted to SNF. This is not what the patient wants. he wants to return home. WE will get home health services along w/ follow up JUNIOR PROGRAMMER ANALYST and P.T. and make outpatient referral to Dr. Lobito Caruso. Exam Narrative Exam Narrative: Elderly cachectic appearing male w/ barrle chest but w/ muscle wasting about the chest wall and neck and arms Lungs: prolonged expiratory phase w/ end expiratory wheezes; no rhonchi or rales Heart: RRR, no appreciable murmur or rub or gallop Abdomen: scaphoind, soft, nontender Extremities: 1+ pitting ankle edema w/ R >L Objective Last Vital Signs Temp 36.2 C L 07/23/23 11:43 Pulse 90 07/23/23 11:43 Resp 18 07/23/23 11:43 BP 103/60 07/23/23 11:43 Pulse Ox 94 07/23/23 11:43 Laboratory Results - last 24 hr 07/22/23 07/23/23 04:36 06:10 WBC 8.49 RBC 3.90 L Hgb 10.8 L Hct 35.2 L MCV 90 MCH 27.7 MCHC 30.7 L RDW 14.3 H Plt Count 215 MPV 9.9 Immature Gran % 0.5 Neutrophils % 86.5 Lymphocytes % 6.2 Monocytes % 5.3 Eosinophils % 1.1 Basophils % 0.4 Nucleated RBC % 0.0 Absolute Neutrophils 7.35 H Absolute Lymphocytes 0.53 L Absolute Monocytes 0.45 Absolute Eosinophils 0.09 Absolute Basophils 0.03 Sodium 142 Potassium 3.4 L Chloride 104 Carbon Dioxide 34.0 H Anion Gap 4.0 BUN 22 H Creatinine 1.0 Est GFR (CKD-EPI 2020) 78.49 Glucose 79 Calcium 8.7 Magnesium 1.9 Troponin I 170 H* Stool Campylobacter PCR Negative Stool Salmonella PCR Negative Stool Shigella PCR Negative Shiga Toxin (PCR) Negative Reviewed Pertinent PMH: Yes Objective Narrative Objective Narrative: Echocardiogram: 07/22/23 Conclusion A technically difficult study. 1. Chamber sizes appear normal. The verticle heart suggests underlying emphesema. 2. LV systolic function is normal without wall motion abnormality, EF estimated at 55-60%. Normal RV systolic function. 3. Anatomnically normal valves with mild aortic sclerosis without stenosis. Possibly mild TR, but inadequate to estimate right heart pressures. 4. No pericardial effusion. CT chest/abdomen/neck from 07/21/23 IMPRESSION: 1. In the neck there is some asymmetry in the right aryepiglottic fold noted. Suggest direct visualization-endoscopy to rule out neoplasm at this level. No other findings in the neck. 2. 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 Stable unchanged right lower lobe nodules. No pleural effusions. No CHF. No intrathoracic lymphadenopathy. 3. Right kidney is either severely atrophic or surgically absent. 4. Previously described prominent calculus on the left side is now within the lower pole calyx of the left kidney. Was previously in the renal pelvis. No hydronephrosis nor hydroureter. No obvious abnormality in the urinary bladder Venous duplex U.S. legs 07/22/23 IMPRESSION: 1. No ultrasound evidence of DVT in either lower extremity. Time Spent with Patient Time Spent with Patient: 35-49 minutes Time was spent: preparing to see the patient(eg.review tests), ordering medications,tests, procedures, referring, communicating with other health healthcare consulting manager, indepentently interpreting results, counseling the patient and care coordination
--- NOTE | 2023-07-23 17:39 | PDOC.STREC ---
Date of service: 07/23/23 Time of Service: 17:39 Speech Therapy Recommendations Report ST Recommendations: Attempted to contact patient during meal this date, but when I arrived he had eaten several bites of his lunch and was unwilling to take any more PO during my visit. He does report poor appetite in setting of poor taste sensation (dysgeusia). Will continue to follow patient while inpatient to monitor for diet tolerance Maintain diet/recommendations as outlined in initial evaluation dated 07/22/23. Coding
[2023-07-23] MEDS: Latanoprost 0.005% 2.5 ML BTL OP (21:04)
[2023-07-23] MEDS: Atorvastatin 40 MG TAB PO (21:04)
[2023-07-23] MEDS: Mirtazapine 15 MG TAB PO (21:04)
[2023-07-23] MEDS: Mometasone 220 MCG 14 DOSE INHALER 2 PUFF IH (21:20)
[2023-07-24] VITALS (8 sets, daily range): BP systolic 102–147; BP diastolic 73–86; PULSE 81–86; RESP 5–16; TEMP 35.6–36.9; O2SAT 90–96
[2023-07-24] MEDS: Albuterol/Ipratropium 3 ML UPD VIAL UPD ×2 (00:06→03:34)
[2023-07-24] MEDS: Albuterol 2.5 MG/3 ML INH SOLN VIAL UPD ×2 (01:56→05:00)
[2023-07-24] MEDS: THIAMINE 500 MG in Normal Saline 100 ML 200 MG IVPB ×2 (01:59→11:06)
[2023-07-24 07:34] LABS: Anion Gap 2.6 mmol/L (3-11); BUN 18 mg/dL (7-18); CO2 36.4 mmol/L (21.0-32.0); Calcium 9.2 mg/dL (8.5-10.1); Chloride 103 mmol/L (98-107); Estimated GFR 78.49 (mL/min/1.73m2); Glucose 87 mg/dL (74-106); Potassium 4.3 mmol/L (3.5-5.1); Sodium 142 mmol/L (136-145)
[2023-07-24] MEDS: Tiotropium/Olodaterol 10 PUFF INHALER 2 PUFF IH (07:55)
[2023-07-24] MEDS: Protein Nutritional Supplement 16 GM 1 OUNCE PACKET PO ×2 (08:46→15:11)
[2023-07-24] MEDS: Refresh PLUS Eye Drops 0.4ml OP ×2 (08:46→16:42)
[2023-07-24] MEDS: Psyllium PKT 1 EACH PO (08:46)
[2023-07-24] MEDS: Aspirin E.C. 81 MG TABEC PO (08:47)
[2023-07-24] MEDS: Ascorbic Acid 500 MG TAB PO (08:47)
[2023-07-24] MEDS: ARIPiprazole 5 MG TAB PO (08:48)
[2023-07-24] MEDS: Omeprazole 20 MG CAPCR 40 MG PO (08:48)
[2023-07-24] MEDS: Acetylcysteine 600 MG CAP PO (08:48)
[2023-07-24] MEDS: buPROPion-XL 150 MG TABCR 300 MG PO (08:49)
[2023-07-24] MEDS: Vancomycin 125 MG CAP PO ×3 (08:49→16:42)
[2023-07-24] MEDS: Heparin 5,000 UNITS/ML VIAL 5000 UNITS SC ×2 (08:53→16:42)
[2023-07-24] MEDS: Metoprolol CR 25 MG TABCR PO (08:53)
[2023-07-24] MEDS: Torsemide 20 MG TAB PO (08:53)
[2023-07-24] MEDS: Isosorbide Mononitrate 30 MG TABCR PO (08:53)
[2023-07-24] MEDS: Multivitamin w/Minerals TAB 1 TAB PO (08:54)
[2023-07-24] MEDS: Docusate Sodium 100 MG CAP PO (08:58)
[2023-07-24] MEDS: Cholecalciferol (Vitamin D3) 1,000 UNIT TAB 1000 UNITS PO (08:58)
[2023-07-24] MEDS: Spironolactone 25 MG TAB PO (08:58)
[2023-07-24] MEDS: Omega-3 Fatty Acids 1000 MG CAP PO (08:58)
[2023-07-24] MEDS: Normal Saline Flush 10 ML SYR IVP (09:01)
--- NOTE | 2023-07-24 09:43 | NUR.NOTE ---
Nursing Note: Pt is adamantly refusing telemetry at this time because it weighs him down. Patient was educated on the risks associated with not having telemetry at this time and patint understands but still does not want the political science instructor on him.
--- NOTE | 2023-07-24 09:56 | PT.INTREAT ---
PT Notes Visit Reasons: CHF, encephalopathy,dysphagia,weakness,malnutritio Inpatient Physical Therapy Treatment Note [facility] Date: 07/24/23 PRECAUTIONS:contact Paige SUBJECTIVE: Yousif reports that he is not feeling well this am. He c/o weakness in LE as well as SOB. He is requesting a breathing treatment. He is willing to go for a short walk in room as he doesn't want to risk a fall, as well as a few ex while sitting in chair. OBJECTIVE: []? Vitals: monitored by nsg. Therapeutic Activities ([id number])15 min: Direct one-on-one instruction in dynamic activities to improve functional performance. ? BED MOBILITY/TRANSFERS? pt sitting EOB.? Sit-stand: independent ? Stand-sit:independent? Bed-Chair: SBA ? Provided skilled cues and instruction on performance and technique throughout. GAIT? Assistive Device: FWW? Weight bearing: full Assist: SBA ? Distance:?approx 25' in room.? Deviation:fwd flexed posture. ? Therapeutic Exercises (16641fx/c) 5 min: Direct one-on-one instruction in therapeutic exercises to develop strength, endurance, range of motion and flexibility. ? Exercises ?seated LAQ, hip flex (september) and ab/add 2x5 each. ASSESSMENT:? pt willing to participate however fatigued quickly. had enough. No LOB noted with ambulation PLAN: will continue to work on his strength and endurance while improving his functional mobility to his tolerance. TREATMENT CODE/TIME: 20 min [id number].
--- NOTE | 2023-07-24 17:14 | DSE_ITS ---
Date of service: 07/24/23 Time of Service: 17:14 DS: Diagnosis Discharge Diagnosis (1) Dehydration: Status: Acute Asessment and Plan: secondary to poor oral intake and acute diarrhea from C difficile, treated w/ iv fluids, holding his torsemide and treating his C difficile infection (2) C. difficile diarrhea: Status: Acute Asessment and Plan: treated w/ oral Vancomycin and probiotics. Treat for 14 days, avoid excess use of antibiotics. Apparently his collar turner operator has given him a standing Rx for amoxacillin to treat COPD exacerbations at the patient's discretion. I am discouraging him to using antibiotic unnecessarily. If he has a COPD exacerbation he should be seen by a medical provider who can evaluate his symptoms and decide to prescribe antibiotics appropriately. (3) Dysphagia: Status: Acute Asessment and Plan: Patient has had long standing problem w/ poor oral intake and weight loss. CT of soft tissues of his neck suggested an abnormality of the aryepiglottic tissues. An appointment has been made for him to see Dr. Lobito Caruso on Wednesday07/26/23. Patient should have outpatient follow up IT CORPORATE RECRUITER through the [facility] (4) Chest discomfort: Status: Resolved Asessment and Plan: atypical chest pains, now resolved. He did have an increase in his troponin le libia up to 246 but declined to 170. However his EKG's did not show any acute ischemia or injury pattern and his echocardiogram did not show any wall motion abnormalities. LV and RV function were normal. I will leave further ischemic workup to his PCP at the [facility] in [place], [place]. (5) Elevated troponin: Status: Acute Asessment and Plan: as above (6) COPD (chronic obstructive pulmonary disease): Status: Chronic Asessment and Plan: not in acute exacerbation. continue same home inhalers. He is at his baseline oxygen needs of 2 lpm w/ SPO2 of 96% (7) Malnutrition: Status: Acute Asessment and Plan: nutrition consult was obrtained during his hospitalization and they worked w/ IT CORPORATE RECRUITER on a diet, see below: Nutrition diagnosis: Moderate malnutrition based on >7.5% loss of body weight x3 months with meeting <75% of energy needs krunal the last week due to dysphagia. Nutrition interventions: -Will add boost breeze clear liquid ONS TID to trays for additional 27g protein and 750kcals per day if consumed (will check acceptance/toleration tomorrow) - with latest development of +c. diff infection, will add Banatrol prebiotic supplement to trays BID Recommendations: - suggest liquid protein concentrate TID available through pharmacy with provider order With his significant wt loss and malnourished state, initiating enteral feedings would be highly appropriate. Per palliative medicine note, appears this is in discussion and Yousif and to talk more about this after the weekend. Addeendum after Bernardo Jain spoke w/ IT CORPORATE RECRUITER about consistency of his diet: Reviewed IT CORPORATE RECRUITER recommendations: will inform kitchen staff of pt remaining on soft and bite size with thin liquids and will also offer 1-2 puree sides per meal for energy conservation. Also will liberalize diet order and remove from heart healthy to regular to accommodate wider selection of foods (Sodium level wnl at this time). Note Bernardo also gave recommendations on tube feedings if this were to be pursued however patient was not interested in having g tube placed. (8) Hematuria: Status: Acute Asessment and Plan: probably from his nephrolithiasis, PCP to follow up as outpatient (9) Left nephrolithiasis: Status: Acute (10) Weakness: Status: Acute Asessment and Plan: will order home health along w/ home P.T. and O.T. as well as IT CORPORATE RECRUITER, his weakness is certainly a direct result of his malnutrition (11) Failure to thrive in adult: Status: Acute (12) Weight loss: Status: Acute (13) Discharge planning issues: Status: Resolved Asessment and Plan: patient was offered for CM to make referrals to area SNF however patient declined this offer and prefers to remain at home. Home health nursing along w/ home P.T., O.T. and IT CORPORATE RECRUITER has been ordered. His PCP is Valerie Crook N.P. and apparently she makes home visits and will follow up with him upon discharge. I did speak w/ Adrianmarta and updated her on his conditions and treatment and ENT referral and plans for home care. She also was hoping we could get him into a SNF, however, I explained to her that is not what he wants. Discharge Plan Disposition Patient Disposition: Home W/Home Health Services Condition: Improving Discharge Details Reason For Visit: CHF, encephalopathy,dysphagia,weakness,malnutritio Admit Date/Time: 07/21/23 22:07 Admit Provider: Winter Frias Attending Provider: Winter Frias Primary Care Provider: Valerie Payne Home Meds and New Rx's Prescriptions: New vancomycin 125 mg capsule 125 mg PO QID 14 Days Qty: 56 0RF Lactobacillus acidophilus 20 billion cell capsule 100 mmu cells PO DAILY Qty: 30 0RF potassium chloride 20 mEq/15 mL liquid 20 meq PO DAILY Qty: 450 0RF magnesium 250 mg tablet 250 mg PO DAILY Qty: 30 0RF Continued aspirin [Ecotrin Low Strength] 81 MG tablet,delayed release (DR/EC) 81 mg PO DAILY ascorbic acid (vitamin C) [Vitamin C] 500 MG tablet 500 mg PO DAILY docusate sodium [Colace] 100 MG capsule 200 mg PO DAILY PRN multivitamin with iron [One Daily Plus Iron] 1 EACH tablet 1 ea PO DAILY cholecalciferol (vitamin D3) 1,000 UNIT tablet 1,000 unit PO DAILY Fish Oil 1 EACH capsule 1 ea PO BID MISTERNEB NEBULIZER 1 EACH kit 1 ea Miscellaneous PRN PRNQty: 1 1RF Rx Instructions: NEBULIZER MACHINE FOR DUONEB ipratropium-albuterol [DuoNeb] 3 ML solution for nebulization 1 amp Inhalation QID PRN Qty: 200 Rx Instructions: DX: 496.00 instead of Albuterol neb, spiriva has been d/c'd omeprazole 40 MG capsule,delayed release(DR/EC) 40 mg PO DAILY Qty: 90 albuterol sulfate [Proventil HFA] 6.7 GM HFA aerosol inhaler 2 puff Inhalation Q4H PRN Qty: 3 Rx Instructions: USE IF NEEDED FOR SHORTNESS OF BREATH Spiriva Respimat 4 GM mist 2 puff Inhalation DAILY Patient Comments: GREEN bupropion HCl [Wellbutrin XL] 300 mg tablet extended release 24 hr 300 mg PO DAILY Qty: 90 3RF Rx Instructions: 1 TAB DAILY acetylcysteine 100 mg/mL (10 %) solution 2 ml inhalation TID Qty: 540 3RF aripiprazole [Abilify] 5 mg tablet 5 mg PO DAILY Qty: 90 3RF amlodipine 5 mg tablet 2.5 mg PO DAILY Qty: 90 3RF acetylcysteine 600 mg tablet 600 mg PO BID Qty: 180 3RF atorvastatin 40 mg tablet 40 mg PO QHS Qty: 90 3RF isosorbide mononitrate 30 mg tablet extended release 24 hr 30 mg PO DAILY Qty: 90 3RF metoprolol succinate 25 mg tablet extended release 24 hr 25 mg PO DAILY Qty: 90 3RF torsemide 20 mg tablet 20 mg PO DAILY PRN (Reason: edema) Qty: 90 3RF mirtazapine 15 mg tablet 15 mg PO QHS prednisone 10 mg tablet 10 mg PO DIRECTED Patient Comments: for COPD exacerbation Rx Instructions: see taper instructions fluticasone propion-salmeterol [Wixela Inhub] 250-50 mcg/dose Blister With Device 1 inh INHALATION BID carboxymethylcellulose sodium [Refresh Plus] 0.5 % Dropperette 1 drp ophthalmic (eye) QID latanoprost 0.005 % Drops 1 drp ophthalmic (eye) QHS brimonidine 0.2 % Drops 1 drp ophthalmic (eye) BID calcium carbonate [Calcium 500] 500 mg calcium (1,250 mg) tablet,chewable 1,000 mg PO DAILY PRN Discontinued amoxicillin-pot clavulanate 500-125 mg tablet 1 tab PO TID Patient Comments: for COPD exacerbation Discharge Instructions Instructions: C. Diff (Clostridioides Difficile) Infection (DC), Level 2 National Dysphagia Diet (DC), Aspiration Precautions (DC), Barium Swallow (DC) Additional Instructions: Diet Recommendations: SOLIDS: L6 Soft & Bite Size. For endurance purposes, please order 1-2 puree sides for energy conservation LIQUIDS: Thin Liquids MEDICATIONS: Pills whole if small or crushed if large, in applesauce RISK MANAGEMENT: HOB bolt upright: 90 degrees or up in chair for meals. Maintain upright position at least 30 minutes after meals, Avoid meals/snacks 2-3 hours prior to reclining/sleeping, Sleep with head of bed elevated to reduce likelihood of nocturnal reflux Encourage physical mobility as tolerated. Oral hygiene before/after PO intake using friction with toothbrush on all oral structures as tolerated, suction PRN Level of Assistance/Supervision: Distant Supervision following assistance with positioning and tray set up Maintain upright position at least 30 minutes after meals, Avoid meals/snacks 2- 3 hours prior to reclining/sleeping, Sleep with head of bed elevated to reduce likelihood of nocturnal reflux Stand Alone Forms: Nursing Discharge Form Referrals: [facility] [Provider Group] - 07/26/23 1:00 pm Valerie Payne [Primary Care Provider] - (to be seen in the next week) Activity:: Activity as Tolerated Equipment/Supplies:: No Equipment Needed Diet:: see speech consult Discharge Orders Discharge Orders: Discharge Order (Routine); Ordered 07/24/23 Ordered By: Oziel Ortiz Other Ambulatory Orders: Basic Metabolic Panel (Routine) Timeframe: 1 Week Facility: [facility] - Location: Laboratory Outpatient - [facility] Ordered By: Oziel Ortiz Magnesium (Routine) Timeframe: 1 Week Facility: [facility] - Location: Laboratory Outpatient - [facility] Ordered By: Oziel Ortiz Discharge Data Discharge Date/Time-TO BE ENTERED AT DEPARTURE: 07/24/23 18:03 DS: Summary Time Spent with Patient providing and/or coordinating discharge services: Greater than 30 minutes Specific discharge activities: Interview/exam of patient; review of discharge instructions, completion of prescriptions/discharge instructions; discussion w/ nursing and CM; documentation of hospital visit Status at Discharge Functional status at discharge: uses cane/walker Overall status at discharge: patient is progressing back to baseline Mental Status: mental status grossly normal Speech and Movement: speech and movement normal Mood: congruent mood Affect: normal affect Quality:SDOH Health Related Social Needs: No Data to Display Exam Narrative Exam Narrative: Jasen is sitting up in his chair he is alert and oriented to person place and circumstance no acute distress denies any discomfort Lungs with prolonged expiratory phase with an end expiratory wheeze bilaterally no rhonchi or rales Heart is regular rate rhythm with difficult to hear heart tones due to his emphysematous chest no murmur Abdomen soft nondistended nontender Lower extremities chronic bilateral pedal and ankle and lower tibia edema 2+ Psych Mental Status: mental status grossly normal Speech and Movement: speech and movement normal Mood: congruent mood Affect: normal affect DS: Data Vitals/I&O Vitals and I&O: Vital Signs Temperature 36.5 C 07/24/23 15:35 Temperature Source Tympanic 07/24/23 15:35 Pulse 81 07/24/23 15:35 Pulse Rhythm Regular 07/24/23 11:07 Respiratory Rate 16 07/24/23 15:35 Respiratory Effort Short of Breath, Labored, Drooling, Tripod 07/24/23 11:07 Respiratory Depth Shallow 07/24/23 11:07 Respiratory Pattern Normal 07/24/23 11:07 Blood Pressure 120/76 07/24/23 15:35 Blood Pressure Mean 88 07/21/23 16:01 Blood Pressure Position Supine 07/21/23 13:38 Pulse Oximetry 96 07/24/23 15:35 Oxygen Delivery Method Nasal Cannula 07/24/23 15:35 Oxygen Flow Rate 2 07/24/23 15:35 Pain Level 0 07/24/23 15:35 Comment pt states uses 2-3 L NC as needed at home 07/21/23 23:20 Intake & Output 07/23/23 07/24/23 07/24/23 23:59 11:59 23:59 Intake Total 1315 / 1520 105 / 210 105 / 210 Output Total 200 / 1000 100 / 100 Balance 1115 / 520 5 / 110 105 / 110 Intake: IV 1315 / 1420 105 / 210 105 / 210 Output: Urine 200 / 1000 100 / 100 Other: Urine Color Yellow Yellow Yellow Urine Appearance Clear Clear Clear Urine Odor None Normal Comment unclear amount or color, mixed with stool. Stool Size Small Stool Characteristics Soft Liquid Brown Voiding Methods Bedside Commode Bedside Commode Bedside Commode Data Completed and Pending Labs on day of discharge: Labs from last 24 hours 07/24/23 06:33 Sodium 142 Potassium 4.3 Chloride 103 Carbon Dioxide 36.4 H Anion Gap 2.6 L BUN 18 Creatinine 1.0 Est GFR (CKD-EPI 2020) 78.49 Glucose 87 Calcium 9.2 PFSH All Active Problems (Updated 07/26/23 @ 09:17 by Oziel Ortiz MD) Dehydration (Acute) Medication monitoring encounter (Acute) C. difficile diarrhea (Acute) Advanced care planning/counseling discussion (Acute) Palliative care encounter (Acute) Diarrhea (Acute) Weakness (Acute) Left nephrolithiasis (Acute) Hematuria (Acute) Hypomagnesemia (Acute) Hypokalemia (Acute) Encephalopathy acute (Acute) Malnutrition (Acute) Elevated troponin (Acute) Failure to thrive in adult (Acute) Aspiration of liquid (Acute) Benign hypertension (Acute) Edema (Acute) Mixed anxiety and depressive disorder (Acute) Early satiety (Acute) Dysphagia (Acute) COPD exacerbation (Acute) Pneumonia (Acute) Weight loss (Acute) COPD (chronic obstructive pulmonary disease) (Chronic) Bilateral lower extremity edema (Acute) COPD exacerbation (Acute) Dyspnea on exertion (Acute) Leg swelling (Acute) COPD with acute exacerbation (Acute) Acute bronchitis (Acute) CKD (chronic kidney disease), stage III (Chronic) Pneumothorax, right (Acute) Acute respiratory failure with hypoxia and hypercapnia (Acute) Pneumothorax (Acute) Acute exacerbation of chronic obstructive pulmonary disease (Acute) Renal insufficiency (Chronic) Anemia (Acute 03/16/13) History of abscess of lung (Acute) History of laparoscopy (Acute 02/06/16) History of tobacco use (Acute) History of unilateral nephrectomy (Acute 02/06/16) Male circumcision (Acute) Status post Linda fundoplication (Acute) Status post cholecystectomy (Acute) Status post hemorrhoidectomy (Acute) Tubular adenoma (Acute) tubular adenoma (3 tubular adenoma 04/23, 4 tubular adenoma 04/24, [facility]) 06/29/17; DR. SNIDER (1) Thyroid nodule (Acute 11/17/17) [facility]: nil 09/2017 Right renal mass (Acute 05/01/15) Dr Dailey then [facility] for CT scan and further eval; s/p nephrectomy (was malignant) s/p rt nephrectomy February 06, 2016 Polyp of colon (Acute) tubular adenoma (3 tubular adenoma 04/23, 4 tubular adenoma 04/24, [facility]) Knee pain (Acute) DJD Kidney stone (Acute 11/22/12) Dr Dailey ([place]) calcium oxalate Hyperlipidemia (Acute 03/16/13) Essential hypertension (Chronic 06/28/13) Esophagitis (Acute 06/29/17) Erosive gastritis (Acute 06/29/17) Depressive disorder (Acute) Chronic obstructive lung disease (Chronic 11/15/08) 2014 FEV1 0.77 (25% pred) 2013 FEV1 0.97 (31% predicted) h/o tobacco use (QUIT 2003) Basal cell carcinoma of face (Acute 02/14/13) Medical History Lesion of lung H/O renal cell carcinoma HTN (hypertension) GERD (gastroesophageal reflux disease) Tubular adenoma Surgical History History of lung biopsy H/O right nephrectomy Linda Fundoplication (03/07/12) Hemorrhoidal Banding EGD - MAC (06/29/17) EGD - MAC (04/23/14) Colonoscopy - MAC (06/29/17) 04/2014 Circumcision Cholecystectomy Family History Mother Essential hypertension Cancer of kidney Father No problems noted. Sister Lung cancer Sister Lung cancer Brother Lung cancer Brother Lung cancer Brother Lung cancer Grandfather No problems noted. Grandfather No problems noted. Grandmother No problems noted. Grandmother No problems noted. Sister No problems noted. Brother Heart disease Brother No problems noted. Son No problems noted. Daughter No problems noted. Daughter No problems noted. Social History Smoking/Tobacco Use Status: Former Tobacco Use tobacco type: cigarettes Quit Date: 12/11/03 Tobacco: How many years used: 39 Second Hand Exposure: Yes Smoking risk assessment performed?: Yes Alcohol Intake: never Drug use: Never Substance use type: does not use Caregiver/Support person: No Household members: spouse Housing: house Communication Needs: Corrective Lenses Do you need help understanding health information?: Rarely Pets and animals: Yes Pets and animals: dog(s) Sexually active: No Do you think of yourself as: straight/heterosexual Current gender identity: male What is your relationship status?: How often do you talk on the phone with friends or family?: three or more times per week How often do you attend yarsanism or yazidism services?: decline to answer Do you belong to any clubs or organized social groups?: no Panel score (0-1 are the most socially isolated patients): 2 What type of physical activity do you participate in: none Angela/Yazdanism: Moravian Special angela needs: No Seatbelt use: always Drive intox or ride w/intox van driver: No Do you feel safe at home: Yes Do you feel safe in your relationship?: Yes Time Spent with Patient Time Spent with Patient: <45 minutes Time was spent: preparing to see the patient(eg.review tests), ordering medications,tests, procedures, referring, communicating with other health health care facility administrator, indepentently interpreting results, counseling the patient and care coordination
--- NOTE | 2023-07-24 17:17 | PDOC.HHF2F_ITS ---
Home Health Referral Home Health Orders Clinical synopsis of why skilled professionals are needed: Patient is admitted with C. difficile diarrhea was treated with IV fluids his hypokalemia was corrected with oral and parenteral replacement. CT of his chest abdomen pelvis and soft tissues of his neck revealed that he has asymmetry of his right area epiglottic fold for which a follow-up direct laryngoscopy is recommended. CT also shows he has emphysematous lung changes with no infiltrates and no signs of congestive failure. Patient needs resumption of home health services including nursing with additional services to include physical therapy and Occupational Therapy to improve his strength and ambulation and to improve his ability to participate in his ADL performance. He also needs home speech and language pathology consultation and ongoing treatment of his dysphagia as the patient has had significant weight loss and poor oral intake due to his dysphagia. Please see SALES PROGRAM MANAGER consult note from inpatient as well as recent barium swallow from 07/19/2023. Registered Nurse: Check all that apply Instruct on new or changed medication(s)/assess compliance: Ordered Assess for exacerbation of medical condition, instruct patient/caregivers on signs and symptoms to report for early detection: Ordered Physical Therapist: Check all that apply Increase strength & endurance for safe mobility at home: Ordered To design/establish home maintenance program: Ordered Fall reduction therapy program for patient with history of frequent falls: Ordered Home safety evaluation and teaching/gait training including stair management (if applicable): Ordered Better Breathing Program: Ordered Occupational Therapist: Evaluate and treat for patient unable to perform ADL/IADL/self-care: Ordered Speech Therapist: Check all that apply For swallow evaluation/therapy due to dysphagia: Ordered Associate Professor Of Criminal Justice: Assist with community resources: Ordered Home Bound Status Requires the aid of supportive device (check all that apply): Walker Describe why leaving home would require a considerable and taxing effort: Requires frequent rest periods and Oxygen Encounter Date and Reason: I certify that a FTF encounter for this patient was performed on July 24, 2023 and that such encounter was related to the primary reason the patient requires home health services. The encounter was conducted in the following manner: * By me as the certifying physician, IMAGING ASSISTANT, PA or * By an inpatient physician, IMAGING ASSISTANT or PA during an inpatient stay who communicated findings to me, Certification And Authentication I certify that I composed the above information based on my clinical judgment relating to this patient's medical condition and, if applicable, clinical findings communicated to me by the NPP or inpatient physician who performed the FTF encounter. Name of Provider that will be monitoring home health services: WAYNE CONCEPCION, FREDDY
== END 2023-07-24 18:03 | disposition home health service (06) | DRG 372 ==
LOC: ER 22:21 → MS 22:46
PROVIDERS: Internal Medicine; Physician Assistant; Admitting Provider Internal Medicine; Emergency Provider Registered Nurse Emergency; PCP Nurse Practitioner Adult Health; Visit Provider Internal Medicine
DX: A04.72 Enterocolitis due to Clostridium difficile, not specified as recurrent (principal); E44.0 Moderate protein-calorie malnutrition; G93.40 Encephalopathy, unspecified; Z68.1 Body mass index [BMI] 19.9 or less, adult; J96.11 Chronic respiratory failure with hypoxia; N17.9 Acute kidney failure, unspecified; I13.0 Hypertensive heart and chronic kidney disease with heart failure and stage 1 through stage 4 chronic kidney disease, or unspecified chronic kidney disease; I50.9 Heart failure, unspecified; R07.89 Other chest pain; E87.6 Hypokalemia; E83.42 Hypomagnesemia; N20.0 Calculus of kidney; R31.9 Hematuria, unspecified; R53.1 Weakness; R63.4 Abnormal weight loss; J43.1 Panlobular emphysema; F32.9 Major depressive disorder, single episode, unspecified; R13.13 Dysphagia, pharyngeal phase; Z85.528 Personal history of other malignant neoplasm of kidney; R74.8 Abnormal levels of other serum enzymes; Z99.81 Dependence on supplemental oxygen; R31.29 Other microscopic hematuria; R62.7 Adult failure to thrive; N18.30 Chronic kidney disease, stage 3 unspecified; Z90.5 Acquired absence of kidney; R91.8 Other nonspecific abnormal finding of lung field; F41.8 Other specified anxiety disorders; R68.81 Early satiety; Z87.891 Personal history of nicotine dependence; J44.89 Other specified chronic obstructive pulmonary disease; E86.0 Dehydration
CPT/HCPCS: 00123; 36415; 36416; 70491; 74177; 80048; 80053; 80076; 82306; 82550; 82805; 82962; 83690; 84145; 85652; 87493; 87505; 87637; 92610; 93005; 94640; 96360; 96361; 97162; 97530; 99285; 70450; 71260; 81003; 81015; 82140; 82607; 82728; 82746; 83540; 83550; 83605; 83735; 83880; 84443; 84484; 85025; 85610; 85730; 86140; 87081; 93010; 93306; 93970; 94664; 94667; 94668; 94760; 99223; 99233; 99239; J1644; J3411; J3475; J3480; J3490; J7613; J7620; Q9967